=== PATIENT | female | born 1945 | race Caucasian/White ===

== ENCOUNTER → 2016-07-20 | Outpatient (CLI) | payer MEDICARE ==
[~2016-07-20] MED LIST: /ADVA50050 IN; /CELE20CA OR; /CLOT10TR PO; /MAGN64TA PO; /MOXI40TA OR; /PANT40TA OR; /PANT40TA PO; /ROPI25TA OR; ACET65TA OR; ACID1CAP PO; ADVAIR INH; ALBU17IN INH; ALBU83IN IN; ALBU83IN INH; ALBUTEROL INH; ALLE180T33 PO; ANALCRE5 TOP; ANEXSIA PO; ASPI81CH3 PO; ASPI81TA31 OR; ASPI81TA85 PO; ATRO1SOL13 NEB; ATROVENT0.02% INH; BACITAB3 PO; BENA25CA2 PO; BREO1INH IN; BREO1INH INH; BREO1INH3 INH; CALC600T7 PO; CALCCHW12 OR; CALCTAB68 PO; CALCTAB75 PO; CARA1TAB2 PO; CARV12.5 PO; CARV6.25 PO; CEFT250T8 PO; CEFT500T OR; CEPH500T PO; CETI10TA OR; CLOT1CRE71 TOP; COLA100C3 PO; CYCL10TA PO; CYMB1CAP4 PO; DIAZ2.5G PO; DIAZ5TAB PO; DICL13PA TD; DIFL200T PO; DIPH25CA PO; DOCU10CA PO; DOXY100T OR; DRIS50002 PO; DULC10SU2 PR; DUONSOL IN; DUONSOL NEB; ESTR625TA OR; FERR325T3 PO; FEXO180T58 PO; FLEEENE PR; FLEXERIL OR; FLEXERIL PO; FLUC10TA OR; FURO20TA2 PO; FURO40TA2 PO; GABA300T OR; HEPARIN SQ; HYDR-3716 PO; HYDR-3719 PO; HYDR-4266 PO; HYDR-4267 PO; IMIT50TA PO; IPRA2IN INH; IPRASOL4 INH; K-TA10TA2 PO; KEFL250C6 PO; KENALOG TOP; KLOR1TAB65 PO; KLOR1TAB69 PO; LASI20TA PO; LEVA250T PO; LIDO5DIS36 TD; LISI10TA4 OR; LOMO2.5T PO; LORT5TAB PO; LYRI75CA PO; MAGN400C PO; MAGN400T5 PO; MAGN64TASA PO; MAGNESIUM OXIDE OR; MELO15TA4 PO; MIAC1SPR; MICR10CA PO; MILKSUS PO; MIRA3350 PO; MOM30SS PO; MORP-38 PO; MORP15TA2 PO; MULTCAP PO; MULTIVIT OR; NEOSOIN TOP; NIFE30TA OR; NORC7.5T PO; NORV5TAB PO; NYST100024 TOP; NYST50SS SS; NYSTATIN ORAL SS; ORAGEL TOP; PANT40TA2 PO; POTA20TA PO; PRED10TA PO; PRED20TA PO; PREG25CA PO; PROC30TA PO; PROT1TAB2 PO; Proventil INH; ROPI4TAB PO; ROPI8TAB PO; ROXI1TAB2 PO; SLOWTAB3 PO; TESS100C PO; TESS200C OR; TUMS500C PO; TYLE325T5 PO; ULTR50TA PO; VALI2TAB PO; VALI5TAB PO; VANC1CAP7 PO; VENTAER IN; VITA100072 PO; VITA200015 PO; VITA500C24 PO; VITMTA PO; ZOFR8TAB4 PO; [UNRECOGNIZED DRUG - CODE] PO; [UNRECOGNIZED DRUG - OTHER] INH; [UNRECOGNIZED DRUG - OTHER] INH; allergy medicine OR; anexsia PO; lomotil OR; magnesium oxide OR; mycostatin PO; nefedipine OR; neosporin TOP
[2016-07-20 16:07] LABS: MEAN CORPUSCULAR HEMOGLOBIN 31.5 pg (27.0-33.0); MEAN CORPUSCULAR HGB CONC 32.6 g/dl (32.0-36.5); MEAN CORPUSCULAR VOLUME 96.7 fl (80.0-96.0); RED CELL DISTRIBUTION WIDTH 16.3 % (11.5-14.5); WHITE BLOOD COUNT 12.2 K/mm3 (4.0-10.0)
[2016-07-20 16:44] LABS: ALBUMIN 3.6 GM/DL (3.2-5.2); ALBUMIN/GLOBULIN RATIO 1.29 (1.00-1.93); BILIRUBIN,TOTAL 0.4 MG/DL (0.2-1.0); CALCIUM LEVEL 8.7 MG/DL (8.8-10.2); CREATININE FOR GFR 1.28 MG/DL (0.55-1.02); GLOMERULAR FILTRATION RATE 43.6 (>39); POTASSIUM SERUM 3.7 MEQ/L (3.5-5.1); TOTAL PROTEIN 6.4 GM/DL (6.4-8.2)
== END ==
LOC: M LAB 15:03
PROVIDERS: ATTEND Family Medicine
DX: N18.3 Chronic kidney disease, stage 3 (moderate) (principal); D63.8 Anemia in other chronic diseases classified elsewhere; M1A.9XX1 Chronic gout, unspecified, with tophus (tophi)

== ENCOUNTER → 2016-07-23 | Outpatient (REF) | payer MEDICARE | LOC: M LAB REF 18:31 | PROVIDERS: ATTEND Family Medicine | DX: R35.0 Frequency of micturition (principal) | CPT/HCPCS: 87088; 87186; G0463 ==

== ENCOUNTER 2016-08-26 10:10 | Emergency (ER) | payer MEDICARE ==
[~2016-08-26] VITALS: Ht 149.9 cm; Wt 50.3 kg
[~2016-08-26 10:10] MED LIST changes: +BACITAB PO; -BACITAB3 PO; -CARA1TAB2 PO; +CARA1TAB6 PO; -COLA100C3 PO; +COLA100C5 PO; +HYDR-3910 PO; +HYDR-3911 PO; -HYDR-4266 PO; -HYDR-4267 PO; +KEFL250C11 PO; -KEFL250C6 PO; +LEVA1TAB PO; -LEVA250T PO; -LIDO5DIS36 TD; +LIDO5DIS41 TD; -MIAC1SPR; +MIAC200S2; -NORC7.5T PO; +NORC7.5T35 PO; -NYST100024 TOP; +NYST1POW9 TOP; -ULTR50TA PO; +ULTR50TA8 PO
[2016-08-26] MEDS ORDERED: LEVO10VL IM (10:27)
[2016-08-26] MEDS ORDERED: LEVO50TA5 PO (10:27)
[2016-08-26] MEDS ORDERED: methylPREDNISolone INJ 125 MG/2 ML VIAL (J2930) IV ONE (10:30)
[2016-08-26] MEDS ORDERED: ALBUTEROL SULFATE 2.5 MG/0.5 ML INH NEB SOLN INH ONE (10:30)
[2016-08-26] MEDS ORDERED: IPRATROPIUM 0.5MG/ALBUTEROL 2.5MG INH SOL UD 3ML (DUONEB)(J7620) NEB ONE (10:30)
[2016-08-26 10:55] LABS: ABG HCO3 32.3 MEQ/L (22.0-26.0); ABG PARTIAL PRESSURE CO2 48.2 mmHg (35.0-45.0); ABG PARTIAL PRESSURE O2 79.5 mmHg (75.0-100.0); ABG STANDARD HCO3 30.8 MEQ/L (22.0-26.0); ABG TOTAL CO2 33.8 MEQ/L (23.0-31.0); ABG pH (ARTERIAL) 7.444 UNITS (7.350-7.450)
--- NOTE | 2016-08-26 12:13 | REP ---
AP PORTABLE CHEST: 08/26/2016. Clinical history: Dyspnea, cough. Findings: Lung hoffman show adequate level of inflation. There is no effusion, dense consolidation, lateral pleural thickening or parenchymal mass. Some underlying minor fibrotic changes are seen. The pulmonary arteries are mildly prominent but there is no pulmonary venous hypertension. The heart is not enlarged. The aorta is calcified at the arch without aneurysm. There is bilateral shoulder arthroplasty evident and anterior and posterior cervical fusion noted with the pedicle screws and arch bars posteriorly and a plate and screw fixation anteriorly. Impression: 1. Some underlying fibrotic changes of COPD with pulmonary hypertension. No cardiomegaly, edema, effusion or acute infiltrate. 2. Prior cervical fusion and bilateral total shoulder arthroplasty. Signed by Chilango Sánchez MD 08/26/2016 03:56 P
[2016-08-26 12:43] LABS: BASO # 0.1 K/mm3 (0.0-0.2); BASO % 0.6 % (0.0-1.0); EOS # 0.2 K/mm3 (0.0-0.50); EOS % 1.8 % (0.0-3.0); LARGE UNSTAINED CELL # 0.1 K/mm3 (0.0-0.4); LARGE UNSTAINED CELL % 0.6 % (0.0-4.0); LYMPH # 1.5 K/mm3 (1.5-4.5); LYMPH % 10.8 % (24.0-44.0); MEAN CORPUSCULAR HEMOGLOBIN 30.3 pg (27.0-33.0); MEAN CORPUSCULAR HGB CONC 32.3 g/dl (32.0-36.5); MEAN CORPUSCULAR VOLUME 93.8 fl (80.0-96.0); MONO # 0.5 K/mm3 (0.0-0.8); NEUTROPHILS # 10.6 K/mm3 (1.8-7.7); NEUTROPHILS % 82.2 % (36.0-66.0); PLATELET COUNT, AUTOMATED 293 k/mm3 (150-450); RED CELL DISTRIBUTION WIDTH 15.2 % (11.5-14.5); WHITE BLOOD COUNT 12.9 K/mm3 (4.0-10.0)
[2016-08-26 12:53] LABS: ALBUMIN 3.4 GM/DL (3.2-5.2); ALBUMIN/GLOBULIN RATIO 1.21 (1.00-1.93); ALKALINE PHOSPHATASE 110 U/L (45-117); ALT/SGPT 25 U/L (12-78); ANION GAP 8 MEQ/L (8-16); AST/SGOT 20 U/L (15-37); BILIRUBIN,DIRECT 0.2 MG/DL (0.0-0.2); BILIRUBIN,TOTAL 0.8 MG/DL (0.2-1.0); BLOOD UREA NITROGEN 27 MG/DL (7-18); CALCIUM LEVEL 9.6 MG/DL (8.8-10.2); CARBON DIOXIDE LEVEL 35 MEQ/L (21-32); CHLORIDE LEVEL 99 MEQ/L (98-107); CREATININE FOR GFR 0.92 MG/DL (0.55-1.02); GLOMERULAR FILTRATION RATE > 60.0 (>39); GLUCOSE, FASTING 89 MG/DL (83-110); POTASSIUM SERUM 3.3 MEQ/L (3.5-5.1); SODIUM LEVEL 142 MEQ/L (136-145); TOTAL PROTEIN 6.2 GM/DL (6.4-8.2)
[2016-08-26 12:58] LABS: THYROXINE (T4) 10.9 UG/DL (4.5-12.0)
[2016-08-26] MEDS ORDERED: HEPARIN DRIP 25,000 UNITS in APPROPRIATE DILUENT 1 EA IV SCH (13:23)
[2016-08-26] MEDS ORDERED: FUROSEMIDE 20 MG/2 ML VIAL (J1940) IV ONE (13:30)
[2016-08-26] MEDS ORDERED: HEPARIN SOD (PORCINE) 5000 UNITS/ML VIAL IV ONE (13:30)
[2016-08-26 13:41] LABS: INR 0.94
[2016-08-26] MEDS ORDERED: PERCOCET 5MG/325MG TAB PO ONE (16:15)
[2016-08-26 16:28] VITALS: BP 114/58
--- NOTE | 2016-08-26 17:55 | ECGEPIP ---
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
[2017-01-01] MEDS ORDERED: METH4TAB28 PO (15:46)
== END 2016-08-26 16:38 | disposition short-term general hospital (02) ==
LOC: M ED 11:22
DX: I21.4 Non-ST elevation (NSTEMI) myocardial infarction (principal); R06.00 Dyspnea, unspecified; J44.9 Chronic obstructive pulmonary disease, unspecified; I27.0 Primary pulmonary hypertension; I25.10 Atherosclerotic heart disease of native coronary artery without angina pectoris; N18.3 Chronic kidney disease, stage 3 (moderate); E78.00 Pure hypercholesterolemia, unspecified; M19.90 Unspecified osteoarthritis, unspecified site; Z87.891 Personal history of nicotine dependence; Z96.612 Presence of left artificial shoulder joint; Z98.1 Arthrodesis status; Z79.51 Long term (current) use of inhaled steroids
CPT/HCPCS: 36415; 36600; 71010; 80048; 80076; 82550; 82553; 82803; 83605; 83880; 84436; 84443; 84484; 85025; 85610; 85730; 87040; 93005; 93041; 94640; 96374; 96375; 99285; J1940; J2930

== ENCOUNTER → 2016-09-07 | Outpatient (CLI) | payer MEDICARE ==
[~2016-09-07] MED LIST changes: +AMLO10TA2 PO; +ASPI81TA21 PO; +BENA25CA4 PO; +CARV3.12 PO; +CEFD300CAP PO; +GABA-283 PO; +GABA600T PO; +HYDR200T3 PO; +IMOD2TAB16 PO; +LEVO10VL IM; +LEVO50TA5 PO; +MEDR4TAB PO; +METH4TAB28 PO; +METH8TAB4 PO; +OPTI4PAD XX; +OPTI6PAD XX; +POTA10TA16 PO; +SPIR25TA2 PO; +ZYLO300T4 PO
[2016-09-07 12:35] LABS: ALBUMIN 3.9 GM/DL (3.2-5.2); CALCIUM LEVEL 9.3 MG/DL (8.8-10.2); CREATININE FOR GFR 1.5 MG/DL (0.55-1.02); GLOMERULAR FILTRATION RATE 36.2 (>39); MAGNESIUM LEVEL 2.1 MG/DL (1.8-2.4); PHOSPHORUS LEVEL 3.3 MG/DL (2.5-4.9); URIC ACID 5.5 MG/DL (2.6-6.0)
[2016-09-07 12:43] LABS: ADD MANUAL DIFFER YES; MEAN CORPUSCULAR HEMOGLOBIN 30.1 pg (27.0-33.0); MEAN CORPUSCULAR HGB CONC 31.6 g/dl (32.0-36.5); MEAN CORPUSCULAR VOLUME 95.2 fl (80.0-96.0); RED CELL DISTRIBUTION WIDTH 15.5 % (11.5-14.5); WHITE BLOOD COUNT 26.2 K/mm3 (4.0-10.0)
[2016-09-07 13:16] LABS: BANDS 1 % (< 11)
[2016-09-07 13:17] LABS: ANISOCYTOSIS 1+
[2016-09-08 07:13] LABS: PLATELET COUNT, AUTOMATED 404 k/mm3 (150-450)
== END ==
LOC: M LAB 11:42
PROVIDERS: ATTEND Internal Medicine Nephrology
DX: N18.3 Chronic kidney disease, stage 3 (moderate) (principal); I50.22 Chronic systolic (congestive) heart failure; N25.81 Secondary hyperparathyroidism of renal origin; E55.9 Vitamin D deficiency, unspecified

== ENCOUNTER 2016-09-17 12:37 | Outpatient (RCR) | payer MEDICARE ==
[~2016-09-17 12:37] MED LIST changes: -AMLO10TA2 PO; -ASPI81TA21 PO; -BENA25CA4 PO; -CARV3.12 PO; -CEFD300CAP PO; -GABA-283 PO; -GABA600T PO; -HYDR200T3 PO; -IMOD2TAB16 PO; -MEDR4TAB PO; -METH4TAB28 PO; -METH8TAB4 PO; -OPTI4PAD XX; -OPTI6PAD XX; -POTA10TA16 PO; -SPIR25TA2 PO; -ZYLO300T4 PO
[2017-01-01] MEDS ORDERED: METH4TAB28 PO (15:46)
== END 2016-10-06 ==
LOC: M PR 12:37
PROVIDERS: ATTEND Internal Medicine Pulmonary Disease
DX: Z51.89 Encounter for other specified aftercare (principal); J44.9 Chronic obstructive pulmonary disease, unspecified

== ENCOUNTER → 2016-10-13 | Outpatient (CLI) | payer MEDICARE ==
[~2016-10-13] MED LIST changes: +AMLO10TA2 PO; +ASPI81TA21 PO; +BENA25CA4 PO; +CARV3.12 PO; +CEFD300CAP PO; +GABA-283 PO; +GABA600T PO; +HYDR200T3 PO; +IMOD2TAB16 PO; +MEDR4TAB PO; +METH4TAB28 PO; +METH8TAB4 PO; +OPTI4PAD XX; +OPTI6PAD XX; +POTA10TA16 PO; +SPIR25TA2 PO; +ZYLO300T4 PO
[2016-10-13 14:25] LABS: CALCIUM LEVEL 9.3 MG/DL (8.8-10.2); CREATININE FOR GFR 0.97 MG/DL (0.55-1.02); GLOMERULAR FILTRATION RATE 59.9 (>39); MAGNESIUM LEVEL 2.4 MG/DL (1.8-2.4); POTASSIUM SERUM 4.4 MEQ/L (3.5-5.1)
== END ==
LOC: M LAB 13:02
PROVIDERS: ATTEND Family Medicine
DX: E87.6 Hypokalemia (principal)

== ENCOUNTER → 2016-10-17 | Outpatient (CLI) | payer MEDICARE ==
[2016-10-17 20:06] LABS: ALBUMIN 3.2 GM/DL (3.2-5.2); CALCIUM LEVEL 9.4 MG/DL (8.8-10.2); CREATININE FOR GFR 1.52 MG/DL (0.55-1.02); GLOMERULAR FILTRATION RATE 35.7 (>39); MAGNESIUM LEVEL 2.1 MG/DL (1.8-2.4); POTASSIUM SERUM 4.5 MEQ/L (3.5-5.1)
== END ==
LOC: M LAB 19:19
PROVIDERS: ATTEND Family Medicine
DX: N18.3 Chronic kidney disease, stage 3 (moderate) (principal)

== ENCOUNTER 2016-10-18 15:39 | Inpatient (IN) | payer MEDICARE ==
[~2016-10-18] VITALS: Ht 149.9 cm; Wt 48.4 kg
[~2016-10-18 15:39] MED LIST changes: -AMLO10TA2 PO; -ASPI81TA21 PO; -BENA25CA4 PO; -CARV3.12 PO; -CEFD300CAP PO; -GABA-283 PO; -GABA600T PO; -HYDR200T3 PO; -IMOD2TAB16 PO; -MEDR4TAB PO; -METH4TAB28 PO; -METH8TAB4 PO; -OPTI4PAD XX; -OPTI6PAD XX; -POTA10TA16 PO; -SPIR25TA2 PO; -ZYLO300T4 PO
[2016-10-18 18:25] LABS: BASO % 0.1 % (0.0-1.0); EOS # 0.2 K/mm3 (0.0-0.50); EOS % 1.3 % (0.0-3.0); LARGE UNSTAINED CELL # 0.1 K/mm3 (0.0-0.4); LARGE UNSTAINED CELL % 0.5 % (0.0-4.0); LYMPH # 0.7 K/mm3 (1.5-4.5); LYMPH % 4.2 % (24.0-44.0); MEAN CORPUSCULAR HEMOGLOBIN 29.7 pg (27.0-33.0); MEAN CORPUSCULAR HGB CONC 31.4 g/dl (32.0-36.5); MEAN CORPUSCULAR VOLUME 94.5 fl (80.0-96.0); MONO # 0.5 K/mm3 (0.0-0.8); MONO % 3.3 % (0.0-5.0); NEUTROPHILS # 12.9 K/mm3 (1.8-7.7); NEUTROPHILS % 90.5 % (36.0-66.0); PLATELET COUNT, AUTOMATED 243 k/mm3 (150-450); RED CELL DISTRIBUTION WIDTH 16.9 % (11.5-14.5); WHITE BLOOD COUNT 14.2 K/mm3 (4.0-10.0)
--- NOTE | 2016-10-18 18:40 | REPUSA ---
CLINICAL HISTORY: R/o DVT. COMMENTS: Real time sonography with duplex doppler of the right lower extremity was performed with attention to the major deep venous structures. Evaluation reveals the right common femoral, superficial femoral and popliteal veins to be completely compressible without intraluminal thrombus. There is normal spontaneous phasic flow and augmentation . The greater saphenous/common femoral vein junction is patent. IMPRESSION: No evidence of DVT in right lower extremity. Thank you for your kind referral of this patient.
[2016-10-18 18:42] LABS: ERYTHROCYTE SEDIMENTATION RATE 53 mm/hr (0-30)
[2016-10-18 18:48] LABS: ALBUMIN 2.9 GM/DL (3.2-5.2); ALBUMIN/GLOBULIN RATIO 0.97 (1.00-1.93); BILIRUBIN,DIRECT 0.3 MG/DL (0.0-0.2); BILIRUBIN,TOTAL 0.9 MG/DL (0.2-1.0); CALCIUM LEVEL 8.4 MG/DL (8.8-10.2); CREATININE FOR GFR 1.1 MG/DL (0.55-1.02); GLOMERULAR FILTRATION RATE 51.8 (>39); MAGNESIUM LEVEL 2.1 MG/DL (1.8-2.4); POTASSIUM SERUM 3.3 MEQ/L (3.5-5.1); TOTAL PROTEIN 5.9 GM/DL (6.4-8.2)
[2016-10-18] MEDS ORDERED: ONDANSETRON 4MG/2ML VIAL (J2405) IV PRN (19:30)
[2016-10-18] MEDS ORDERED: ACETAMINOPHEN TAB 650MG DOSE (2X325MG) PO PRN (19:30)
[2016-10-18] MEDS ORDERED: POTASSIUM CHLORIDE 10 MEQ SR TABLET PO ONE (20:00)
[2016-10-18] MEDS ORDERED: CEFTAROLINE FOSAMIL 400 MG in D5W MINI-BAG PLUS 50 ML IV ONE (20:00)
[2016-10-18] MEDS ORDERED: diphenhydrAMINE INJ 50MG/ML VIAL (J1200) IV PRN (20:00)
[2016-10-18] MEDS ORDERED: CARV3.12 PO (20:09)
[2016-10-18] MEDS ORDERED: ALBU83IN INH (20:09)
[2016-10-18] MEDS ORDERED: POTA10TA16 PO (20:09)
[2016-10-18] MEDS ORDERED: GABA600T PO (20:09)
[2016-10-18] MEDS ORDERED: FURO40TA2 PO (20:09)
[2016-10-18] MEDS ORDERED: MAGN64TASA PO (20:09)
[2016-10-18] MEDS ORDERED: IPRA2IN INH (20:09)
[2016-10-18] MEDS ORDERED: BENA25CA4 PO (20:09)
[2016-10-18] MEDS ORDERED: METH8TAB4 PO (20:12)
[2016-10-18] MEDS ORDERED: ASPI81TA21 PO (20:12)
[2016-10-18] MEDS ORDERED: ZYLO300T4 PO (20:12)
[2016-10-18] MEDS ORDERED: CYCL10TA PO (20:12)
[2016-10-18] MEDS ORDERED: IMOD2TAB16 PO (20:12)
[2016-10-18] MEDS ORDERED: AMLO10TA2 PO (20:12)
[2016-10-18] MEDS ORDERED: NYST50SS SS (20:12)
[2016-10-18] MEDS ORDERED: CARVedilol 12.5 MG TAB PO SCH (21:00)
[2016-10-18] MEDS: **NOTE PATIENT COMMENT** MISC XX SCH (21:00)
[2016-10-18] MEDS ORDERED: MORPHINE 30 MG TAB **MSIR PO PRN (21:15)
[2016-10-18] MEDS ORDERED: SUMAtriptan SUCCINATE 25 MG TAB PO PRN (21:15)
[2016-10-18] MEDS ORDERED: MOM 30ML SUSPENSION UDC PO PRN (21:15)
[2016-10-18] MEDS ORDERED: NYSTATIN 100,000 UNITS/GM TOPICAL PWD 15 GM TOP PRN (21:15)
[2016-10-18] MEDS ORDERED: IPRATROPIUM 0.5MG/ALBUTEROL 2.5MG INH SOL UD 3ML (DUONEB)(J7620) NEB PRN (21:30)
[2016-10-18 22:30] VITALS: BP 136/69
[2016-10-18 22:35] LABS: INR 0.9
[2016-10-18] MEDS ORDERED: MORPHINE 15 MG SA TAB PO PRN (22:37)
--- NOTE | 2016-10-18 22:38 | HPE ---
DATE OF ADMISSION: 10/18/2016 TIME: Patient was seen at 2000 PRIMARY CARE PROVIDER: Dr. Gusman. HOSPITAL ATTENDING FOR [facility]: Dr.Damian Recinos CHIEF COMPLAINT: Fall with left lower extremity abrasion and cellulitis. HISTORY OF PRESENT ILLNESS: 71-year-old female with a past medical history of systolic and diastolic heart failure, however, last ejection fraction was 55% in August 2016, hypertension, gastroesophageal reflux disease (GERD), coronary artery disease status post cardiac catheterization, however, no stents placed, vertebral fractures, chronic kidney disease stage III with left renal artery stenosis, chronic obstructive pulmonary disease (COPD), bronchitis on oxygen 2 liters nasal cannula at home, hyperlipidemia, peripheral vascular disease of the lower extremity, urinary retention, lumbar and cervical spondylosis, osteoarthritis, irritable bowel syndrome, multiple rib fractures, necrotic granuloma of the right upper lung, history of aspiration, declines honey thickened liquid, gout, and hypothyroidism, presented with a fall 2 days ago at patient's home. She landed on the right side; however, she had abrasion of the left lower extremity and also on her hands. She stated that when she fell she did not hit her head. She did not feel dizzy when she fell. It was mechanical in nature. However, according to patient afterwards she has been walking wobbly and has severe pain in the left lower extremity. Patient also admits to some loose stool; however, she does have a history of loose stool in the past. Denies any diarrhea. Denies any nausea or any problem with urination, dysuria, burning on urination, or blood in the urine. Denies any fever or chills, any chest pain, trouble breathing. Admits to chronic leg numbness and right arm numbness. She was going to schedule for a surgery for, per patient, a pinched nerve of the right arm; however, she did not go due to her potassium was low. Otherwise, she also had some swelling in the lower extremities and before she was on Lasix 40 mg daily and she was changed to 40 mg twice a day just 2 weeks ago. ALLERGIES: She is allergic to AMITRIPTYLINE which gives her anaphylaxis and NITROFURANTOIN gives her chest pain, LASIX with unknown reaction, NITRATE makes her blood pressure drop, TIZANIDINE which also lowers her blood pressure, CELECOXIB gives her kidney problems, NAPROXEN gives her diarrhea, QUINOLONES give her diarrhea, SULFA DRUGS give her diarrhea. HOME MEDICATIONS: Including: - Tylenol/hydrocodone one tablet by mouth four times a day - Ventolin two puffs inhalation four times a day as needed - albuterol sulfate one inhalation twice a day - allopurinol 300 mg one tablet by mouth daily - amlodipine 10 mg one tablet by mouth daily - aspirin 81 mg one tablet by mouth daily - carvedilol 3.125 mg one tablet by mouth twice a day - cyclobenzaprine 10 mg one tablet by mouth three times a day - Benadryl 25 mg by mouth daily - Breo 225 mcg inhalation daily - Lasix 40 mg one tablet by mouth twice a day - gabapentin 600 mg one tablet by mouth three times a day - ipratropium one inhalation twice a day - Synthroid 50 mcg by mouth every morning - Imodium 2 mg by mouth every 4 hours as needed - magnesium 60 mg by mouth daily - methylprednisone 80 mg by mouth nightly - milk of magnesia 30 mg one tablet by mouth twice a day - morphine sulfate 15 mg by mouth every 6 hours as needed - multivitamin one tablet by mouth daily - nystatin powder as needed for rash - nystatin mouthwash - pantoprazole 40 mg one tablet by mouth nightly - potassium chloride 30 mEq by mouth twice a day - ropinirole 8 mg by mouth nightly - Imitrex 50 mg one tablet by mouth daily as needed PAST MEDICAL HISTORY: Includin. Congestive heart failure (CHF), diastolic, however, has history of systolic dysfunction, ejection fraction was 55% in August 2016. 2. Coronary artery disease, has two cardiac catheterizations, however, no stent placed. 3. Hypertension. 4. GERD. 5. Vertebral fracture. 6. Impingement of the nerves on the right arm. 7. Chronic kidney disease stage III with left renal artery stenosis. 8. Chronic respiratory failure with COPD, bronchitis and 2 liters of oxygen as needed at home. 9. Hyperlipidemia. 10. Peripheral vascular disease of lower extremity. 11. Urinary retention. 12. Lumbar and cervical spondylosis. 13. Arthritis. 14. Multiple fractures. 15. Irritable bowel syndrome. 16. Hypothyroidism. 17. Gout. 18. Necrotic granuloma of the right upper lobe. 19. History of aspiration, currently declines honey thickened liquids. PAST SURGICAL HISTORY: Includin. Total hysterectomy. 2. Left abdominal abscess drainage. 3. Bilateral foot surgery. 4. Right total knee replacement. 5. Bilateral rotator cuff injury. 6. L5-S1 laminectomy. 7. Appendectomy. 8. Tonsillectomy. 9. Cervical spine surgeries. SOCIAL HISTORY: Patient used to smoke 40 years ago. Currently, does not drink or use any recreational drugs. According to previous medical record, patient used to smoke e-cigarette. FAMILY HISTORY: Noncontributory. REVIEW OF SYSTEMS: GENERAL: Patient denies any recent traveling, sick contact. Admits to roughly 5-pound weight loss; however, was secondary to diuresis per patient. Denies any fever or chills. HEENT: Denies any changes with vision, smell, hearing or taste. CARDIOVASCULAR: Denies any chest pain, trouble breathing, any palpitations. PULMONARY: Denies any trouble breathing; however, is currently on oxygen. Per patient, has not changed from her baseline. ABDOMEN: Denies any abdominal pains, nausea, vomiting. Admits to some loose stools. Denies any constipation. Denies any blood in the stool. GENITOURINARY (): Denies any problem with urination, dysuria, urgency, blood in urine. MUSCULOSKELETAL: Admits to chronic pains due to osteoarthritis. HEMATOLOGY/ONCOLOGY: Denies any night sweats. Admits to ease of bruising, ease of skin tears. Denies any bleeding anywhere. ENDOCRINE: Admits to hypothyroidism. NEUROLOGICAL: Denies any weakness on any one side of her body. Admits to dizziness. PSYCHIATRIC: Denies any anxiety, depression. PHYSICAL EXAMINATION: VITAL SIGNS: Temperature 98.4, pulse 107, respirations 18, blood pressure 117/59. GENERAL: Patient is a pleasant, thin-looking elderly female who appears to be older than her calendar years, who was alert, awake, and oriented times three. Does not appear to be in distress, lying comfortably in bed with head elevated at 60 degrees. HEENT: Normocephalic, atraumatic. Extraocular motor intact. Mucosa moist. NECK: Supple, no neck lymphadenopathy. CARDIOVASCULAR: Difficult to auscultate due to increased AP diameter. However, appears to be tachycardic. LUNGS: Clear to auscultation bilaterally. No wheezing, rales or rhonchi. ABDOMEN: Positive bowel sounds, soft, nontender. No peritoneal signs. No ecchymosis. EXTREMITIES: Right hip was painful to palpation. Patient's bilateral hands have abrasion and also abrasion on the bilateral arms. The most significant abrasion was in the left lower extremity, which appears to be a skin tear, was eryhthematous, however, no purulent drainage. The size is roughly 15 cm longitudinally and about 2 cm wide. Patient also has petechiae on her left lower extremity, especially on the feet and also on her forehead, which patient's family stated was possibly due to steroid. SKIN: Warm and dry as stated above. NEUROLOGIC: Cranial nerves II-XII intact. LABORATORY DATA: WBC 14.2, hemoglobin 11.3, hematocrit 36.1 with platelet count of 243, MCV 94.5. ESR was 53. Sodium 139, potassium 3.3, chloride 98, bicarbonate 35, anion gap 6, BUN 29, creatinine 1.1, GFR 51.8, fasting glucose 92, calcium 8.4, magnesium 2.1, total bilirubin 0.9, direct bilirubin 0.3, AST 14, ALT 23, alkaline phosphatase 115, CRP was 13, total protein 5.9, albumin 2.9. Blood culture times two are pending. Wound culture is pending. Patient had a Doppler duplex of left lower extremity. Did not show any deep venous thrombosis (DVT). Patient's tibial fibular x-ray and knee x-ray results are pending. Also a femoral x-ray of the right hip has been ordered. Result is pending as well. EKG: Sinus tachy VR 114 ASSESSMENT AND PLAN: 71-year-old female with multiple comorbidities, most significantly systolic and diastolic heart failure and coronary artery disease with no stents in the past, peripheral arterial disease, history of aspiration, history of chronic pain and also history of chronic respiratory failure due to chronic obstructive pulmonary disease (COPD), bronchitis on 2 liters of oxygen as needed at home, presented with: 1. Fall. Possibly mechanical, however, patient did state she was dizzy. Medications such as gabapentin have been on hold. Will hold medications that will cause increased dizziness such as Benadryl and will continue to monitor patient. Followup with the x-rays. Possibly consulting orthopedics if there is a fracture, however, so far x-rays did not show any fracture. We will continue home medication for pain control. Will add on a Lidoderm patch for the left lower extremity and consult wound care for wound management. Due to patient has increased pain, possible cellulitis, patient has been started on Teflaro 400 mg intravenously (IV) every 12 hours. Will also start patient on Bacid for Clostridium (C) difficile prevention.She was also bradycardic when standing up. Laying HR was 110 standing HR was 44. 2. Coronary artery disease and HFpEF. Continue aspirin, beta jacklyn and continue to monitor patient. Lasix has been reduced to 20mg daily from 40 mg bid. 3. History of chronic respiratory failure, COPD with oxygen as needed at home. Continue Breo. 4. History of chronic kidney disease stage III with left renal artery stenosis. Stable. Continue to monitor. 5. History of chronic pains. Will hold patient's gabapentin and other medication would cause increased dizziness and continue to monitor patient. 6. Peripheral vascular disease. Continue aspirin. 7. Urinary retention. Will scan patient's bladder. If it is greater than 300, will possibly start straight catheterizing. 8. Peripheral arterial disease. Currently, patient's feet are warm to touch. Will continue to monitor. If patient's toes turn purple, will likely need an emergent consultation for vascular surgery. 9. Hypothyroidism. Continue home medication. 10. History of gout. Continue home medication. 11. Deep venous thrombosis (DVT) prophylaxis. Continue Lovenox. 12. Fluid, electrolyte and diet. Will continue to monitor patient. Patient's Lasix has been reduced from 40 mg twice a day to 20 mg daily. Continue to monitor intake and output (I and O) and replete potassium as needed. DISPOSITION: Patient has fall, possibly from dizziness versus mechanical. Patient's medication will likely need to be closely examined before discharge. Otherwise, physical therapy has been consulted. Will follow their recommendations as well. Continue IV antibiotics for now. Patient has been discussed with attending doctor, Dr. Vaz. My preceptor for this patient encounter was Dr. Jessica Vaz. The preceptor was physically present in the building during the encounter and was fully available as needed. All aspects of the patient interview, examination, medical decision making process, and medical care plan development were reviewed and approved by the preceptor. The preceptor is aware and concurs with the plan as stated in the body of this note and will attest to such by his/her co-signature. Internal Medicine Attending Addendum: I have independently interviewed and examined this patient at the bedside, discussed the management plan with my Resident Physician, Dr. Rafiq Franz, and agree with the documentation as written above. Dr. Izaiah Recinos will assume care of this patient at 0700 am 10/20/16. WAGNER
[2016-10-18 22:41] VITALS: BP_SYST 116; BP_SYST 133; BP_SYST 136; BP_DIAS 57; BP_DIAS 69; BP_DIAS 80
[2016-10-18 22:48] VITALS: BP 116/57
[2016-10-18] MEDS: IPRATROPIUM 0.5MG/ALBUTEROL 2.5MG INH SOL UD 3ML (DUONEB)(J7620) NEB SCH (23:36)
[2016-10-18] MEDS: PANTOPRAZOLE 40MG TAB (PROTONIX) PO SCH (23:45)
[2016-10-18] MEDS: ENOXAPARIN 40 MG/0.4 ML SYRINGE (J1650) SC SCH (23:45)
[2016-10-19] MEDS ORDERED: rOPINIRole 1MG TAB PO ONE (01:00)
[2016-10-19] MEDS: MORPHINE 30 MG TAB **MSIR PO PRN ×2 (01:05→18:17)
[2016-10-19] MEDS: LEVOTHYROXINE 50MCG TABLET (0.05MG) PO SCH (05:40)
[2016-10-19 05:56] LABS: BASO % 0.2 % (0.0-1.0); EOS # 0.2 K/mm3 (0.0-0.50); EOS % 1.5 % (0.0-3.0); LARGE UNSTAINED CELL # 0.1 K/mm3 (0.0-0.4); LARGE UNSTAINED CELL % 0.7 % (0.0-4.0); LYMPH # 0.7 K/mm3 (1.5-4.5); LYMPH % 4.6 % (24.0-44.0); MEAN CORPUSCULAR HEMOGLOBIN 29.4 pg (27.0-33.0); MEAN CORPUSCULAR HGB CONC 30.8 g/dl (32.0-36.5); MEAN CORPUSCULAR VOLUME 95.7 fl (80.0-96.0); MONO # 0.5 K/mm3 (0.0-0.8); MONO % 3.8 % (0.0-5.0); NEUTROPHILS # 12.1 K/mm3 (1.8-7.7); NEUTROPHILS % 89.2 % (36.0-66.0); PLATELET COUNT, AUTOMATED 260 k/mm3 (150-450); RED CELL DISTRIBUTION WIDTH 16.8 % (11.5-14.5); WHITE BLOOD COUNT 13.6 K/mm3 (4.0-10.0)
[2016-10-19 06:00] VITALS: BP 124/54
[2016-10-19 06:08] LABS: ANION GAP 7 MEQ/L (8-16); BLOOD UREA NITROGEN 26 MG/DL (7-18); CALCIUM LEVEL 8.8 MG/DL (8.8-10.2); CARBON DIOXIDE LEVEL 31 MEQ/L (21-32); CHLORIDE LEVEL 103 MEQ/L (98-107); CREATININE FOR GFR 0.86 MG/DL (0.55-1.02); GLOMERULAR FILTRATION RATE > 60.0 (>39); GLUCOSE, FASTING 109 MG/DL (83-110); POTASSIUM SERUM 3.9 MEQ/L (3.5-5.1); SODIUM LEVEL 141 MEQ/L (136-145)
--- NOTE | 2016-10-19 07:27 | REP ---
Left tibia-fibula four views: There is no fracture or dislocation. Mineralization joint spaces are normal. There are no calcifications or foreign bodies. Impression: Negative left tibia fibula. Signed by Oc Leonard MD 10/19/2016 07:18 A
--- NOTE | 2016-10-19 07:30 | ECGEPIP ---
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
--- NOTE | 2016-10-19 07:36 | REP ---
Chest, single AP view, the patient supine, 09:41 p.m.: Comparisons are the portable chest of 08/26 2016 and PA and lateral chest of 01/18/2016. There is focal interstitial coarsening in the right lower lobe as an interval change compatible with a new right lower lobe infiltrate. The remainder of the lung hoffman are clear and unchanged. Cardiac size is normal. The truman and mediastinum are unchanged. There is internal fixation of the cervical spine and there are bilateral shoulder arthroplasties. These are unchanged. There is surgical fusion of the lumbar spine. This is also unchanged. There are old right rib fractures. Impression: Right lower lobe infiltrate. Signed by Oc Leonard MD 10/19/2016 07:28 A
--- NOTE | 2016-10-19 07:38 | REP ---
Right hip two views: Comparison is 10/04/2015. There is no fracture or dislocation. Mineralization joint space are unremarkable and unchanged. There is a calcification adjacent to the greater trochanter, unchanged, degenerative versus calcific tendonitis. There is a degenerative calcification inferior to the right ischium, unchanged. Soft tissue calcifications are identified lateral to the proximal femoral shaft, unchanged, possibly from prior trauma. Impression: No fracture or dislocation. Signed by Oc Leonard MD 10/19/2016 07:30 A
[2016-10-19] MEDS: IPRATROPIUM 0.5MG/ALBUTEROL 2.5MG INH SOL UD 3ML (DUONEB)(J7620) NEB SCH ×4 (07:39→12:51)
[2016-10-19] MEDS ORDERED: CEFTAROLINE FOSAMIL 600 MG in D5W MINI-BAG PLUS 50 ML IV SCH (08:00)
[2016-10-19] MEDS ORDERED: CEFTAROLINE FOSAMIL 400 MG in D5W MINI-BAG PLUS 50 ML IV SCH (08:00)
[2016-10-19] MEDS ORDERED: MULTIVITAMINS/MINERALS THERAP 1 TAB PO SCH (09:00)
[2016-10-19] MEDS ORDERED: LEVOTHYROXINE 50MCG TABLET (0.05MG) PO SCH (09:00)
[2016-10-19] MEDS: LACTOBACILLUS ACIDOPHILUS CAP (BACID) PO SCH ×2 (09:26→17:36)
[2016-10-19] MEDS: POTASSIUM CHLORIDE 10 MEQ SR TABLET PO SCH (09:26)
[2016-10-19] MEDS: CARVedilol 3.125 MG TAB PO SCH ×2 (09:27→20:31)
[2016-10-19] MEDS: ASPIRIN 81 MG ENTERIC TAB PO SCH (09:27)
[2016-10-19] MEDS: ALLOPURINOL 300 MG TAB PO SCH (09:27)
[2016-10-19] MEDS: FUROSEMIDE 20 MG TAB PO SCH (09:27)
[2016-10-19] MEDS: MULTIVITAMINS/MINERALS THERAP 1 TAB PO SCH (09:27)
[2016-10-19] MEDS: LIDOCAINE 5% (LIDODERM) PATCH TD SCH (09:28)
--- NOTE | 2016-10-19 10:11 | REP ---
Left knee four views: There is no fracture or dislocation. There is no hemarthrosis. There is calcified atheroma in the popliteal artery. Mineralization joint spaces are normal. Impression: Essentially negative left knee. Signed by Oc Leonard MD 10/19/2016 10:02 A
[2016-10-19] MEDS: CEFTAROLINE FOSAMIL 400 MG in D5W MINI-BAG PLUS 50 ML IV SCH ×2 (12:03→23:09)
--- NOTE | 2016-10-19 12:03 | IPNPDOC ---
Subjective Date Seen The patient was seen on 10/19/16. Subjective Chief Complaint/HPI The patient is a 71-year-old female admitted with a reason for visit of Cellulitis Of Left Lower Extremity. Events since last encounter Pt cont to have LLE pain, but states this has improved somewhat. Denies fevers, chills, or sweats. Some SOB and requests albuterol and ipratroprium nebs separately because she is "allergic to the additive in duo-nebs, but they are fine separately. Denies any cough, chest pain, or orthopnea. Constitutional: Denies: Chills, Fever Skin: Reports: Other (Multiple skin tears after fall) Pulmonary: Denies: Dyspnea, Cough Musculoskeletal: Reports: Leg Pain (L posterior leg) Other systems 10-pt ROS otherwise negative Objective Physical Examination General Exam: Positive: Alert, Cooperative, No Acute Distress Eye Exam: Positive: PERRLA, Conjunctiva & lids normal, Negative: EOMI ENT Exam: Positive: Atraumatic, Mucous membr. moist/pink Neck Exam: Positive: Supple, Negative: JVD, thyromegaly Chest Exam: Positive: Clear to auscultation, Normal air movement, Diminished, Negative: Rales, Rhonchi, Wheezing Heart Exam: Positive: Rate Normal, Normal S1, Normal S2, Murmurs (2/6 SUKUMAR) Abdomen Exam: Positive: Normal bowel sounds, Soft, Negative: Tenderness Skin Exam: Positive: Nl turgor and temperature, Other skin issue (skin tears; L lower extremity with palpable pain), Negative: Rash Assessment /Plan Problems (1) Cellulitis of left lower extremity Problem Text: WBC 13.6 with elevated CRP. Normal lactate. Tachy. Meeting sepsis criteria. Currently on ceftaroline dose 2. Vital stable, and patient appears relatively well. -Continue broad-spectrum antibiotics -Narrow pending cultures (2) COPD exacerbation Status: Chronic Problem Text: PRN necessary nebs (3) CKD (chronic kidney disease) Status: Chronic (4) Chronic GERD Status: Chronic Plan/VTE VTE Prophylaxis Ordered?: Yes (lovenox) VS, I&O, 24H, Fishbone Vital Signs/I&O Vital Signs Date Time Temp Pulse Resp B/P (MAP) Pulse Ox O2 Delivery O2 Flow Rate FiO2 10/19/16 09:27 110 138/66 10/19/16 06:00 99.1 16 92 Nasal Cannula 2.0 I&O- Last 24 Hours up to 6 AM 10/19/16 06:00 Intake Total 110 ml Output Total 0 ml Balance 110 ml Laboratory Data 24H LABS Laboratory Tests 2 10/18/16 18:01: White Blood Count 14.2H, Red Blood Count 3.82L, Hemoglobin 11.3L, Hematocrit 36.1, Mean Corpuscular Volume 94.5, Mean Corpuscular Hemoglobin 29.7, Mean Corpuscular Hemoglobin Concent 31.4L, Red Cell Distribution Width 16.9H, Platelet Count 243, Neutrophils (%) (Auto) 90.5H, Lymphocytes (%) (Auto) 4.2L, Monocytes (%) (Auto) 3.3, Eosinophils (%) (Auto) 1.3, Basophils (%) (Auto) 0.1, Neutrophils # (Auto) 12.9H, Lymphocytes # (Auto) 0.7L, Monocytes # (Auto) 0.5, Eosinophils # (Auto) 0.2, Basophils # (Auto) 0.0, Large Unclassified Cells % 0.5 , Large Unclassified Cells # 0.1, Erythrocyte Sedimentation Rate 53H, Lactic Acid Level 1.5 10/18/16 18:02: Anion Gap 6L, Glomerular Filtration Rate 51.8, Calcium Level 8.4L, Magnesium Level 2.1, Aspartate Amino Transf (AST/SGOT) 14L, Alanine Aminotransferase (ALT/ SGPT) 23, Alkaline Phosphatase 115, Total Bilirubin 0.9, Direct Bilirubin 0.3H, C-Reactive Protein, Quantitative 13.30H, Total Protein 5.9L, Albumin 2.9L, Albumin/Globulin Ratio 0.97L 10/18/16 22:17: Prothrombin Time 12.2L, Prothromb Time International Ratio 0.90, Activated Partial Thromboplast Time 28.3 10/19/16 05:37: White Blood Count 13.6H, Red Blood Count 3.60L, Hemoglobin 10.6L, Hematocrit 34.4L, Mean Corpuscular Volume 95.7, Mean Corpuscular Hemoglobin 29.4, Mean Corpuscular Hemoglobin Concent 30.8L, Red Cell Distribution Width 16.8H, Platelet Count 260, Neutrophils (%) (Auto) 89.2H, Lymphocytes (%) (Auto) 4.6L, Monocytes (%) (Auto) 3.8, Eosinophils (%) (Auto) 1.5, Basophils (%) (Auto) 0.2, Neutrophils # (Auto) 12.1H, Lymphocytes # (Auto) 0.7L, Monocytes # (Auto) 0.5, Eosinophils # (Auto) 0.2, Basophils # (Auto) 0.0, Large Unclassified Cells % 0.7 , Large Unclassified Cells # 0.1, Anion Gap 7L, Glomerular Filtration Rate > 60.0, Calcium Level 8.8, Blood Urea Nitrogen 26H, Creatinine 0.86, Sodium Level 141, Potassium Level 3.9, Chloride Level 103, Carbon Dioxide Level 31 CBC/BMP Laboratory Tests 10/18/16 18:01 Red Blood Count 3.82 L, Mean Corpuscular Volume 94.5, Mean Corpuscular Hemoglobin 29.7, Mean Corpuscular Hemoglobin Concent 31.4 L, Red Cell Distribution Width 16.9 H, Neutrophils (%) (Auto) 90.5 H, Lymphocytes (%) (Auto ) 4.2 L, Monocytes (%) (Auto) 3.3, Eosinophils (%) (Auto) 1.3, Basophils (%) ( Auto) 0.1, Neutrophils # (Auto) 12.9 H, Lymphocytes # (Auto) 0.7 L, Monocytes # (Auto) 0.5, Eosinophils # (Auto) 0.2, Basophils # (Auto) 0.0 10/18/16 18:02 10/19/16 05:37 Red Blood Count 3.60 L, Mean Corpuscular Volume 95.7, Mean Corpuscular Hemoglobin 29.4, Mean Corpuscular Hemoglobin Concent 30.8 L, Red Cell Distribution Width 16.8 H, Neutrophils (%) (Auto) 89.2 H, Lymphocytes (%) (Auto ) 4.6 L, Monocytes (%) (Auto) 3.8, Eosinophils (%) (Auto) 1.5, Basophils (%) ( Auto) 0.2, Neutrophils # (Auto) 12.1 H, Lymphocytes # (Auto) 0.7 L, Monocytes # (Auto) 0.5, Eosinophils # (Auto) 0.2, Basophils # (Auto) 0.0, Calcium Level 8.8 Microbiology Microbiology 10/18/16 Blood Culture, Received Pending 10/18/16 Blood Culture, Received Pending 10/18/16 MRSA Screen, Received Pending 10/18/16 Wound Culture, Received Pending TERI UGARTE MD Oct 19, 2016 12:03
[2016-10-19] MEDS: BREO ELLIPTA INH SCH (12:48)
[2016-10-19 14:00] VITALS: BP 128/63
[2016-10-19] MEDS: IPRATROPIUM 0.02% SOLN 0.5MG/2.5 ML NEB INH SCH ×2 (15:37→19:43)
[2016-10-19] MEDS: ALBUTEROL SULFATE 2.5 MG/0.5 ML INH NEB SOLN NEB SCH ×2 (15:37→19:43)
[2016-10-19] MEDS: methylPREDNISolone 4 MG TAB PO SCH (20:30)
[2016-10-19] MEDS: PANTOPRAZOLE 40MG TAB (PROTONIX) PO SCH (20:31)
[2016-10-19] MEDS: **NOTE PATIENT COMMENT** MISC XX SCH (20:31)
[2016-10-19] MEDS: ENOXAPARIN 40 MG/0.4 ML SYRINGE (J1650) SC SCH (20:31)
[2016-10-19] MEDS ORDERED: rOPINIRole 1MG TAB PO SCH (21:00)
[2016-10-19 22:00] VITALS: BP 109/64
[2016-10-20] MEDS: IPRATROPIUM 0.02% SOLN 0.5MG/2.5 ML NEB INH SCH ×7 (00:04→23:39)
[2016-10-20] MEDS: ALBUTEROL SULFATE 2.5 MG/0.5 ML INH NEB SOLN NEB SCH ×7 (00:04→23:40)
[2016-10-20 06:00] VITALS: BP 120/67
[2016-10-20] MEDS: LEVOTHYROXINE 50MCG TABLET (0.05MG) PO SCH (06:43)
[2016-10-20 06:51] LABS: ANION GAP 8 MEQ/L (8-16); BLOOD UREA NITROGEN 24 MG/DL (7-18); CALCIUM LEVEL 9.3 MG/DL (8.8-10.2); CARBON DIOXIDE LEVEL 28 MEQ/L (21-32); CHLORIDE LEVEL 101 MEQ/L (98-107); CREATININE FOR GFR 0.93 MG/DL (0.55-1.02); GLOMERULAR FILTRATION RATE > 60.0 (>39); GLUCOSE, FASTING 163 MG/DL (83-110); POTASSIUM SERUM 4.8 MEQ/L (3.5-5.1); SODIUM LEVEL 137 MEQ/L (136-145)
[2016-10-20 06:52] LABS: BASO % 0.1 % (0.0-1.0); EOS % 0.2 % (0.0-3.0); LARGE UNSTAINED CELL % 0.3 % (0.0-4.0); LYMPH # 0.4 K/mm3 (1.5-4.5); LYMPH % 2.7 % (24.0-44.0); MEAN CORPUSCULAR HEMOGLOBIN 30.5 pg (27.0-33.0); MEAN CORPUSCULAR HGB CONC 31.8 g/dl (32.0-36.5); MEAN CORPUSCULAR VOLUME 95.6 fl (80.0-96.0); MONO # 0.4 K/mm3 (0.0-0.8); MONO % 2.9 % (0.0-5.0); NEUTROPHILS # 12.2 K/mm3 (1.8-7.7); NEUTROPHILS % 93.9 % (36.0-66.0); PLATELET COUNT, AUTOMATED 281 k/mm3 (150-450); RED CELL DISTRIBUTION WIDTH 16.7 % (11.5-14.5)
--- NOTE | 2016-10-20 08:17 | IPNPDOC ---
Subjective Date Seen The patient was seen on 10/20/16. Subjective Chief Complaint/HPI The patient is a 71-year-old female admitted with a reason for visit of Cellulitis Of Left Lower Extremity. Events since last encounter Having some confusion per son due to not taking hydrocodone. Has been taking morphine po prn. Per son, this causes increasing confusion, patient takes this at home less than once per month. Patient c/o pain to LLE at site of abrasion. Constitutional: Denies: Chills, Fever, Night Sweats Pulmonary: Denies: Dyspnea, Cough Cardiovascular: Denies: Chest Pain, Palpitations, Orthopnea, Paroxysmal Noc. Dyspnea, Lt Headedness Gastrointestinal: Denies: Nausea, Vomiting, Abdominal Pain, Diarrhea, Constipation Genitourinary: Denies: Dysuria, Frequency, Incontinence, Retention Objective Physical Examination General Exam: Positive: Alert, Cooperative, No Acute Distress Eye Exam: Positive: PERRLA, Conjunctiva & lids normal, Negative: EOMI ENT Exam: Positive: Atraumatic, Mucous membr. moist/pink Neck Exam: Positive: Supple, Negative: JVD, thyromegaly Chest Exam: Positive: Clear to auscultation, Normal air movement, Diminished, Negative: Rales, Rhonchi, Wheezing Heart Exam: Positive: Rate Normal, Normal S1, Normal S2, Murmurs (2/6 SUKUMAR) Abdomen Exam: Positive: Normal bowel sounds, Soft, Negative: Tenderness Skin Exam: Positive: Nl turgor and temperature, Other skin issue (skin tears; L lower extremity with palpable pain), Negative: Rash Assessment /Plan Problems (1) Confusion Status: Acute Problem Text: ? secondary to lack of normal opioid dosing. Will resume hydrocodone dosing. Monitor. (2) Fall Status: Acute (3) Cellulitis of left lower extremity Problem Text: 10/20/16: WBC 13,000. Wound cx no growth after [address]ings in place. WBC 13.6 with elevated CRP. Normal lactate. Tachy. Meeting sepsis criteria. Currently on ceftaroline dose 2. Vital stable, and patient appears relatively well. -Continue broad-spectrum antibiotics -Narrow pending cultures (4) COPD exacerbation Status: Chronic Problem Text: PRN necessary nebs (5) CKD (chronic kidney disease) Status: Chronic (6) Chronic GERD Status: Chronic (7) CAD (coronary artery disease) Status: Chronic Problem Text: recent admission to [facility] for elevated troponin. Noted to have CAD without need for stenting. (8) Diastolic CHF, chronic Status: Chronic Problem Text: EF 55-60% from 08/2016 at [facility]. Plan/VTE VTE Prophylaxis Ordered?: Yes (lovenox) VS, I&O, 24H, Fishbone Vital Signs/I&O Vital Signs Date Time Temp Pulse Resp B/P (MAP) Pulse Ox O2 Delivery O2 Flow Rate FiO2 10/20/16 06:00 96.9 103 19 120/67 (84) 99 Nasal Cannula 2.0 I&O- Last 24 Hours up to 6 AM 10/20/16 05:59 Intake Total 710 ml Output Total 950 ml Balance -240 ml Laboratory Data 24H LABS Laboratory Tests 2 10/20/16 06:23: White Blood Count 13.0H, Red Blood Count 3.74L, Hemoglobin 11.4L, Hematocrit 35.8L, Mean Corpuscular Volume 95.6, Mean Corpuscular Hemoglobin 30.5, Mean Corpuscular Hemoglobin Concent 31.8L, Red Cell Distribution Width 16.7H, Platelet Count 281, Neutrophils (%) (Auto) 93.9H, Lymphocytes (%) (Auto) 2.7L, Monocytes (%) (Auto) 2.9, Eosinophils (%) (Auto) 0.2, Basophils (%) (Auto) 0.1, Neutrophils # (Auto) 12.2H, Lymphocytes # (Auto) 0.4L, Monocytes # (Auto) 0.4, Eosinophils # (Auto) 0.0, Basophils # (Auto) 0.0, Large Unclassified Cells % 0.3 , Large Unclassified Cells # 0.0, Anion Gap 8, Glomerular Filtration Rate > 60.0 , Blood Urea Nitrogen 24H, Creatinine 0.93, Sodium Level 137, Potassium Level 4.8#, Chloride Level 101, Carbon Dioxide Level 28, Calcium Level 9.3 CBC/BMP Laboratory Tests 10/20/16 06:23 Red Blood Count 3.74 L, Mean Corpuscular Volume 95.6, Mean Corpuscular Hemoglobin 30.5, Mean Corpuscular Hemoglobin Concent 31.8 L, Red Cell Distribution Width 16.7 H, Neutrophils (%) (Auto) 93.9 H, Lymphocytes (%) (Auto ) 2.7 L, Monocytes (%) (Auto) 2.9, Eosinophils (%) (Auto) 0.2, Basophils (%) ( Auto) 0.1, Neutrophils # (Auto) 12.2 H, Lymphocytes # (Auto) 0.4 L, Monocytes # (Auto) 0.4, Eosinophils # (Auto) 0.0, Basophils # (Auto) 0.0, Calcium Level 9.3 Microbiology Microbiology 10/18/16 Blood Culture - Preliminary, Resulted No growth after 24 hours . All specim... 10/18/16 Blood Culture - Preliminary, Resulted No growth after 24 hours . All specim... 10/18/16 MRSA Screen - Final, Complete 10/18/16 Wound Culture - Final, Complete Serratia Marcescens Attending Note Attending Note Patient seen, note reviewed. Has discomfort at left quiroga from lesion that was growing S marcescens. Likely sensitive to current antibiotic (only resistant to 1st gen cephalosporin. Domonique Olivo Oct 20, 2016 08:17 Miguelito Morales MD Oct 20, 2016 15:35
[2016-10-20] MEDS: NORCO, ANEXSIA 5/325MG TABLET (HYDROcodone/ACETAMINOPHEN) PO PRN ×3 (08:24→21:11)
[2016-10-20 08:25] VITALS: BP 125/63
[2016-10-20] MEDS: BREO ELLIPTA INH SCH (08:44)
[2016-10-20] MEDS: LACTOBACILLUS ACIDOPHILUS CAP (BACID) PO SCH ×2 (08:53→17:58)
[2016-10-20] MEDS: ALLOPURINOL 300 MG TAB PO SCH (08:55)
[2016-10-20] MEDS: ASPIRIN 81 MG ENTERIC TAB PO SCH (08:55)
[2016-10-20] MEDS: FUROSEMIDE 20 MG TAB PO SCH (08:56)
[2016-10-20] MEDS: POTASSIUM CHLORIDE 10 MEQ SR TABLET PO SCH (08:56)
[2016-10-20] MEDS: LIDOCAINE 5% (LIDODERM) PATCH TD SCH (08:57)
[2016-10-20] MEDS: CARVedilol 3.125 MG TAB PO SCH ×2 (08:58→21:10)
[2016-10-20] MEDS: MULTIVITAMINS/MINERALS THERAP 1 TAB PO SCH (09:17)
[2016-10-20] MEDS: GABAPENTIN 300 MG CAP PO SCH ×3 (09:17→21:08)
[2016-10-20] MEDS: CEFTAROLINE FOSAMIL 400 MG in D5W MINI-BAG PLUS 50 ML IV SCH ×2 (11:00→22:50)
[2016-10-20 14:00] VITALS: BP 123/71
[2016-10-20] MEDS ORDERED: rOPINIRole 1MG TAB PO SCH (21:00)
[2016-10-20] MEDS: **NOTE PATIENT COMMENT** MISC XX SCH ×2 (21:00→21:11)
[2016-10-20] MEDS: PANTOPRAZOLE 40MG TAB (PROTONIX) PO SCH (21:08)
[2016-10-20] MEDS: ROPINIROLE PO SCH (21:08)
[2016-10-20] MEDS: methylPREDNISolone 4 MG TAB PO SCH (21:09)
[2016-10-20] MEDS: ENOXAPARIN 40 MG/0.4 ML SYRINGE (J1650) SC SCH (21:09)
[2016-10-20 22:00] VITALS: BP 139/66
[2016-10-21] MEDS: ALBUTEROL SULFATE 2.5 MG/0.5 ML INH NEB SOLN NEB SCH ×5 (03:22→19:56)
[2016-10-21] MEDS: IPRATROPIUM 0.02% SOLN 0.5MG/2.5 ML NEB INH SCH ×5 (03:22→19:55)
[2016-10-21 06:00] VITALS: BP 133/63
[2016-10-21] MEDS: LEVOTHYROXINE 50MCG TABLET (0.05MG) PO SCH (06:33)
[2016-10-21 06:59] LABS: BASO % 0.1 % (0.0-1.0); EOS % 0.1 % (0.0-3.0); LARGE UNSTAINED CELL % 0.3 % (0.0-4.0); LYMPH # 0.4 K/mm3 (1.5-4.5); LYMPH % 2.9 % (24.0-44.0); MEAN CORPUSCULAR HEMOGLOBIN 28.7 pg (27.0-33.0); MEAN CORPUSCULAR VOLUME 95.7 fl (80.0-96.0); MONO # 0.3 K/mm3 (0.0-0.8); MONO % 2.2 % (0.0-5.0); NEUTROPHILS % 94.4 % (36.0-66.0); PLATELET COUNT, AUTOMATED 313 k/mm3 (150-450); WHITE BLOOD COUNT 12.7 K/mm3 (4.0-10.0)
[2016-10-21 07:07] LABS: CALCIUM LEVEL 9.5 MG/DL (8.8-10.2); CREATININE FOR GFR 1.03 MG/DL (0.55-1.02); GLOMERULAR FILTRATION RATE 55.9 (>39); MAGNESIUM LEVEL 2.1 MG/DL (1.8-2.4); POTASSIUM SERUM 4.6 MEQ/L (3.5-5.1)
--- NOTE | 2016-10-21 07:45 | IPNPDOC ---
Subjective Date Seen The patient was seen on 10/21/16. Subjective Chief Complaint/HPI The patient is a 71-year-old female admitted with a reason for visit of Cellulitis Of Left Lower Extremity. Events since last encounter Denies c/o today. No further confusion. Has not passed PT for DC home. Constitutional: Denies: Chills, Fever, Night Sweats ENT: Denies: Head Aches, Ear Pain, Dysphagia Skin: Denies: Rash, Lesions, Breakdown Pulmonary: Denies: Dyspnea, Cough Psych: Reports: Mood Normal, Denies: Depression, Memory Issues Objective Physical Examination General Exam: Positive: Alert, Cooperative, No Acute Distress Eye Exam: Positive: PERRLA, Conjunctiva & lids normal, Negative: EOMI ENT Exam: Positive: Atraumatic, Mucous membr. moist/pink Neck Exam: Positive: Supple, Negative: JVD, thyromegaly Chest Exam: Positive: Clear to auscultation, Normal air movement, Diminished, Negative: Rales, Rhonchi, Wheezing Heart Exam: Positive: Rate Normal, Normal S1, Normal S2, Murmurs (2/6 SUKUMAR) Abdomen Exam: Positive: Normal bowel sounds, Soft, Negative: Tenderness Skin Exam: Positive: Nl turgor and temperature, Other skin issue (skin tears; L lower extremity with palpable pain. FOam dressings in place. minimal drainage. ), Negative: Rash Assessment /Plan Problems (1) Fall Status: Acute Problem Text: PT following. Will DC home when safe per PT recommendations. (2) Cellulitis of left lower extremity Problem Text: 10/21/16: WBC 12.7. On ceftaroline. Tolerating well. 10/20/16: WBC 13,000. Wound cx no growth after [address] in place. WBC 13.6 with elevated CRP. Normal lactate. Tachy. Meeting sepsis criteria. Currently on ceftaroline dose 2. Vital stable, and patient appears relatively well. -Continue broad-spectrum antibiotics -Narrow pending cultures (3) COPD exacerbation Status: Chronic Problem Text: PRN necessary nebs (4) CKD (chronic kidney disease) Status: Chronic (5) Chronic GERD Status: Chronic (6) CAD (coronary artery disease) Status: Chronic Problem Text: recent admission to [facility] for elevated troponin. Noted to have CAD without need for stenting. (7) Diastolic CHF, chronic Status: Chronic Problem Text: EF 55-60% from 08/2016 at [facility]. (8) Confusion Status: Resolved Problem Text: ? secondary to lack of normal opioid dosing. Will resume hydrocodone dosing. Monitor. Plan/VTE VTE Prophylaxis Ordered?: Yes (lovenox) VS, I&O, 24H, Fishbone Vital Signs/I&O Vital Signs Date Time Temp Pulse Resp B/P (MAP) Pulse Ox O2 Delivery O2 Flow Rate FiO2 10/21/16 06:00 96.4 107 17 133/63 (86) 92 Room Air 10/20/16 20:30 2.0 I&O- Last 24 Hours up to 6 AM 10/21/16 06:00 Intake Total 700 ml Output Total 575 ml Balance 125 ml Laboratory Data 24H LABS Laboratory Tests 2 10/21/16 06:25: White Blood Count 12.7H, Red Blood Count 3.57L, Hemoglobin 10.2L, Hematocrit 34.1L, Mean Corpuscular Volume 95.7, Mean Corpuscular Hemoglobin 28.7, Mean Corpuscular Hemoglobin Concent 30.0L, Red Cell Distribution Width 17.0H, Platelet Count 313, Neutrophils (%) (Auto) 94.4H, Lymphocytes (%) (Auto) 2.9L, Monocytes (%) (Auto) 2.2, Eosinophils (%) (Auto) 0.1, Basophils (%) (Auto) 0.1, Neutrophils # (Auto) 12.0H, Lymphocytes # (Auto) 0.4L, Monocytes # (Auto) 0.3, Eosinophils # (Auto) 0.0, Basophils # (Auto) 0.0, Large Unclassified Cells % 0.3 , Large Unclassified Cells # 0.0, Anion Gap 8, Glomerular Filtration Rate 55.9, Blood Urea Nitrogen 27H, Creatinine 1.03H, Sodium Level 140, Potassium Level 4.6 , Chloride Level 101, Carbon Dioxide Level 31, Calcium Level 9.5, Magnesium Level 2.1 CBC/BMP Laboratory Tests 10/21/16 06:25 Red Blood Count 3.57 L, Mean Corpuscular Volume 95.7, Mean Corpuscular Hemoglobin 28.7, Mean Corpuscular Hemoglobin Concent 30.0 L, Red Cell Distribution Width 17.0 H, Neutrophils (%) (Auto) 94.4 H, Lymphocytes (%) (Auto ) 2.9 L, Monocytes (%) (Auto) 2.2, Eosinophils (%) (Auto) 0.1, Basophils (%) ( Auto) 0.1, Neutrophils # (Auto) 12.0 H, Lymphocytes # (Auto) 0.4 L, Monocytes # (Auto) 0.3, Eosinophils # (Auto) 0.0, Basophils # (Auto) 0.0, Calcium Level 9.5 Microbiology Microbiology 10/18/16 Blood Culture - Preliminary, Resulted No Growth after 48 hours. All Specime... 10/18/16 Blood Culture - Preliminary, Resulted No Growth after 48 hours. All Specime... 10/18/16 MRSA Screen - Final, Complete 10/18/16 Wound Culture - Final, Complete Serratia Marcescens Domonique Olivo [facility] Oct 21, 2016 07:44
[2016-10-21] MEDS: MULTIVITAMINS/MINERALS THERAP 1 TAB PO SCH (08:22)
[2016-10-21] MEDS: POTASSIUM CHLORIDE 10 MEQ SR TABLET PO SCH (08:22)
[2016-10-21] MEDS: ALLOPURINOL 300 MG TAB PO SCH (08:22)
[2016-10-21] MEDS: LACTOBACILLUS ACIDOPHILUS CAP (BACID) PO SCH ×2 (08:22→17:59)
[2016-10-21] MEDS: ASPIRIN 81 MG ENTERIC TAB PO SCH (08:22)
[2016-10-21] MEDS: NORCO, ANEXSIA 5/325MG TABLET (HYDROcodone/ACETAMINOPHEN) PO PRN ×2 (08:22→16:19)
[2016-10-21] MEDS: CARVedilol 3.125 MG TAB PO SCH ×2 (08:23→20:54)
[2016-10-21] MEDS: GABAPENTIN 300 MG CAP PO SCH ×3 (08:23→20:53)
[2016-10-21] MEDS: FUROSEMIDE 20 MG TAB PO SCH (08:23)
[2016-10-21] MEDS: LIDOCAINE 5% (LIDODERM) PATCH TD SCH (08:24)
[2016-10-21] MEDS: BREO ELLIPTA INH SCH (08:57)
[2016-10-21] MEDS: CEFTAROLINE FOSAMIL 400 MG in D5W MINI-BAG PLUS 50 ML IV SCH (10:45)
[2016-10-21 14:00] VITALS: BP 129/68
[2016-10-21] MEDS: ENOXAPARIN 40 MG/0.4 ML SYRINGE (J1650) SC SCH (20:53)
[2016-10-21] MEDS: PANTOPRAZOLE 40MG TAB (PROTONIX) PO SCH (20:53)
[2016-10-21] MEDS: CEFDINIR 300 MG CAP (OMNICEF) PO SCH (20:53)
[2016-10-21] MEDS: methylPREDNISolone 4 MG TAB PO SCH (20:54)
[2016-10-21] MEDS: ROPINIROLE PO SCH (20:54)
[2016-10-21] MEDS: **NOTE PATIENT COMMENT** MISC XX SCH (21:00)
[2016-10-21 22:00] VITALS: BP 131/62
[2016-10-22] MEDS: IPRATROPIUM 0.02% SOLN 0.5MG/2.5 ML NEB INH SCH ×4 (04:00→11:15)
[2016-10-22] MEDS: ALBUTEROL SULFATE 2.5 MG/0.5 ML INH NEB SOLN NEB SCH ×4 (04:00→11:15)
[2016-10-22] MEDS: LEVOTHYROXINE 50MCG TABLET (0.05MG) PO SCH (05:53)
[2016-10-22 06:00] VITALS: BP 142/66
[2016-10-22 06:23] LABS: BASO % 0.1 % (0.0-1.0); EOS % 0.1 % (0.0-3.0); LARGE UNSTAINED CELL # 0.1 K/mm3 (0.0-0.4); LARGE UNSTAINED CELL % 0.6 % (0.0-4.0); LYMPH # 0.5 K/mm3 (1.5-4.5); LYMPH % 3.2 % (24.0-44.0); MEAN CORPUSCULAR HEMOGLOBIN 29.5 pg (27.0-33.0); MEAN CORPUSCULAR HGB CONC 31.2 g/dl (32.0-36.5); MEAN CORPUSCULAR VOLUME 94.4 fl (80.0-96.0); MONO # 0.4 K/mm3 (0.0-0.8); MONO % 2.9 % (0.0-5.0); NEUTROPHILS # 11.8 K/mm3 (1.8-7.7); NEUTROPHILS % 93.1 % (36.0-66.0); PLATELET COUNT, AUTOMATED 323 k/mm3 (150-450); RED CELL DISTRIBUTION WIDTH 16.8 % (11.5-14.5); WHITE BLOOD COUNT 12.6 K/mm3 (4.0-10.0)
[2016-10-22 06:38] LABS: ANION GAP 7 MEQ/L (8-16); BLOOD UREA NITROGEN 27 MG/DL (7-18); CALCIUM LEVEL 8.5 MG/DL (8.8-10.2); CARBON DIOXIDE LEVEL 34 MEQ/L (21-32); CHLORIDE LEVEL 103 MEQ/L (98-107); GLOMERULAR FILTRATION RATE > 60.0 (>39); GLUCOSE, FASTING 130 MG/DL (83-110); MAGNESIUM LEVEL 1.9 MG/DL (1.8-2.4); POTASSIUM SERUM 4.4 MEQ/L (3.5-5.1); SODIUM LEVEL 144 MEQ/L (136-145)
[2016-10-22] MEDS ORDERED: FURO20TA2 PO (07:25)
[2016-10-22] MEDS: BREO ELLIPTA INH SCH (07:49)
[2016-10-22 08:11] VITALS: BP 124/70
[2016-10-22] MEDS: FUROSEMIDE 20 MG TAB PO SCH (08:11)
[2016-10-22] MEDS: GABAPENTIN 300 MG CAP PO SCH (08:11)
[2016-10-22] MEDS: LACTOBACILLUS ACIDOPHILUS CAP (BACID) PO SCH (08:11)
[2016-10-22] MEDS: CARVedilol 3.125 MG TAB PO SCH (08:11)
[2016-10-22] MEDS: ALLOPURINOL 300 MG TAB PO SCH (08:11)
[2016-10-22] MEDS: CEFDINIR 300 MG CAP (OMNICEF) PO SCH (08:11)
[2016-10-22] MEDS: MULTIVITAMINS/MINERALS THERAP 1 TAB PO SCH (08:11)
[2016-10-22] MEDS: ASPIRIN 81 MG ENTERIC TAB PO SCH (08:11)
[2016-10-22] MEDS: POTASSIUM CHLORIDE 10 MEQ SR TABLET PO SCH (08:12)
[2016-10-22] MEDS: LIDOCAINE 5% (LIDODERM) PATCH TD SCH ×2 (08:13→08:14)
[2016-10-22] MEDS: NORCO, ANEXSIA 5/325MG TABLET (HYDROcodone/ACETAMINOPHEN) PO PRN (08:13)
[2016-10-22] MEDS ORDERED: CEFD300CAP PO (11:59)
[2016-10-22] MEDS ORDERED: OPTI6PAD XX (12:47)
[2016-10-22] MEDS ORDERED: OPTI4PAD XX (12:47)
--- NOTE | 2016-10-24 13:45 | DSES ---
DATE OF ADMISSION: 10/18/2016 DATE OF DISCHARGE: 10/22/2016 ATTENDING PHYSICIAN: Dr. Miguelito Morales. PRIMARY CARE PROVIDER: Dr. Christoph Gusman. HISTORY OF PRESENT ILLNESS: 71-year-old female with past medical history of systolic and diastolic heart failure with an ejection fraction 55%, hypertension, gastroesophageal reflux disease (GERD), coronary artery disease, vertebral fractures, chronic kidney disease with left renal artery stenosis, chronic obstructive pulmonary disease (COPD), chronic bronchitis, hyperlipidemia, peripheral vascular disease, urinary retention, lumbar and cervical spondylosis, osteoarthritis, irritable bowel syndrome, gout, hypothyroidism, presented with a fall two days prior to her presentation in her home. Patient states she landed on her right side. Per patient and son, they felt she had gotten up to go the bathroom and went too quickly. She was not dizzy. There was no loss of consciousness. It was noted that patient had significant abrasion on her left lower extremity. Workup in the ER proved cellulitis of the left lower extremity. Patient was subsequently admitted for a mechanical fall and cellulitis of the left lower extremity. HOSPITAL COURSE: Wound culture was obtained for the left lower extremity which showed Serratia marcescens with resistance to first generation cephalosporin, otherwise had good sensitivity. She was placed on ceftaroline 400 mg IV 12. Within the last 24 hours, she was switched over the cefdinir and has been tolerating that well. Patient has been participating in physical therapy and has now been deemed appropriate for discharge to home. Patient had one day of confusion, however, her routine medications were not being provided. Once medications were given on her regular scheduled dosing, patient's confusion resolved. PHYSICAL EXAMINATION: Today, vital signs are stable. She is afebrile. HEENT: Neck is supple without lymphadenopathy or jugular venous distention (JVD). Cardiovascular: Heart rate and rhythm regular. Pulmonary: Lungs are clear. Abdomen: Soft and nontender. Most recent labs show white blood cell count of 12,000, hemoglobin and hematocrit of 10 and 32. Electrolytes are stable. Imaging completed in the hospital include hip x-ray, knee x-ray, tibia fibula all negative. Chest x-ray showed a right lower lobe infiltrate which is new. Vascular ultrasound negative for deep venous thrombosis (DVT). ASSESSMENT: 1. Cellulitis left lower extremity. 2. Status post mechanical fall. 3. Right lower lobe pneumonia. SECONDARY DIAGNOSES: 1. Chronic pain secondary to cervical and lumbar spondylosis. 2. Coronary artery disease. 3. Congestive heart failure (CHF). 4. Hypertension. 5. Gastroesophageal reflux disease (GERD). 6. Impingement of the nerves of the right arm. 7. Chronic kidney disease stage III. 8. Chronic obstructive pulmonary disease (COPD) with chronic respiratory failure and chronic oxygenation. 9. Hyperlipidemia. 10. Peripheral vascular disease. 11. Osteoarthritis. 12. Irritable bowel syndrome. 13. Hypothyroidism. 14. Gout. 15. History of necrotic granuloma of the right upper lobe. Patient will be discharged home. Diet is 2 gram sodium. Activity is out of bed with walker. Patient will followup with her primary care physician within the next 5 days. PRESCRIPTIONS ARE FOLLOWS: - furosemide 20 mg one by mouth daily - hydrocodone with acetaminophen 10/325 one by mouth four times daily - Ventolin HFA two puffs four times daily as needed shortness of breath - albuterol sulfate via nebulizer twice daily - allopurinol 300 mg by mouth daily - amlodipine 10 mg by mouth daily - aspirin 81 mg by mouth daily - carvedilol 3.125 mg by mouth twice daily - cyclobenzaprine 10 mg by mouth three times daily - Benadryl 25 mg by mouth daily - Breo Ellipta one inhalation daily - gabapentin 600 mg by mouth three times daily - ipratropium bromide one inhalation twice daily - Synthroid 50 mcg one by mouth daily in the morning - loperamide 2 mg by mouth every 4 hours as needed for diarrhea - magnesium chloride 64 mg by mouth daily - methylprednisolone 8 mg by mouth daily at bedtime - milk of magnesia 30 mL by mouth twice daily as needed constipation - morphine sulfate 15 mg by mouth every 6 hours as needed for severe breakthrough pain - multivitamin one tablet by mouth daily - Nystatin powder topically to rash weekly - Nystatin oral suspension swish and swallow twice daily - pantoprazole sodium 40 mg by mouth daily at bedtime - potassium chloride ER 30 mEq by mouth twice daily - ropinirole ER 8 mg by mouth daily at bedtime - Imitrex 50 mg by mouth daily as needed migraine Patient is discharged in stable and satisfactory condition with no further questions at time of discharge.
[2017-01-01] MEDS ORDERED: METH4TAB28 PO (15:46)
== END 2016-10-22 14:21 | disposition home health service (06) | DRG 603 ==
LOC: M ED 15:39 → M ED INP 19:26 → M MSPAV 22:30
PROVIDERS: ADMIT General Practice; ATTEND Family Medicine
DX: L03.116 Cellulitis of left lower limb (principal); I50.32 Chronic diastolic (congestive) heart failure; J96.10 Chronic respiratory failure, unspecified whether with hypoxia or hypercapnia; I13.0 Hypertensive heart and chronic kidney disease with heart failure and stage 1 through stage 4 chronic kidney disease, or unspecified chronic kidney disease; J44.1 Chronic obstructive pulmonary disease with (acute) exacerbation; N18.3 Chronic kidney disease, stage 3 (moderate); K21.9 Gastro-esophageal reflux disease without esophagitis; I25.10 Atherosclerotic heart disease of native coronary artery without angina pectoris; E78.5 Hyperlipidemia, unspecified; I73.9 Peripheral vascular disease, unspecified; M10.9 Gout, unspecified; E03.9 Hypothyroidism, unspecified; I70.1 Atherosclerosis of renal artery; B96.89 Other specified bacterial agents as the cause of diseases classified elsewhere; K58.9 Irritable bowel syndrome, unspecified; Z79.82 Long term (current) use of aspirin; Z79.899 Other long term (current) drug therapy; Z99.81 Dependence on supplemental oxygen; W01.0XXA Fall on same level from slipping, tripping and stumbling without subsequent striking against object, initial encounter; Y92.019 Unspecified place in single-family (private) house as the place of occurrence of the external cause; Y93.01 Activity, walking, marching and hiking; Y99.9 Unspecified external cause status; Z88.8 Allergy status to other drugs, medicaments and biological substances; Z88.6 Allergy status to analgesic agent; Z88.1 Allergy status to other antibiotic agents; Z88.2 Allergy status to sulfonamides; Z90.710 Acquired absence of both cervix and uterus; Z96.651 Presence of right artificial knee joint; Z87.891 Personal history of nicotine dependence

== ENCOUNTER 2016-11-05 10:30 | Outpatient (RCR) | payer MEDICARE ==
[~2016-11-05 10:30] MED LIST changes: +AMLO10TA2 PO; +ASPI81TA21 PO; +BENA25CA4 PO; +CARV3.12 PO; +CEFD300CAP PO; +GABA600T PO; +IMOD2TAB16 PO; +METH8TAB4 PO; +OPTI4PAD XX; +OPTI6PAD XX; +POTA10TA16 PO; +ZYLO300T4 PO
[2017-01-01] MEDS ORDERED: METH4TAB28 PO (15:46)
== END 2016-11-06 ==
LOC: M CR 10:30
PROVIDERS: ATTEND Family Medicine
DX: Z51.89 Encounter for other specified aftercare (principal); I21.4 Non-ST elevation (NSTEMI) myocardial infarction; I25.10 Atherosclerotic heart disease of native coronary artery without angina pectoris

== ENCOUNTER → 2016-11-24 | Outpatient (REF) | payer MEDICARE ==
[~2016-11-24] MED LIST changes: +GABA-283 PO; +HYDR200T3 PO; +MEDR4TAB PO; +METH4TAB28 PO; +SPIR25TA2 PO
[2016-11-24 19:55] LABS: FERRITIN 187 NG/ML (8-252); PERCENT SATURATION 11.9 % (13.2-45.0); TOTAL IRON BINDING CAPACITY 268 UG/DL (250-450)
[2016-11-24 20:57] LABS: FOLATE > 24.0 NG/ML; VITAMIN B12 LEVEL 452 PG/ML
== END ==
LOC: M LAB REF 16:53
PROVIDERS: ATTEND Internal Medicine Nephrology
DX: D64.9 Anemia, unspecified (principal)

== ENCOUNTER 2016-11-28 14:13 | Outpatient (RCR) | payer MEDICARE ==
[~2016-11-28 14:13] MED LIST changes: -GABA-283 PO; -HYDR200T3 PO; -MEDR4TAB PO; -METH4TAB28 PO; -SPIR25TA2 PO
[2017-01-01] MEDS ORDERED: METH4TAB28 PO (15:46)
== END 2016-12-06 ==
LOC: M CR 14:13
PROVIDERS: ATTEND Family Medicine
DX: Z51.89 Encounter for other specified aftercare (principal); I21.4 Non-ST elevation (NSTEMI) myocardial infarction; I25.10 Atherosclerotic heart disease of native coronary artery without angina pectoris

== ENCOUNTER 2016-12-08 09:02 | Inpatient (IN) | payer MEDICARE ==
[~2016-12-08] VITALS: Ht 149.9 cm; Wt 46.4 kg
[2016-12-08] MEDS ORDERED: SPIR25TA2 PO (09:29)
[2016-12-08] MEDS ORDERED: FURO40TA2 PO (09:29)
[2016-12-08] MEDS ORDERED: HYDR200T3 PO (09:29)
[2016-12-08 11:50] LABS: MEAN CORPUSCULAR HEMOGLOBIN 29.4 pg (27.0-33.0); MEAN CORPUSCULAR HGB CONC 30.4 g/dl (32.0-36.5); MEAN CORPUSCULAR VOLUME 96.6 fl (80.0-96.0); PLATELET COUNT, AUTOMATED 448 10^3/uL (150-450); RED CELL DISTRIBUTION WIDTH 17.2 % (11.5-14.5)
[2016-12-08 11:59] LABS: ADD MANUAL DIFFER YES; DIFF SLIDE NUMBER 192; WHITE BLOOD COUNT 31.9 10^3/uL (4.0-10.0)
[2016-12-08 12:01] LABS: BANDS 9 % (< 11); NUCLEATED RED BLOOD CELL 1 % (0-0)
[2016-12-08 12:02] LABS: ANION GAP 5 MEQ/L (8-16); BLOOD UREA NITROGEN 34 MG/DL (7-18); CALCIUM LEVEL 9.5 MG/DL (8.8-10.2); CARBON DIOXIDE LEVEL 37 MEQ/L (21-32); CHLORIDE LEVEL 98 MEQ/L (98-107); CREATININE FOR GFR 1.31 MG/DL (0.55-1.02); GLOMERULAR FILTRATION RATE 42.4 (>39); GLUCOSE, FASTING 183 MG/DL (83-110); POTASSIUM SERUM 3.8 MEQ/L (3.5-5.1); SODIUM LEVEL 140 MEQ/L (136-145)
--- NOTE | 2016-12-08 12:08 | REP ---
CT Head without contrast HISTORY: Trauma COMPARISON: 10/04/2015 Areas of decreased attenuation are present in the periventricular white matter. This represents small-vessel ischemic disease. There is no intraparenchymal hemorrhage, acute infarct, mass or midline shift. The ventricular system and cortical sulci are dilated consistent with minimal volume loss. There is no extra cerebral collection. There is no fracture. Minimal mucosal thickening is present in the left sphenoid sinus. IMPRESSION: 1. Small vessel ischemic disease. 2. Minimal volume loss. Signed by Hieu Hemphill MD 12/08/2016 12:00 P
[2016-12-08 12:22] LABS: ABG BASE EXCESS 8.8 (-2.0-2.0); ABG HCO3 33.8 MEQ/L (22.0-26.0); ABG PARTIAL PRESSURE CO2 48.8 mmHg (35.0-45.0); ABG PARTIAL PRESSURE O2 75.1 mmHg (75.0-100.0); ABG STANDARD HCO3 32.5 MEQ/L (22.0-26.0); ABG TOTAL CO2 35.3 MEQ/L (23.0-31.0); ABG pH (ARTERIAL) 7.459 UNITS (7.350-7.450)
--- NOTE | 2016-12-08 12:23 | REP ---
Portable chest, single AP view, the patient sitting, 11:45 a.m.: Comparison is 10/18/2016. The focal increased radiodensity identified on the previous study inferiorly in the right lung has increased in density. There is mild diffuse bilateral interstitial coarsening compatible with fibrosis, unchanged. Cardiac size is normal. There are bilateral shoulder arthroplasties and stabilization plates, rods and screws in the cervical spine, unchanged. There are old right rib fractures, unchanged. Impression: The right lower lobe infiltrate has increased in density. Signed by Oc Leonard MD 12/08/2016 12:14 P
--- NOTE | 2016-12-08 13:26 | REP ---
CT of the chest without IV contrast for evaluation of increasing density inferiorly in the right lung on plain films. There are focal densities inferiorly in the right middle lobe, one measuring 2.9 cm in diameter and the other measuring 2.0 cm in diameter. These could be lung masses or infiltrates. There are a few smaller nodular densities in the right middle lobe superiorly to these two densities. These were not present on the comparison CT of 03/10/2015. There is an irregular nodular density in the superior segment of the right lower lobe on image 52 measuring 19 mm. There is a chronic stable parenchymal scar in the apex of the right lung, unchanged. There is a linear scar anteriorly in the left upper lobe, unchanged. There is bullous replacement of the lung parenchyma bilaterally, unchanged. There is an infiltrate in the deep posterior sulcus of the right lung as an interval change. There is no mediastinal adenopathy. Study is insensitive for hilar adenopathy in the absence of IV contrast. No axillary adenopathy is identified. The thoracic aorta is unremarkable except for calcified atheroma. Cardiac size is normal. There is atheromatous calcification in the coronary arteries. The visualized upper abdominal contents are unremarkable. Impression: There are nodule like densities in the right middle lobe. These could be infiltrates or a true lung nodules. There is an irregular nodular density in the superior segment right lower lobe. There is an infiltrate in the deep posterior sulcus of the right lung. There is a chronic parenchymal scar in the apex of the right lung and in the apex of the left lung. Signed by Oc Leonard MD 12/08/2016 01:18 P
[2016-12-08] MEDS ORDERED: PIPERACILLIN/TAZOBACTAM SOD 3.375 GM in D5W 50 ML IV ONE (13:45)
[2016-12-08] MEDS ORDERED: VANCOMYCIN HCL 1,000 MG, VIAL MATE ADAPTER 1 EACH in D5W 250 ML IV ONE (13:45)
--- NOTE | 2016-12-08 14:35 | REP ---
AP pelvis and right hip: AP pelvis: The right and left hip articulations are unremarkable. No pelvic fractures are identified. There is surgical fusion of the inferior lumbar spine. Right hip two views: There is no right hip fracture or dislocation. There are calcifications in the subcutaneous soft tissues compatible with injection granulomas. There is a calcification adjacent to the greater trochanter compatible with calcific bursitis. Impression: No right hip fracture or dislocation. Signed by Oc Leonard MD 12/08/2016 02:27 P
--- NOTE | 2016-12-08 15:00 | REP ---
Lumbar spine series: Five views. History: Trauma. Findings: Five views of the lumbar spine are compared with prior study from October 04, 2015. The patient is status post laminectomy, transpedicular screw fixation and interconnecting iram placement at each level from L2-S1. There is a levoconvex lumbar curvature in the lower lumbar spine and a dextroconvex curvature in the upper lumbar spine again noted. In addition, there is a ventrally placed screw in the left side of the L4 vertebral body. Advanced degenerative disc disease is seen in the lower thoracic spine. There is vascular calcification in a non-aneurysmal abdominal aorta. Alignment is unchanged. There is no evidence of acute fracture or collapse. Impression: Advanced scoliosis. Status post extensive laminectomy and posterior element fusion L2-S1 bilaterally. Findings, unchanged from October 04, 2015. Signed by Juan Carlos Ro MD 12/08/2016 03:08 P
--- NOTE | 2016-12-08 15:01 | REP ---
Right knee series: Four views. History: Trauma. Findings: Four views of the right knee are obtained. The patella has been resected. A right knee arthroplasty is seen in place. There is vascular calcification. No fracture or subluxation is seen. Impression: No fracture noted. Signed by Juan Carlos Ro MD 12/08/2016 04:57 P
[2016-12-08] MEDS ORDERED: BACITAB PO (15:14)
[2016-12-08] MEDS ORDERED: DRIS50002 PO (15:14)
[2016-12-08] MEDS ORDERED: FURO20TA2 PO (15:14)
[2016-12-08] MEDS ORDERED: MOM 30ML SUSPENSION UDC PO PRN (16:30)
[2016-12-08] MEDS ORDERED: NYSTATIN 100,000 UNITS/GM TOPICAL PWD 15 GM TOP PRN (16:30)
[2016-12-08] MEDS ORDERED: MORPHINE 15 MG SA TAB PO PRN (16:30)
[2016-12-08] MEDS ORDERED: LOPERAMIDE 2 MG CAP PO PRN (16:30)
[2016-12-08] MEDS ORDERED: SODIUM CHLORIDE 0.9% 1000 ML IV ONE (16:45)
--- NOTE | 2016-12-08 17:14 | HPEPDOC ---
General Date of Admission 12/08/16 Primary Care Physician: Christoph Gusman MD Attending Physician: AJAY ZUÑIGA Chief Complaint The patient is a 71-year-old female admitted with a reason for visit of FALL. Source: Patient Exam Limitations: No limitations Timing/Duration: Other History of Present Illness Mrs. Johnson is a 71 y/o female with medical hx significant for COPD, CHF, CAD, CKD, inflammatory arthritis on chronic Prednisone (currently on 8mg) as well as hydroxychloroquine, and hx of falls admitted for recurrent falls and PNA. Pt reports that she has had 2 falls this past week, last one occurring this AM. Pt state that on both occasions, her legs gave out and this caused her to fall. She states that she has had weakness and instability since her bilateral knee replacements. She notes that she did hit her head the first time she fell and sustained a contusion to her forehead. She denies LOC or any other major injuries from the fall. She also denies experiencing any pre syncopal sxs prior to or after the fall and denies ever feeling off balance. Of note, pt's family states that pt has O2 tubes and other risks for fall around the home and they have noted this to be an issue. Pt reports that last time she was seen here in 10/2016, she fell and sustained multiple abrasions that required abx therapy for cellulitis. She notes that the wound around her left knee has not healed fully and she has noted increased pain, warmth and redness to the area. She also notes having some other superficial abrasions that she has sustained from the falls and is concerned about possible infection. Pt was admitted 10/2016 for COPD exacerbation, LLE cellulitis treated with Cefdinir, and COPD exacerbation and she reports she completed the full course of abx's with some improvement of sxs, but not resolution. Pt reports that she has otherwise been feeling well. She states that she wears O2 at home at bedtime, 2L. She denies increased SOB from her baseline, but does note that 2-3 nights ago she increased her O2 to 2.5L because of increased SOB overnight. States that this resolved on its own and that she has not experienced a change from her baseline since then. She note that she has a pulse ox at home and her O2 sat has been 87-90% at home off oxygen. Pt also notes that she has had 2 days of dysuria, however, denies any other urinary sxs , abdominal pain, or fever. Pt also denies CP, palpitations, cough, LE swelling , nausea, vomiting or diarrhea. Home Medications Scheduled Acetaminophen/Hydrocodone (Hydrocodone/Acetaminophen 10-325 mg) 1 Tab Tab, 1 TAB PO QID, (Reported) Albuterol Sulfate (Albuterol Sulfate) 2.5 Mg/3 Ml Nebu, 1 VIAL INH BID, ( Reported) Allopurinol (Zyloprim) 300 Mg Tab, 300 MG PO DAILY, (Reported) Amlodipine Besylate (Amlodipine Besylate) 10 Mg Tab, 10 MG PO DAILY, (Reported) Aspirin (Aspir-Low) 81 Mg Tab, 81 MG PO DAILY, (Reported) Carvedilol (Carvedilol) 3.125 Mg Tab, 3.125 MG PO BID, (Reported) Cyclobenzaprine HCl (Cyclobenzaprine HCl) 10 Mg Tab, 10 MG PO TID, (Reported) Diphenhydramine HCl (Benadryl Allergy) 25 Mg Cap, 25 MG PO DAILY, (Reported) TAKES AT NOON Fluticasone/Vilanterol (Breo Ellipta 200-25 Mcg/INH) 1 Inh Inh, 1 PUFF INH DAILY , (Reported) Furosemide (Furosemide) 40 Mg Tab, 40 MG PO QPM, (Reported) Furosemide (Furosemide) 20 Mg Tab, 20 MG PO QAM, (Reported) Gabapentin (Gabapentin) 600 Mg Tab, 600 MG PO TID, (Reported) Hydroxychloroquine Sulfate (Hydroxychloroquine Sulfat) 200 Mg Tab, 200 MG PO DAILY, (Reported) Lactobacillus Acidophilus (Bacid) 1 Tab Tab, 1 TAB PO TID, (Reported) Levothyroxine Sodium (Synthroid) 50 Mcg Tab, 50 MCG PO QAM, (Reported) Magnesium Chloride (Mag64) 64 Mg Tabcr, 64 MG PO DAILY, (Reported) TAKES AT 1500 Methylprednisolone (Methylprednisolone) 8 Mg Tab, 8 MG PO DAILY, (Reported) takes at 1500 Multivitamins *[facility] STOCKED* (Thera M Plus *[facility] STOCK[facility]*) 1 Tab Tab, 1 TAB PO DAILY, (Reported) TAKES AT 1500 Pantoprazole Sodium (Pantoprazole Sodium) 40 Mg Tab, 40 MG PO QHS, (Reported) Potassium Chloride (Potassium Chloride ER) 10 Meq Tab, 20 MEQ PO BID, (Reported) Ropinirole Hydrochloride (Ropinirole ER) 8 Mg Tab, 8 MG PO QHS, (Reported) Spironolactone (Spironolactone) 25 Mg Tab, 25 MG PO QHS, (Reported) Vitamin D (Drisdol) 50,000 Unit Cap, 50,000 UNIT PO QWEEK, (Reported) Scheduled PRN Albuterol Sulfate (Ventolin Hfa) 200 Puff/8 Gm Aers, 2 PUFF INH QID PRN for SHORTNESS OF BREATH, (Reported) Loperamide Hcl (Imodium A-D) 2 Mg Tab, 2 MG PO Q4H PRN for DIARRHEA, (Reported) Milk Of Magnesia (Milk of Magnesia Concentr) 30 Ml Conc, 30 ML PO BIDP PRN for CONSTIPATION, (Reported) Morphine Sulfate (Morphine Sulfate) 15 Mg Tab, 15 MG PO Q6H PRN for PAIN, ( Reported) Nystatin (Nystatin Powder) 100,000 Unit/Gm Pow, 1 DOSE TOP QWEEK PRN for RASH, ( Reported) APPLIES UNDER BREASTS Nystatin (Nystatin Oral Susp) 5 Ml Susp, 5 ML SS BID PRN for THRUSH, (Reported) Sumatriptan Succinate (Imitrex) 50 Mg Tab, 50 MG PO DAILY PRN for MIGRAINE, ( Reported) Allergies Coded Allergies: Amitriptyline (Verified Allergy, Severe, THROAT CLOSING, 06/11/12) Latex (Verified Allergy, Unknown, 07/25/14) Nitrates, Organic (Verified Allergy, Unknown, 06/11/12) Tizanidine (Verified Allergy, Unknown, lowers blood pressure, 10/18/16) Nitrofurantoin (Verified Adverse Reaction, Severe, CHEST PAIN, 12/08/16) Replaces FURADANTIN HAWKINS Celecoxib (Verified Adverse Reaction, Intermediate, KIDNEY ISSUES, ) Naproxen (Verified Adverse Reaction, Mild, DIARRHEA, 06/11/12) DIARRHEA Quinolones (Verified Adverse Reaction, Mild, CIPRO- DIARRHEA, 06/11/12) Sulfa Drugs (Verified Adverse Reaction, Mild, DIARRHEA, 06/11/12) Sulfa Drugs Cross Reactors (Verified Adverse Reaction, Mild, DIARRHEA, 06/11) Past Medical History Medical History 1. Congestive heart failure with both systolic and diastolic dysfunction, most recent cardiac cath 08/23 at [facility] with EF of 57% 2. Coronary artery disease with 50% stenosis in LAD, 60% RCA stenosis, no PCI needed. 3. Hypertension 4. Spinal stenosis with subacute left C6-7 radiculopathy also had L5-S1 radiculopathy 5. Migraines 6. GERD 7. Irritable bowel syndrome 8. Peripheral artery disease 9. Left renal artery stenosis 10. Vitamin D deficiency 11. History of multiple UTIs 12. Skin cancer on her back and face (nonmelanoma) 13. COPD 14. Chronic kidney disease stage III with a baseline creatinine of approximately 1.1 15. Hyperlipidemia 16. Lungs necrotizing granulomatous inflammation right upper lobe per CT guided biopsy. Bronch 12/20 not definite. Bronchoalveolar lavage in 2014 negative for malignancy, fungus, AFP. 17. C. difficile colitis in 2013 18. History of urinary retention 19. L4 compression fracture with radiculopathy 2014 20. Aspiration on UGI series 2014, patient declines feeding tube or thickened consistency liquids 21. Chronic anxiety 22. Rheumatoid arthritis/inflammatory arthritis, avoid NSAIDs as these have precipitated CHF and ARF in the past 23. Hypothyroidism 24. History of bilateral thyroid nodules 25. 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 Surgical History Bilateral TKA Hysterectomy with total BSO Tonsillectomy Bunionectomy bilateral Trigger finger release right thumb Carpal tunnel release bilateral Back surgery 3, lumbar laminectomy Rotator cuff repair bilateral Cervical spine discectomy 2006 Right foot surgery 2 Colonoscopy 2008 EGD 2008 Left shoulder replacement 2012 Lung biopsy 2014 Decompressive laminectomy 2016 Shoulder/neck surgery 2015 Heart catheterization 08/26/2016 C4 spine revision 2016 Family History Significant Family History: No pertinent family hx She is unaware of any chronic conditions that run in the family Social History * Smoker: former Smoker (patient quit smoking 40 years ago.) Alcohol: Denies Drugs: denies Recent Travel/Sick Contacts: Denies: Recent travel, Recent sick contacts Lives at home with her son, she does have 8 steps inside the home as she has split level home. She does ambulate with a 3 wheeled walker at home, she does have a 4 wheeled walker as well which she uses when she goes out of the house. The son does mention that she has multiple things that would be contributory to her falls including oxygen hoses, she doesn't tie her shoes, and other obstacles around the house. Review of Symptoms Constitutional: Denies: Chills, Fever, Malaise, Night Sweats, Weakness, Fatigue , Weight Loss, Lethargy, Other Eyes: Denies: Pain, Vision change, Conjunctivae inflammation, Eyelid inflammation, Redness, Other ENT: Denies: Head Aches, Ear Pain, Dysphagia, Sinus Congestion, Post Nasal Drip , Sore Throat, Epistaxis, Other Symptoms Skin: Reports: Bruising (multiple bruises related to fall, localized to forehead, chin, bilateral upper and lower extremities) Pulmonary: Reports: Other Symptoms (SOB, acute on chronic, resolved), Denies: Dyspnea, Cough, Pleuritic Chest Pain Cardiovascular: Denies: Chest Pain, Palpitations, Orthopnea, Paroxysmal Noc. Dyspnea, Edema, Lt Headedness, Other Symptoms Gastrointestinal: Denies: Nausea, Vomiting, Abdominal Pain, Diarrhea, Constipation, Melena, Hematochezia, Other Symptoms Genitourinary: Reports: Dysuria, Denies: Frequency, Incontinence, Hematuria Hematologic: Reports: Bruising Musculoskeletal: Reports: Neck Pain, Back Pain, Hand Pain, Leg Pain Neurological: Denies: Weakness, Numbness, Incoordination, Change in speech, Confusion, Seizures, Other Symptoms Psych: Reports: Mood Normal Physical Examination General Exam: Positive: Alert, Cooperative, Mild Distress (appears short of breath when talking), Other (laying in bed, NC in place), Negative: No Acute Distress Eye Exam: Positive: PERRLA, EOMI, Negative: Ptosis ENT Exam: Positive: Atraumatic, Other ENT (white exudates noted around uvula, dry mucous membranes) Neck Exam: Positive: Supple, Negative: JVD Chest Exam: Positive: Normal air movement, Rhonchi (right lower lung field), Negative: Wheezing Heart Exam: Positive: Tachycardic, Regular Rhythm, Normal S1, Normal S2, Negative: Gallops, Murmurs, Rubs Telemetry: Positive: Sinus, Tachycardia Abdomen Exam: Positive: Normal bowel sounds, Soft, Tenderness (suprapubic), Negative: Hepatospenomegaly Extremity Exam: Positive: Normal pulses, Other (multiple bruises noted to bilateral upper and lower extremities), Negative: Swelling Skin Exam: Positive: Other skin issue (superficial wound to RUE, localized anteriorly aspect of forearm, no drainage, no erythema, non tender. Multiple superficial wounds to RLE, circular, covered with bandaids, some purulent material noted on bandage, no active bleeding or drainage, no warmth, mild erythema. left knee wound, circular, some purulence around wound surface and on bandage, no active drainage, surrounding erythema, warm to touch, mild tenderness to area. ), Negative: Rash Neuro Exam: Positive: Normal Speech, Strength at 5/5 X4 ext, Normal Tone, Cranial Nerves 3-12 NL Psych Exam: Positive: Mental status NL, Oriented x 3 Vital Signs Vital Signs Date Time Temp Pulse Resp B/P (MAP) Pulse Ox O2 Delivery O2 Flow Rate FiO2 12/08/16 14:32 122 12/08/16 14:02 131/62 (85) 76 12/08/16 10:54 Nasal Cannula 2.0 12/08/16 09:03 97.7 18 Laboratory Data Labs 24H Laboratory Tests 2 12/08/16 09:32: White Blood Count 31.9*H, Red Blood Count 3.85L, Hemoglobin 11.3L, Hematocrit 37.2, Mean Corpuscular Volume 96.6H, Mean Corpuscular Hemoglobin 29.4, Mean Corpuscular Hemoglobin Concent 30.4L, Red Cell Distribution Width 17.2H, Platelet Count 448, Neutrophils # (Auto) , Nucleated Red Blood Cells % (auto) 0.0, Neutrophils 85H, Band Neutrophils 9, Lymphocytes (Manual) 4L, Monocytes ( Manual) 2, Nucleated Red Blood Cells 1H, Platelet Estimate NORMAL, Anion Gap 5L , Glomerular Filtration Rate 42.4, Blood Urea Nitrogen 34H, Creatinine 1.31H, Sodium Level 140, Potassium Level 3.8, Chloride Level 98, Carbon Dioxide Level 37H, Calcium Level 9.5, Total Creatine Kinase 15L, Creatine Kinase MB 1.0, Creatine Kinase MB Relative Index 6.66H, Troponin I < 0.02, Thyroid Stimulating Hormone (TSH) 0.739 12/08/16 12:07: Blood Gas Bicarbonate Standard 32.5H, Arterial Blood pH 7.459H, Arterial Blood Partial Pressure CO2 48.8H, Arterial Blood Partial Pressure O2 75.1, Arterial Blood Total CO2 35.3H, Arterial Blood HCO3 33.8H, Arterial Blood Base Excess 8.8H, Arterial Blood Oxygen Saturation 94.9L CBC/BMP Laboratory Tests 12/08/16 09:32 Red Blood Count 3.85 L, Mean Corpuscular Volume 96.6 H, Mean Corpuscular Hemoglobin 29.4, Mean Corpuscular Hemoglobin Concent 30.4 L, Red Cell Distribution Width 17.2 H, Neutrophils # (Auto) , Calcium Level 9.5, Total Creatine Kinase 15 L Problems (1) RLL pneumonia Status: Acute Problem Text: Pt with previous admission 10/2016 and noted to have RLL PNA then , infiltrate appears worse, evident on both CXR and Chest CT and now with elevated WBC at 31.9. Pt currently on Zosyn and Vanc, will continue broad antibiotics given her relative immunosuppression from chronic steroids and plaquenil. Currently on 2L NC which is her baseline and will continue this as well. There are multiple nodules noted on CT chest that should be followed up as OP. Pt has been followed up as OP in the past for findings in the RUL and RLL with extensive workup including BAL and biopsies. Will recommend OP follow up for nodules. (2) Cellulitis of left lower extremity Problem Text: Pt previously admitted for cellulitis of the left knee 10/2016, treated with Ceftaroline and transitioned to Cefdinir at the time of d/c for 10 days, wound culture positive at that time for Serratia. Pt currently on broad spectrum abx's which will cover this. Plan to consult PT for wound care and dressing changes. (3) Leukocytosis Status: Acute Problem Text: Pt with elevated WBC at 31.9, baseline around 11-13. Suspect multifactorial, pt with evidence of persistent RLL infiltrate, UTI sxs, cellulitis and on chronic Prednisone. Currently on broad spectrum abx's. UA and culture, and blood cultures pending. Will deescalate abx's appropriately. We will discontinue her hydroxychloroquine at this time, but will continue with her usual home dose of steroids him. I do not see an indication for stress dose steroids at this time as the patient's BP is stable. (4) Fall Status: Acute Problem Text: Pt with 2 falls this past week. Negative XR of hip/pelvis, lumbar spine and knee. Pt also with negative CT head. Will obtain PT/OT eval. (5) Thrush, oral Status: Resolved Problem Text: Likely secondary chronic steroid therapy and nebulizers for COPD. Plan for Nystatin swish and swallow. (6) Rheumatoid arthritis Status: Chronic Problem Text: Pt currently on Prednisone 8mg daily at home as well as Plaquenil 200mg PO daily. Plan to continue Prednisone at current dose at this time, no indication for stress dose at this time, but will continue to reassess for need. Will hold Plaquenil and restart at the time of d/c. (7) CKD (chronic kidney disease) Status: Chronic Response to Treatment: Stable Problem Text: Pt with slight elevation of creatinine above baseline from 1.1 to 1.3. Plan to give bolus of 500mL. (8) CHF (congestive heart failure) Status: Chronic Problem Text: Pt on Lasix and Spironolactone as OP. Plan to hold diuretics at this time as pt pressure has been in the low 100's systolic and pt appears slightly dehydrated on exam. (9) Chronic GERD Status: Chronic Problem Text: Will continue patient's Pantoprazole 40mg daily (10) CAD (coronary artery disease) Status: Chronic Problem Text: Pt on both ASA and Carvedilol. Plan to continue both, Carvedilol will be continued with holding parameters for SBP <100 and HR <60. (11) Hypertension Status: Chronic Problem Text: Pt on Norvasc and Carvedilol, will continue Carvedilol with holding parameters for SBP <100 and HR<60 and hold Norvasc at this point as her BP has been in the low 100's systolic. (12) COPD (chronic obstructive pulmonary disease) Status: Chronic Response to Treatment: Stable Problem Text: Pt currently on 2L NC which is her baseline. Does not appear to be in acute exacerbation. Pt will have duo nebs scheduled BID and prn. Will give Advair in place of pt's Breo/Ellipta while inpatient. (13) Chronic back pain Status: Chronic Response to Treatment: Stable Problem Text: Will continue patient's Cyclobenzaprine, and patient's home regimen for pain control. (14) Hypothyroidism Status: Chronic Response to Treatment: Stable Problem Text: Will continue patient's Levothyroxine. (15) Gout Status: Chronic Response to Treatment: Stable Problem Text: Will continue patient's Allopurinol. Plan / VTE VTE Prophylaxis Ordered?: Yes Attending Note Attending Note I have seen and examined the above patient and agree with the above documentation. JESSICA REYES DO Dec 08, 2016 14:59 AJAY ZUÑIGA Dec 19, 2016 17:30
[2016-12-08 17:30] VITALS: BP 125/58
[2016-12-08] MEDS: PERCOCET 5MG/325MG TAB PO SCH ×2 (17:58→22:09)
[2016-12-08] MEDS: LACTOBACILLUS ACIDOPHILUS CAP (BACID) PO SCH ×2 (18:01→20:10)
[2016-12-08] MEDS: diphenhydrAMINE 25 MG CAP PO SCH (18:01)
[2016-12-08] MEDS: MULTIVITAMINS/MINERALS THERAP 1 TAB PO SCH (18:02)
[2016-12-08] MEDS: ASPIRIN 81 MG ENTERIC TAB PO SCH (18:02)
[2016-12-08] MEDS: GABAPENTIN 300 MG CAP PO SCH ×2 (18:02→20:10)
[2016-12-08] MEDS: CYCLOBENZAPRINE 10 MG TAB PO SCH ×2 (18:02→20:10)
--- NOTE | 2016-12-08 19:09 | PHACANCOPD ---
PHARMACY VANCOMYCIN DOSING Pt Demographics Demographics Patient Age:71 , Weight:48.200 , Gender: female Adjusted Body Weight Date: 12/08/16, Adjusted Body Weight: Kg Events Past 24 Hours Events Past 24 Hours: YES: Fever, Elevation in WBC, NO: Dialysis, Diuretic Therapy, Change in CrCl, Pending Diagnostics, Pending Procedures, Other Vancomycin Vancomycin Target Ranges: 15-20 mcg/ml Vancomycin Load Y/N: Yes Load Dose Date Time Vancomycin Load Dose: 1G Date: 12/08/16 Time: 1500 Vancomycin Dose Date: 12/08/16. Current Vancomycin Dose: [500MG IV Q24H@1500 STARTING 12/09/16] Intermittent Dosing?: No Labs Labs Vital Signs Label Value Date Time Patient Temperature 99.3 degrees F 12/08/16 1730 Temperature Source Temporal 12/08/16 1730 Item Value Date Time White Blood Count 31.9 10^3/uL *H 12/08/16 0932 Creatinine 1.31 MG/DL H 12/08/16 0932 Micro Microbiology 12/08/16 Blood Culture, Received Pending Creatinine Clearance Date:12/08/16. Creatinine Clearance: . Assessment and Plan Maintaining Current Dose?: Yes Reason for dose change: No Dose Change Pharmacist Note Pharmacist Note Date: 12/08/16. Pharmacist note: Pt. is a 71 year old female who presented to the ED after experience her second fall in the past week and experiencing generalized weakness. Family reports increased signs of confusion over the past few days. Pt.'s last admit was in 10/2016 due to a COPD exacerbation and LLE cellulitis that was treated with cefdinir. Pt's WBCs are elevated, and patient is also currently taking steroids. Last Vancomycin was back in 2014. Pt. has no history of MRSA at our facility. is treating this patient with vanco and zosyn for possible pneumonia. The patient received a 1G Vanco LD in the ED @ 1500. I will start the patient on 500mg IV q24h at 1500 on 12/09/16. We will continue to monitor and adjust dose as needed. ZELDA MCWILLIAMS PHARMACY Dec 08, 2016 19:09
[2016-12-08] MEDS: PIPERACILLIN/TAZOBACTAM SOD 3.375 GM in D5W 50 ML IV SCH (20:11)
[2016-12-08] MEDS: POTASSIUM CHLORIDE 10 MEQ SR TABLET PO SCH (20:11)
[2016-12-08] MEDS: PANTOPRAZOLE 40MG TAB (PROTONIX) PO SCH (20:11)
[2016-12-08] MEDS: NYSTATIN 500,000 U/5 ML SUSP UDC SS SCH (20:12)
[2016-12-08] MEDS: ALBUTEROL SULFATE 2.5 MG/0.5 ML INH NEB SOLN INH SCH (20:33)
[2016-12-08] MEDS: ADVAIR HFA 230/21MCG INHALER INH SCH (21:00)
[2016-12-08] MEDS: CARVedilol 3.125 MG TAB PO SCH (21:00)
[2016-12-08] MEDS ORDERED: rOPINIRole 1MG TAB PO SCH (21:00)
[2016-12-08 22:00] VITALS: BP 103/64
[2016-12-09] MEDS: PIPERACILLIN/TAZOBACTAM SOD 3.375 GM in D5W 50 ML IV SCH ×3 (01:22→14:44)
[2016-12-09] MEDS: LEVOTHYROXINE 50MCG TABLET (0.05MG) PO SCH (05:33)
[2016-12-09 06:00] VITALS: BP 105/55
[2016-12-09] MEDS: ADVAIR HFA 230/21MCG INHALER INH SCH (07:41)
[2016-12-09 07:54] LABS: MEAN CORPUSCULAR HGB CONC 30.3 g/dl (32.0-36.5); MEAN CORPUSCULAR VOLUME 95.8 fl (80.0-96.0); RED CELL DISTRIBUTION WIDTH 17.2 % (11.5-14.5)
[2016-12-09 08:02] LABS: ANION GAP 6 MEQ/L (8-16); BLOOD UREA NITROGEN 25 MG/DL (7-18); CALCIUM LEVEL 8.9 MG/DL (8.8-10.2); CARBON DIOXIDE LEVEL 33 MEQ/L (21-32); CHLORIDE LEVEL 103 MEQ/L (98-107); CREATININE FOR GFR 1.03 MG/DL (0.55-1.02); GLOMERULAR FILTRATION RATE 55.9 (>39); GLUCOSE, FASTING 98 MG/DL (83-110); MAGNESIUM LEVEL 1.9 MG/DL (1.8-2.4); POTASSIUM SERUM 3.7 MEQ/L (3.5-5.1); SODIUM LEVEL 142 MEQ/L (136-145)
[2016-12-09] MEDS: diphenhydrAMINE 25 MG CAP PO SCH (08:55)
[2016-12-09] MEDS: POTASSIUM CHLORIDE 10 MEQ SR TABLET PO SCH ×2 (08:55→21:33)
[2016-12-09] MEDS: ASPIRIN 81 MG ENTERIC TAB PO SCH (08:56)
[2016-12-09] MEDS: LACTOBACILLUS ACIDOPHILUS CAP (BACID) PO SCH ×3 (08:56→21:34)
[2016-12-09] MEDS: MULTIVITAMINS/MINERALS THERAP 1 TAB PO SCH (08:56)
[2016-12-09] MEDS: GABAPENTIN 300 MG CAP PO SCH ×3 (08:56→21:34)
[2016-12-09] MEDS: methylPREDNISolone 4 MG TAB PO SCH ×2 (09:00→14:46)
[2016-12-09] MEDS: PERCOCET 5MG/325MG TAB PO SCH ×4 (09:00→21:35)
[2016-12-09] MEDS: ALBUTEROL SULFATE 2.5 MG/0.5 ML INH NEB SOLN INH SCH ×2 (09:00→19:56)
[2016-12-09] MEDS: MAGNESIUM CHLORIDE 64 MG TABCR (SLO MAG) PO SCH ×2 (09:00→14:45)
[2016-12-09] MEDS: CARVedilol 3.125 MG TAB PO SCH ×2 (09:02→21:57)
[2016-12-09] MEDS: NYSTATIN 500,000 U/5 ML SUSP UDC SS SCH ×2 (09:03→21:34)
[2016-12-09] MEDS: ALLOPURINOL 300 MG TAB PO SCH (09:03)
[2016-12-09] MEDS: CYCLOBENZAPRINE 10 MG TAB PO SCH ×3 (09:03→21:34)
[2016-12-09] MEDS: ENOXAPARIN 30 MG/0.3 ML SYR (J1650) SC SCH (09:05)
[2016-12-09] MEDS ORDERED: VANCOMYCIN HCL 500 MG in D5W MINI-BAG PLUS 100 ML IV SCH (15:00)
--- NOTE | 2016-12-09 15:18 | IPN ---
DATE: 12/09/2016 Diana was admitted with pneumonia, multiple areas on a CT scan of the chest. She did not really feel short of breath. She has been falling. She has spinal stenosis, peripheral neuropathy. Has been having multiple falls. She has inflammatory arthritis and takes methylprednisolone (not prednisone as stated in history and physical) 8 mg daily. Dose was recently reduced by semiautomatic taper operator to 4 mg daily, but Diana thought that was too drastic a dose, and she has maintained 8 mg dose. She started Plaquenil recently at that time as well. She has had multiple falls. Her legs have gotten progressively weak. 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 Others related to spinal stenosis with leg weakness. She has chronic kidney disease, history of coronary artery disease with a recent myocardial infarction ([place]), severe chronic obstructive pulmonary disease (COPD), on supplemental oxygen, hypothyroidism, and tophaceous gout. PHYSICAL EXAMINATION: 115/60, pulse of 100-120, respirations 18, 100% oxygen saturation. GENERAL APPEARANCE: Cushingoid appearance. Covered with bruises, skin tears, bandages with severe steroid atrophy of her skin as well as postsurgical changes posteriorly. LUNGS: Decreased breath sounds. Few wheezes. HEART: Regular rate and rhythm. ABDOMEN: Soft and nontender. Trace peripheral edema. LABORATORY DATA: White count down to 28,000, hemoglobin 9.7, platelets 350. Sodium 142, potassium 3.7, BUN 25, creatinine 1.0, glucose 98. Troponins were flat. CT scan of the chest shows infiltrates, right lower lobe, versus nodular density. IMPRESSION: 1. Multifocal pneumonia in an immunosuppressed patient. She is on Zosyn and vancomycin. Supplemental oxygen. Continue her steroid therapy. Nebulized bronchodilator ordered. 2. Pulmonary nodules. This will need to be followed until clear. She has been followed by pulmonary in the past. 3. Steroid atrophy of the skin. She has recurrent cellulitis of the left lower leg from skin tears. She adamantly refuses discussion of placement. 4. Multiple falls. She is falling repeatedly. At a minimum, should consider rehabilitation, though I get the feeling she probably will not cooperate with this. 5. Chronic kidney disease. Creatinine is up to 1.3. I do not think the vancomycin is helping the situation. I am stopping her vancomycin and Zosyn and putting her of ceftaroline dose for renal function. 6. Coronary disease, stable. Flat troponins. 7. Tophaceous gout. Continue allopurinol. 8. Hypothyroidism. Continue her levothyroxine. 9. Chronic back pain with spinal stenosis. She has had multiple surgeries and is debilitating and leading to multiple falls.
[2016-12-09] MEDS ORDERED: VANCOMYCIN HCL 750 MG, VIAL MATE ADAPTER 1 EACH in D5W 250 ML IV SCH (16:45)
[2016-12-09] MEDS: CEFTAROLINE FOSAMIL 400 MG in D5W 50 ML IV SCH (17:22)
[2016-12-09] MEDS: PANTOPRAZOLE 40MG TAB (PROTONIX) PO SCH (21:33)
[2016-12-09] MEDS: ROPINIROLE 8 MG PO SCH (21:35)
[2016-12-09 22:30] VITALS: BP 142/84
[2016-12-10 06:00] VITALS: BP 118/57
[2016-12-10] MEDS: LEVOTHYROXINE 50MCG TABLET (0.05MG) PO SCH (06:05)
[2016-12-10] MEDS: CEFTAROLINE FOSAMIL 400 MG in D5W 50 ML IV SCH ×2 (06:05→18:03)
[2016-12-10] MEDS ORDERED: POTASSIUM CHLORIDE 10 MEQ SR TABLET PO ONE (06:15)
[2016-12-10 06:35] LABS: MEAN CORPUSCULAR HEMOGLOBIN 29.2 pg (27.0-33.0); MEAN CORPUSCULAR HGB CONC 30.5 g/dl (32.0-36.5); MEAN CORPUSCULAR VOLUME 95.7 fl (80.0-96.0); RED CELL DISTRIBUTION WIDTH 16.8 % (11.5-14.5); WHITE BLOOD COUNT 24.4 10^3/uL (4.0-10.0)
[2016-12-10 06:46] LABS: ANION GAP 7 MEQ/L (8-16); BLOOD UREA NITROGEN 21 MG/DL (7-18); CARBON DIOXIDE LEVEL 32 MEQ/L (21-32); CHLORIDE LEVEL 103 MEQ/L (98-107); CREATININE FOR GFR 0.86 MG/DL (0.55-1.02); GLOMERULAR FILTRATION RATE > 60.0 (>39); GLUCOSE, FASTING 139 MG/DL (83-110); POTASSIUM SERUM 3.8 MEQ/L (3.5-5.1); SODIUM LEVEL 142 MEQ/L (136-145)
[2016-12-10] MEDS: BREO ELLIPTA INH SCH (08:00)
[2016-12-10] MEDS: ALBUTEROL SULFATE 2.5 MG/0.5 ML INH NEB SOLN INH SCH ×2 (08:10→19:46)
[2016-12-10 08:20] VITALS: BP 131/62
[2016-12-10] MEDS: LACTOBACILLUS ACIDOPHILUS CAP (BACID) PO SCH ×3 (09:49→20:53)
[2016-12-10] MEDS: CYCLOBENZAPRINE 10 MG TAB PO SCH ×3 (09:50→20:52)
[2016-12-10] MEDS: ASPIRIN 81 MG ENTERIC TAB PO SCH (09:50)
[2016-12-10] MEDS: MULTIVITAMINS/MINERALS THERAP 1 TAB PO SCH (09:50)
[2016-12-10] MEDS: GABAPENTIN 300 MG CAP PO SCH ×3 (09:50→20:53)
[2016-12-10] MEDS: ALLOPURINOL 300 MG TAB PO SCH (09:50)
[2016-12-10] MEDS: CARVedilol 3.125 MG TAB PO SCH ×2 (09:50→20:52)
[2016-12-10] MEDS: MAGNESIUM CHLORIDE 64 MG TABCR (SLO MAG) PO SCH (09:50)
[2016-12-10] MEDS: diphenhydrAMINE 25 MG CAP PO SCH (09:50)
[2016-12-10] MEDS: NYSTATIN 500,000 U/5 ML SUSP UDC SS SCH ×2 (09:51→20:54)
[2016-12-10] MEDS: ENOXAPARIN 30 MG/0.3 ML SYR (J1650) SC SCH (09:51)
[2016-12-10] MEDS: methylPREDNISolone 4 MG TAB PO SCH (09:51)
[2016-12-10] MEDS: POTASSIUM CHLORIDE 10 MEQ SR TABLET PO SCH (09:54)
[2016-12-10] MEDS: PERCOCET 5MG/325MG TAB PO SCH ×4 (10:05→20:53)
--- NOTE | 2016-12-10 10:29 | IPNPDOC ---
Subjective Date Seen The patient was seen on 12/10/16. Subjective Chief Complaint/HPI The patient is a 71-year-old female admitted with a reason for visit of Rll Pneumonia. Events since last encounter Pt complains that the antibiotic is giving her diarrhea. She denies SOB, CP, Abd pain. Constitutional: Denies: Chills, Fever Pulmonary: Denies: Dyspnea Cardiovascular: Denies: Chest Pain Gastrointestinal: Reports: Diarrhea, Denies: Abdominal Pain Objective Physical Examination General Exam: Positive: Alert, No Acute Distress Eye Exam: Positive: PERRLA, EOMI Neck Exam: Positive: Supple, Negative: JVD Chest Exam: Positive: Diminished Heart Exam: Positive: Rate Normal, Regular Rhythm Abdomen Exam: Positive: Normal bowel sounds, Soft, Negative: Tenderness, Hepatospenomegaly Extremity Exam: Positive: Normal pulses, Other (multiple bruises noted to bilateral upper and lower extremities), Negative: Swelling Skin Exam: Positive: Other skin issue (superficial wound to RUE, localized anteriorly aspect of forearm, no drainage, no erythema, non tender. Multiple superficial wounds to RLE, circular, covered with bandaids, some purulent material noted on bandage, no active bleeding or drainage, no warmth, mild erythema. left knee wound, circular, some purulence around wound surface and on bandage, no active drainage, surrounding erythema, warm to touch, mild tenderness to area. ), Negative: Rash Neuro Exam: Positive: Normal Speech, Strength at 5/5 X4 ext, Normal Tone, Cranial Nerves 3-12 NL Psych Exam: Positive: Mental status NL, Oriented x 3 Assessment /Plan Problems (1) Multifocal pneumonia Status: Acute Problem Specific Plan: Monitor Clinically, Repeat Labs Problem Text: 12/10 - Pt is on IV Ceftaroline. (IV Zosyn and IV Vanco were d/c' ed.) She is immunosuppressed. Continue steroids. Continue nebs. (2) RLL pneumonia Status: Acute Problem Text: 12/10 - See above. Pt with previous admission 10/2016 and noted to have RLL PNA then, infiltrate appears worse, evident on both CXR and Chest CT and now with elevated WBC at 31.9. Pt currently on Zosyn and Vanc, will continue. Currently on 2L NC which is her baseline and will continue this as well. There are multiple nodules noted on CT chest that should be followed up as OP. Pt has been followed up as OP in the past for findings in the RUL and RLL with extensive workup including BAL and biopsies. Will recommend OP follow up for nodules. (3) Pulmonary nodules Problem Specific Plan: Monitor Clinically Problem Text: 12/10 - These will need to be followed as out pt. (4) Cellulitis of left lower extremity Problem Text: 12/10 - Pt is on IV Ceftaroline. 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 Pt previously admitted for cellulitis of the left knee 10/2016, treated with Ceftaroline and transitioned to Cefdinir at the time of d/c for 10 days, wound culture positive at that time for Serratia. Pt currently on broad spectrum abx' s which will cover this. Plan to consult PT for wound care and dressing changes. (5) Leukocytosis Status: Acute Problem Text: 12/10 - WBC trending down to 24.4. Treating pneumonia and cellulitis with IV Ceftaroline. (IV Zosyn and IV Vanco were d/c'ed.) Pt with elevated WBC at 31.9, baseline around 11-13. Suspect multifactorial, pt with evidence of persistent RLL infiltrate, UTI sxs, cellulitis and on chronic Prednisone. Currently on broad spectrum abx's. UA and culture, and blood cultures pending. Will deescalate abx's appropriately. We will discontinue her hydroxychloroquine at this time, but will continue with her usual home dose of steroids him. I do not see an indication for stress dose steroids at this time (6) Fall Status: Acute Problem Text: 12/10 - PT ordered. Pt with 2 falls this past week. Negative XR of hip/pelvis, lumbar spine and knee. Pt also with negative CT head. Will obtain PT/OT eval. (7) Thrush, oral Status: Acute Problem Text: Likely secondary chronic steroid therapy and nebulizers for COPD. Plan for Nystatin swish and swallow. (8) Rheumatoid arthritis Status: Chronic Problem Text: Pt currently on Prednisone 8mg daily at home as well as Plaquenil 200mg PO daily. Plan to continue Prednisone at current dose at this time, no indication for stress dose at this time, but will continue to reassess for need. Will hold Plaquenil and restart at the time of d/c. (9) CKD (chronic kidney disease) Status: Chronic Response to Treatment: Stable Problem Text: 12/10 - Creatinine trending down and now 0.86. Pt with slight elevation of creatinine above baseline from 1.1 to 1.3. Plan to give bolus of 500mL. (10) CHF (congestive heart failure) Status: Chronic Problem Text: Pt on Lasix and Spironolactone as OP. Plan to hold diuretics at this time as pt pressure has been in the low 100's systolic and pt appears slightly dehydrated on exam. (11) Chronic GERD Status: Chronic Problem Text: Will continue patient's Pantoprazole 40mg daily (12) CAD (coronary artery disease) Status: Chronic Problem Text: Pt on both ASA and Carvedilol. Plan to continue both, Carvedilol will be continued with holding parameters for SBP <100 and HR <60. (13) Hypertension Status: Chronic Problem Text: Pt on Norvasc and Carvedilol, will continue Carvedilol with holding parameters for SBP <100 and HR<60 and hold Norvasc at this point as her BP has been in the low 100's systolic. (14) COPD (chronic obstructive pulmonary disease) Status: Chronic Response to Treatment: Stable Problem Text: Pt currently on 2L NC which is her baseline. Does not appear to be in acute exacerbation. Pt will have duo nebs scheduled BID and prn. Will give Advair in place of pt's Breo/Ellipta while inpatient. (15) Chronic back pain Status: Chronic Response to Treatment: Stable Problem Text: Will continue patient's Cyclobenzaprine, and patient's home regimen for pain control. (16) Spinal stenosis Status: Chronic (17) Hypothyroidism Status: Chronic Response to Treatment: Stable Problem Text: Will continue patient's Levothyroxine. (18) Gout Status: Chronic Response to Treatment: Stable Problem Text: Will continue patient's Allopurinol. Plan/VTE VTE Prophylaxis Ordered?: Yes VS, I&O, 24H, Fishbone Vital Signs/I&O Vital Signs Date Time Temp Pulse Resp B/P (MAP) Pulse Ox O2 Delivery O2 Flow Rate FiO2 12/10/16 08:22 104 20 97 Nasal Cannula 3.0 12/10/16 08:20 96.2 131/62 (85) I&O- Last 24 Hours up to 6 AM 12/11/16 06:00 Intake Total 50 ml Output Total 50 ml Balance 0 ml Laboratory Data 24H LABS Laboratory Tests 2 12/09/16 11:11: Total Creatine Kinase 16L, Creatine Kinase MB 1.0, Creatine Kinase MB Relative Index 6.25H, Troponin I < 0.02 12/10/16 06:15: Anion Gap 7L, Glomerular Filtration Rate > 60.0, Blood Urea Nitrogen 21H, Creatinine 0.86, Sodium Level 142, Potassium Level 3.8, Chloride Level 103, Carbon Dioxide Level 32, Calcium Level 9.0 CBC/BMP Laboratory Tests 12/10/16 06:15 Red Blood Count 3.22 L, Mean Corpuscular Volume 95.7, Mean Corpuscular Hemoglobin 29.2, Mean Corpuscular Hemoglobin Concent 30.5 L, Red Cell Distribution Width 16.8 H, Calcium Level 9.0 Microbiology Microbiology 12/08/16 Blood Culture - Preliminary, Resulted No growth after 24 hours . All specim... 12/08/16 Blood Culture - Preliminary, Resulted No growth after 24 hours . All specim... 12/09/16 Gram Stain - Final, Resulted 12/09/16 Sputum Culture, Resulted Pending Karan Devlin Dec 10, 2016 10:29
[2016-12-10 14:09] VITALS: BP 138/70
[2016-12-10] MEDS: PANTOPRAZOLE 40MG TAB (PROTONIX) PO SCH (20:53)
[2016-12-10] MEDS: ROPINIROLE 8 MG PO SCH (20:54)
[2016-12-10] MEDS: POTASSIUM CHLORIDE 10% LIQ 20 MEQ/15 ML UDC PO SCH (20:54)
[2016-12-10 22:00] VITALS: BP 136/62
[2016-12-11] MEDS: VANCOMYCIN ORAL SOL 250MG/5ML ORAL SYRINGE PO SCH ×5 (00:17→23:30)
[2016-12-11] MEDS: CEFTAROLINE FOSAMIL 400 MG in D5W 50 ML IV SCH ×2 (05:44→17:03)
[2016-12-11] MEDS: LEVOTHYROXINE 50MCG TABLET (0.05MG) PO SCH (05:45)
[2016-12-11 06:00] VITALS: BP 130/80
[2016-12-11] MEDS: ALBUTEROL SULFATE 2.5 MG/0.5 ML INH NEB SOLN INH SCH ×2 (06:31→20:53)
[2016-12-11 06:55] LABS: MEAN CORPUSCULAR HGB CONC 29.9 g/dl (32.0-36.5); MEAN CORPUSCULAR VOLUME 97.2 fl (80.0-96.0); WHITE BLOOD COUNT 22.2 10^3/uL (4.0-10.0)
[2016-12-11 07:17] LABS: ANION GAP 6 MEQ/L (8-16); BLOOD UREA NITROGEN 20 MG/DL (7-18); CALCIUM LEVEL 8.8 MG/DL (8.8-10.2); CARBON DIOXIDE LEVEL 33 MEQ/L (21-32); CHLORIDE LEVEL 105 MEQ/L (98-107); CREATININE FOR GFR 0.93 MG/DL (0.55-1.02); GLOMERULAR FILTRATION RATE > 60.0 (>39); GLUCOSE, FASTING 122 MG/DL (83-110); SODIUM LEVEL 144 MEQ/L (136-145)
[2016-12-11] MEDS: methylPREDNISolone 4 MG TAB PO SCH (08:34)
[2016-12-11] MEDS: MULTIVITAMINS/MINERALS THERAP 1 TAB PO SCH (08:34)
[2016-12-11] MEDS: NYSTATIN 500,000 U/5 ML SUSP UDC SS SCH ×2 (08:34→21:42)
[2016-12-11] MEDS: diphenhydrAMINE 25 MG CAP PO SCH (08:34)
[2016-12-11] MEDS: GABAPENTIN 300 MG CAP PO SCH ×3 (08:36→21:42)
[2016-12-11] MEDS: ALLOPURINOL 300 MG TAB PO SCH (08:37)
[2016-12-11] MEDS: ASPIRIN 81 MG ENTERIC TAB PO SCH (08:37)
[2016-12-11] MEDS: CYCLOBENZAPRINE 10 MG TAB PO SCH ×3 (08:37→21:43)
[2016-12-11] MEDS: PERCOCET 5MG/325MG TAB PO SCH ×4 (08:37→21:43)
[2016-12-11] MEDS: ENOXAPARIN 30 MG/0.3 ML SYR (J1650) SC SCH (08:37)
[2016-12-11] MEDS: LACTOBACILLUS ACIDOPHILUS CAP (BACID) PO SCH ×3 (08:37→21:00)
[2016-12-11] MEDS: MAGNESIUM CHLORIDE 64 MG TABCR (SLO MAG) PO SCH (08:39)
[2016-12-11] MEDS: CARVedilol 3.125 MG TAB PO SCH ×2 (08:43→21:43)
[2016-12-11] MEDS: POTASSIUM CHLORIDE 10% LIQ 20 MEQ/15 ML UDC PO SCH ×2 (09:18→21:42)
[2016-12-11] MEDS: BREO ELLIPTA INH SCH (11:37)
[2016-12-11 14:00] VITALS: BP 145/67
--- NOTE | 2016-12-11 16:04 | IPN ---
DATE: 12/11/2016 Svitlana did prove to have Clostridium (C) difficile colitis. I started vancomycin last night. She is feeling better today. She has an antibiotic for her pneumonia. Overall, she feels a little stronger than yesterday. PHYSICAL EXAMINATION: Vital signs: Stable, afebrile. Cushingoid appearance. Resting in bed. Kyphosis present. Lungs: Scattered rhonchi, improved air movement from a few days ago. Heart: Regular rhythm. Abdomen: Soft, nontender. Lower extremities have dressing on them. 1. Multifocal pneumonia. She is on ceftaroline due to medications for rheumatoid arthritis. 2. Clostridium (C) difficile colitis. She is on by mouth vancomycin for this. She has had C. difficile previously. We recommend a long tapering dose of vancomycin due to previous C. difficile and immunosuppressed state. 3. Cellulitis left lower leg. She is on ceftaroline, which should help this. 4. Leukocytosis. White count is elevated. She is on steroids. 5. Oral thrush. She is on nystatin. She is still having a lot of oral ulcerations. I will order some Anbesol. 6. Chronic kidney disease, stable. 7. Congestive heart failure with preserved ejection fraction. Diuretics are still on hold, these will eventually need to be restarted. 8. Polyarticular gout, on allopurinol. Optimistically, we are looking at Thursday for a discharge date.
[2016-12-11] MEDS: BENZOCAINE 10% 9GM TUBE (ANBESOL) MT SCH ×2 (17:02→21:00)
[2016-12-11] MEDS: ROPINIROLE 8 MG PO SCH (21:00)
[2016-12-11] MEDS: PANTOPRAZOLE 40MG TAB (PROTONIX) PO SCH (21:42)
[2016-12-11 22:00] VITALS: BP 151/83
[2016-12-12] MEDS: LEVOTHYROXINE 50MCG TABLET (0.05MG) PO SCH (05:33)
[2016-12-12] MEDS: CEFTAROLINE FOSAMIL 400 MG in D5W 50 ML IV SCH ×2 (05:33→17:34)
[2016-12-12] MEDS: VANCOMYCIN ORAL SOL 250MG/5ML ORAL SYRINGE PO SCH ×3 (05:34→17:33)
[2016-12-12 06:00] VITALS: BP 150/84
[2016-12-12] MEDS ORDERED: ACETAMINOPHEN TAB 650MG DOSE (2X325MG) PO PRN (06:15)
[2016-12-12] MEDS: BREO ELLIPTA INH SCH (07:23)
[2016-12-12] MEDS: ALBUTEROL SULFATE 2.5 MG/0.5 ML INH NEB SOLN INH SCH ×2 (07:27→20:00)
[2016-12-12 07:48] LABS: MEAN CORPUSCULAR HEMOGLOBIN 28.8 pg (27.0-33.0); MEAN CORPUSCULAR HGB CONC 30.2 g/dl (32.0-36.5); MEAN CORPUSCULAR VOLUME 95.3 fl (80.0-96.0); RED CELL DISTRIBUTION WIDTH 17.1 % (11.5-14.5)
[2016-12-12 07:52] LABS: WHITE BLOOD COUNT 30.1 10^3/uL (4.0-10.0)
[2016-12-12 07:57] LABS: ANION GAP 8 MEQ/L (8-16); BLOOD UREA NITROGEN 19 MG/DL (7-18); CALCIUM LEVEL 9.2 MG/DL (8.8-10.2); CARBON DIOXIDE LEVEL 30 MEQ/L (21-32); CHLORIDE LEVEL 103 MEQ/L (98-107); CREATININE FOR GFR 0.94 MG/DL (0.55-1.02); GLOMERULAR FILTRATION RATE > 60.0 (>39); GLUCOSE, FASTING 79 MG/DL (83-110); SODIUM LEVEL 141 MEQ/L (136-145)
[2016-12-12] MEDS: BENZOCAINE 10% 9GM TUBE (ANBESOL) MT SCH ×4 (09:00→20:27)
[2016-12-12] MEDS: MAGNESIUM CHLORIDE 64 MG TABCR (SLO MAG) PO SCH (09:32)
[2016-12-12] MEDS: methylPREDNISolone 4 MG TAB PO SCH (09:33)
[2016-12-12] MEDS: GABAPENTIN 300 MG CAP PO SCH ×3 (09:34→20:25)
[2016-12-12] MEDS: LACTOBACILLUS ACIDOPHILUS CAP (BACID) PO SCH ×3 (09:34→20:25)
[2016-12-12] MEDS: MULTIVITAMINS/MINERALS THERAP 1 TAB PO SCH (09:34)
[2016-12-12] MEDS: CYCLOBENZAPRINE 10 MG TAB PO SCH ×3 (09:35→20:25)
[2016-12-12] MEDS: CARVedilol 3.125 MG TAB PO SCH ×2 (09:35→20:26)
[2016-12-12] MEDS: ASPIRIN 81 MG ENTERIC TAB PO SCH (09:35)
[2016-12-12] MEDS: diphenhydrAMINE 25 MG CAP PO SCH (09:35)
[2016-12-12] MEDS: ALLOPURINOL 300 MG TAB PO SCH (09:37)
[2016-12-12] MEDS: PERCOCET 5MG/325MG TAB PO SCH ×4 (09:37→20:26)
[2016-12-12] MEDS: POTASSIUM CHLORIDE 10% LIQ 20 MEQ/15 ML UDC PO SCH ×2 (09:38→20:24)
[2016-12-12] MEDS: NYSTATIN 500,000 U/5 ML SUSP UDC SS SCH ×2 (09:38→20:24)
[2016-12-12] MEDS: ENOXAPARIN 30 MG/0.3 ML SYR (J1650) SC SCH (09:38)
[2016-12-12 14:00] VITALS: BP 137/61
[2016-12-12] MEDS: ROPINIROLE 8 MG PO SCH (20:24)
[2016-12-12] MEDS: PANTOPRAZOLE 40MG TAB (PROTONIX) PO SCH (20:25)
[2016-12-12 22:00] VITALS: BP 130/74
[2016-12-13] MEDS: VANCOMYCIN ORAL SOL 250MG/5ML ORAL SYRINGE PO SCH ×4 (00:20→17:31)
[2016-12-13 05:37] LABS: MEAN CORPUSCULAR HEMOGLOBIN 29.2 pg (27.0-33.0); MEAN CORPUSCULAR HGB CONC 30.1 g/dl (32.0-36.5); MEAN CORPUSCULAR VOLUME 96.9 fl (80.0-96.0); WHITE BLOOD COUNT 26.8 10^3/uL (4.0-10.0)
[2016-12-13] MEDS: LEVOTHYROXINE 50MCG TABLET (0.05MG) PO SCH (05:37)
[2016-12-13] MEDS: CEFTAROLINE FOSAMIL 400 MG in D5W 50 ML IV SCH ×2 (05:37→17:31)
[2016-12-13 06:00] VITALS: BP 135/66
[2016-12-13 06:16] LABS: ANION GAP 8 MEQ/L (8-16); BLOOD UREA NITROGEN 25 MG/DL (7-18); CARBON DIOXIDE LEVEL 29 MEQ/L (21-32); CHLORIDE LEVEL 105 MEQ/L (98-107); GLOMERULAR FILTRATION RATE > 60.0 (>39); GLUCOSE, FASTING 155 MG/DL (83-110); POTASSIUM SERUM 4.3 MEQ/L (3.5-5.1); SODIUM LEVEL 142 MEQ/L (136-145)
[2016-12-13] MEDS: BREO ELLIPTA INH SCH (07:44)
[2016-12-13 07:46] VITALS: O2SAT 98
[2016-12-13] MEDS: POTASSIUM CHLORIDE 10% LIQ 20 MEQ/15 ML UDC PO SCH ×2 (08:36→20:16)
[2016-12-13] MEDS: NYSTATIN 500,000 U/5 ML SUSP UDC SS SCH ×2 (08:36→20:16)
[2016-12-13] MEDS: ALLOPURINOL 300 MG TAB PO SCH (08:37)
[2016-12-13] MEDS: BENZOCAINE 10% 9GM TUBE (ANBESOL) MT SCH ×4 (08:37→20:18)
[2016-12-13] MEDS: GABAPENTIN 300 MG CAP PO SCH ×3 (08:37→20:17)
[2016-12-13] MEDS: ENOXAPARIN 30 MG/0.3 ML SYR (J1650) SC SCH (08:37)
[2016-12-13] MEDS: CYCLOBENZAPRINE 10 MG TAB PO SCH ×3 (08:37→20:17)
[2016-12-13] MEDS: LACTOBACILLUS ACIDOPHILUS CAP (BACID) PO SCH ×3 (08:38→20:17)
[2016-12-13] MEDS: PERCOCET 5MG/325MG TAB PO SCH ×4 (08:38→20:18)
[2016-12-13] MEDS: diphenhydrAMINE 25 MG CAP PO SCH (08:38)
[2016-12-13] MEDS: ASPIRIN 81 MG ENTERIC TAB PO SCH (08:38)
[2016-12-13] MEDS: methylPREDNISolone 4 MG TAB PO SCH (08:39)
[2016-12-13] MEDS: MULTIVITAMINS/MINERALS THERAP 1 TAB PO SCH (08:39)
[2016-12-13] MEDS: CARVedilol 3.125 MG TAB PO SCH ×2 (08:39→20:17)
[2016-12-13] MEDS: MAGNESIUM CHLORIDE 64 MG TABCR (SLO MAG) PO SCH (08:41)
[2016-12-13] MEDS: ALBUTEROL SULFATE 2.5 MG/0.5 ML INH NEB SOLN INH SCH ×2 (09:00→20:02)
[2016-12-13 14:00] VITALS: BP 118/62
--- NOTE | 2016-12-13 15:37 | IPNPDOC ---
Subjective Date Seen The patient was seen on 12/13/16. Subjective Chief Complaint/HPI The patient is a 71-year-old female admitted with a reason for visit of Rll Pneumonia. Events since last encounter Patient states that she is breathing just fine this morning, but that she is still having diarrhea. She states that she had 8-9 bowel movements yesterday and that today she has had 4-5. She was told that if she kept having diarrhea, we would adjust her antibiotics. Seh also says that her thrush has resolved with the Nystatin. General: Reports: Normal Appetite Constitutional: Denies: Chills, Fever, Weakness Pulmonary: Denies: Cough (non-productive, sometimes she "just coughs up air") Cardiovascular: Denies: Chest Pain Gastrointestinal: Reports: Diarrhea, Denies: Nausea, Vomiting, Abdominal Pain Psych: Reports: Mood Normal Objective Physical Examination General Exam: Positive: Alert, Cooperative, No Acute Distress ENT Exam: Positive: Atraumatic (No oral thrush is appreciated), Mucous membr. moist/pink, Tongue Midline Neck Exam: Positive: Supple Chest Exam: Positive: Diminished (Breath sounds are heard diffusely, with mild diminished breath sounds in the right lower thorax on the lateral aspect. There is some dullness to percussion appreciated in this area as well.) Heart Exam: Positive: Rate Normal, Regular Rhythm Abdomen Exam: Positive: Normal bowel sounds, Soft, Negative: Tenderness Extremity Exam: Positive: Other (multiple bruises noted to bilateral upper and lower extremities), Negative: Swelling Skin Exam: Positive: Other skin issue (superficial wound to RUE, localized anteriorly aspect of forearm, no drainage, no erythema, non tender. Multiple superficial wounds to RLE, circular, covered with bandaids, some purulent material noted on bandage, no active bleeding or drainage, no warmth, mild erythema. left knee wound, circular, some purulence around wound surface and on bandage, no active drainage, surrounding erythema, warm to touch, mild tenderness to area. ) Neuro Exam: Positive: Normal Speech Psych Exam: Positive: Mental status NL, Oriented x 3 Assessment /Plan Problems (1) C. difficile colitis Status: Acute Discussed With: Patient Problem Text: Patient complains of having multiple episodes of diarrhea, testing positive for C. Diff in her stool on 12/10. She was placed on Vancomycin PO 250 Q6H. She is still having diarrhea. Per pharmacy's recommendation I am starting IV Flagyl 500 mg Q8H. (2) Multifocal pneumonia Status: Acute Problem Specific Plan: Monitor Clinically, Repeat Labs Problem Text: 12/13: WBC decreased from 30.1 to 26.8. Afebrile at 96.6 F. Patient states she is breathing just fine. Continue IV Ceftaroline. (3) Leukocytosis Status: Acute Problem Text: Patient's WBC down from 30.1 to 26.8 today. She is on Ceftaroline as well as Vancomycin, and will be starting Flagyl as well. Will continue to monitor. (4) Thrush, oral Status: Resolved Problem Text: Patient reports that she no longer have problems with her mouth. Physical exam shows no oral thrush. Will continue Nystatin swish and swallow PRN as patient is on steroids. (5) Rheumatoid arthritis Status: Chronic Problem Text: Pt currently on Prednisone 8mg daily at home as well as Plaquenil 200mg PO daily. Plan to continue Prednisone at current dose at this time, no indication for stress dose at this time, but will continue to reassess for need. Will hold Plaquenil and restart at the time of d/c. (6) CKD (chronic kidney disease) Status: Chronic Response to Treatment: Stable Problem Text: Patient's Cr is 0.80 today. (7) CHF (congestive heart failure) Status: Chronic Problem Text: Blood pressure today is 135/66, she does not complain of swelling or palpitations. Continue to monitor. (8) Chronic GERD Status: Chronic Problem Text: Will continue patient's Pantoprazole 40mg daily (9) CAD (coronary artery disease) Status: Chronic Problem Text: Pt on both ASA and Carvedilol. Plan to continue both, Carvedilol will be continued with holding parameters for SBP <100 and HR <60. (10) Hypertension Status: Chronic Problem Text: Pt on Norvasc and Carvedilol, will continue Carvedilol with holding parameters for SBP <100 and HR<60 and hold Norvasc at this point as her BP has been in the low 100's systolic. (11) COPD (chronic obstructive pulmonary disease) Status: Chronic Response to Treatment: Stable Problem Text: Pt currently on 2L NC which is her baseline. Does not appear to be in acute exacerbation. Pt will have duo nebs scheduled BID and prn. Will give Advair in place of pt's Breo/Ellipta while inpatient. (12) Chronic back pain Status: Chronic Response to Treatment: Stable Problem Text: Will continue patient's Cyclobenzaprine, and patient's home regimen for pain control. (13) Spinal stenosis Status: Chronic (14) Hypothyroidism Status: Chronic Response to Treatment: Stable Problem Text: Will continue patient's Levothyroxine. (15) Gout Status: Chronic Response to Treatment: Stable Problem Text: Will continue patient's Allopurinol. (16) Pulmonary nodules Problem Specific Plan: Monitor Clinically Problem Text: 12/10 - These will need to be followed as out pt. (17) Cellulitis of left lower extremity Problem Text: 12/13: Patient is on IV Ceftaroline. 12/10 - Pt is on IV Ceftaroline. 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 Pt previously admitted for cellulitis of the left knee 10/2016, treated with Ceftaroline and transitioned to Cefdinir at the time of d/c for 10 days, wound culture positive at that time for Serratia. Pt currently on broad spectrum abx' s which will cover this. Plan to consult PT for wound care and dressing changes. (18) Fall Status: Acute Problem Text: 12/10 - PT ordered. Pt with 2 falls this past week. Negative XR of hip/pelvis, lumbar spine and knee. Pt also with negative CT head. Will obtain PT/OT eval. Plan/VTE VTE Prophylaxis Ordered?: Yes Plan Family Medicine Attending Note: I was present on site to supervise Eliana Tafoya DO (PGY-1). We discussed the history and exam. I confirmed the wong elements during my [id number] encounter with the patient. We conferred on the assessment and plan; I agree with the note as documented. We added Flagyl to Ms. Johnson's regimen today. I anticipate this will help with her C. difficile colitis/diarrhea which is made more difficult to treat because she needs to be on ceftaroline for treatment of a different infection. 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) VS, I&O, 24H, Fishbone Vital Signs/I&O Vital Signs Date Time Temp Pulse Resp B/P (MAP) Pulse Ox O2 Delivery O2 Flow Rate FiO2 12/13/16 14:04 18 12/13/16 14:00 97.4 117 118/62 (80) 97 Nasal Cannula 2.0 I&O- Last 24 Hours up to 6 AM 12/14/16 06:00 Intake Total 240 ml Output Total 0 ml Balance 240 ml Laboratory Data 24H LABS Laboratory Tests 2 12/13/16 05:07: Anion Gap 8, Glomerular Filtration Rate > 60.0, Blood Urea Nitrogen 25H, Creatinine 0.80, Sodium Level 142, Potassium Level 4.3, Chloride Level 105, Carbon Dioxide Level 29, Calcium Level 9.0 CBC/BMP Laboratory Tests 12/13/16 05:07 Red Blood Count 3.22 L, Mean Corpuscular Volume 96.9 H, Mean Corpuscular Hemoglobin 29.2, Mean Corpuscular Hemoglobin Concent 30.1 L, Red Cell Distribution Width 17.0 H, Calcium Level 9.0 Microbiology Microbiology 12/08/16 Blood Culture - Preliminary, Resulted No Growth after 72 hours. All specime... 12/08/16 Blood Culture - Preliminary, Resulted No Growth after 72 hours. All specime... 12/10/16 Gastrointestinal Tract Panel (PCR) - Final, Complete Clostridium Difficile A/B 12/09/16 Gram Stain - Final, Complete 12/09/16 Sputum Culture - Final, Complete Staphylococcus Aureus Klebsiella Pneumoniae Yeast Like Organism ELIANA TAFOYA DO Dec 13, 2016 15:37 Isra Langford MD Dec 13, 2016 23:08
[2016-12-13] MEDS: metroNIDAZOLE 500 MG in APPROPRIATE DILUENT 1 EA IV SCH (16:17)
[2016-12-13] MEDS: PANTOPRAZOLE 40MG TAB (PROTONIX) PO SCH (20:17)
[2016-12-13] MEDS: ROPINIROLE 8 MG PO SCH (20:20)
[2016-12-13 22:00] VITALS: BP 157/75
[2016-12-14] MEDS: VANCOMYCIN ORAL SOL 250MG/5ML ORAL SYRINGE PO SCH ×4 (00:52→17:41)
[2016-12-14] MEDS: metroNIDAZOLE 500 MG in APPROPRIATE DILUENT 1 EA IV SCH ×3 (00:53→16:19)
[2016-12-14] MEDS: LEVOTHYROXINE 50MCG TABLET (0.05MG) PO SCH (05:23)
[2016-12-14] MEDS: CEFTAROLINE FOSAMIL 400 MG in D5W 50 ML IV SCH ×2 (05:23→17:41)
[2016-12-14 06:00] VITALS: BP 125/62
[2016-12-14 06:19] LABS: MEAN CORPUSCULAR HEMOGLOBIN 28.5 pg (27.0-33.0); MEAN CORPUSCULAR VOLUME 95.1 fl (80.0-96.0); RED CELL DISTRIBUTION WIDTH 17.1 % (11.5-14.5); WHITE BLOOD COUNT 21.4 10^3/uL (4.0-10.0)
[2016-12-14 06:48] LABS: ANION GAP 4 MEQ/L (8-16); BLOOD UREA NITROGEN 25 MG/DL (7-18); CALCIUM LEVEL 9.2 MG/DL (8.8-10.2); CARBON DIOXIDE LEVEL 31 MEQ/L (21-32); CHLORIDE LEVEL 108 MEQ/L (98-107); CREATININE FOR GFR 0.88 MG/DL (0.55-1.02); GLOMERULAR FILTRATION RATE > 60.0 (>39); GLUCOSE, FASTING 95 MG/DL (83-110); POTASSIUM SERUM 4.1 MEQ/L (3.5-5.1); SODIUM LEVEL 143 MEQ/L (136-145)
[2016-12-14] MEDS: BREO ELLIPTA INH SCH (07:39)
[2016-12-14] MEDS: ALBUTEROL SULFATE 2.5 MG/0.5 ML INH NEB SOLN INH SCH ×2 (07:39→20:15)
[2016-12-14] MEDS: POTASSIUM CHLORIDE 10% LIQ 20 MEQ/15 ML UDC PO SCH ×2 (09:00→21:03)
[2016-12-14] MEDS: NYSTATIN 500,000 U/5 ML SUSP UDC SS SCH ×2 (09:01→20:57)
[2016-12-14] MEDS: methylPREDNISolone 4 MG TAB PO SCH (09:01)
[2016-12-14] MEDS: PERCOCET 5MG/325MG TAB PO SCH ×4 (09:01→20:58)
[2016-12-14] MEDS: ASPIRIN 81 MG ENTERIC TAB PO SCH (09:01)
[2016-12-14] MEDS: CYCLOBENZAPRINE 10 MG TAB PO SCH ×3 (09:02→20:57)
[2016-12-14] MEDS: diphenhydrAMINE 25 MG CAP PO SCH (09:02)
[2016-12-14] MEDS: ALLOPURINOL 300 MG TAB PO SCH (09:02)
[2016-12-14] MEDS: CARVedilol 3.125 MG TAB PO SCH ×2 (09:02→20:58)
[2016-12-14] MEDS: GABAPENTIN 300 MG CAP PO SCH ×3 (09:02→20:57)
[2016-12-14] MEDS: LACTOBACILLUS ACIDOPHILUS CAP (BACID) PO SCH ×3 (09:02→20:57)
[2016-12-14] MEDS: MULTIVITAMINS/MINERALS THERAP 1 TAB PO SCH (09:02)
[2016-12-14] MEDS: BENZOCAINE 10% 9GM TUBE (ANBESOL) MT SCH ×4 (09:03→20:59)
[2016-12-14] MEDS: MAGNESIUM CHLORIDE 64 MG TABCR (SLO MAG) PO SCH (09:03)
[2016-12-14] MEDS: ENOXAPARIN 30 MG/0.3 ML SYR (J1650) SC SCH (10:14)
--- NOTE | 2016-12-14 13:05 | IPNPDOC ---
Subjective Date Seen The patient was seen on 12/14/16. Subjective Chief Complaint/HPI The patient is a 71-year-old female admitted with a reason for visit of Rll Pneumonia. General: Denies: Night Sweats Constitutional: Reports: Weakness, Denies: Chills, Fever Pulmonary: Reports: Dyspnea Cardiovascular: Denies: Chest Pain Gastrointestinal: Reports: Diarrhea (last episode was last night), Denies: Abdominal Pain Objective Physical Examination General Exam: Positive: Alert, Cooperative, No Acute Distress Chest Exam: Positive: Diminished (bilaterally decreased breath sounds), Negative: Rales, Rhonchi, Wheezing Heart Exam: Positive: Rate Normal, Regular Rhythm, Normal S1, Normal S2, Negative: Gallops, Murmurs, Rubs Abdomen Exam: Positive: Normal bowel sounds, Soft, Negative: Tenderness Extremity Exam: Positive: Swelling (bilateral pitting to mid quiroga), Other Neuro Exam: Positive: Normal Speech Assessment /Plan Assessment 71-year-old female admitted with C. difficile (last episode of diarrhea yesterday), multifocal pneumonia which is stable. Problems (1) C. difficile colitis Status: Resolved Discussed With: Patient Problem Text: 12/14: Patient reports last episode of diarrhea was last night. She will continue on vancomycin 250 mg by mouth every 6 hours, metronidazole 500 mg IV every 8 hours 12/13: Patient complains of having multiple episodes of diarrhea, testing positive for C. Diff in her stool on 12/10. She was placed on Vancomycin PO 250 Q6H. She is still having diarrhea. Per pharmacy's recommendation I am starting IV Flagyl 500 mg Q8H. (2) Multifocal pneumonia Status: Acute Problem Specific Plan: Monitor Clinically, Repeat Labs Problem Text: 12/14: White blood cell count decreased to 21.4, continue IV Ceftaroline. Patient with poor airflow bilaterally, order placed for incentive spirometry 12/13: WBC decreased from 30.1 to 26.8. Afebrile at 96.6 F. Patient states she is breathing just fine. Continue IV Ceftaroline. (3) Leukocytosis Status: Acute Problem Text: 12/14: White blood cell count decreased to 21.4, continue Ceftaroline, vancomycin, metronidazole. Continue to monitor 12/13: Patient's WBC down from 30.1 to 26.8 today. She is on Ceftaroline as well as Vancomycin, and will be starting Flagyl as well. Will continue to monitor. (4) Thrush, oral Status: Resolved Problem Text: 12/13: Patient reports that she no longer have problems with her mouth. Physical exam shows no oral thrush. Will continue Nystatin swish and swallow PRN as patient is on steroids. (5) Rheumatoid arthritis Status: Chronic Problem Text: 12/13: Pt currently on Prednisone 8mg daily at home as well as Plaquenil 200mg PO daily. Plan to continue Prednisone at current dose at this time, no indication for stress dose at this time, but will continue to reassess for need. Will hold Plaquenil and restart at the time of d/c. (6) CKD (chronic kidney disease) Status: Chronic Response to Treatment: Stable Problem Text: Patient's Cr is 0.88 today. (7) CHF (congestive heart failure) Status: Chronic Problem Text: Blood pressure today of 125/62, not complaining of any chest pain. Very mild lower extremity pitting, patient not complaining of any shortness of breath. Continue to monitor (8) Chronic GERD Status: Chronic Problem Text: Will continue patient's Pantoprazole 40mg daily (9) CAD (coronary artery disease) Status: Chronic Problem Text: Pt on both ASA and Carvedilol. Plan to continue both, Carvedilol will be continued with holding parameters for SBP <100 and HR <60. (10) Hypertension Status: Chronic Problem Text: Pt on Norvasc and Carvedilol, will continue Carvedilol 3.125 mg twice daily with holding parameters for SBP <100 and HR<60 and hold Norvasc at this point as her BP has been controlled with carvedilol alone. (11) COPD (chronic obstructive pulmonary disease) Status: Chronic Response to Treatment: Stable Problem Text: 12/13: Pt currently on 2L NC which is her baseline. Does not appear to be in acute exacerbation. Pt will have duo nebs scheduled BID and prn. Will give Advair in place of pt's Breo/Ellipta while inpatient. (12) Chronic back pain Status: Chronic Response to Treatment: Stable Problem Text: Will continue patient's Cyclobenzaprine, and patient's home regimen for pain control. (13) Spinal stenosis Status: Chronic (14) Hypothyroidism Status: Chronic Response to Treatment: Stable Problem Text: Will continue patient's Levothyroxine 50 mcg daily. (15) Gout Status: Chronic Response to Treatment: Stable Problem Text: Will continue patient's Allopurinol 300 mg daily. (16) Pulmonary nodules Problem Specific Plan: Monitor Clinically Problem Text: 12/10 - These will need to be followed as out pt. (17) Cellulitis of left lower extremity Problem Text: 12/13: Patient is on IV Ceftaroline. 12/10 - Pt is on IV Ceftaroline. 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 Pt previously admitted for cellulitis of the left knee 10/2016, treated with Ceftaroline and transitioned to Cefdinir at the time of d/c for 10 days, wound culture positive at that time for Serratia. Pt currently on broad spectrum abx' s which will cover this. Plan to consult PT for wound care and dressing changes. (18) Fall Status: Acute Problem Text: 12/10 - PT ordered. Pt with 2 falls this past week. Negative XR of hip/pelvis, lumbar spine and knee. Pt also with negative CT head. Will obtain PT/OT eval. Plan/VTE VTE Prophylaxis Ordered?: Yes (Lovenox 30 mg subcutaneously daily) Plan Respiratory: Other Respiratory (incentive spirometry) Family Medicine Attending Note: I was present on site to supervise Christian Potts D.O. (PGY-3). We discussed the wong elements of the history and examination. I independently evaluated the patient. I agree with his note as documented above. 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) VS, I&O, 24H, Fishbone Vital Signs/I&O Vital Signs Date Time Temp Pulse Resp B/P (MAP) Pulse Ox O2 Delivery O2 Flow Rate FiO2 12/14/16 12:43 16 12/14/16 09:02 100 125/62 12/14/16 07:40 Nasal Cannula 2.0 12/14/16 06:00 97.9 98 I&O- Last 24 Hours up to 6 AM 12/15/16 06:00 Intake Total 120 ml Balance 120 ml Laboratory Data 24H LABS Laboratory Tests 2 12/14/16 05:49: Anion Gap 4L, Glomerular Filtration Rate > 60.0, Blood Urea Nitrogen 25H, Creatinine 0.88, Sodium Level 143, Potassium Level 4.1, Chloride Level 108H, Carbon Dioxide Level 31, Calcium Level 9.2 CBC/BMP Laboratory Tests 12/14/16 05:49 Red Blood Count 3.26 L, Mean Corpuscular Volume 95.1, Mean Corpuscular Hemoglobin 28.5, Mean Corpuscular Hemoglobin Concent 30.0 L, Red Cell Distribution Width 17.1 H, Calcium Level 9.2 Microbiology Microbiology 12/08/16 Blood Culture - Final, Complete NO GROWTH AFTER 5 DAYS 12/08/16 Blood Culture - Final, Complete NO GROWTH AFTER 5 DAYS 12/10/16 Gastrointestinal Tract Panel (PCR) - Final, Complete Clostridium Difficile A/B 12/09/16 Gram Stain - Final, Complete 12/09/16 Sputum Culture - Final, Complete Staphylococcus Aureus Klebsiella Pneumoniae Yeast Like Organism CHRISTIAN POTTS DO Dec 14, 2016 13:05 Isra Langford MD Dec 30, 2016 21:16
[2016-12-14] MEDS: PANTOPRAZOLE 40MG TAB (PROTONIX) PO SCH (20:57)
[2016-12-14] MEDS: ROPINIROLE 8 MG PO SCH (20:58)
[2016-12-14 22:00] VITALS: BP 168/72
[2016-12-15] MEDS: VANCOMYCIN ORAL SOL 250MG/5ML ORAL SYRINGE PO SCH ×4 (00:48→18:36)
[2016-12-15] MEDS: metroNIDAZOLE 500 MG in APPROPRIATE DILUENT 1 EA IV SCH ×2 (00:48→09:04)
[2016-12-15 06:00] VITALS: BP 135/76
[2016-12-15] MEDS: LEVOTHYROXINE 50MCG TABLET (0.05MG) PO SCH (06:17)
[2016-12-15] MEDS: CEFTAROLINE FOSAMIL 400 MG in D5W 50 ML IV SCH (06:17)
[2016-12-15 06:32] LABS: MEAN CORPUSCULAR HEMOGLOBIN 28.8 pg (27.0-33.0); MEAN CORPUSCULAR HGB CONC 30.1 g/dl (32.0-36.5); MEAN CORPUSCULAR VOLUME 95.9 fl (80.0-96.0); RED CELL DISTRIBUTION WIDTH 17.2 % (11.5-14.5); WHITE BLOOD COUNT 14.1 10^3/uL (4.0-10.0)
[2016-12-15 07:07] LABS: ANION GAP 6 MEQ/L (8-16); BLOOD UREA NITROGEN 22 MG/DL (7-18); CALCIUM LEVEL 9.1 MG/DL (8.8-10.2); CARBON DIOXIDE LEVEL 28 MEQ/L (21-32); CHLORIDE LEVEL 109 MEQ/L (98-107); CREATININE FOR GFR 0.68 MG/DL (0.55-1.02); GLOMERULAR FILTRATION RATE > 60.0 (>39); GLUCOSE, FASTING 90 MG/DL (83-110); POTASSIUM SERUM 4.1 MEQ/L (3.5-5.1); SODIUM LEVEL 143 MEQ/L (136-145)
[2016-12-15] MEDS: BREO ELLIPTA INH SCH (07:54)
[2016-12-15] MEDS: ALBUTEROL SULFATE 2.5 MG/0.5 ML INH NEB SOLN INH SCH ×2 (07:55→19:04)
[2016-12-15] MEDS: NYSTATIN 500,000 U/5 ML SUSP UDC SS SCH ×2 (09:01→21:00)
[2016-12-15] MEDS: POTASSIUM CHLORIDE 10% LIQ 20 MEQ/15 ML UDC PO SCH ×2 (09:01→21:24)
[2016-12-15] MEDS: ENOXAPARIN 30 MG/0.3 ML SYR (J1650) SC SCH (09:01)
[2016-12-15] MEDS: LACTOBACILLUS ACIDOPHILUS CAP (BACID) PO SCH ×3 (09:02→21:24)
[2016-12-15] MEDS: BENZOCAINE 10% 9GM TUBE (ANBESOL) MT SCH ×4 (09:02→21:26)
[2016-12-15] MEDS: GABAPENTIN 300 MG CAP PO SCH ×3 (09:02→21:25)
[2016-12-15] MEDS: ASPIRIN 81 MG ENTERIC TAB PO SCH (09:03)
[2016-12-15] MEDS: PERCOCET 5MG/325MG TAB PO SCH ×3 (09:03→16:19)
[2016-12-15] MEDS: methylPREDNISolone 4 MG TAB PO SCH (09:03)
[2016-12-15] MEDS: MULTIVITAMINS/MINERALS THERAP 1 TAB PO SCH (09:03)
[2016-12-15] MEDS: diphenhydrAMINE 25 MG CAP PO SCH (09:03)
[2016-12-15] MEDS: ALLOPURINOL 300 MG TAB PO SCH (09:04)
[2016-12-15] MEDS: CYCLOBENZAPRINE 10 MG TAB PO SCH ×3 (09:04→21:25)
[2016-12-15] MEDS: CARVedilol 3.125 MG TAB PO SCH ×2 (09:04→21:25)
[2016-12-15] MEDS: MAGNESIUM CHLORIDE 64 MG TABCR (SLO MAG) PO SCH (09:07)
--- NOTE | 2016-12-15 10:29 | IPNPDOC ---
Subjective Date Seen The patient was seen on 12/15/16. Subjective Chief Complaint/HPI The patient is a 71-year-old female admitted with a reason for visit of Rll Pneumonia. Events since last encounter States diarrheas has slowed. denies other c/o. Constitutional: Denies: Chills, Fever, Night Sweats Pulmonary: Denies: Dyspnea, Cough Genitourinary: Denies: Dysuria, Frequency, Incontinence, Retention Neurological: Denies: Weakness, Numbness, Change in speech, Confusion Psych: Reports: Mood Normal, Denies: Depression, Memory Issues Objective Physical Examination General Exam: Positive: Alert, Cooperative, No Acute Distress Chest Exam: Positive: Diminished (bilaterally decreased breath sounds), Negative: Rales, Rhonchi, Wheezing Heart Exam: Positive: Rate Normal, Regular Rhythm, Normal S1, Normal S2, Negative: Gallops, Murmurs, Rubs Abdomen Exam: Positive: Normal bowel sounds, Soft, Negative: Tenderness Extremity Exam: Positive: Swelling (bilateral pitting to mid quiroga), Other Neuro Exam: Positive: Normal Speech Assessment /Plan Problems (1) C. difficile colitis Status: Acute Discussed With: Patient Problem Text: 12/15/16: STOP FLagyl. Ceftaroline stopped today and changed to doxycycline and Levaquin based on sputum culture sensitivities and allergies. 12/14: Patient reports last episode of diarrhea was last night. She will continue on vancomycin 250 mg by mouth every 6 hours, metronidazole 500 mg IV every 8 hours 12/13: Patient complains of having multiple episodes of diarrhea, testing positive for C. Diff in her stool on 12/10. She was placed on Vancomycin PO 250 Q6H. She is still having diarrhea. Per pharmacy's recommendation I am starting IV Flagyl 500 mg Q8H. (2) Multifocal pneumonia Status: Acute Problem Specific Plan: Monitor Clinically, Repeat Labs Problem Text: 12/15/16: WBC 14,000. Ceftaroline stopped today and changed to doxycycline and Levaquin based on sputum culture sensitivities and allergies. 12/14: White blood cell count decreased to 21.4, continue IV Ceftaroline. Patient with poor airflow bilaterally, order placed for incentive spirometry 12/13: WBC decreased from 30.1 to 26.8. Afebrile at 96.6 F. Patient states she is breathing just fine. Continue IV Ceftaroline. (3) Leukocytosis Status: Acute Problem Text: 12/14: White blood cell count decreased to 21.4, continue Ceftaroline, vancomycin, metronidazole. Continue to monitor 12/13: Patient's WBC down from 30.1 to 26.8 today. She is on Ceftaroline as well as Vancomycin, and will be starting Flagyl as well. Will continue to monitor. (4) Thrush, oral Status: Resolved Problem Text: 12/13: Patient reports that she no longer have problems with her mouth. Physical exam shows no oral thrush. Will continue Nystatin swish and swallow PRN as patient is on steroids. (5) Rheumatoid arthritis Status: Chronic Problem Text: 12/13: Pt currently on Prednisone 8mg daily at home as well as Plaquenil 200mg PO daily. Plan to continue Prednisone at current dose at this time, no indication for stress dose at this time, but will continue to reassess for need. Will hold Plaquenil and restart at the time of d/c. (6) CKD (chronic kidney disease) Status: Chronic Response to Treatment: Stable Problem Text: Patient's Cr is 0.88 today. (7) CHF (congestive heart failure) Status: Chronic Problem Text: Blood pressure today of 125/62, not complaining of any chest pain. Very mild lower extremity pitting, patient not complaining of any shortness of breath. Continue to monitor (8) Chronic GERD Status: Chronic Problem Text: Will continue patient's Pantoprazole 40mg daily (9) CAD (coronary artery disease) Status: Chronic Problem Text: Pt on both ASA and Carvedilol. Plan to continue both, Carvedilol will be continued with holding parameters for SBP <100 and HR <60. (10) Hypertension Status: Chronic Problem Text: Pt on Norvasc and Carvedilol, will continue Carvedilol 3.125 mg twice daily with holding parameters for SBP <100 and HR<60 and hold Norvasc at this point as her BP has been controlled with carvedilol alone. (11) COPD (chronic obstructive pulmonary disease) Status: Chronic Response to Treatment: Stable Problem Text: 12/13: Pt currently on 2L NC which is her baseline. Does not appear to be in acute exacerbation. Pt will have duo nebs scheduled BID and prn. Will give Advair in place of pt's Breo/Ellipta while inpatient. (12) Chronic back pain Status: Chronic Response to Treatment: Stable Problem Text: Will continue patient's Cyclobenzaprine, and patient's home regimen for pain control. (13) Spinal stenosis Status: Chronic (14) Hypothyroidism Status: Chronic Response to Treatment: Stable Problem Text: Will continue patient's Levothyroxine 50 mcg daily. (15) Gout Status: Chronic Response to Treatment: Stable Problem Text: Will continue patient's Allopurinol 300 mg daily. (16) Pulmonary nodules Problem Specific Plan: Monitor Clinically Problem Text: 12/10 - These will need to be followed as out pt. (17) Cellulitis of left lower extremity Problem Text: 12/13: Patient is on IV Ceftaroline. 12/10 - Pt is on IV Ceftaroline. 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 Pt previously admitted for cellulitis of the left knee 10/2016, treated with Ceftaroline and transitioned to Cefdinir at the time of d/c for 10 days, wound culture positive at that time for Serratia. Pt currently on broad spectrum abx' s which will cover this. Plan to consult PT for wound care and dressing changes. (18) Fall Status: Acute Problem Text: 12/10 - PT ordered. Pt with 2 falls this past week. Negative XR of hip/pelvis, lumbar spine and knee. Pt also with negative CT head. Will obtain PT/OT eval. (19) Pneumonia due to methicillin sensitive Staphylococcus aureus (20) Pneumonia due to Klebsiella pneumoniae Plan/VTE VTE Prophylaxis Ordered?: Yes (Lovenox 30 mg subcutaneously daily) Plan Respiratory: Other Respiratory (incentive spirometry) VS, I&O, 24H, Fishbone Vital Signs/I&O Vital Signs Date Time Temp Pulse Resp B/P (MAP) Pulse Ox O2 Delivery O2 Flow Rate FiO2 12/15/16 09:04 111 135/76 12/15/16 09:03 18 12/15/16 06:00 97.0 94 12/14/16 21:00 Nasal Cannula 2.0 I&O- Last 24 Hours up to 6 AM 12/16/16 06:00 Intake Total 120 ml Balance 120 ml Laboratory Data 24H LABS Laboratory Tests 2 12/15/16 06:21: Anion Gap 6L, Glomerular Filtration Rate > 60.0, Blood Urea Nitrogen 22H, Creatinine 0.68, Sodium Level 143, Potassium Level 4.1, Chloride Level 109H, Carbon Dioxide Level 28, Calcium Level 9.1 CBC/BMP Laboratory Tests 12/15/16 06:21 Red Blood Count 3.19 L, Mean Corpuscular Volume 95.9, Mean Corpuscular Hemoglobin 28.8, Mean Corpuscular Hemoglobin Concent 30.1 L, Red Cell Distribution Width 17.2 H, Calcium Level 9.1 Microbiology Microbiology 12/08/16 Blood Culture - Final, Complete NO GROWTH AFTER 5 DAYS 12/08/16 Blood Culture - Final, Complete NO GROWTH AFTER 5 DAYS 12/10/16 Gastrointestinal Tract Panel (PCR) - Final, Complete Clostridium Difficile A/B 12/09/16 Gram Stain - Final, Complete 12/09/16 Sputum Culture - Final, Complete Staphylococcus Aureus Klebsiella Pneumoniae Yeast Like Organism Domonique OlivoP Dec 15, 2016 10:28
[2016-12-15] MEDS: LevoFLOXacin 500 MG TABLET PO SCH (11:15)
[2016-12-15] MEDS: DOXYCYCLINE HYCLATE 100 MG TAB PO SCH (11:15)
[2016-12-15 14:00] VITALS: BP 133/77
[2016-12-15] MEDS: ALBUTEROL 90 MCG/ACT 8GM HFA INHALER INH PRN (16:26)
[2016-12-15] MEDS: ROPINIROLE 8 MG PO SCH (21:00)
[2016-12-15] MEDS: PANTOPRAZOLE 40MG TAB (PROTONIX) PO SCH (21:25)
[2016-12-15] MEDS: NORCO, ANEXSIA 5/325MG TABLET (HYDROcodone/ACETAMINOPHEN) PO PRN (21:28)
[2016-12-15 22:00] VITALS: BP 118/61
[2016-12-16 06:00] VITALS: BP 145/68
[2016-12-16] MEDS: LevoFLOXacin 500 MG TABLET PO SCH (06:09)
[2016-12-16] MEDS: LEVOTHYROXINE 50MCG TABLET (0.05MG) PO SCH (06:09)
[2016-12-16] MEDS: VANCOMYCIN ORAL SOL 250MG/5ML ORAL SYRINGE PO SCH ×4 (06:09→18:33)
[2016-12-16] MEDS: NORCO, ANEXSIA 5/325MG TABLET (HYDROcodone/ACETAMINOPHEN) PO PRN ×3 (06:12→18:33)
--- NOTE | 2016-12-16 07:35 | REP ---
Left lower extremity deep vein duplex ultrasound: The deep veins demonstrate normal compression, normal Doppler color flow and normal Doppler waveforms with respiration and augmentation from the popliteal vein to the common femoral vein. Impression: There is no left lower extremity deep vein thrombus. Signed by Oc Leonard MD 12/16/2016 07:27 A
--- NOTE | 2016-12-16 08:24 | IPNPDOC ---
Subjective Date Seen The patient was seen on 12/16/16. Subjective Chief Complaint/HPI The patient is a 71-year-old female admitted with a reason for visit of Rll Pneumonia. Events since last encounter c/o LLE swelling and fluid retention. US negative for DVT. Patient was not on home lasix dosing. Afebrile. Denies c/o. Constitutional: Denies: Chills, Fever, Night Sweats Cardiovascular: Reports: Edema (LLE), Denies: Chest Pain, Palpitations, Orthopnea, Paroxysmal Noc. Dyspnea, Lt Headedness Gastrointestinal: Denies: Nausea, Vomiting, Abdominal Pain, Diarrhea, Constipation Genitourinary: Denies: Dysuria, Frequency, Incontinence, Retention Objective Physical Examination General Exam: Positive: Alert, Cooperative, No Acute Distress Chest Exam: Positive: Diminished (bilaterally decreased breath sounds), Negative: Rales, Rhonchi, Wheezing Heart Exam: Positive: Rate Normal, Regular Rhythm, Normal S1, Normal S2, Negative: Gallops, Murmurs, Rubs Abdomen Exam: Positive: Normal bowel sounds, Soft, Negative: Tenderness Extremity Exam: Positive: Swelling (bilateral pitting to mid quiroga L>R ), Other Skin Exam: Positive: Other skin issue (LLE quiroga with macerated moist abrasion. ) Neuro Exam: Positive: Normal Speech Assessment /Plan Problems (1) C. difficile colitis Status: Acute Discussed With: Patient Problem Text: 12/16/16: normal BMs, improving 12/15/16: STOP FLagyl. Ceftaroline stopped today and changed to doxycycline and Levaquin based on sputum culture sensitivities and allergies. 12/14: Patient reports last episode of diarrhea was last night. She will continue on vancomycin 250 mg by mouth every 6 hours, metronidazole 500 mg IV every 8 hours 12/13: Patient complains of having multiple episodes of diarrhea, testing positive for C. Diff in her stool on 12/10. She was placed on Vancomycin PO 250 Q6H. She is still having diarrhea. Per pharmacy's recommendation I am starting IV Flagyl 500 mg Q8H. (2) Multifocal pneumonia Status: Acute Problem Specific Plan: Monitor Clinically, Repeat Labs Problem Text: 12/15/16: WBC 14,000. Ceftaroline stopped today and changed to doxycycline and Levaquin based on sputum culture sensitivities and allergies. 12/14: White blood cell count decreased to 21.4, continue IV Ceftaroline. Patient with poor airflow bilaterally, order placed for incentive spirometry 12/13: WBC decreased from 30.1 to 26.8. Afebrile at 96.6 F. Patient states she is breathing just fine. Continue IV Ceftaroline. (3) Leukocytosis Status: Acute Problem Text: 12/14: White blood cell count decreased to 21.4, continue Ceftaroline, vancomycin, metronidazole. Continue to monitor 12/13: Patient's WBC down from 30.1 to 26.8 today. She is on Ceftaroline as well as Vancomycin, and will be starting Flagyl as well. Will continue to monitor. (4) Thrush, oral Status: Resolved Problem Text: 12/13: Patient reports that she no longer have problems with her mouth. Physical exam shows no oral thrush. Will continue Nystatin swish and swallow PRN as patient is on steroids. (5) Rheumatoid arthritis Status: Chronic Problem Text: 12/13: Pt currently on Prednisone 8mg daily at home as well as Plaquenil 200mg PO daily. Plan to continue Prednisone at current dose at this time, no indication for stress dose at this time, but will continue to reassess for need. Will hold Plaquenil and restart at the time of d/c. (6) CKD (chronic kidney disease) Status: Chronic Response to Treatment: Stable Problem Text: Patient's Cr is 0.88 today. (7) CHF (congestive heart failure) Status: Chronic Problem Text: Blood pressure today of 125/62, not complaining of any chest pain. Very mild lower extremity pitting, patient not complaining of any shortness of breath. Continue to monitor (8) Chronic GERD Status: Chronic Problem Text: Will continue patient's Pantoprazole 40mg daily (9) CAD (coronary artery disease) Status: Chronic Problem Text: Pt on both ASA and Carvedilol. Plan to continue both, Carvedilol will be continued with holding parameters for SBP <100 and HR <60. (10) Hypertension Status: Chronic Problem Text: Pt on Norvasc and Carvedilol, will continue Carvedilol 3.125 mg twice daily with holding parameters for SBP <100 and HR<60 and hold Norvasc at this point as her BP has been controlled with carvedilol alone. (11) COPD (chronic obstructive pulmonary disease) Status: Chronic Response to Treatment: Stable Problem Text: 12/13: Pt currently on 2L NC which is her baseline. Does not appear to be in acute exacerbation. Pt will have duo nebs scheduled BID and prn. Will give Advair in place of pt's Breo/Ellipta while inpatient. (12) Chronic back pain Status: Chronic Response to Treatment: Stable Problem Text: Will continue patient's Cyclobenzaprine, and patient's home regimen for pain control. (13) Spinal stenosis Status: Chronic (14) Hypothyroidism Status: Chronic Response to Treatment: Stable Problem Text: Will continue patient's Levothyroxine 50 mcg daily. (15) Gout Status: Chronic Response to Treatment: Stable Problem Text: Will continue patient's Allopurinol 300 mg daily. (16) Pulmonary nodules Problem Specific Plan: Monitor Clinically Problem Text: 12/10 - These will need to be followed as out pt. (17) Cellulitis of left lower extremity Problem Text: 12/13: Patient is on IV Ceftaroline. 12/10 - Pt is on IV Ceftaroline. 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 Pt previously admitted for cellulitis of the left knee 10/2016, treated with Ceftaroline and transitioned to Cefdinir at the time of d/c for 10 days, wound culture positive at that time for Serratia. Pt currently on broad spectrum abx' s which will cover this. Plan to consult PT for wound care and dressing changes. (18) Fall Status: Acute Problem Text: 12/10 - PT ordered. Pt with 2 falls this past week. Negative XR of hip/pelvis, lumbar spine and knee. Pt also with negative CT head. Will obtain PT/OT eval. (19) Pneumonia due to methicillin sensitive Staphylococcus aureus (20) Pneumonia due to Klebsiella pneumoniae Plan/VTE VTE Prophylaxis Ordered?: Yes (Lovenox 30 mg subcutaneously daily) Plan Respiratory: Other Respiratory (incentive spirometry) VS, I&O, 24H, Fishbone Vital Signs/I&O Vital Signs Date Time Temp Pulse Resp B/P (MAP) Pulse Ox O2 Delivery O2 Flow Rate FiO2 12/16/16 06:42 19 12/16/16 06:00 98.0 100 145/68 (93) 98 Nasal Cannula 2.0 Laboratory Data Microbiology Microbiology 12/08/16 Blood Culture - Final, Complete NO GROWTH AFTER 5 DAYS 12/08/16 Blood Culture - Final, Complete NO GROWTH AFTER 5 DAYS 12/10/16 Gastrointestinal Tract Panel (PCR) - Final, Complete Clostridium Difficile A/B 12/09/16 Gram Stain - Final, Complete 12/09/16 Sputum Culture - Final, Complete Staphylococcus Aureus Klebsiella Pneumoniae Yeast Like Organism Domonique Olivo [employer] Dec 16, 2016 08:24
[2016-12-16 08:56] LABS: MEAN CORPUSCULAR HEMOGLOBIN 28.6 pg (27.0-33.0); MEAN CORPUSCULAR HGB CONC 29.9 g/dl (32.0-36.5); MEAN CORPUSCULAR VOLUME 95.7 fl (80.0-96.0); PLATELET COUNT, AUTOMATED 424 10^3/uL (150-450); RED CELL DISTRIBUTION WIDTH 17.2 % (11.5-14.5); WHITE BLOOD COUNT 14.8 10^3/uL (4.0-10.0)
[2016-12-16] MEDS: BENZOCAINE 10% 9GM TUBE (ANBESOL) MT SCH ×2 (09:00→12:27)
[2016-12-16] MEDS: ALBUTEROL SULFATE 2.5 MG/0.5 ML INH NEB SOLN INH SCH ×2 (09:00→20:02)
[2016-12-16 09:03] LABS: ADD MANUAL DIFFER YES; ALBUMIN 2.3 GM/DL (3.2-5.2); ALBUMIN/GLOBULIN RATIO 0.68 (1.00-1.93); BILIRUBIN,TOTAL 0.3 MG/DL (0.2-1.0); CALCIUM LEVEL 9.1 MG/DL (8.8-10.2); DIFF SLIDE NUMBER 126; GLOMERULAR FILTRATION RATE 57.9 (>39); TOTAL PROTEIN 5.7 GM/DL (6.4-8.2)
[2016-12-16 09:38] LABS: BANDS 4 % (< 11)
[2016-12-16 09:39] LABS: ANISOCYTOSIS 2+; HYPOCHROMASIA 2+; POIKILOCYTOSIS 1+
[2016-12-16] MEDS: NYSTATIN 500,000 U/5 ML SUSP UDC SS SCH ×2 (09:55→21:48)
[2016-12-16] MEDS: LACTOBACILLUS ACIDOPHILUS CAP (BACID) PO SCH ×3 (09:55→21:48)
[2016-12-16] MEDS: POTASSIUM CHLORIDE 10% LIQ 20 MEQ/15 ML UDC PO SCH ×2 (09:55→21:48)
[2016-12-16] MEDS: MAGNESIUM CHLORIDE 64 MG TABCR (SLO MAG) PO SCH (09:55)
[2016-12-16] MEDS: ENOXAPARIN 30 MG/0.3 ML SYR (J1650) SC SCH (09:55)
[2016-12-16] MEDS: diphenhydrAMINE 25 MG CAP PO SCH (09:56)
[2016-12-16] MEDS: GABAPENTIN 300 MG CAP PO SCH ×3 (09:56→21:48)
[2016-12-16] MEDS: ASPIRIN 81 MG ENTERIC TAB PO SCH (09:56)
[2016-12-16] MEDS: MULTIVITAMINS/MINERALS THERAP 1 TAB PO SCH (09:56)
[2016-12-16] MEDS: CARVedilol 3.125 MG TAB PO SCH ×2 (09:56→21:48)
[2016-12-16] MEDS: DOXYCYCLINE HYCLATE 100 MG TAB PO SCH (09:57)
[2016-12-16] MEDS: ALLOPURINOL 300 MG TAB PO SCH (09:57)
[2016-12-16] MEDS: CYCLOBENZAPRINE 10 MG TAB PO SCH ×3 (09:57→21:48)
[2016-12-16] MEDS: methylPREDNISolone 4 MG TAB PO SCH (09:57)
[2016-12-16] MEDS: FUROSEMIDE 20 MG TAB PO SCH ×2 (10:02→17:06)
[2016-12-16] MEDS: BREO ELLIPTA INH SCH (10:59)
[2016-12-16] MEDS: ALBUTEROL 90 MCG/ACT 8GM HFA INHALER INH PRN (11:01)
[2016-12-16 14:00] VITALS: BP 127/66
[2016-12-16] MEDS: BENZOCAINE 20% GEL 9GM TUBE (ANBESOL MAX STRENGTH) MT SCH ×2 (17:06→21:49)
--- NOTE | 2016-12-16 19:33 | IPN ---
DATE: 12/12/2016 Svitlana had a fever overnight. They called in a fever of 101.4. This morning, she is feeling better. Her white counts took a bit of a bump, but clinically she is improved. She is being treated for recurrent pneumonia (hospital/healthcare-associated acquired) as well as Clostridium (C) difficile colitis. PHYSICAL EXAM: Maximum temperature (Tmax) 101, current temperature (Tcurrent) 98.2. Vital signs stable. Lungs: Are essentially clear. Heart: Regular rhythm. Abdomen: Soft, nondistended. No masses. No peripheral edema. LABS: Electrolytes are unremarkable. White count is up to 30,000, hemoglobin 10.9, platelets 400. IMPRESSION: 1. Healthcare-associated pneumonia, multifocal. She is on ceftaroline. White count continues to climb. I recommend changing this probably to Zosyn and vancomycin. 2. 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 She is immunosuppressed. Will need a long tapering course. 3. Cellulitis left lower leg, improved. Continue ceftaroline. 4. Chronic kidney disease, stable. 5. Congestive heart failure with a preserved ejection fraction. Diuretics are on hold. These will eventually need to be restarted. 6. Polyarticular gout. Continue her allopurinol.
[2016-12-16] MEDS: PANTOPRAZOLE 40MG TAB (PROTONIX) PO SCH (21:48)
[2016-12-16] MEDS: ROPINIROLE 8 MG PO SCH (21:49)
[2016-12-16 22:00] VITALS: BP 138/73
[2016-12-17] MEDS: VANCOMYCIN ORAL SOL 250MG/5ML ORAL SYRINGE PO SCH ×5 (00:26→23:49)
[2016-12-17] MEDS: NORCO, ANEXSIA 5/325MG TABLET (HYDROcodone/ACETAMINOPHEN) PO PRN ×4 (00:27→22:56)
[2016-12-17] MEDS: LEVOTHYROXINE 50MCG TABLET (0.05MG) PO SCH (05:58)
[2016-12-17] MEDS: LevoFLOXacin 500 MG TABLET PO SCH (05:58)
[2016-12-17 06:00] VITALS: BP 128/60
[2016-12-17 07:15] LABS: MEAN CORPUSCULAR HEMOGLOBIN 28.7 pg (27.0-33.0); MEAN CORPUSCULAR HGB CONC 29.8 g/dl (32.0-36.5); MEAN CORPUSCULAR VOLUME 96.4 fl (80.0-96.0); PLATELET COUNT, AUTOMATED 431 10^3/uL (150-450); RED CELL DISTRIBUTION WIDTH 17.4 % (11.5-14.5); WHITE BLOOD COUNT 16.4 10^3/uL (4.0-10.0)
[2016-12-17 07:19] LABS: ADD MANUAL DIFFER YES; DIFF SLIDE NUMBER 62
[2016-12-17 07:28] LABS: ALBUMIN 2.7 GM/DL (3.2-5.2); ALBUMIN/GLOBULIN RATIO 0.77 (1.00-1.93); BILIRUBIN,TOTAL 0.3 MG/DL (0.2-1.0); CALCIUM LEVEL 9.1 MG/DL (8.8-10.2); CREATININE FOR GFR 1.03 MG/DL (0.55-1.02); GLOMERULAR FILTRATION RATE 55.9 (>39); POTASSIUM SERUM 3.8 MEQ/L (3.5-5.1); TOTAL PROTEIN 6.2 GM/DL (6.4-8.2)
[2016-12-17] MEDS: ALBUTEROL SULFATE 2.5 MG/0.5 ML INH NEB SOLN INH SCH ×2 (08:03→20:42)
[2016-12-17] MEDS: BREO ELLIPTA INH SCH (08:04)
--- NOTE | 2016-12-17 08:55 | IPNPDOC ---
Subjective Date Seen The patient was seen on 12/17/16. Subjective Chief Complaint/HPI The patient is a 71-year-old female admitted with a reason for visit of Rll Pneumonia. Events since last encounter Resumed diarrhea today. Afebrile. WBC elevated. Constitutional: Denies: Chills, Fever, Night Sweats Pulmonary: Denies: Dyspnea, Cough Cardiovascular: Denies: Chest Pain, Palpitations, Orthopnea, Paroxysmal Noc. Dyspnea, Lt Headedness Gastrointestinal: Reports: Diarrhea, Denies: Nausea, Vomiting, Abdominal Pain Objective Physical Examination General Exam: Positive: Alert, Cooperative, No Acute Distress Chest Exam: Positive: Diminished (bilaterally decreased breath sounds), Negative: Rales, Rhonchi, Wheezing Heart Exam: Positive: Rate Normal, Regular Rhythm, Normal S1, Normal S2, Negative: Gallops, Murmurs, Rubs Abdomen Exam: Positive: Normal bowel sounds, Soft, Negative: Tenderness Extremity Exam: Positive: Swelling (bilateral pitting to mid quiroga L>R ), Other Skin Exam: Positive: Other skin issue (LLE quiroga with macerated moist abrasion. ) Neuro Exam: Positive: Normal Speech Assessment /Plan Problems (1) C. difficile colitis Status: Acute Discussed With: Patient Problem Text: 12/17/16: will resume Flagyl IV due to resumption of diarrhea. ID consult. 12/16/16: normal BMs, improving 12/15/16: STOP FLagyl. Ceftaroline stopped today and changed to doxycycline and Levaquin based on sputum culture sensitivities and allergies. 12/14: Patient reports last episode of diarrhea was last night. She will continue on vancomycin 250 mg by mouth every 6 hours, metronidazole 500 mg IV every 8 hours 12/13: Patient complains of having multiple episodes of diarrhea, testing positive for C. Diff in her stool on 12/10. She was placed on Vancomycin PO 250 Q6H. She is still having diarrhea. Per pharmacy's recommendation I am starting IV Flagyl 500 mg Q8H. (2) Multifocal pneumonia Status: Acute Problem Specific Plan: Monitor Clinically, Repeat Labs Problem Text: 12/17/16: WBC 16,000 today. 12/15/16: WBC 14,000. Ceftaroline stopped today and changed to doxycycline and Levaquin based on sputum culture sensitivities and allergies. 12/14: White blood cell count decreased to 21.4, continue IV Ceftaroline. Patient with poor airflow bilaterally, order placed for incentive spirometry 12/13: WBC decreased from 30.1 to 26.8. Afebrile at 96.6 F. Patient states she is breathing just fine. Continue IV Ceftaroline. (3) Leukocytosis Status: Acute Problem Text: 12/14: White blood cell count decreased to 21.4, continue Ceftaroline, vancomycin, metronidazole. Continue to monitor 12/13: Patient's WBC down from 30.1 to 26.8 today. She is on Ceftaroline as well as Vancomycin, and will be starting Flagyl as well. Will continue to monitor. (4) Thrush, oral Status: Resolved Problem Text: 12/13: Patient reports that she no longer have problems with her mouth. Physical exam shows no oral thrush. Will continue Nystatin swish and swallow PRN as patient is on steroids. (5) Rheumatoid arthritis Status: Chronic Problem Text: 12/13: Pt currently on Prednisone 8mg daily at home as well as Plaquenil 200mg PO daily. Plan to continue Prednisone at current dose at this time, no indication for stress dose at this time, but will continue to reassess for need. Will hold Plaquenil and restart at the time of d/c. (6) CKD (chronic kidney disease) Status: Chronic Response to Treatment: Stable Problem Text: Patient's Cr is 0.88 today. (7) CHF (congestive heart failure) Status: Chronic Problem Text: Blood pressure today of 125/62, not complaining of any chest pain. Very mild lower extremity pitting, patient not complaining of any shortness of breath. Continue to monitor (8) Chronic GERD Status: Chronic Problem Text: Will continue patient's Pantoprazole 40mg daily (9) CAD (coronary artery disease) Status: Chronic Problem Text: Pt on both ASA and Carvedilol. Plan to continue both, Carvedilol will be continued with holding parameters for SBP <100 and HR <60. (10) Hypertension Status: Chronic Problem Text: Pt on Norvasc and Carvedilol, will continue Carvedilol 3.125 mg twice daily with holding parameters for SBP <100 and HR<60 and hold Norvasc at this point as her BP has been controlled with carvedilol alone. (11) COPD (chronic obstructive pulmonary disease) Status: Chronic Response to Treatment: Stable Problem Text: 12/13: Pt currently on 2L NC which is her baseline. Does not appear to be in acute exacerbation. Pt will have duo nebs scheduled BID and prn. Will give Advair in place of pt's Breo/Ellipta while inpatient. (12) Chronic back pain Status: Chronic Response to Treatment: Stable Problem Text: Will continue patient's Cyclobenzaprine, and patient's home regimen for pain control. (13) Spinal stenosis Status: Chronic (14) Hypothyroidism Status: Chronic Response to Treatment: Stable Problem Text: Will continue patient's Levothyroxine 50 mcg daily. (15) Gout Status: Chronic Response to Treatment: Stable Problem Text: Will continue patient's Allopurinol 300 mg daily. (16) Pulmonary nodules Problem Specific Plan: Monitor Clinically Problem Text: 12/10 - These will need to be followed as out pt. (17) Cellulitis of left lower extremity Problem Text: 12/13: Patient is on IV Ceftaroline. 12/10 - Pt is on IV Ceftaroline. 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 Pt previously admitted for cellulitis of the left knee 10/2016, treated with Ceftaroline and transitioned to Cefdinir at the time of d/c for 10 days, wound culture positive at that time for Serratia. Pt currently on broad spectrum abx' s which will cover this. Plan to consult PT for wound care and dressing changes. (18) Fall Status: Acute Problem Text: 12/10 - PT ordered. Pt with 2 falls this past week. Negative XR of hip/pelvis, lumbar spine and knee. Pt also with negative CT head. Will obtain PT/OT eval. (19) Pneumonia due to methicillin sensitive Staphylococcus aureus (20) Pneumonia due to Klebsiella pneumoniae Plan/VTE VTE Prophylaxis Ordered?: Yes (Lovenox 30 mg subcutaneously daily) Plan Respiratory: Other Respiratory (incentive spirometry) VS, I&O, 24H, Fishbone Vital Signs/I&O Vital Signs Date Time Temp Pulse Resp B/P (MAP) Pulse Ox O2 Delivery O2 Flow Rate FiO2 12/17/16 06:00 96.4 100 19 128/60 (82) 95 Nasal Cannula 2.0 Laboratory Data 24H LABS Laboratory Tests 2 12/17/16 06:47: Immature Granulocyte % (Auto) , Nucleated Red Blood Cells % (auto) 0.0 12/17/16 06:48: Anion Gap 5L, Glomerular Filtration Rate 55.9, Blood Urea Nitrogen 27H, Creatinine 1.03H, Sodium Level 142, Potassium Level 3.8, Chloride Level 106, Carbon Dioxide Level 31, Calcium Level 9.1, Aspartate Amino Transf (AST/SGOT) 14L, Alanine Aminotransferase (ALT/SGPT) 21, Alkaline Phosphatase 104, Total Bilirubin 0.3, Total Protein 6.2L, Albumin 2.7L, Albumin/Globulin Ratio 0.77L CBC/BMP Laboratory Tests 12/17/16 06:47 Red Blood Count 3.59 L, Mean Corpuscular Volume 96.4 H, Mean Corpuscular Hemoglobin 28.7, Mean Corpuscular Hemoglobin Concent 29.8 L, Red Cell Distribution Width 17.4 H 12/17/16 06:48 Calcium Level 9.1, Aspartate Amino Transf (AST/SGOT) 14 L, Alanine Aminotransferase (ALT/SGPT) 21, Alkaline Phosphatase 104, Total Bilirubin 0.3, Total Protein 6.2 L, Albumin 2.7 L Microbiology Microbiology 12/08/16 Blood Culture - Final, Complete NO GROWTH AFTER 5 DAYS 12/08/16 Blood Culture - Final, Complete NO GROWTH AFTER 5 DAYS 12/10/16 Gastrointestinal Tract Panel (PCR) - Final, Complete Clostridium Difficile A/B 12/09/16 Gram Stain - Final, Complete 12/09/16 Sputum Culture - Final, Complete Staphylococcus Aureus Klebsiella Pneumoniae Yeast Like Organism Domonique Olivo [facility] Dec 17, 2016 08:55
[2016-12-17 09:04] LABS: ANISOCYTOSIS 1+
[2016-12-17] MEDS: POTASSIUM CHLORIDE 10% LIQ 20 MEQ/15 ML UDC PO SCH ×2 (10:07→21:43)
[2016-12-17] MEDS: NYSTATIN 500,000 U/5 ML SUSP UDC SS SCH ×2 (10:08→21:43)
[2016-12-17] MEDS: BENZOCAINE 20% GEL 9GM TUBE (ANBESOL MAX STRENGTH) MT SCH ×4 (10:08→21:45)
[2016-12-17] MEDS: MULTIVITAMINS/MINERALS THERAP 1 TAB PO SCH (10:10)
[2016-12-17] MEDS: CYCLOBENZAPRINE 10 MG TAB PO SCH ×3 (10:10→21:44)
[2016-12-17] MEDS: LACTOBACILLUS ACIDOPHILUS CAP (BACID) PO SCH ×3 (10:10→21:44)
[2016-12-17] MEDS: diphenhydrAMINE 25 MG CAP PO SCH (10:10)
[2016-12-17] MEDS: DOXYCYCLINE HYCLATE 100 MG TAB PO SCH (10:10)
[2016-12-17] MEDS: FUROSEMIDE 20 MG TAB PO SCH ×2 (10:11→16:28)
[2016-12-17] MEDS: ASPIRIN 81 MG ENTERIC TAB PO SCH (10:11)
[2016-12-17] MEDS: methylPREDNISolone 4 MG TAB PO SCH (10:11)
[2016-12-17] MEDS: ENOXAPARIN 30 MG/0.3 ML SYR (J1650) SC SCH (10:12)
[2016-12-17] MEDS: GABAPENTIN 300 MG CAP PO SCH ×3 (10:12→21:44)
[2016-12-17] MEDS: MAGNESIUM CHLORIDE 64 MG TABCR (SLO MAG) PO SCH (10:12)
[2016-12-17] MEDS: ALLOPURINOL 300 MG TAB PO SCH (10:12)
[2016-12-17] MEDS: CARVedilol 3.125 MG TAB PO SCH ×2 (10:13→21:44)
[2016-12-17 14:00] VITALS: BP 125/65
--- NOTE | 2016-12-17 14:14 | REP ---
Right upper extremity duplex venous ultrasound: History: Redness and venous cord question venous thrombosis. Findings: The right internal jugular, axillary, brachial, basilic veins are anechoic and compressible in the left upper extremity. Color flow imaging is homogeneous. Spectral Doppler interrogation is unremarkable. There is no evidence of right upper extremity venous thrombosis. The cephalic vein could not be seen. Impression: Negative right upper extremity duplex venous ultrasound. No evidence of venous thrombosis. The cephalic vein could not be visualized however. Signed by Juan Carlos Ro MD 12/17/2016 02:05 P
[2016-12-17] MEDS: PANTOPRAZOLE 40MG TAB (PROTONIX) PO SCH (21:44)
[2016-12-17] MEDS: ROPINIROLE 8 MG PO SCH (21:45)
[2016-12-17 22:00] VITALS: BP 145/65
[2016-12-18] MEDS: LevoFLOXacin 500 MG TABLET PO SCH (05:42)
[2016-12-18] MEDS: VANCOMYCIN ORAL SOL 250MG/5ML ORAL SYRINGE PO SCH ×3 (05:42→18:37)
[2016-12-18] MEDS: LEVOTHYROXINE 50MCG TABLET (0.05MG) PO SCH (05:42)
[2016-12-18] MEDS: NORCO, ANEXSIA 5/325MG TABLET (HYDROcodone/ACETAMINOPHEN) PO PRN ×3 (05:56→18:37)
[2016-12-18 06:00] VITALS: BP 130/63
[2016-12-18 06:55] LABS: MEAN CORPUSCULAR HEMOGLOBIN 28.7 pg (27.0-33.0); MEAN CORPUSCULAR HGB CONC 29.7 g/dl (32.0-36.5); MEAN CORPUSCULAR VOLUME 96.6 fl (80.0-96.0); PLATELET COUNT, AUTOMATED 445 10^3/uL (150-450); RED CELL DISTRIBUTION WIDTH 17.6 % (11.5-14.5); WHITE BLOOD COUNT 17.9 10^3/uL (4.0-10.0)
[2016-12-18 06:57] LABS: ADD MANUAL DIFFER YES; DIFF SLIDE NUMBER 48
[2016-12-18 07:16] LABS: ALBUMIN 2.7 GM/DL (3.2-5.2); ALBUMIN/GLOBULIN RATIO 0.73 (1.00-1.93); BILIRUBIN,TOTAL 0.2 MG/DL (0.2-1.0); CALCIUM LEVEL 9.6 MG/DL (8.8-10.2); CREATININE FOR GFR 1.26 MG/DL (0.55-1.02); GLOMERULAR FILTRATION RATE 44.3 (>39); TOTAL PROTEIN 6.4 GM/DL (6.4-8.2)
[2016-12-18] MEDS: ALBUTEROL SULFATE 2.5 MG/0.5 ML INH NEB SOLN INH SCH ×2 (07:36→20:04)
[2016-12-18] MEDS: BREO ELLIPTA INH SCH (07:37)
[2016-12-18 07:57] LABS: ANISOCYTOSIS 1+
[2016-12-18] MEDS: BENZOCAINE 20% GEL 9GM TUBE (ANBESOL MAX STRENGTH) MT SCH ×4 (09:00→20:37)
--- NOTE | 2016-12-18 09:42 | IPNPDOC ---
Subjective Date Seen The patient was seen on 12/18/16. Subjective Chief Complaint/HPI The patient is a 71-year-old female admitted with a reason for visit of Rll Pneumonia. Events since last encounter Diarrhea frequency has slowed, yet continues with loose stools. Patient wishes to have PICC line prior to IV insertion to resume Flagyl IV for C. Diff. PT has concerns about internal derangement of right knee due to buckling and pain along MCL with altered gait. Recommending MRI Constitutional: Denies: Chills, Fever, Night Sweats Skin: Denies: Rash, Lesions, Breakdown Pulmonary: Reports: Dyspnea (chronic), Denies: Cough Cardiovascular: Denies: Chest Pain, Palpitations, Orthopnea, Paroxysmal Noc. Dyspnea, Lt Headedness Gastrointestinal: Reports: Diarrhea, Denies: Nausea, Vomiting, Abdominal Pain Objective Physical Examination General Exam: Positive: Alert, Cooperative, No Acute Distress Chest Exam: Positive: Diminished (bilaterally decreased breath sounds), Negative: Rales, Rhonchi, Wheezing Heart Exam: Positive: Rate Normal, Regular Rhythm, Normal S1, Normal S2, Negative: Gallops, Murmurs, Rubs Abdomen Exam: Positive: Normal bowel sounds, Soft, Negative: Tenderness Extremity Exam: Positive: Swelling (bilateral pitting to mid quiroga L>R ), Other Skin Exam: Positive: Other skin issue (LLE quiroga with macerated moist abrasion. ) Neuro Exam: Positive: Normal Speech Assessment /Plan Problems (1) C. difficile colitis Status: Acute Discussed With: Patient Problem Text: 12/18/16: patient declining IV insertion due to poor venous access. requesting PICC line. Wait for ID consult to determine length of antibiotic tx and necessity for PICC line. 12/17/16: will resume Flagyl IV due to resumption of diarrhea. ID consult. 12/16/16: normal BMs, improving 12/15/16: STOP FLagyl. Ceftaroline stopped today and changed to doxycycline and Levaquin based on sputum culture sensitivities and allergies. 12/14: Patient reports last episode of diarrhea was last night. She will continue on vancomycin 250 mg by mouth every 6 hours, metronidazole 500 mg IV every 8 hours 12/13: Patient complains of having multiple episodes of diarrhea, testing positive for C. Diff in her stool on 12/10. She was placed on Vancomycin PO 250 Q6H. She is still having diarrhea. Per pharmacy's recommendation I am starting IV Flagyl 500 mg Q8H. (2) Multifocal pneumonia Status: Acute Problem Specific Plan: Monitor Clinically, Repeat Labs Problem Text: 12/18/16: worsening WBC. breathing is near baseline. repeat CXR today. 12/17/16: WBC 16,000 today. 12/15/16: WBC 14,000. Ceftaroline stopped today and changed to doxycycline and Levaquin based on sputum culture sensitivities and allergies. 12/14: White blood cell count decreased to 21.4, continue IV Ceftaroline. Patient with poor airflow bilaterally, order placed for incentive spirometry 12/13: WBC decreased from 30.1 to 26.8. Afebrile at 96.6 F. Patient states she is breathing just fine. Continue IV Ceftaroline. (3) Leukocytosis Status: Acute Problem Text: 12/14: White blood cell count decreased to 21.4, continue Ceftaroline, vancomycin, metronidazole. Continue to monitor 12/13: Patient's WBC down from 30.1 to 26.8 today. She is on Ceftaroline as well as Vancomycin, and will be starting Flagyl as well. Will continue to monitor. (4) Right knee buckling Status: Acute Problem Text: ordered. (5) Thrush, oral Status: Resolved Problem Text: 12/13: Patient reports that she no longer have problems with her mouth. Physical exam shows no oral thrush. Will continue Nystatin swish and swallow PRN as patient is on steroids. (6) Rheumatoid arthritis Status: Chronic Problem Text: 12/13: Pt currently on Prednisone 8mg daily at home as well as Plaquenil 200mg PO daily. Plan to continue Prednisone at current dose at this time, no indication for stress dose at this time, but will continue to reassess for need. Will hold Plaquenil and restart at the time of d/c. (7) CKD (chronic kidney disease) Status: Chronic Response to Treatment: Stable Problem Text: Patient's Cr is 0.88 today. (8) CHF (congestive heart failure) Status: Chronic Problem Text: Blood pressure today of 125/62, not complaining of any chest pain. Very mild lower extremity pitting, patient not complaining of any shortness of breath. Continue to monitor (9) Chronic GERD Status: Chronic Problem Text: Will continue patient's Pantoprazole 40mg daily (10) CAD (coronary artery disease) Status: Chronic Problem Text: Pt on both ASA and Carvedilol. Plan to continue both, Carvedilol will be continued with holding parameters for SBP <100 and HR <60. (11) Hypertension Status: Chronic Problem Text: Pt on Norvasc and Carvedilol, will continue Carvedilol 3.125 mg twice daily with holding parameters for SBP <100 and HR<60 and hold Norvasc at this point as her BP has been controlled with carvedilol alone. (12) COPD (chronic obstructive pulmonary disease) Status: Chronic Response to Treatment: Stable Problem Text: 12/13: Pt currently on 2L NC which is her baseline. Does not appear to be in acute exacerbation. Pt will have duo nebs scheduled BID and prn. Will give Advair in place of pt's Breo/Ellipta while inpatient. (13) Chronic back pain Status: Chronic Response to Treatment: Stable Problem Text: Will continue patient's Cyclobenzaprine, and patient's home regimen for pain control. (14) Spinal stenosis Status: Chronic (15) Hypothyroidism Status: Chronic Response to Treatment: Stable Problem Text: Will continue patient's Levothyroxine 50 mcg daily. (16) Gout Status: Chronic Response to Treatment: Stable Problem Text: Will continue patient's Allopurinol 300 mg daily. (17) Pulmonary nodules Problem Specific Plan: Monitor Clinically Problem Text: 12/10 - These will need to be followed as out pt. (18) Cellulitis of left lower extremity Problem Text: 12/13: Patient is on IV Ceftaroline. 12/10 - Pt is on IV Ceftaroline. 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 Pt previously admitted for cellulitis of the left knee 10/2016, treated with Ceftaroline and transitioned to Cefdinir at the time of d/c for 10 days, wound culture positive at that time for Serratia. Pt currently on broad spectrum abx' s which will cover this. Plan to consult PT for wound care and dressing changes. (19) Fall Status: Acute Problem Text: 12/10 - PT ordered. Pt with 2 falls this past week. Negative XR of hip/pelvis, lumbar spine and knee. Pt also with negative CT head. Will obtain PT/OT eval. (20) Pneumonia due to methicillin sensitive Staphylococcus aureus (21) Pneumonia due to Klebsiella pneumoniae Plan/VTE VTE Prophylaxis Ordered?: Yes (Lovenox 30 mg subcutaneously daily) Plan Respiratory: Other Respiratory (incentive spirometry) VS, I&O, 24H, Fishbone Vital Signs/I&O Vital Signs Date Time Temp Pulse Resp B/P (MAP) Pulse Ox O2 Delivery O2 Flow Rate FiO2 12/18/16 06:26 22 Nasal Cannula 2.0 12/18/16 06:00 96.5 100 130/63 (85) 100 Laboratory Data 24H LABS Laboratory Tests 2 12/18/16 06:23: Immature Granulocyte % (Auto) , Nucleated Red Blood Cells % (auto) 0.0, Neutrophils 84H, Lymphocytes (Manual) 11L, Monocytes (Manual) 2, Metamyelocytes 1H, Myelocytes 2H, Platelet Estimate NORMAL, Anisocytosis 1+, Macrocytosis 1+, Anion Gap 7L, Glomerular Filtration Rate 44.3, Blood Urea Nitrogen 31H, Creatinine 1.26H, Sodium Level 140, Potassium Level 4.0, Chloride Level 105, Carbon Dioxide Level 28, Calcium Level 9.6, Aspartate Amino Transf (AST/SGOT) 12L, Alanine Aminotransferase (ALT/SGPT) 20, Alkaline Phosphatase 107, Total Bilirubin 0.2, Total Protein 6.4, Albumin 2.7L, Albumin/Globulin Ratio 0.73L CBC/BMP Laboratory Tests 12/18/16 06:23 Red Blood Count 3.83 L, Mean Corpuscular Volume 96.6 H, Mean Corpuscular Hemoglobin 28.7, Mean Corpuscular Hemoglobin Concent 29.7 L, Red Cell Distribution Width 17.6 H, Calcium Level 9.6, Aspartate Amino Transf (AST/SGOT) 12 L, Alanine Aminotransferase (ALT/SGPT) 20, Alkaline Phosphatase 107, Total Bilirubin 0.2, Total Protein 6.4, Albumin 2.7 L Microbiology Microbiology 12/08/16 Blood Culture - Final, Complete NO GROWTH AFTER 5 DAYS 12/08/16 Blood Culture - Final, Complete NO GROWTH AFTER 5 DAYS 12/10/16 Gastrointestinal Tract Panel (PCR) - Final, Complete Clostridium Difficile A/B 12/09/16 Gram Stain - Final, Complete 12/09/16 Sputum Culture - Final, Complete Staphylococcus Aureus Klebsiella Pneumoniae Yeast Like Organism Domonique Olivo [facility] Dec 18, 2016 09:42
[2016-12-18] MEDS: GABAPENTIN 300 MG CAP PO SCH ×3 (10:01→20:30)
[2016-12-18] MEDS: ENOXAPARIN 30 MG/0.3 ML SYR (J1650) SC SCH (10:01)
[2016-12-18] MEDS: NYSTATIN 500,000 U/5 ML SUSP UDC SS SCH ×2 (10:01→20:30)
[2016-12-18] MEDS: POTASSIUM CHLORIDE 10% LIQ 20 MEQ/15 ML UDC PO SCH ×2 (10:01→20:29)
[2016-12-18] MEDS: CARVedilol 3.125 MG TAB PO SCH ×2 (10:02→20:31)
[2016-12-18] MEDS: CYCLOBENZAPRINE 10 MG TAB PO SCH ×3 (10:02→20:31)
[2016-12-18] MEDS: SPIRONOLACTONE 25 MG TAB PO SCH (10:02)
[2016-12-18] MEDS: ASPIRIN 81 MG ENTERIC TAB PO SCH (10:03)
[2016-12-18] MEDS: FUROSEMIDE 20 MG TAB PO SCH ×2 (10:03→16:49)
[2016-12-18] MEDS: LACTOBACILLUS ACIDOPHILUS CAP (BACID) PO SCH ×3 (10:03→20:30)
[2016-12-18] MEDS: ALLOPURINOL 300 MG TAB PO SCH (10:03)
[2016-12-18] MEDS: MULTIVITAMINS/MINERALS THERAP 1 TAB PO SCH (10:03)
[2016-12-18] MEDS: methylPREDNISolone 4 MG TAB PO SCH (10:03)
[2016-12-18] MEDS: DOXYCYCLINE HYCLATE 100 MG TAB PO SCH (10:03)
[2016-12-18] MEDS: diphenhydrAMINE 25 MG CAP PO SCH (10:04)
[2016-12-18] MEDS: MAGNESIUM CHLORIDE 64 MG TABCR (SLO MAG) PO SCH (10:04)
[2016-12-18 14:00] VITALS: BP 132/77
[2016-12-18] MEDS ORDERED: CEPHALEXIN 500 MG CAP PO SCH (14:00)
[2016-12-18] MEDS: SUMAtriptan SUCCINATE 25 MG TAB PO PRN (14:10)
--- NOTE | 2016-12-18 14:15 | REP ---
Chest two views HISTORY: Pneumonia Comparison: 12/08/2016 A right lower lobe infiltrate is present that is decreased compared to the previous study. The left lung is clear. The heart is normal in size. The pulmonary vasculature is normal in appearance. Degenerative changes present in the thoracic spine. The patient is status post bilateral shoulder arthroplasty. IMPRESSION: Right lower lobe infiltrate decreased compared to the previous study. Signed by Hieu Hemphill MD 12/18/2016 02:06 P
[2016-12-18] MEDS: FIDAXOMICIN 200 MG TAB (DIFICID) PO SCH (20:29)
[2016-12-18] MEDS: PANTOPRAZOLE 40MG TAB (PROTONIX) PO SCH (20:31)
[2016-12-18] MEDS: ROPINIROLE 8 MG PO SCH (20:32)
[2016-12-18 22:00] VITALS: BP 127/80
[2016-12-19] MEDS: NORCO, ANEXSIA 5/325MG TABLET (HYDROcodone/ACETAMINOPHEN) PO PRN ×4 (00:47→22:11)
[2016-12-19] MEDS: LEVOTHYROXINE 50MCG TABLET (0.05MG) PO SCH (05:46)
[2016-12-19 06:00] VITALS: BP 120/72
--- NOTE | 2016-12-19 06:48 | CR ---
DATE OF CONSULTATION: 12/18/2016 Asked to consult by Domonique Olivo for worsening diarrhea from Clostridium (C) difficile colitis. HISTORY OF PRESENT ILLNESS: Mr. Johnson is a 71-year-old female with a history of chronic obstructive pulmonary disease (COPD) oxygen dependent and steroid dependent at night congestive heart failure and chronic kidney disease. The patient was admitted on 12/08/2016 with recurrent falls. The patient stated that she lost her balance and landed on her side. The patient could not get up. She had a contusion of her forehead. She denied loss of consciousness or any major injuries. She denied having any presyncope, chest pain or worsening shortness of breath. The patient had a previous fall also two weeks prior. She has multiple abrasions on the lower extremities. She was admitted to the hospital with a diagnosis of pneumonia and frequent falls. The patient received IV vancomycin and Zosyn from 12/08/2016 until 12/09/2016, 24 hours, and then she was switched to ceftaroline on 12/09/2016. She received that for seven whole days total until 12/15/2016. On 12/25/2016, she received Levaquin and she has received that for 4 days. The patient has received a total of 11 days of IV/oral antibiotics for a diagnosis of pneumonia. The patient states that her shortness of breath is about back to baseline, still with dyspnea on exertion but not at rest. She has a usual cough and nothing out of the ordinary. She is mostly bothered by her diarrhea which has worsened over this admission. She denies any nausea or vomiting. She has no appetite. She uses pulse oximetry at home and states her oxygen saturation usually runs between 87% and 90% off oxygen. She also has some dysuria, but no flank pains. No abdominal pain. PAST MEDICAL HISTORY: Significant for congestive heart failure, systolic and diastolic dysfunction, with ejection fraction of 57%, coronary artery disease, hypertension, spinal stenosis with lumbar radiculopathy, gastroesophageal reflux disease, irritable bowel syndrome, peripheral artery disease, left renal artery stenosis, vitamin D deficiency, recurrent urinary tract infections (UTIs), skin cancer of back and face, chronic obstructive pulmonary disease (COPD), chronic kidney disease, hyperlipidemia, necrotizing granulomatous infections of the lung and CT-guided biopsy was negative for malignancy, C difficile colitis in 2013, history of urinary retention, L4 compression fracture, aspiration in 2014 and patient refused to have feeding tube or thickened liquid, anxiety disorder, inflammatory arthritis on prednisone 8 mg daily, thyroid nodules, right shoulder fracture, and cough. PAST SURGICAL HISTORY: Bilateral total knee arthroplasty, hysterectomy with bilateral salpingo-oophorectomy, tonsillectomy, bunionectomy, trigger finger release right thumb, carpal tunnel release, back surgery, lumbar laminectomy, rotator cuff repair, cervical spine discectomy in 2006, colonoscopy in 2008 and endoscopy, left shoulder replacement 2011, biopsy of lung in 2013, decompressive laminectomy in 2015, cardiac catheterization 2016. FAMILY HISTORY: Non revealing. SOCIAL HISTORY: Quit smoking 40 years ago. Denies alcohol. Denies drugs. She lives at home with her son. She uses a three wheeled walker. REVIEW OF SYSTEMS: No fevers or chills. She does complain of lower extremity edema with some shortness of breath. She has a chronic cough which is about baseline. She complains of bruising and abrasions on her knees, very painful. She complains of easy bruising. She has chronic neck pain, back pain and knee pains. PHYSICAL EXAMINATION: She is a frail elderly female in no acute distress. She is feisty, independent. She is able to ambulate from the bathroom to the chair with her walker without any help. Vital Signs: On 12/12/2016, she had a T-max of 101.4, but since then has been afebrile in the past 5 days. Temperature is 97.9. Pulse 118. Respirations 18. Blood pressure 132/77. Oxygen saturation 95% on room air. Heart: Normal S1, S2. Distant. No murmurs appreciated. Lungs: Diminished breath sounds. Severe kyphoscoliosis. Few rhonchi. Abdomen is soft, nontender. No visceromegaly. Extremities: +1 pitting edema bilaterally, left more than right, with multiple ecchymosis. Bilateral knee replacement arthroplasties with abrasions on both knees covered by Optifoam. She has yellowish drainage from both abrasions. Extremities: Multiple bruises. Neurologic Exam: Upper and lower extremity strength are normal. Oropharynx is clear with no thrush. No lesions. LABORATORY DATA: White count was 31.9 on admission, on 12/16/2016 was 14.8 and today was 17.9, hemoglobin 11, hematocrit 37, platelets 445, 84% neutrophils, 11 % lymphocytes, 2% monocytes, metamyelocytes 3. Sodium 148, potassium 4, chloride 105, bicarb 28, BUN 31, creatinine 1.26, glucose 97, calcium 9.6, AST 12, ALT 20 , alkaline phosphatase 107, total protein 6.4. ABG on 12/08/2016 with pH 7.46, pCO2 48, pO2 75, oxygen sat 95% on room air. MEDICATIONS" - Advair 2 puffs inhaled twice a day - aldactone 25 mg daily - benzocaine to mouth sores - Probiotics 1 tablet by mouth three times a day - Benadryl 25 mg daily - Coreg 3.125 mg daily - aspirin 81 mg daily - vancomycin 250 mg by mouth every 6 hours since 12/11/2016 - metronidazole 500 mg IV every 8 hours was discontinued on 12/15/2016, the patient thinks that this is why her diarrhea got worse - cyclobenzaprine 10 mg by mouth three times a day - Imitrex 50 mg every 2 as needed - furosemide 20 mg by mouth twice a day - levofloxacin 500 mg daily, day four - enoxaparin 30 mg subcutaneous daily - methylprednisolone 8 mg by mouth daily - potassium 20 mEq by mouth twice a day - milk of magnesia as needed - morphine as needed - Nystatin swish and swallow - Vicodin 2 tablets by mouth every 6 as needed - levothyroxine 50 mcg by mouth daily - ceftaroline 400 mg IV every 12 hours, discontinued on 12/15/2016 IMPRESSION: This is 71-year-old female who was admitted with pneumonia. Chest x-ray done on 12/18/2016 shows improving right lower lobe infiltrates, decreased compared to previous study. The patient clinically feels better. She is back to her baseline oxygenation off oxygen and oxygen saturation is 95%. Her shortness of breath is at baseline. She has received 11 days of broad-spectrum antibiotics. Treatment of pneumonia is only indicated at this point for 7 days. The patient has worsening C difficile due to broad-spectrum antibiotics in spite of being on vancomycin 250 mg every 6 hours. PLAN: Discontinue vancomycin. Start fidaxomicin 200 mg by mouth twice a day. Continue Probiotics 1 tablet by mouth three times a day. Encourage intake of yogurt. Discontinue all antibiotics, including Levaquin, doxycycline, ceftaroline. The patient does not need any more treatment for pneumonia. Her x-ray has improved clinically, she is back to baseline, and treatment of community-acquired pneumonia is only indicated for 7 days. Thank you for the consultation. WAGNER
[2016-12-19 06:49] LABS: MEAN CORPUSCULAR HEMOGLOBIN 29.1 pg (27.0-33.0); MEAN CORPUSCULAR HGB CONC 30.8 g/dl (32.0-36.5); MEAN CORPUSCULAR VOLUME 94.4 fl (80.0-96.0); PLATELET COUNT, AUTOMATED 428 10^3/uL (150-450); RED CELL DISTRIBUTION WIDTH 17.8 % (11.5-14.5); WHITE BLOOD COUNT 18.5 10^3/uL (4.0-10.0)
[2016-12-19 06:54] LABS: ADD MANUAL DIFFER YES; DIFF SLIDE NUMBER 28
[2016-12-19 07:06] LABS: ALBUMIN 2.9 GM/DL (3.2-5.2); ALBUMIN/GLOBULIN RATIO 0.81 (1.00-1.93); BILIRUBIN,TOTAL 0.3 MG/DL (0.2-1.0); CREATININE FOR GFR 1.2 MG/DL (0.55-1.02); GLOMERULAR FILTRATION RATE 46.9 (>39); POTASSIUM SERUM 3.8 MEQ/L (3.5-5.1); TOTAL PROTEIN 6.5 GM/DL (6.4-8.2)
[2016-12-19 07:20] LABS: ANISOCYTOSIS 1+; EOSINOPHILS 1 % (0-5); HYPOCHROMASIA 1+
--- NOTE | 2016-12-19 08:39 | IPNPDOC ---
Subjective Date Seen The patient was seen on 12/19/16. Subjective Chief Complaint/HPI The patient is a 71-year-old female admitted with a reason for visit of Rll Pneumonia. Events since last encounter s/p ID consult. Pneumonia tx stopped by ID. Placed on Dificid for C. diff. Constitutional: Denies: Chills, Fever, Night Sweats Pulmonary: Denies: Dyspnea, Cough Cardiovascular: Denies: Chest Pain, Palpitations, Orthopnea, Paroxysmal Noc. Dyspnea, Lt Headedness Gastrointestinal: Reports: Diarrhea, Denies: Nausea, Vomiting, Abdominal Pain, Constipation Objective Physical Examination General Exam: Positive: Alert, Cooperative, No Acute Distress Chest Exam: Positive: Diminished (bilaterally decreased breath sounds), Negative: Rales, Rhonchi, Wheezing Heart Exam: Positive: Rate Normal, Regular Rhythm, Normal S1, Normal S2, Negative: Gallops, Murmurs, Rubs Abdomen Exam: Positive: Normal bowel sounds, Soft, Negative: Tenderness Extremity Exam: Positive: Swelling (bilateral pitting to mid quiroga L>R ), Other Skin Exam: Positive: Other skin issue (LLE quiroga with macerated moist abrasion. ) Neuro Exam: Positive: Normal Speech Assessment /Plan Problems (1) C. difficile colitis Status: Acute Discussed With: Patient Problem Text: 12/19/16: Placed on Dificid. monitor. 12/18/16: patient declining IV insertion due to poor venous access. requesting PICC line. Wait for ID consult to determine length of antibiotic tx and necessity for PICC line. 12/17/16: will resume Flagyl IV due to resumption of diarrhea. ID consult. 12/16/16: normal BMs, improving 12/15/16: STOP FLagyl. Ceftaroline stopped today and changed to doxycycline and Levaquin based on sputum culture sensitivities and allergies. 12/14: Patient reports last episode of diarrhea was last night. She will continue on vancomycin 250 mg by mouth every 6 hours, metronidazole 500 mg IV every 8 hours 12/13: Patient complains of having multiple episodes of diarrhea, testing positive for C. Diff in her stool on 12/10. She was placed on Vancomycin PO 250 Q6H. She is still having diarrhea. Per pharmacy's recommendation I am starting IV Flagyl 500 mg Q8H. (2) Multifocal pneumonia Status: Acute Problem Specific Plan: Monitor Clinically, Repeat Labs Problem Text: 12/18/16: worsening WBC. breathing is near baseline. repeat CXR today. 12/17/16: WBC 16,000 today. 12/15/16: WBC 14,000. Ceftaroline stopped today and changed to doxycycline and Levaquin based on sputum culture sensitivities and allergies. 12/14: White blood cell count decreased to 21.4, continue IV Ceftaroline. Patient with poor airflow bilaterally, order placed for incentive spirometry 12/13: WBC decreased from 30.1 to 26.8. Afebrile at 96.6 F. Patient states she is breathing just fine. Continue IV Ceftaroline. (3) Leukocytosis Status: Acute Problem Text: 12/19/16: continues with elevated WBC: 18,000. Will monitor. 12/14: White blood cell count decreased to 21.4, continue Ceftaroline, vancomycin , metronidazole. Continue to monitor 12/13: Patient's WBC down from 30.1 to 26.8 today. She is on Ceftaroline as well as Vancomycin, and will be starting Flagyl as well. Will continue to monitor. (4) Right knee buckling Status: Acute Problem Text: arthroplasty noted on xray. MRI not indicated. Will discuss potential for bracing with PT. (5) Rheumatoid arthritis Status: Chronic Problem Text: 12/13: Pt currently on Prednisone 8mg daily at home as well as Plaquenil 200mg PO daily. Plan to continue Prednisone at current dose at this time, no indication for stress dose at this time, but will continue to reassess for need. Will hold Plaquenil and restart at the time of d/c. (6) CKD (chronic kidney disease) Status: Chronic Response to Treatment: Stable Problem Text: Patient's Cr is 0.88 today. (7) CHF (congestive heart failure) Status: Chronic Problem Text: Blood pressure today of 125/62, not complaining of any chest pain. Very mild lower extremity pitting, patient not complaining of any shortness of breath. Continue to monitor (8) Chronic GERD Status: Chronic Problem Text: Will continue patient's Pantoprazole 40mg daily (9) CAD (coronary artery disease) Status: Chronic Problem Text: Pt on both ASA and Carvedilol. Plan to continue both, Carvedilol will be continued with holding parameters for SBP <100 and HR <60. (10) Hypertension Status: Chronic Problem Text: Pt on Norvasc and Carvedilol, will continue Carvedilol 3.125 mg twice daily with holding parameters for SBP <100 and HR<60 and hold Norvasc at this point as her BP has been controlled with carvedilol alone. (11) COPD (chronic obstructive pulmonary disease) Status: Chronic Response to Treatment: Stable Problem Text: 12/13: Pt currently on 2L NC which is her baseline. Does not appear to be in acute exacerbation. Pt will have duo nebs scheduled BID and prn. Will give Advair in place of pt's Breo/Ellipta while inpatient. (12) Chronic back pain Status: Chronic Response to Treatment: Stable Problem Text: Will continue patient's Cyclobenzaprine, and patient's home regimen for pain control. (13) Spinal stenosis Status: Chronic (14) Hypothyroidism Status: Chronic Response to Treatment: Stable Problem Text: Will continue patient's Levothyroxine 50 mcg daily. (15) Gout Status: Chronic Response to Treatment: Stable Problem Text: Will continue patient's Allopurinol 300 mg daily. (16) Pulmonary nodules Problem Specific Plan: Monitor Clinically Problem Text: 12/10 - These will need to be followed as out pt. (17) Cellulitis of left lower extremity Problem Text: 12/13: Patient is on IV Ceftaroline. 12/10 - Pt is on IV Ceftaroline. 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 Pt previously admitted for cellulitis of the left knee 10/2016, treated with Ceftaroline and transitioned to Cefdinir at the time of d/c for 10 days, wound culture positive at that time for Serratia. Pt currently on broad spectrum abx' s which will cover this. Plan to consult PT for wound care and dressing changes. (18) Fall Status: Acute Problem Text: 12/10 - PT ordered. Pt with 2 falls this past week. Negative XR of hip/pelvis, lumbar spine and knee. Pt also with negative CT head. Will obtain PT/OT eval. (19) Pneumonia due to methicillin sensitive Staphylococcus aureus (20) Pneumonia due to Klebsiella pneumoniae (21) Thrush, oral Status: Resolved Problem Text: 10/7: Patient reports that she no longer have problems with her mouth. Physical exam shows no oral thrush. Will continue Nystatin swish and swallow PRN as patient is on steroids. Plan/VTE VTE Prophylaxis Ordered?: Yes (Lovenox 30 mg subcutaneously daily) Plan Respiratory: Other Respiratory (incentive spirometry) VS, I&O, 24H, Fishbone Vital Signs/I&O Vital Signs Date Time Temp Pulse Resp B/P (MAP) Pulse Ox O2 Delivery O2 Flow Rate FiO2 12/19/16 07:45 20 Room Air 12/19/16 06:00 96.6 118 120/72 (88) 98 12/19/16 01:17 2.0 Laboratory Data 24H LABS Laboratory Tests 2 12/19/16 06:33: Immature Granulocyte % (Auto) , Nucleated Red Blood Cells % (auto) 0.0, Neutrophils 82H, Lymphocytes (Manual) 12L, Monocytes (Manual) 3, Eosinophils ( Manual) 1, Metamyelocytes 2H, Platelet Estimate INCREASED, Hypochromasia 1+, Anisocytosis 1+, Anion Gap 4L, Glomerular Filtration Rate 46.9, Blood Urea Nitrogen 37H, Creatinine 1.20H, Sodium Level 142, Potassium Level 3.8, Chloride Level 105, Carbon Dioxide Level 33H, Calcium Level 9.0, Aspartate Amino Transf ( AST/SGOT) 13L, Alanine Aminotransferase (ALT/SGPT) 20, Alkaline Phosphatase 98, Total Bilirubin 0.3, Total Protein 6.5, Albumin 2.9L, Albumin/Globulin Ratio 0.81L CBC/BMP Laboratory Tests 12/19/16 06:33 Red Blood Count 3.58 L, Mean Corpuscular Volume 94.4, Mean Corpuscular Hemoglobin 29.1, Mean Corpuscular Hemoglobin Concent 30.8 L, Red Cell Distribution Width 17.8 H, Calcium Level 9.0, Aspartate Amino Transf (AST/SGOT) 13 L, Alanine Aminotransferase (ALT/SGPT) 20, Alkaline Phosphatase 98, Total Bilirubin 0.3, Total Protein 6.5, Albumin 2.9 L Microbiology Microbiology 12/10/16 Gastrointestinal Tract Panel (PCR) - Final, Complete Clostridium Difficile A/B 12/09/16 Gram Stain - Final, Complete 12/09/16 Sputum Culture - Final, Complete Staphylococcus Aureus Klebsiella Pneumoniae Yeast Like Organism Domonique Olivo [employer] UP O[employer] Dec 19, 2016 08:38
[2016-12-19] MEDS: methylPREDNISolone 4 MG TAB PO SCH (09:00)
[2016-12-19] MEDS: FIDAXOMICIN 200 MG TAB (DIFICID) PO SCH ×2 (09:00→22:11)
[2016-12-19] MEDS: ALBUTEROL SULFATE 2.5 MG/0.5 ML INH NEB SOLN INH SCH ×2 (09:00→20:54)
[2016-12-19] MEDS: POTASSIUM CHLORIDE 10% LIQ 20 MEQ/15 ML UDC PO SCH ×2 (09:00→22:10)
[2016-12-19] MEDS: NYSTATIN 500,000 U/5 ML SUSP UDC SS SCH ×2 (09:01→22:09)
[2016-12-19] MEDS: ENOXAPARIN 30 MG/0.3 ML SYR (J1650) SC SCH (09:01)
[2016-12-19] MEDS: MAGNESIUM CHLORIDE 64 MG TABCR (SLO MAG) PO SCH (09:02)
[2016-12-19] MEDS: LACTOBACILLUS ACIDOPHILUS CAP (BACID) PO SCH ×3 (09:02→22:11)
[2016-12-19] MEDS: GABAPENTIN 300 MG CAP PO SCH ×3 (09:02→22:11)
[2016-12-19] MEDS: BREO ELLIPTA INH SCH (09:03)
[2016-12-19] MEDS: SPIRONOLACTONE 25 MG TAB PO SCH (09:03)
[2016-12-19] MEDS: CARVedilol 3.125 MG TAB PO SCH ×2 (09:04→22:13)
[2016-12-19] MEDS: ALLOPURINOL 300 MG TAB PO SCH (09:05)
[2016-12-19] MEDS: ASPIRIN 81 MG ENTERIC TAB PO SCH (09:05)
[2016-12-19] MEDS: MULTIVITAMINS/MINERALS THERAP 1 TAB PO SCH (09:05)
[2016-12-19] MEDS: FUROSEMIDE 20 MG TAB PO SCH ×2 (09:05→16:16)
[2016-12-19] MEDS: diphenhydrAMINE 25 MG CAP PO SCH (09:05)
[2016-12-19] MEDS: CYCLOBENZAPRINE 10 MG TAB PO SCH ×3 (09:06→22:10)
[2016-12-19] MEDS: BENZOCAINE 20% GEL 9GM TUBE (ANBESOL MAX STRENGTH) MT SCH ×4 (09:06→22:09)
[2016-12-19 14:00] VITALS: BP 110/56
--- NOTE | 2016-12-19 15:25 | IPN ---
DATE: 12/19/2016 SUBJECTIVE: Diana seems better. She is in a better mood today. She states she only had one bowel movement since breakfast. She is anxious to go home. OBJECTIVE: VITAL SIGNS: Temperature is 96.6, pulse 118, respirations 20, blood pressure 120/72, O2 saturation 98% on room air. HEART: Normal S1, S2. No murmurs. LUNGS: Decreased breath sounds bilaterally with few expiratory wheezes. ABDOMEN: Soft, nontender. EXTREMITIES: +1 edema with multiple abrasions and ecchymosis, but edema has decreased since she has compression stockings. Both knees have abrasions with mild purulent discharge. LABORATORY DATA White count is 18.5, hemoglobin 10.4, hematocrit 33.8, platelets 428, 82% neutrophils, 12% lymphocytes. Sodium 142, potassium 3.8, chloride 105, bicarb 33, BUN 37, creatinine 1.2, glucose 91, calcium nine, AST 13, ALT 20, alk phos 98, total protein 6.5. IMPRESSION: 1. Pneumonia polymicrobial with methicillin-sensitive Staphylococcus aureus (MSSA) and Klebsiella. The patient had finished 10 days of treatment and back to baseline. O2 saturation 98% on room air and shortness of breath at baseline. 2. Clostridium (C.) difficile colitis with slow response to oral vancomycin as the patient was on broad spectrum antibiotics. The patient was started on fidaxomicin yesterday and doing much better off antibiotic. PLAN: Continue fidaxomicin total of 10 days. Try to obtain prior authorization before her discharge. Continue probiotics. Avoid antibiotics for the next 1-2 months if at all possible. [facility] HOSPITALMarquez
[2016-12-19 22:00] VITALS: BP 150/90
[2016-12-19] MEDS: PANTOPRAZOLE 40MG TAB (PROTONIX) PO SCH (22:11)
[2016-12-19] MEDS: ROPINIROLE 8 MG PO SCH (22:12)
[2016-12-19] MEDS: SUMAtriptan SUCCINATE 25 MG TAB PO PRN (23:05)
[2016-12-20] MEDS: NORCO, ANEXSIA 5/325MG TABLET (HYDROcodone/ACETAMINOPHEN) PO PRN ×3 (04:36→21:54)
[2016-12-20] MEDS: LEVOTHYROXINE 50MCG TABLET (0.05MG) PO SCH (05:40)
[2016-12-20 06:00] VITALS: BP 149/89
[2016-12-20 06:10] LABS: BASO # 0.1 10^3/uL (0.0-0.2); BASO % 0.5 % (0.0-1.0); EOS # 0.1 10^3/uL (0.0-0.50); EOS % 0.6 % (0.0-3.0); IMMATURE GRANULOCYTE % 4.5 % (0-0); LYMPH # 1.7 10^3/uL (1.5-4.5); LYMPH % 10.5 % (24.0-44.0); MEAN CORPUSCULAR HEMOGLOBIN 28.9 pg (27.0-33.0); MEAN CORPUSCULAR HGB CONC 30.1 g/dl (32.0-36.5); MEAN CORPUSCULAR VOLUME 96.1 fl (80.0-96.0); MONO % 6.2 % (0.0-5.0); NEUTROPHILS # 12.9 10^3/uL (1.8-7.7); NEUTROPHILS % 77.7 % (36.0-66.0); PLATELET COUNT, AUTOMATED 387 10^3/uL (150-450); RED CELL DISTRIBUTION WIDTH 17.7 % (11.5-14.5); WHITE BLOOD COUNT 16.6 10^3/uL (4.0-10.0)
[2016-12-20 06:33] LABS: ALBUMIN 2.9 GM/DL (3.2-5.2); ALBUMIN/GLOBULIN RATIO 0.85 (1.00-1.93); BILIRUBIN,TOTAL 0.2 MG/DL (0.2-1.0); CALCIUM LEVEL 9.7 MG/DL (8.8-10.2); CREATININE FOR GFR 1.04 MG/DL (0.55-1.02); GLOMERULAR FILTRATION RATE 55.3 (>39); TOTAL PROTEIN 6.3 GM/DL (6.4-8.2)
[2016-12-20] MEDS: BREO ELLIPTA INH SCH (07:29)
[2016-12-20] MEDS: ALBUTEROL SULFATE 2.5 MG/0.5 ML INH NEB SOLN INH SCH ×2 (07:30→20:19)
[2016-12-20] MEDS: BENZOCAINE 20% GEL 9GM TUBE (ANBESOL MAX STRENGTH) MT SCH ×4 (08:25→21:52)
[2016-12-20] MEDS: FIDAXOMICIN 200 MG TAB (DIFICID) PO SCH ×2 (08:25→21:51)
[2016-12-20] MEDS: CARVedilol 3.125 MG TAB PO SCH ×2 (08:27→21:52)
[2016-12-20] MEDS: MULTIVITAMINS/MINERALS THERAP 1 TAB PO SCH (08:27)
[2016-12-20] MEDS: CYCLOBENZAPRINE 10 MG TAB PO SCH ×3 (08:27→21:51)
[2016-12-20] MEDS: GABAPENTIN 300 MG CAP PO SCH ×3 (08:27→21:51)
[2016-12-20] MEDS: LACTOBACILLUS ACIDOPHILUS CAP (BACID) PO SCH ×3 (08:28→21:51)
[2016-12-20] MEDS: NYSTATIN 500,000 U/5 ML SUSP UDC SS SCH ×2 (08:28→21:51)
[2016-12-20] MEDS: ALLOPURINOL 300 MG TAB PO SCH (08:28)
[2016-12-20] MEDS: diphenhydrAMINE 25 MG CAP PO SCH (08:28)
[2016-12-20] MEDS: FUROSEMIDE 20 MG TAB PO SCH (08:28)
[2016-12-20] MEDS: SPIRONOLACTONE 25 MG TAB PO SCH (08:28)
[2016-12-20] MEDS: methylPREDNISolone 4 MG TAB PO SCH (08:28)
[2016-12-20] MEDS: ASPIRIN 81 MG ENTERIC TAB PO SCH (08:28)
[2016-12-20] MEDS: MAGNESIUM CHLORIDE 64 MG TABCR (SLO MAG) PO SCH (08:29)
[2016-12-20] MEDS: ENOXAPARIN 30 MG/0.3 ML SYR (J1650) SC SCH (08:29)
[2016-12-20] MEDS: POTASSIUM CHLORIDE 10% LIQ 20 MEQ/15 ML UDC PO SCH (08:29)
--- NOTE | 2016-12-20 13:35 | IPN ---
DATE OF VISIT: 12/20/2016 The patient is seen today [facility]. She is 71-year-old woman who is admitted with pneumonia and now being treated for C. diff. It was reported that she had a formed stool this morning, but she has had several unformed stools since then. She is not having any fevers. Her breathing is good at this time. Not having any sort of chest pains or abdominal pains. Not having any edema. Her medication regimen is reviewed. She is now on Dificid with recommendation from Dr. Farnsworth to avoid other antibiotics as much as possible due to the C. Diff. Current medications call for her to receive Aldactone which was started 2 days ago, furosemide twice a day, Dimmitt as needed, Tylenol as needed, potassium twice a day, BREO ELLIPTA, ropinirole, allopurinol, getting Lovenox, Synthroid, Albuterol, Coreg, pantoprazole, nystatin powder, as needed Albuterols, Mild of Magnesia. She has morphine available for pain. She is getting scheduled cyclobenzaprine and Neurontin as well as Bacid and aspirin. She gets scheduled Benadryl in the morning, magnesium, Medrol currently is 8 mg daily. She is also on a multivitamin. On examination, her temperature is 97.2, blood pressure 149/89, pulse is 116 and regular, O2 saturations 92% on 2 liters per minute. She is alert, pleasant and cooperative, not at all in any distress. Her eyes are clear. Speech is clear. There is no neck masses, tenderness or adenopathy. There is no carotid bruits. Her lungs show diminished breath sounds but are clear. Heart: Has regular rhythm. There is no murmur or gallop. Abdomen soft, slightly protuberant and nontender without any masses or organomegaly. Bowel sounds are active. There is no edema. Labs today showed a BUN of 40, creatinine 1.04, sodium 144, potassium 4.0. Liver functions normal. Hemoglobin 10.3, WBCs 16,600. ASSESSMENT: C. difficile colitis seems to be improving on Dificid. Pneumonia. No longer on antibiotics for this. Leukocytosis. Probably related to C. difficile, this is improving. Knee pains. Status post arthroplasty maybe related to injury due to weakness, seems to be okay at this point. Rheumatoid arthritis. Was on prednisone and Plaquenil at home, currently just prednisone. Chronic kidney disease. Doing quite well although her current BUN is 40 and which I think is due to the amount of diuretics that she is getting, we will back off on these. Congestive heart failure, stable. Gastroesophageal reflux, controlled. Coronary artery disease, not symptomatic. Hypertension, controlled. Chronic obstructive pulmonary artery disease (COPD), stable. Chronic back pains, stable. Gout, stable. History of pulmonary nodules. Plan to followup with outpatient. History of history of cellulitis. No longer on antibiotics. I should note that the major obstacle for her being discharged at this time is insurance coverage for the Difficid medication. If her insurer will not cover it she will need to remain in the hospital to complete her course. WAGNER
[2016-12-20 14:00] VITALS: BP 144/90
[2016-12-20] MEDS: ROPINIROLE 8 MG PO SCH (21:51)
[2016-12-20] MEDS: PANTOPRAZOLE 40MG TAB (PROTONIX) PO SCH (21:51)
[2016-12-20 22:00] VITALS: BP 128/66
[2016-12-21] MEDS: NORCO, ANEXSIA 5/325MG TABLET (HYDROcodone/ACETAMINOPHEN) PO PRN ×3 (04:22→21:02)
[2016-12-21] MEDS: LEVOTHYROXINE 50MCG TABLET (0.05MG) PO SCH (05:37)
[2016-12-21 06:00] VITALS: BP 118/59
[2016-12-21 06:24] LABS: MEAN CORPUSCULAR HEMOGLOBIN 29.2 pg (27.0-33.0); MEAN CORPUSCULAR HGB CONC 30.4 g/dl (32.0-36.5); PLATELET COUNT, AUTOMATED 381 10^3/uL (150-450); WHITE BLOOD COUNT 16.3 10^3/uL (4.0-10.0)
[2016-12-21 06:40] LABS: ADD MANUAL DIFFER YES; DIFF SLIDE NUMBER 14
[2016-12-21 06:48] LABS: ALBUMIN 2.8 GM/DL (3.2-5.2); ALBUMIN/GLOBULIN RATIO 0.93 (1.00-1.93); ALKALINE PHOSPHATASE 92 U/L (45-117); ALT/SGPT 18 U/L (12-78); ANION GAP 7 MEQ/L (8-16); AST/SGOT 13 U/L (15-37); BILIRUBIN,TOTAL 0.2 MG/DL (0.2-1.0); BLOOD UREA NITROGEN 37 MG/DL (7-18); CALCIUM LEVEL 8.9 MG/DL (8.8-10.2); CARBON DIOXIDE LEVEL 31 MEQ/L (21-32); CHLORIDE LEVEL 105 MEQ/L (98-107); CREATININE FOR GFR 0.96 MG/DL (0.55-1.02); GLOMERULAR FILTRATION RATE > 60.0 (>39); GLUCOSE, FASTING 97 MG/DL (83-110); POTASSIUM SERUM 3.5 MEQ/L (3.5-5.1); SODIUM LEVEL 143 MEQ/L (136-145); TOTAL PROTEIN 5.8 GM/DL (6.4-8.2)
[2016-12-21 07:59] LABS: BANDS 1 % (< 11); EOSINOPHILS 1 % (0-5)
[2016-12-21 08:00] LABS: ANISOCYTOSIS 1+; HYPOCHROMASIA 1+
[2016-12-21] MEDS: MAGNESIUM CHLORIDE 64 MG TABCR (SLO MAG) PO SCH (08:17)
[2016-12-21] MEDS: POTASSIUM CHLORIDE 10% LIQ 20 MEQ/15 ML UDC PO SCH (08:17)
[2016-12-21] MEDS: NYSTATIN 500,000 U/5 ML SUSP UDC SS SCH ×2 (08:17→21:04)
[2016-12-21] MEDS: LACTOBACILLUS ACIDOPHILUS CAP (BACID) PO SCH ×3 (08:18→21:01)
[2016-12-21] MEDS: diphenhydrAMINE 25 MG CAP PO SCH (08:18)
[2016-12-21] MEDS: CARVedilol 3.125 MG TAB PO SCH ×2 (08:19→21:04)
[2016-12-21] MEDS: FUROSEMIDE 20 MG TAB PO SCH (08:20)
[2016-12-21] MEDS: ASPIRIN 81 MG ENTERIC TAB PO SCH (08:20)
[2016-12-21] MEDS: ALLOPURINOL 300 MG TAB PO SCH (08:20)
[2016-12-21] MEDS: SPIRONOLACTONE 25 MG TAB PO SCH (08:20)
[2016-12-21] MEDS: methylPREDNISolone 4 MG TAB PO SCH (08:20)
[2016-12-21] MEDS: MULTIVITAMINS/MINERALS THERAP 1 TAB PO SCH (08:20)
[2016-12-21] MEDS: ENOXAPARIN 30 MG/0.3 ML SYR (J1650) SC SCH (08:20)
[2016-12-21] MEDS: GABAPENTIN 300 MG CAP PO SCH ×3 (08:21→21:01)
[2016-12-21] MEDS: CYCLOBENZAPRINE 10 MG TAB PO SCH ×3 (08:21→21:01)
[2016-12-21] MEDS: FIDAXOMICIN 200 MG TAB (DIFICID) PO SCH ×2 (08:22→21:01)
[2016-12-21] MEDS: BENZOCAINE 20% GEL 9GM TUBE (ANBESOL MAX STRENGTH) MT SCH ×4 (08:23→21:00)
[2016-12-21] MEDS: ALBUTEROL SULFATE 2.5 MG/0.5 ML INH NEB SOLN INH SCH ×2 (09:00→19:11)
[2016-12-21] MEDS: BREO ELLIPTA INH SCH (09:00)
[2016-12-21 14:00] VITALS: BP 122/61
--- NOTE | 2016-12-21 19:36 | IPN ---
DATE: 12/21/2016 The patient is seen today [facility]. Again today she had semiformed stool in the morning and then has had some loose stools since. She is not having any abdominal pain nor fevers. Her breathing is good. Not having any coughing or raising any phlegm. Not having any edema. She has a number of open areas on her legs that are being treated with Optifoam dressings. Her current medication regimen includes potassium, furosemide, Dificid, as needed Imitrex, Aldactone, as needed Zachary, allopurinol, Lovenox, thyroxine, scheduled albuterol nebulizers, carvedilol, Protonix. She has as needed medications for pain. She is getting scheduled cyclobenzaprine, gabapentin, lactobacillus, aspirin, diphenhydramine, she is on 8 mg of methylprednisolone a day, magnesium and multivitamin. On examination her temperature is 98.4, pulse was recorded as 120 earlier although I got 104, blood pressure 122/61, respirations 18, oxygen saturation on room air is 93%. She is alert, pleasant, cooperative, not in any distress. Her eyes are clear. Speech is clear. There is no neck masses, tenderness or adenopathy. No carotid bruits. Lungs are clear. Heart has a regular rhythm, I am not hearing any murmur, click or gallop. Abdomen is soft and nontender without any masses or organomegaly. Bowel sounds are active. There is no edema. Again she has five areas on her knees and shins and calves that are being treated with Optifoam dressings. ASSESSMENT: 1. Clostridium (C) difficile, currently on Dificid. 2. Pneumonia. No longer on antibiotics, doing well. 3. Leukocytosis. Probably related to Clostridium (C) difficile. 4. Knee pains. She is status post arthroplasty. I suspect current knee pain related to injury. 5. Rheumatoid arthritis. Currently just on prednisone. 6. Chronic kidney disease. 7. Congestive heart failure, controlled. 8. Gastroesophageal reflux, stable. 9. Coronary artery disease, asymptomatic. 10. Hypertension, controlled. 11. Chronic obstructive pulmonary disease (COPD), stable. 12. Chronic back pain, stable. 13. Gout, stable. 14. History of pulmonary nodules. Plan to followup as an outpatient. 15. History of cellulitis. Not on antibiotics at this time. PLAN: Theoretically, the patient could be discharged at this time as long as her insurance will pay for continued Dificid medication. If not, she will just have to remain in the hospital to complete her course. Her white count today is 16,300 which is not much different from yesterday. Hemoglobin is a little lower at 9.3. Her BUN is down a little at 37, creatinine 0.97, potassium 3.5. Liver functions are normal. MTDD
[2016-12-21] MEDS: ROPINIROLE 8 MG PO SCH (21:00)
[2016-12-21] MEDS: PANTOPRAZOLE 40MG TAB (PROTONIX) PO SCH (21:01)
[2016-12-21 22:00] VITALS: BP 143/83
[2016-12-22] MEDS: NORCO, ANEXSIA 5/325MG TABLET (HYDROcodone/ACETAMINOPHEN) PO PRN ×3 (03:24→16:04)
[2016-12-22] MEDS: LEVOTHYROXINE 50MCG TABLET (0.05MG) PO SCH (05:35)
[2016-12-22 06:05] LABS: BASO % 0.2 % (0.0-1.0); EOS # 0.2 10^3/uL (0.0-0.50); EOS % 0.8 % (0.0-3.0); IMMATURE GRANULOCYTE % 2.6 % (0-0); LYMPH # 1.3 10^3/uL (1.5-4.5); LYMPH % 6.5 % (24.0-44.0); MEAN CORPUSCULAR HEMOGLOBIN 29.2 pg (27.0-33.0); MEAN CORPUSCULAR HGB CONC 30.3 g/dl (32.0-36.5); MEAN CORPUSCULAR VOLUME 96.4 fl (80.0-96.0); MONO # 0.8 10^3/uL (0.0-0.8); MONO % 4.2 % (0.0-5.0); NEUTROPHILS # 16.7 10^3/uL (1.8-7.7); NEUTROPHILS % 85.7 % (36.0-66.0); PLATELET COUNT, AUTOMATED 385 10^3/uL (150-450); RED CELL DISTRIBUTION WIDTH 18.1 % (11.5-14.5); WHITE BLOOD COUNT 19.5 10^3/uL (4.0-10.0)
[2016-12-22 06:23] LABS: ALBUMIN 2.8 GM/DL (3.2-5.2); ALBUMIN/GLOBULIN RATIO 0.93 (1.00-1.93); BILIRUBIN,TOTAL 0.3 MG/DL (0.2-1.0); CALCIUM LEVEL 8.6 MG/DL (8.8-10.2); CREATININE FOR GFR 0.97 MG/DL (0.55-1.02); GLOMERULAR FILTRATION RATE 59.9 (>39); POTASSIUM SERUM 3.6 MEQ/L (3.5-5.1); TOTAL PROTEIN 5.8 GM/DL (6.4-8.2)
[2016-12-22 06:50] VITALS: BP 144/81
[2016-12-22] MEDS: BREO ELLIPTA INH SCH (08:06)
[2016-12-22] MEDS: ALBUTEROL SULFATE 2.5 MG/0.5 ML INH NEB SOLN INH SCH ×2 (08:07→19:58)
[2016-12-22] MEDS: ENOXAPARIN 30 MG/0.3 ML SYR (J1650) SC SCH (10:11)
[2016-12-22] MEDS: MAGNESIUM CHLORIDE 64 MG TABCR (SLO MAG) PO SCH (10:11)
[2016-12-22] MEDS: NYSTATIN 500,000 U/5 ML SUSP UDC SS SCH (10:11)
[2016-12-22] MEDS: POTASSIUM CHLORIDE 10% LIQ 20 MEQ/15 ML UDC PO SCH (10:11)
[2016-12-22] MEDS: FUROSEMIDE 20 MG TAB PO SCH (10:12)
[2016-12-22] MEDS: MULTIVITAMINS/MINERALS THERAP 1 TAB PO SCH (10:12)
[2016-12-22] MEDS: CYCLOBENZAPRINE 10 MG TAB PO SCH ×3 (10:12→21:00)
[2016-12-22] MEDS: ASPIRIN 81 MG ENTERIC TAB PO SCH (10:12)
[2016-12-22] MEDS: diphenhydrAMINE 25 MG CAP PO SCH (10:12)
[2016-12-22] MEDS: SPIRONOLACTONE 25 MG TAB PO SCH (10:12)
[2016-12-22] MEDS: GABAPENTIN 300 MG CAP PO SCH ×3 (10:13→21:41)
[2016-12-22] MEDS: CARVedilol 3.125 MG TAB PO SCH ×2 (10:13→21:42)
[2016-12-22] MEDS: FIDAXOMICIN 200 MG TAB (DIFICID) PO SCH ×2 (10:13→21:41)
[2016-12-22] MEDS: ALLOPURINOL 300 MG TAB PO SCH (10:13)
[2016-12-22] MEDS: LACTOBACILLUS ACIDOPHILUS CAP (BACID) PO SCH ×3 (10:14→21:41)
[2016-12-22] MEDS: methylPREDNISolone 4 MG TAB PO SCH (10:14)
[2016-12-22] MEDS: BENZOCAINE 20% GEL 9GM TUBE (ANBESOL MAX STRENGTH) MT SCH ×4 (10:36→21:00)
--- NOTE | 2016-12-22 11:22 | IPNPDOC ---
Subjective Date Seen The patient was seen on 12/22/16. Subjective Chief Complaint/HPI The patient is a 71-year-old female admitted with a reason for visit of Rll Pneumonia, however her most relevant treatment issue is currently Clostridium difficile colitis. Events since last encounter Pt is doing pretty well. She states that she had a formed stool this morning, but has not had one since. She is feeling better. General: Reports: Fatigue Constitutional: Denies: Chills, Fever ENT: Denies: Head Aches Skin: Denies: Rash Pulmonary: Denies: Dyspnea, Cough Cardiovascular: Denies: Chest Pain, Palpitations Gastrointestinal: Denies: Nausea, Vomiting, Diarrhea Neurological: Denies: Weakness Psych: Reports: Mood Normal Objective Physical Examination General Exam: Positive: Alert, Cooperative, Mild Distress (appears short of breath when talking), Other (laying in bed, NC in place), Negative: No Acute Distress Eye Exam: Positive: PERRLA, EOMI, Negative: Ptosis ENT Exam: Positive: Atraumatic, Other ENT (white exudates noted around uvula, dry mucous membranes) Neck Exam: Positive: Supple, Negative: JVD Chest Exam: Positive: Normal air movement, Rhonchi (right lower lung field), Negative: Wheezing Heart Exam: Positive: Tachycardic, Regular Rhythm, Normal S1, Normal S2, Negative: Gallops, Murmurs, Rubs Telemetry: Positive: Sinus, Tachycardia Abdomen Exam: Positive: Normal bowel sounds, Soft, Tenderness (suprapubic), Negative: Hepatospenomegaly Extremity Exam: Positive: Normal pulses, Other (multiple bruises noted to bilateral upper and lower extremities), Negative: Swelling Skin Exam: Positive: Other skin issue (superficial wound to RUE, localized anteriorly aspect of forearm, no drainage, no erythema, non tender. Multiple superficial wounds to RLE, circular, covered with bandaids, some purulent material noted on bandage, no active bleeding or drainage, no warmth, mild erythema. left knee wound, circular, some purulence around wound surface and on bandage, no active drainage, surrounding erythema, warm to touch, mild tenderness to area. ), Negative: Rash Neuro Exam: Positive: Normal Speech, Strength at 5/5 X4 ext, Normal Tone, Cranial Nerves 3-12 NL Psych Exam: Positive: Mental status NL, Oriented x 3 Assessment /Plan Problems (1) C. difficile colitis Status: Acute Discussed With: Patient Problem Text: 12/22 - D 06/16 dificid, at this point it doesn't look like her ins will cover this, she has responded to this treatment however. ID recommends she stay in the hospital through Thursday night which will be her 20th dose of the Dificid. We anticipate discharge on the morning of ThursdayDecember 28. 12/19/16: Placed on Dificid. monitor. 12/18/16: patient declining IV insertion due to poor venous access. requesting PICC line. Wait for ID consult to determine length of antibiotic tx and necessity for PICC line. 12/17/16: will resume Flagyl IV due to resumption of diarrhea. ID consult. 12/16/16: normal BMs, improving 12/15/16: STOP FLagyl. Ceftaroline stopped today and changed to doxycycline and Levaquin based on sputum culture sensitivities and allergies. 12/14: Patient reports last episode of diarrhea was last night. She will continue on vancomycin 250 mg by mouth every 6 hours, metronidazole 500 mg IV every 8 hours 12/13: Patient complains of having multiple episodes of diarrhea, testing positive for C. Diff in her stool on 12/10. She was placed on Vancomycin PO 250 Q6H. She is still having diarrhea. Per pharmacy's recommendation I am starting IV Flagyl 500 mg Q8H. (2) RLL pneumonia Status: Acute Problem Text: Pt with previous admission 10/2016 and noted to have RLL PNA then , infiltrate appears worse, evident on both CXR and Chest CT and now with elevated WBC at 31.9. Pt currently on Zosyn and Vanc, will continue broad antibiotics given her relative immunosuppression from chronic steroids and plaquenil. Currently on 2L NC which is her baseline and will continue this as well. There are multiple nodules noted on CT chest that should be followed up as OP. Pt has been followed up as OP in the past for findings in the RUL and RLL with extensive workup including BAL and biopsies. Will recommend OP follow up for nodules. (3) Leukocytosis Status: Acute Problem Text: Her leukocytes had improved to 19.5, however, she still is far from her baseline around 11-13. Suspect multifactorial, pt with evidence of persistent it if colitis, RLL infiltrate, UTI sxs, cellulitis and on chronic Prednisone. We will discontinue her hydroxychloroquine at this time, but will continue with her usual home dose of steroids. (4) Fall Status: Acute Problem Text: Pt with 2 falls just prior to admission. Negative XR of hip/ pelvis, lumbar spine and knee. Pt also with negative CT head. Will obtain PT/OT eval. (5) Thrush, oral Status: Resolved Problem Text: Likely secondary chronic steroid therapy and nebulizers for COPD. Plan for Nystatin swish and swallow. (6) Rheumatoid arthritis Status: Chronic Problem Text: Pt currently on Prednisone 8mg daily at home as well as Plaquenil 200mg PO daily. Plan to continue Prednisone at current dose at this time, no indication for stress dose at this time, but will continue to reassess for need. Will hold Plaquenil and restart at the time of d/c. (7) CKD (chronic kidney disease) Status: Chronic Response to Treatment: Stable Problem Text: Stable SCr. (8) CHF (congestive heart failure) Status: Chronic Problem Text: Pt on Lasix and Spironolactone as OP. Plan to hold diuretics at this time as pt pressure has been in the low 100's systolic and pt appears slightly dehydrated on exam. (9) CAD (coronary artery disease) Status: Chronic Problem Text: Pt on both ASA and Carvedilol. Plan to continue both, Carvedilol will be continued with holding parameters for SBP <100 and HR <60. (10) Hypertension Status: Chronic Problem Text: Pt on Norvasc and Carvedilol, will continue Carvedilol with holding parameters for SBP <100 and HR<60 and hold Norvasc at this point as her BP has been in the low 100's systolic. (11) COPD (chronic obstructive pulmonary disease) Status: Chronic Response to Treatment: Stable Problem Text: Pt currently on 2L NC which is her baseline. (12) Chronic back pain Status: Chronic Response to Treatment: Stable Problem Text: Will continue patient's Cyclobenzaprine, and patient's home regimen for pain control. Plan/VTE VTE Prophylaxis Ordered?: Yes (Lovenox 30 mg subcutaneously daily) Plan Respiratory: Other Respiratory (incentive spirometry) Anticipated Discharge: Home (on 12/28 once her course of Dificid is complete) Family Medicine Attending Note: I saw and examined Mr. Johnson, discussed with Sybil Giang RPA-C. Agree with their note as documented. Diana is making slow but steady improvement. It sounds as if her bowel movements are finally starting to firm up. I anticipate she will be able to be discharged on 12/28. 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, I&O, 24H, Fishbone Vital Signs/I&O Vital Signs Date Time Temp Pulse Resp B/P (MAP) Pulse Ox O2 Delivery O2 Flow Rate FiO2 12/22/16 10:20 18 Nasal Cannula 2.0 12/22/16 10:13 110 144/81 12/22/16 06:50 97.7 99 Laboratory Data 24H LABS Laboratory Tests 2 12/22/16 05:31: Immature Granulocyte % (Auto) 2.6H, White Blood Count 19.5H, Red Blood Count 3.29L, Hemoglobin 9.6L, Hematocrit 31.7L, Mean Corpuscular Volume 96.4H, Mean Corpuscular Hemoglobin 29.2, Mean Corpuscular Hemoglobin Concent 30.3L, Red Cell Distribution Width 18.1H, Platelet Count 385, Neutrophils (%) (Auto) 85.7H , Lymphocytes (%) (Auto) 6.5L, Monocytes (%) (Auto) 4.2, Eosinophils (%) (Auto) 0.8, Basophils (%) (Auto) 0.2, Neutrophils # (Auto) 16.7H, Lymphocytes # (Auto) 1.3L, Monocytes # (Auto) 0.8, Eosinophils # (Auto) 0.2, Basophils # (Auto) 0.0, Immature Granulocyte # (Auto) 0.5H, Nucleated Red Blood Cells % (auto) 0.0, Anion Gap 7L, Glomerular Filtration Rate 59.9, Blood Urea Nitrogen 33H, Creatinine 0.97, Sodium Level 142, Potassium Level 3.6, Chloride Level 105, Carbon Dioxide Level 30, Calcium Level 8.6L, Aspartate Amino Transf (AST/SGOT) 12L, Alanine Aminotransferase (ALT/SGPT) 19, Alkaline Phosphatase 85, Total Bilirubin 0.3, Total Protein 5.8L, Albumin 2.8L, Albumin/Globulin Ratio 0.93L CBC/BMP Laboratory Tests 12/22/16 05:31 Red Blood Count 3.29 L, Mean Corpuscular Volume 96.4 H, Mean Corpuscular Hemoglobin 29.2, Mean Corpuscular Hemoglobin Concent 30.3 L, Red Cell Distribution Width 18.1 H, Neutrophils (%) (Auto) 85.7 H, Lymphocytes (%) (Auto ) 6.5 L, Monocytes (%) (Auto) 4.2, Eosinophils (%) (Auto) 0.8, Basophils (%) ( Auto) 0.2, Neutrophils # (Auto) 16.7 H, Lymphocytes # (Auto) 1.3 L, Monocytes # (Auto) 0.8, Eosinophils # (Auto) 0.2, Basophils # (Auto) 0.0, Calcium Level 8.6 L, Aspartate Amino Transf (AST/SGOT) 12 L, Alanine Aminotransferase (ALT/SGPT) 19, Alkaline Phosphatase 85, Total Bilirubin 0.3, Total Protein 5.8 L, Albumin 2.8 L SYBIL GIANG PA-C Dec 22, 2016 11:22 am Isra Langford MD Dec 22, 2016 10:11 pm
[2016-12-22] MEDS: ALBUTEROL 90 MCG/ACT 8GM HFA INHALER INH PRN (13:32)
[2016-12-22 14:00] VITALS: BP 118/59
--- NOTE | 2016-12-22 17:38 | IPN ---
DATE: 12/22/2016 Diana is excited this afternoon. She states she has had one semi-formed bowel movement this afternoon. This is her fifth bowel movement today. No nausea, vomiting or abdominal pain. Cough is productive of yellow phlegm, which is about baseline. She is currently day #5 of oral Dificid. Her insurance did not authorize antibiotic for home discharge. LABORATORY DATA: White count is 19.5, hemoglobin 9.6, hematocrit 31.7, platelets 385. Sodium 142, potassium 3.6, chloride 105, bicarbonate 30, BUN 33, creatinine 0.97, AST 12, ALT 19, alkaline phosphatase 85. On physical exam, temperature is 97.7, pulse 110, respirations 18, blood pressure 144/81, oxygen saturation 99% on 2 liters nasal cannula. Abdomen: Soft, nontender. Extremities: Trace edema with knee abrasions improving. IMPRESSION: 1. Clostridium difficile colitis. Failed oral vancomycin. Currently on day #5 of Dificid with improvement in symptoms. She is day #5 out of 10. Continue probiotics. 2. Right lower lobe pneumonia. Status post 10 days of broad-spectrum antibiotic, which have been discontinued. 3. Leukocytosis, improving, down from 31,000 but remains somewhat elevated. Clinically, the patient is doing well and therefore, I would not worry about her white count. She is back to her baseline methylprednisolone 8 mg daily. PLAN: Continues fidaxomicin for a total of 10 days. I have discussed with her stool transplantation and risk of recurrence of Clostridium difficile in up to 25% of patients in spite of treatment. The patient was not interested in stool transplantation at this time. Her last colonoscopy was years ago. At this point, will continue with fidaxomicin and probiotics. If need be, will rediscuss stool transplant at a later time. After reviewing of her record, her last colonoscopy was done by Dr. Owen in 2008, which is 8 years ago. [facility]
[2016-12-22] MEDS: ROPINIROLE 8 MG PO SCH (21:00)
[2016-12-22] MEDS: PANTOPRAZOLE 40MG TAB (PROTONIX) PO SCH (21:41)
[2016-12-22 22:00] VITALS: BP 125/62
[2016-12-23] MEDS: LEVOTHYROXINE 50MCG TABLET (0.05MG) PO SCH (05:25)
[2016-12-23 06:00] VITALS: BP 121/63
[2016-12-23] MEDS: NORCO, ANEXSIA 5/325MG TABLET (HYDROcodone/ACETAMINOPHEN) PO PRN ×3 (06:01→20:32)
[2016-12-23 06:44] LABS: BASO # 0.1 10^3/uL (0.0-0.2); BASO % 0.2 % (0.0-1.0); EOS # 0.1 10^3/uL (0.0-0.50); EOS % 0.5 % (0.0-3.0); IMMATURE GRANULOCYTE % 1.5 % (0-0); LYMPH # 1.3 10^3/uL (1.5-4.5); LYMPH % 4.9 % (24.0-44.0); MEAN CORPUSCULAR HEMOGLOBIN 28.8 pg (27.0-33.0); MEAN CORPUSCULAR HGB CONC 29.8 g/dl (32.0-36.5); MEAN CORPUSCULAR VOLUME 96.7 fl (80.0-96.0); MONO # 0.9 10^3/uL (0.0-0.8); MONO % 3.3 % (0.0-5.0); NEUTROPHILS # 23.8 10^3/uL (1.8-7.7); NEUTROPHILS % 89.6 % (36.0-66.0); PLATELET COUNT, AUTOMATED 365 10^3/uL (150-450); RED CELL DISTRIBUTION WIDTH 18.1 % (11.5-14.5); WHITE BLOOD COUNT 26.6 10^3/uL (4.0-10.0)
[2016-12-23 07:08] LABS: ALBUMIN 2.9 GM/DL (3.2-5.2); ALBUMIN/GLOBULIN RATIO 0.81 (1.00-1.93); ALKALINE PHOSPHATASE 91 U/L (45-117); ALT/SGPT 18 U/L (12-78); ANION GAP 3 MEQ/L (8-16); AST/SGOT 14 U/L (15-37); BILIRUBIN,TOTAL 0.5 MG/DL (0.2-1.0); BLOOD UREA NITROGEN 28 MG/DL (7-18); CALCIUM LEVEL 9.3 MG/DL (8.8-10.2); CARBON DIOXIDE LEVEL 33 MEQ/L (21-32); CHLORIDE LEVEL 105 MEQ/L (98-107); CREATININE FOR GFR 0.86 MG/DL (0.55-1.02); GLOMERULAR FILTRATION RATE > 60.0 (>39); GLUCOSE, FASTING 92 MG/DL (83-110); POTASSIUM SERUM 4.4 MEQ/L (3.5-5.1); SODIUM LEVEL 141 MEQ/L (136-145); TOTAL PROTEIN 6.5 GM/DL (6.4-8.2)
[2016-12-23 08:00] VITALS: BP 111/60
[2016-12-23] MEDS: ALBUTEROL SULFATE 2.5 MG/0.5 ML INH NEB SOLN INH SCH ×2 (08:37→20:34)
[2016-12-23] MEDS: BREO ELLIPTA INH SCH (08:38)
[2016-12-23] MEDS: MAGNESIUM CHLORIDE 64 MG TABCR (SLO MAG) PO SCH (09:37)
[2016-12-23] MEDS: FIDAXOMICIN 200 MG TAB (DIFICID) PO SCH ×2 (09:38→20:31)
[2016-12-23] MEDS: LACTOBACILLUS ACIDOPHILUS CAP (BACID) PO SCH ×3 (09:38→20:31)
[2016-12-23] MEDS: GABAPENTIN 300 MG CAP PO SCH ×3 (09:38→20:31)
[2016-12-23] MEDS: methylPREDNISolone 4 MG TAB PO SCH (09:38)
[2016-12-23] MEDS: FUROSEMIDE 20 MG TAB PO SCH (09:38)
[2016-12-23] MEDS: SPIRONOLACTONE 25 MG TAB PO SCH (09:39)
[2016-12-23] MEDS: CARVedilol 3.125 MG TAB PO SCH ×2 (09:39→20:30)
[2016-12-23] MEDS: CYCLOBENZAPRINE 10 MG TAB PO SCH ×3 (09:39→20:31)
[2016-12-23] MEDS: diphenhydrAMINE 25 MG CAP PO SCH (09:39)
[2016-12-23] MEDS: ALLOPURINOL 300 MG TAB PO SCH (09:40)
[2016-12-23] MEDS: MULTIVITAMINS/MINERALS THERAP 1 TAB PO SCH (09:40)
[2016-12-23] MEDS: ASPIRIN 81 MG ENTERIC TAB PO SCH (09:40)
[2016-12-23] MEDS: ENOXAPARIN 30 MG/0.3 ML SYR (J1650) SC SCH (09:40)
[2016-12-23] MEDS: BENZOCAINE 20% GEL 9GM TUBE (ANBESOL MAX STRENGTH) MT SCH ×4 (09:41→20:33)
[2016-12-23] MEDS: POTASSIUM CHLORIDE 10% LIQ 20 MEQ/15 ML UDC PO SCH (09:41)
--- NOTE | 2016-12-23 11:11 | IPNPDOC ---
Subjective Date Seen The patient was seen on 12/23/16. Subjective Chief Complaint/HPI The patient is a 71-year-old female admitted with a reason for visit of Rll Pneumonia. Events since last encounter Pt feeling well this morning, she has not had any further loose stools, having had formed stools both today and yesterday. General: Reports: Fatigue Constitutional: Denies: Chills, Fever Pulmonary: Reports: Dyspnea (chronic stable), Cough (chronic stable) Gastrointestinal: Reports: Nausea, Vomiting, Diarrhea Neurological: Denies: Weakness Psych: Reports: Mood Normal Objective Physical Examination General Exam: Positive: Alert, Cooperative, No Acute Distress, Other (laying in bed, NC in place) Neck Exam: Positive: Supple, Negative: JVD Chest Exam: Negative: Wheezing, Diminished (throughout, otherwise clear) Heart Exam: Positive: Tachycardic, Regular Rhythm, Normal S1, Normal S2, Negative: Gallops, Murmurs, Rubs Abdomen Exam: Positive: Normal bowel sounds, Soft, Negative: Tenderness Extremity Exam: Positive: Normal pulses, Other (multiple bruises noted to bilateral upper and lower extremities), Negative: Swelling Skin Exam: Positive: Other skin issue (superficial wound to RUE, localized anteriorly aspect of forearm, no drainage, no erythema, non tender. Multiple superficial wounds to RLE, circular, covered with bandaids, some purulent material noted on bandage, no active bleeding or drainage, no warmth, mild erythema. left knee wound, circular, some purulence around wound surface and on bandage, no active drainage, surrounding erythema, warm to touch, mild tenderness to area. ), Negative: Rash Neuro Exam: Positive: Normal Speech Psych Exam: Positive: Mental status NL, Oriented x 3 Assessment /Plan Problems (1) C. difficile colitis Status: Acute Discussed With: Patient Problem Text: 12/23 - D5/10 Dificid, ins won't cover, WBC increased from 19.5 to 26.6 but now with formed stools. 12/22 - D 4/10 dificid, at this point it doesn't look like her ins will cover this, she has responded to this treatment however. ID recommends she stay in the hospital through Thursday night which will be her 20th dose of the Dificid. We anticipate discharge on the morning of ThursdayDecember 28. 12/19/16: Placed on Dificid. monitor. 12/18/16: patient declining IV insertion due to poor venous access. requesting PICC line. Wait for ID consult to determine length of antibiotic tx and necessity for PICC line. 12/17/16: will resume Flagyl IV due to resumption of diarrhea. ID consult. 12/16/16: normal BMs, improving 12/15/16: STOP FLagyl. Ceftaroline stopped today and changed to doxycycline and Levaquin based on sputum culture sensitivities and allergies. 12/14: Patient reports last episode of diarrhea was last night. She will continue on vancomycin 250 mg by mouth every 6 hours, metronidazole 500 mg IV every 8 hours 12/13: Patient complains of having multiple episodes of diarrhea, testing positive for C. Diff in her stool on 12/10. She was placed on Vancomycin PO 250 Q6H. She is still having diarrhea. Per pharmacy's recommendation I am starting IV Flagyl 500 mg Q8H. (2) RLL pneumonia Status: Acute Problem Text: Pt with previous admission 10/2016 and noted to have RLL PNA then , infiltrate appears worse, evident on both CXR and Chest CT and now with elevated WBC at 31.9. Pt currently on Zosyn and Vanc, will continue broad antibiotics given her relative immunosuppression from chronic steroids and plaquenil. Currently on 2L NC which is her baseline and will continue this as well. There are multiple nodules noted on CT chest that should be followed up as OP. Pt has been followed up as OP in the past for findings in the RUL and RLL with extensive workup including BAL and biopsies. Will recommend OP follow up for nodules. (3) Leukocytosis Status: Acute Problem Text: 12/23/16 WBC increased from 19.5 to 26.6, this is concerning for her. Her stooling has improved with 2 days now of formed stools she also reports stability in her resp status. She is on chr steroid. Address with attending. 12/22/16 Her leukocytes had improved to 19.5, however, she still is far from her baseline around 11-13. Suspect multifactorial, pt with evidence of persistent it if colitis, RLL infiltrate, UTI sxs, cellulitis and on chronic Prednisone. We will discontinue her hydroxychloroquine at this time, but will continue with her usual home dose of steroids. (4) Fall Status: Acute Problem Text: Pt with 2 falls just prior to admission. Negative XR of hip/ pelvis, lumbar spine and knee. Pt also with negative CT head. Will obtain PT/OT eval. (5) Thrush, oral Status: Resolved Problem Text: Likely secondary chronic steroid therapy and nebulizers for COPD. Plan for Nystatin swish and swallow. (6) Rheumatoid arthritis Status: Chronic Problem Text: Pt currently on Prednisone 8mg daily at home as well as Plaquenil 200mg PO daily. Plan to continue Prednisone at current dose at this time, no indication for stress dose at this time, but will continue to reassess for need. Will hold Plaquenil and restart at the time of d/c. (7) CKD (chronic kidney disease) Status: Chronic Response to Treatment: Stable Problem Text: Stable SCr. (8) CHF (congestive heart failure) Status: Chronic Problem Text: Pt on Lasix and Spironolactone as OP. Plan to hold diuretics at this time as pt pressure has been in the low 100's systolic and pt appears slightly dehydrated on exam. (9) CAD (coronary artery disease) Status: Chronic Problem Text: Pt on both ASA and Carvedilol. Plan to continue both, Carvedilol will be continued with holding parameters for SBP <100 and HR <60. (10) Hypertension Status: Chronic Problem Text: Pt on Norvasc and Carvedilol, will continue Carvedilol with holding parameters for SBP <100 and HR<60 and hold Norvasc at this point as her BP has been in the low 100's systolic. (11) COPD (chronic obstructive pulmonary disease) Status: Chronic Response to Treatment: Stable Problem Text: Pt currently on 2L NC which is her baseline. (12) Chronic back pain Status: Chronic Response to Treatment: Stable Problem Text: Will continue patient's Cyclobenzaprine, and patient's home regimen for pain control. Plan/VTE VTE Prophylaxis Ordered?: Yes (Lovenox 30 mg subcutaneously daily) Plan Respiratory: Other Respiratory (incentive spirometry) Anticipated Discharge: Home (on 12/28 once her course of Dificid is complete) Family Medicine Attending Note: I saw and examined Mr. Johnson, discussed with Sybil Giang, TEJAL. Agree with their note as documented. I spoke to Dr. Farnsworth about this patient. She thinks that the likely source of the increased leukocytosis is the bowel. She suspects that the Dificid is not working as well as we may hope. She is made a recommendation to the patient for stool transplant. Svitlana is thinking about this and wanted to discuss it with me and her children. I'm in favor of the idea. If for some reason her white cell count dropped back to where was yesterday on tomorrow's laboratory work, then I may consider recommending staying the current course. Other than that, I do believe we need to intensify her regimen and this is about the only way we can do so. 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) VS, I&O, 24H, Fishbone Vital Signs/I&O Vital Signs Date Time Temp Pulse Resp B/P (MAP) Pulse Ox O2 Delivery O2 Flow Rate FiO2 12/23/16 09:39 120 121/63 12/23/16 09:00 Nasal Cannula 2.0 12/23/16 08:00 97.2 18 93 I&O- Last 24 Hours up to 6 AM 12/24/16 06:00 Intake Total 480 ml Output Total 150 ml Balance 330 ml Laboratory Data 24H LABS Laboratory Tests 2 12/23/16 06:09: Immature Granulocyte % (Auto) 1.5H, White Blood Count 26.6H, Red Blood Count 3.37L, Hemoglobin 9.7L, Hematocrit 32.6L, Mean Corpuscular Volume 96.7H, Mean Corpuscular Hemoglobin 28.8, Mean Corpuscular Hemoglobin Concent 29.8L, Red Cell Distribution Width 18.1H, Platelet Count 365, Neutrophils (%) (Auto) 89.6H , Lymphocytes (%) (Auto) 4.9L, Monocytes (%) (Auto) 3.3, Eosinophils (%) (Auto) 0.5, Basophils (%) (Auto) 0.2, Neutrophils # (Auto) 23.8H, Lymphocytes # (Auto) 1.3L, Monocytes # (Auto) 0.9H, Eosinophils # (Auto) 0.1, Basophils # (Auto) 0.1 , Immature Granulocyte # (Auto) 0.4H, Nucleated Red Blood Cells % (auto) 0.0, Anion Gap 3L, Glomerular Filtration Rate > 60.0, Blood Urea Nitrogen 28H, Creatinine 0.86, Sodium Level 141, Potassium Level 4.4#, Chloride Level 105, Carbon Dioxide Level 33H, Calcium Level 9.3, Aspartate Amino Transf (AST/SGOT) 14L, Alanine Aminotransferase (ALT/SGPT) 18, Alkaline Phosphatase 91, Total Bilirubin 0.5#, Total Protein 6.5, Albumin 2.9L, Albumin/Globulin Ratio 0.81L CBC/BMP Laboratory Tests 12/23/16 06:09 Red Blood Count 3.37 L, Mean Corpuscular Volume 96.7 H, Mean Corpuscular Hemoglobin 28.8, Mean Corpuscular Hemoglobin Concent 29.8 L, Red Cell Distribution Width 18.1 H, Neutrophils (%) (Auto) 89.6 H, Lymphocytes (%) (Auto ) 4.9 L, Monocytes (%) (Auto) 3.3, Eosinophils (%) (Auto) 0.5, Basophils (%) ( Auto) 0.2, Neutrophils # (Auto) 23.8 H, Lymphocytes # (Auto) 1.3 L, Monocytes # (Auto) 0.9 H, Eosinophils # (Auto) 0.1, Basophils # (Auto) 0.1, Calcium Level 9.3, Aspartate Amino Transf (AST/SGOT) 14 L, Alanine Aminotransferase (ALT/SGPT ) 18, Alkaline Phosphatase 91, Total Bilirubin 0.5 #, Total Protein 6.5, Albumin 2.9 L SYBIL GIANG PA-C Dec 23, 2016 11:11 Isra Langford MD Dec 23, 2016 21:12
[2016-12-23 14:00] VITALS: BP 126/77
--- NOTE | 2016-12-23 16:31 | REP ---
TWO VIEW CHEST: Two views of the chest are performed. Comparison 12/18/2016. Right basilar infiltrate has increased since the prior exam. There are underlying bibasilar fibrotic changes. The heart is not enlarged. There is calcification of the thoracic aorta. The mediastinal silhouette is unchanged. Bilateral metallic prostheses are seen in the proximal humeri. There are mild degenerative changes of the spine. IMPRESSION: Worsening of right basilar infiltrate. Signed by Oc Suazo MD 12/23/2016 08:02 P
[2016-12-23] MEDS: PANTOPRAZOLE 40MG TAB (PROTONIX) PO SCH (20:31)
[2016-12-23] MEDS: ROPINIROLE 8 MG PO SCH (20:33)
[2016-12-23 22:00] VITALS: BP 154/74
[2016-12-24] MEDS: LEVOTHYROXINE 50MCG TABLET (0.05MG) PO SCH (05:37)
[2016-12-24 06:00] VITALS: BP 152/79
[2016-12-24] MEDS: BREO ELLIPTA INH SCH (08:19)
[2016-12-24] MEDS: ENOXAPARIN 30 MG/0.3 ML SYR (J1650) SC SCH (08:26)
[2016-12-24] MEDS: POTASSIUM CHLORIDE 10% LIQ 20 MEQ/15 ML UDC PO SCH (08:26)
[2016-12-24] MEDS: CYCLOBENZAPRINE 10 MG TAB PO SCH ×3 (08:27→20:52)
[2016-12-24] MEDS: MAGNESIUM CHLORIDE 64 MG TABCR (SLO MAG) PO SCH (08:27)
[2016-12-24] MEDS: LACTOBACILLUS ACIDOPHILUS CAP (BACID) PO SCH ×2 (08:27→20:52)
[2016-12-24] MEDS: SPIRONOLACTONE 25 MG TAB PO SCH (08:28)
[2016-12-24] MEDS: ASPIRIN 81 MG ENTERIC TAB PO SCH (08:28)
[2016-12-24] MEDS: GABAPENTIN 300 MG CAP PO SCH ×3 (08:28→20:52)
[2016-12-24] MEDS: methylPREDNISolone 4 MG TAB PO SCH (08:28)
[2016-12-24] MEDS: FUROSEMIDE 20 MG TAB PO SCH ×2 (08:28→08:41)
[2016-12-24] MEDS: ALLOPURINOL 300 MG TAB PO SCH (08:28)
[2016-12-24] MEDS: diphenhydrAMINE 25 MG CAP PO SCH (08:28)
[2016-12-24] MEDS: FIDAXOMICIN 200 MG TAB (DIFICID) PO SCH ×2 (08:29→20:52)
[2016-12-24] MEDS: MULTIVITAMINS/MINERALS THERAP 1 TAB PO SCH (08:29)
[2016-12-24] MEDS: CARVedilol 3.125 MG TAB PO SCH ×2 (08:30→20:53)
[2016-12-24] MEDS: NORCO, ANEXSIA 5/325MG TABLET (HYDROcodone/ACETAMINOPHEN) PO PRN ×3 (08:42→22:46)
[2016-12-24] MEDS: BENZOCAINE 20% GEL 9GM TUBE (ANBESOL MAX STRENGTH) MT SCH ×4 (08:42→20:53)
[2016-12-24] MEDS: ALBUTEROL SULFATE 2.5 MG/0.5 ML INH NEB SOLN INH SCH ×2 (09:00→20:48)
--- NOTE | 2016-12-24 11:11 | IPNPDOC ---
Subjective Date Seen The patient was seen on 12/24/16. Subjective Chief Complaint/HPI The patient is a 71-year-old female admitted with a reason for visit of Rll Pneumonia. Events since last encounter Pt states she is feeling better. Notes loose stool today. Denies abd pain. Denies CP, SOB. Constitutional: Denies: Chills, Fever Pulmonary: Denies: Dyspnea Cardiovascular: Denies: Chest Pain Gastrointestinal: Denies: Abdominal Pain Objective Physical Examination General Exam: Positive: Alert, Cooperative, No Acute Distress, Other (laying in bed, NC in place) Neck Exam: Positive: Supple, Negative: JVD Chest Exam: Negative: Wheezing, Diminished (throughout, otherwise clear) Heart Exam: Positive: Tachycardic, Regular Rhythm, Normal S1, Normal S2, Negative: Gallops, Murmurs, Rubs Abdomen Exam: Positive: Normal bowel sounds, Soft, Negative: Tenderness Extremity Exam: Positive: Normal pulses, Other (multiple bruises noted to bilateral upper and lower extremities), Negative: Swelling Skin Exam: Positive: Other skin issue (superficial wound to RUE, localized anteriorly aspect of forearm, no drainage, no erythema, non tender. Multiple superficial wounds to RLE, circular, covered with bandaids, some purulent material noted on bandage, no active bleeding or drainage, no warmth, mild erythema. left knee wound, circular, some purulence around wound surface and on bandage, no active drainage, surrounding erythema, warm to touch, mild tenderness to area. ), Negative: Rash Neuro Exam: Positive: Normal Speech Psych Exam: Positive: Mental status NL, Oriented x 3 Assessment /Plan Problems (1) C. difficile colitis Status: Acute Discussed With: Patient Problem Text: 12/24 - Dificid D6/10. Pt has been considering stool transplant option. Pt reports that stools today were loose. AM labs/WBC pending. 12/23 - D5/10 Dificid, ins won't cover, WBC increased from 19.5 to 26.6 but now with formed stools. 12/22 - D 4/10 dificid, at this point it doesn't look like her ins will cover this, she has responded to this treatment however. ID recommends she stay in the hospital through Thursday night which will be her 20th dose of the Dificid. We anticipate discharge on the morning of ThursdayDecember 28. 12/19/16: Placed on Dificid. monitor. 12/18/16: patient declining IV insertion due to poor venous access. requesting PICC line. Wait for ID consult to determine length of antibiotic tx and necessity for PICC line. 12/17/16: will resume Flagyl IV due to resumption of diarrhea. ID consult. 12/16/16: normal BMs, improving 12/15/16: STOP FLagyl. Ceftaroline stopped today and changed to doxycycline and Levaquin based on sputum culture sensitivities and allergies. 12/14: Patient reports last episode of diarrhea was last night. She will continue on vancomycin 250 mg by mouth every 6 hours, metronidazole 500 mg IV every 8 hours 12/13: Patient complains of having multiple episodes of diarrhea, testing positive for C. Diff in her stool on 12/10. She was placed on Vancomycin PO 250 Q6H. She is still having diarrhea. Per pharmacy's recommendation I am starting IV Flagyl 500 mg Q8H. (2) RLL pneumonia Status: Acute Problem Text: Pt with previous admission 10/2016 and noted to have RLL PNA then , infiltrate appears worse, evident on both CXR and Chest CT and now with elevated WBC at 31.9. Pt currently on Zosyn and Vanc, will continue broad antibiotics given her relative immunosuppression from chronic steroids and plaquenil. Currently on 2L NC which is her baseline and will continue this as well. There are multiple nodules noted on CT chest that should be followed up as OP. Pt has been followed up as OP in the past for findings in the RUL and RLL with extensive workup including BAL and biopsies. Will recommend OP follow up for nodules. (3) Leukocytosis Status: Acute Problem Text: 12/24 - WBC still rising slightly. 12/23/16 WBC increased from 19.5 to 26.6, this is concerning for her. Her stooling has improved with 2 days now of formed stools she also reports stability in her resp status. She is on chr steroid. Address with attending. 12/22/16 Her leukocytes had improved to 19.5, however, she still is far from her baseline around 11-13. Suspect multifactorial, pt with evidence of persistent it if colitis, RLL infiltrate, UTI sxs, cellulitis and on chronic Prednisone. We will discontinue her hydroxychloroquine at this time, but will continue with her usual home dose of steroids. (4) Fall Status: Acute Problem Text: Pt with 2 falls just prior to admission. Negative XR of hip/ pelvis, lumbar spine and knee. Pt also with negative CT head. Will obtain PT/OT eval. (5) Thrush, oral Status: Resolved Problem Text: Likely secondary chronic steroid therapy and nebulizers for COPD. Plan for Nystatin swish and swallow. (6) Rheumatoid arthritis Status: Chronic Problem Text: Pt currently on Prednisone 8mg daily at home as well as Plaquenil 200mg PO daily. Plan to continue Prednisone at current dose at this time, no indication for stress dose at this time, but will continue to reassess for need. Will hold Plaquenil and restart at the time of d/c. (7) CKD (chronic kidney disease) Status: Chronic Response to Treatment: Stable Problem Text: Stable SCr. (8) CHF (congestive heart failure) Status: Chronic Problem Text: Pt on Lasix and Spironolactone as OP. Plan to hold diuretics at this time as pt pressure has been in the low 100's systolic and pt appears slightly dehydrated on exam. (9) CAD (coronary artery disease) Status: Chronic Problem Text: Pt on both ASA and Carvedilol. Plan to continue both, Carvedilol will be continued with holding parameters for SBP <100 and HR <60. (10) Hypertension Status: Chronic Problem Text: Pt on Norvasc and Carvedilol, will continue Carvedilol with holding parameters for SBP <100 and HR<60 and hold Norvasc at this point as her BP has been in the low 100's systolic. (11) COPD (chronic obstructive pulmonary disease) Status: Chronic Response to Treatment: Stable Problem Text: Pt currently on 2L NC which is her baseline. (12) Chronic back pain Status: Chronic Response to Treatment: Stable Problem Text: Will continue patient's Cyclobenzaprine, and patient's home regimen for pain control. Plan/VTE VTE Prophylaxis Ordered?: Yes (Lovenox 30 mg subcutaneously daily) Plan Respiratory: Other Respiratory (incentive spirometry) Anticipated Discharge: Home (on 12/28 once her course of Dificid is complete) Family Medicine Attending Note: I saw and examined Ms. Johnson, discussed with Dimas Devlin, DANIELLEC. Agree with their note as documented. She had more questions for me about stool transplantation, but after we discussed this more she decided she was willing to undergo the procedure. We will need to coordinate with Case Management, ID and GI to see if we can make this happen. 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
[2016-12-24 11:18] LABS: BASO # 0.1 10^3/uL (0.0-0.2); BASO % 0.3 % (0.0-1.0); EOS # 0.2 10^3/uL (0.0-0.50); EOS % 0.8 % (0.0-3.0); IMMATURE GRANULOCYTE % 1.5 % (0-0); LYMPH % 3.4 % (24.0-44.0); MEAN CORPUSCULAR HEMOGLOBIN 29.5 pg (27.0-33.0); MEAN CORPUSCULAR HGB CONC 30.5 g/dl (32.0-36.5); MEAN CORPUSCULAR VOLUME 96.8 fl (80.0-96.0); MONO # 1.1 10^3/uL (0.0-0.8); MONO % 3.9 % (0.0-5.0); NEUTROPHILS % 90.1 % (36.0-66.0); PLATELET COUNT, AUTOMATED 389 10^3/uL (150-450); RED CELL DISTRIBUTION WIDTH 18.3 % (11.5-14.5); WHITE BLOOD COUNT 27.8 10^3/uL (4.0-10.0)
[2016-12-24 12:25] LABS: ALBUMIN 3.1 GM/DL (3.2-5.2); ALBUMIN/GLOBULIN RATIO 0.91 (1.00-1.93); ALKALINE PHOSPHATASE 110 U/L (45-117); ALT/SGPT 22 U/L (12-78); ANION GAP 5 MEQ/L (8-16); AST/SGOT 17 U/L (15-37); BILIRUBIN,TOTAL 0.3 MG/DL (0.2-1.0); BLOOD UREA NITROGEN 25 MG/DL (7-18); CALCIUM LEVEL 9.5 MG/DL (8.8-10.2); CARBON DIOXIDE LEVEL 33 MEQ/L (21-32); CHLORIDE LEVEL 104 MEQ/L (98-107); CREATININE FOR GFR 0.77 MG/DL (0.55-1.02); GLOMERULAR FILTRATION RATE > 60.0 (>39); GLUCOSE, FASTING 98 MG/DL (83-110); POTASSIUM SERUM 4.4 MEQ/L (3.5-5.1); SODIUM LEVEL 142 MEQ/L (136-145); TOTAL PROTEIN 6.5 GM/DL (6.4-8.2)
[2016-12-24 12:34] LABS: NEUTROPHILS # 25.1 10^3/uL (1.8-7.7); POSITIVE DIFF POS FLAG
[2016-12-24 12:35] LABS: ADD MANUAL DIFFER NO; DIFF SLIDE NUMBER 208
[2016-12-24 14:00] VITALS: BP 149/73
[2016-12-24] MEDS: PANTOPRAZOLE 40MG TAB (PROTONIX) PO SCH (20:52)
[2016-12-24] MEDS: ROPINIROLE 8 MG PO SCH (20:53)
[2016-12-24 22:00] VITALS: BP 147/78
[2016-12-25] MEDS: LEVOTHYROXINE 50MCG TABLET (0.05MG) PO SCH (05:24)
[2016-12-25] MEDS: NORCO, ANEXSIA 5/325MG TABLET (HYDROcodone/ACETAMINOPHEN) PO PRN ×3 (05:25→20:53)
[2016-12-25 06:00] VITALS: BP 116/53
[2016-12-25 06:18] LABS: BASO # 0.1 10^3/uL (0.0-0.2); BASO % 0.3 % (0.0-1.0); EOS # 0.2 10^3/uL (0.0-0.50); EOS % 1.1 % (0.0-3.0); IMMATURE GRANULOCYTE % 1.3 % (0-0); LYMPH # 1.3 10^3/uL (1.5-4.5); LYMPH % 6.8 % (24.0-44.0); MEAN CORPUSCULAR HEMOGLOBIN 29.6 pg (27.0-33.0); MEAN CORPUSCULAR HGB CONC 30.6 g/dl (32.0-36.5); MEAN CORPUSCULAR VOLUME 96.7 fl (80.0-96.0); MONO # 0.9 10^3/uL (0.0-0.8); MONO % 4.9 % (0.0-5.0); NEUTROPHILS # 16.2 10^3/uL (1.8-7.7); NEUTROPHILS % 85.6 % (36.0-66.0); PLATELET COUNT, AUTOMATED 368 10^3/uL (150-450); WHITE BLOOD COUNT 18.9 10^3/uL (4.0-10.0)
[2016-12-25 06:34] LABS: ALBUMIN 2.9 GM/DL (3.2-5.2); ALBUMIN/GLOBULIN RATIO 0.78 (1.00-1.93); BILIRUBIN,TOTAL 0.4 MG/DL (0.2-1.0); CALCIUM LEVEL 9.7 MG/DL (8.8-10.2); CREATININE FOR GFR 1.1 MG/DL (0.55-1.02); GLOMERULAR FILTRATION RATE 51.8 (>39); POTASSIUM SERUM 4.2 MEQ/L (3.5-5.1); TOTAL PROTEIN 6.6 GM/DL (6.4-8.2)
[2016-12-25] MEDS: BREO ELLIPTA INH SCH (08:01)
[2016-12-25] MEDS: ALBUTEROL SULFATE 2.5 MG/0.5 ML INH NEB SOLN INH SCH ×2 (09:00→21:00)
--- NOTE | 2016-12-25 10:09 | IPNPDOC ---
Subjective Date Seen The patient was seen on 12/25/16. Subjective Chief Complaint/HPI The patient is a 71-year-old female admitted with a reason for visit of Rll Pneumonia. Events since last encounter Pt this morning reports that other than upset stomach and her stooling she is feeling alright. States that despite having a couple of normal stools on Mon/ Tue, she has had mushy to watery stools since then and her stomach feels a bit off. She cont to eat well she states. Her breathing is quite close to her baseline. General: Denies: Fatigue Constitutional: Denies: Chills, Fever Pulmonary: Reports: Dyspnea (chr), Cough (chr) Gastrointestinal: Reports: Abdominal Pain, Diarrhea, Denies: Nausea, Vomiting Neurological: Reports: Weakness Psych: Reports: Mood Normal Objective Physical Examination General Exam: Positive: Alert, Cooperative, No Acute Distress, Other (laying in bed, NC in place) Neck Exam: Positive: Supple, Negative: JVD Chest Exam: Negative: Wheezing, Diminished (throughout, otherwise clear) Heart Exam: Positive: Tachycardic, Regular Rhythm, Normal S1, Normal S2, Negative: Gallops, Murmurs, Rubs Abdomen Exam: Positive: Normal bowel sounds, Soft, Negative: Tenderness Extremity Exam: Positive: Normal pulses, Other (multiple bruises noted to bilateral upper and lower extremities), Negative: Swelling Skin Exam: Positive: Other skin issue (superficial wound to RUE, localized anteriorly aspect of forearm, no drainage, no erythema, non tender. Multiple superficial wounds to RLE, circular, covered with bandaids, some purulent material noted on bandage, no active bleeding or drainage, no warmth, mild erythema. left knee wound, circular, some purulence around wound surface and on bandage, no active drainage, surrounding erythema, warm to touch, mild tenderness to area. ), Negative: Rash Neuro Exam: Positive: Normal Speech Psych Exam: Positive: Mental status NL, Oriented x 3 Assessment /Plan Problems (1) C. difficile colitis Status: Acute Discussed With: Patient Problem Text: 12/25 Dificid D7/10, Pt willing to proceed with stool transplant and given that her stools have transitioned back to loose this is likely appropriate. Dr Langford has reached out to Dr Farnsworth regarding this. Will await her input. WBC cont to trend down. Remains afebrile. 12/24 - Dificid D6/10. Pt has been considering stool transplant option. Pt reports that stools today were loose. AM labs/WBC pending. 12/23 - D5/10 Dificid, ins won't cover, WBC increased from 19.5 to 26.6 but now with formed stools. 12/22 - D 4/10 dificid, at this point it doesn't look like her ins will cover this, she has responded to this treatment however. ID recommends she stay in the hospital through Thursday night which will be her 20th dose of the Dificid. We anticipate discharge on the morning of ThursdayDecember 28. 12/19/16: Placed on Dificid. monitor. 12/18/16: patient declining IV insertion due to poor venous access. requesting PICC line. Wait for ID consult to determine length of antibiotic tx and necessity for PICC line. 12/17/16: will resume Flagyl IV due to resumption of diarrhea. ID consult. 12/16/16: normal BMs, improving 12/15/16: STOP FLagyl. Ceftaroline stopped today and changed to doxycycline and Levaquin based on sputum culture sensitivities and allergies. 12/14: Patient reports last episode of diarrhea was last night. She will continue on vancomycin 250 mg by mouth every 6 hours, metronidazole 500 mg IV every 8 hours 12/13: Patient complains of having multiple episodes of diarrhea, testing positive for C. Diff in her stool on 12/10. She was placed on Vancomycin PO 250 Q6H. She is still having diarrhea. Per pharmacy's recommendation I am starting IV Flagyl 500 mg Q8H. (2) RLL pneumonia Status: Acute Problem Text: Pt with previous admission 10/2016 and noted to have RLL PNA then , infiltrate appears worse, evident on both CXR and Chest CT and now with elevated WBC at 31.9. Pt currently on Zosyn and Vanc, will continue broad antibiotics given her relative immunosuppression from chronic steroids and plaquenil. Currently on 2L NC which is her baseline and will continue this as well. There are multiple nodules noted on CT chest that should be followed up as OP. Pt has been followed up as OP in the past for findings in the RUL and RLL with extensive workup including BAL and biopsies. Will recommend OP follow up for nodules. (3) Leukocytosis Status: Acute Problem Text: 12/25 [place] [address] [place] [address] 12/24 - WBC still rising slightly. 12/23/16 WBC increased from 19.5 to 26.6, this is concerning for her. Her stooling has improved with 2 days now of formed stools she also reports stability in her resp status. She is on chr steroid. Address with attending. 12/22/16 Her leukocytes had improved to 19.5, however, she still is far from her baseline around 11-13. Suspect multifactorial, pt with evidence of persistent it if colitis, RLL infiltrate, UTI sxs, cellulitis and on chronic Prednisone. We will discontinue her hydroxychloroquine at this time, but will continue with her usual home dose of steroids. (4) Fall Status: Acute Problem Text: Pt with 2 falls just prior to admission. Negative XR of hip/ pelvis, lumbar spine and knee. Pt also with negative CT head. Will obtain PT/OT eval. (5) Thrush, oral Status: Resolved Problem Text: Likely secondary chronic steroid therapy and nebulizers for COPD. Plan for Nystatin swish and swallow. (6) Rheumatoid arthritis Status: Chronic Problem Text: Pt currently on Prednisone 8mg daily at home as well as Plaquenil 200mg PO daily. Plan to continue Prednisone at current dose at this time, no indication for stress dose at this time, but will continue to reassess for need. Will hold Plaquenil and restart at the time of d/c. (7) CKD (chronic kidney disease) Status: Chronic Response to Treatment: Stable Problem Text: Stable SCr. (8) CHF (congestive heart failure) Status: Chronic Problem Text: Pt on Lasix and Spironolactone as OP. Plan to hold diuretics at this time as pt pressure has been in the low 100's systolic and pt appears slightly dehydrated on exam. (9) CAD (coronary artery disease) Status: Chronic Problem Text: Pt on both ASA and Carvedilol. Plan to continue both, Carvedilol will be continued with holding parameters for SBP <100 and HR <60. (10) Hypertension Status: Chronic Problem Text: Pt on Norvasc and Carvedilol, will continue Carvedilol with holding parameters for SBP <100 and HR<60 and hold Norvasc at this point as her BP has been in the low 100's systolic. (11) COPD (chronic obstructive pulmonary disease) Status: Chronic Response to Treatment: Stable Problem Text: Pt currently on 2L NC which is her baseline. (12) Chronic back pain Status: Chronic Response to Treatment: Stable Problem Text: Will continue patient's Cyclobenzaprine, and patient's home regimen for pain control. Plan/VTE VTE Prophylaxis Ordered?: Yes (Lovenox 30 mg subcutaneously daily) Plan Respiratory: Other Respiratory (incentive spirometry) Anticipated Discharge: Home (on 12/28 once her course of Dificid is complete) Family Medicine Attending Note: I saw and examined Ms. Johnson, discussed with TEJAL Cifuentes. Agree with their note as documented. We're going ahead with her stool transplant. I coordinated with infectious disease and with Dr. Muhammad of gastroenterology. The deficit was stopped today. We anticipate colonoscopy with stool transplant possibly tomorrow. 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) VS, I&O, 24H, Fishbone Vital Signs/I&O Vital Signs Date Time Temp Pulse Resp B/P (MAP) Pulse Ox O2 Delivery O2 Flow Rate FiO2 12/25/16 06:00 98.5 112 19 116/53 (74) 96 Nasal Cannula 2.0 I&O- Last 24 Hours up to 6 AM 12/26/16 06:00 Intake Total 360 ml Output Total 300 ml Balance 60 ml Laboratory Data 24H LABS Laboratory Tests 2 12/24/16 11:05: Immature Granulocyte % (Auto) 1.5H, White Blood Count 27.8H, Red Blood Count 3.42L, Hemoglobin 10.1L, Hematocrit 33.1L, Mean Corpuscular Volume 96.8H, Mean Corpuscular Hemoglobin 29.5, Mean Corpuscular Hemoglobin Concent 30.5L, Red Cell Distribution Width 18.3H, Platelet Count 389, Neutrophils (%) (Auto) 90.1H , Lymphocytes (%) (Auto) 3.4L, Monocytes (%) (Auto) 3.9, Eosinophils (%) (Auto) 0.8, Basophils (%) (Auto) 0.3, Neutrophils # (Auto) 25.1H, Lymphocytes # (Auto) 1.0L, Monocytes # (Auto) 1.1H, Eosinophils # (Auto) 0.2, Basophils # (Auto) 0.1 , Immature Granulocyte # (Auto) 0.4H, Nucleated Red Blood Cells % (auto) 0.0, Anion Gap 5L, Glomerular Filtration Rate > 60.0, Blood Urea Nitrogen 25H, Creatinine 0.77, Sodium Level 142, Potassium Level 4.4, Chloride Level 104, Carbon Dioxide Level 33H, Calcium Level 9.5, Aspartate Amino Transf (AST/SGOT) 17, Alanine Aminotransferase (ALT/SGPT) 22, Alkaline Phosphatase 110, Total Bilirubin 0.3, Total Protein 6.5, Albumin 3.1L, Albumin/Globulin Ratio 0.91L 12/25/16 05:50: Immature Granulocyte % (Auto) 1.3H, White Blood Count 18.9H, Red Blood Count 3.31L, Hemoglobin 9.8L, Hematocrit 32.0L, Mean Corpuscular Volume 96.7H, Mean Corpuscular Hemoglobin 29.6, Mean Corpuscular Hemoglobin Concent 30.6L, Red Cell Distribution Width 18.0H, Platelet Count 368, Neutrophils (%) (Auto) 85.6H , Lymphocytes (%) (Auto) 6.8L, Monocytes (%) (Auto) 4.9, Eosinophils (%) (Auto) 1.1, Basophils (%) (Auto) 0.3, Neutrophils # (Auto) 16.2H, Lymphocytes # (Auto) 1.3L, Monocytes # (Auto) 0.9H, Eosinophils # (Auto) 0.2, Basophils # (Auto) 0.1 , Immature Granulocyte # (Auto) 0.3H, Nucleated Red Blood Cells % (auto) 0.0, Anion Gap 3L, Glomerular Filtration Rate 51.8, Blood Urea Nitrogen 32H, Creatinine 1.10H, Sodium Level 140, Potassium Level 4.2, Chloride Level 100, Carbon Dioxide Level 37H, Calcium Level 9.7, Aspartate Amino Transf (AST/SGOT) 13L, Alanine Aminotransferase (ALT/SGPT) 19, Alkaline Phosphatase 102, Total Bilirubin 0.4, Total Protein 6.6, Albumin 2.9L, Albumin/Globulin Ratio 0.78L CBC/BMP Laboratory Tests 12/24/16 11:05 Red Blood Count 3.42 L, Mean Corpuscular Volume 96.8 H, Mean Corpuscular Hemoglobin 29.5, Mean Corpuscular Hemoglobin Concent 30.5 L, Red Cell Distribution Width 18.3 H, Neutrophils (%) (Auto) 90.1 H, Lymphocytes (%) (Auto ) 3.4 L, Monocytes (%) (Auto) 3.9, Eosinophils (%) (Auto) 0.8, Basophils (%) ( Auto) 0.3, Neutrophils # (Auto) 25.1 H, Lymphocytes # (Auto) 1.0 L, Monocytes # (Auto) 1.1 H, Eosinophils # (Auto) 0.2, Basophils # (Auto) 0.1, Calcium Level 9.5, Aspartate Amino Transf (AST/SGOT) 17, Alanine Aminotransferase (ALT/SGPT) 22, Alkaline Phosphatase 110, Total Bilirubin 0.3, Total Protein 6.5, Albumin 3.1 L 12/25/16 05:50 Red Blood Count 3.31 L, Mean Corpuscular Volume 96.7 H, Mean Corpuscular Hemoglobin 29.6, Mean Corpuscular Hemoglobin Concent 30.6 L, Red Cell Distribution Width 18.0 H, Neutrophils (%) (Auto) 85.6 H, Lymphocytes (%) (Auto ) 6.8 L, Monocytes (%) (Auto) 4.9, Eosinophils (%) (Auto) 1.1, Basophils (%) ( Auto) 0.3, Neutrophils # (Auto) 16.2 H, Lymphocytes # (Auto) 1.3 L, Monocytes # (Auto) 0.9 H, Eosinophils # (Auto) 0.2, Basophils # (Auto) 0.1, Calcium Level 9.7, Aspartate Amino Transf (AST/SGOT) 13 L, Alanine Aminotransferase (ALT/SGPT ) 19, Alkaline Phosphatase 102, Total Bilirubin 0.4, Total Protein 6.6, Albumin 2.9 L Microbiology Microbiology 12/24/16 Blood Culture - Preliminary, Resulted No growth after 24 hours . All specim... SYBIL GIANG PA-C Dec 25, 2016 10:09 Isra Langford MD Dec 26, 2016 18:29
[2016-12-25] MEDS: POTASSIUM CHLORIDE 10% LIQ 20 MEQ/15 ML UDC PO SCH (10:19)
[2016-12-25] MEDS: FIDAXOMICIN 200 MG TAB (DIFICID) PO SCH (10:20)
[2016-12-25] MEDS: MAGNESIUM CHLORIDE 64 MG TABCR (SLO MAG) PO SCH (10:20)
[2016-12-25] MEDS: diphenhydrAMINE 25 MG CAP PO SCH (10:20)
[2016-12-25] MEDS: methylPREDNISolone 4 MG TAB PO SCH (10:20)
[2016-12-25] MEDS: LACTOBACILLUS ACIDOPHILUS CAP (BACID) PO SCH ×2 (10:20→20:52)
[2016-12-25] MEDS: MULTIVITAMINS/MINERALS THERAP 1 TAB PO SCH (10:21)
[2016-12-25] MEDS: ALLOPURINOL 300 MG TAB PO SCH (10:21)
[2016-12-25] MEDS: GABAPENTIN 300 MG CAP PO SCH ×3 (10:21→20:52)
[2016-12-25] MEDS: SPIRONOLACTONE 25 MG TAB PO SCH (10:21)
[2016-12-25] MEDS: ASPIRIN 81 MG ENTERIC TAB PO SCH (10:21)
[2016-12-25] MEDS: CYCLOBENZAPRINE 10 MG TAB PO SCH ×3 (10:21→20:52)
[2016-12-25] MEDS: FUROSEMIDE 20 MG TAB PO SCH (10:21)
[2016-12-25] MEDS: CARVedilol 3.125 MG TAB PO SCH ×2 (10:27→20:54)
[2016-12-25] MEDS: BENZOCAINE 20% GEL 9GM TUBE (ANBESOL MAX STRENGTH) MT SCH ×4 (10:27→20:55)
[2016-12-25] MEDS: ENOXAPARIN 30 MG/0.3 ML SYR (J1650) SC SCH (10:30)
[2016-12-25] MEDS: NYSTATIN 500,000 U/5 ML SUSP UDC SS SCH ×2 (12:40→20:52)
[2016-12-25 14:00] VITALS: BP_SYST 112; BP_SYST 113; BP_DIAS 57; BP_DIAS 66
--- NOTE | 2016-12-25 19:06 | CR ---
DATE OF CONSULTATION: 12/25/2016 I was asked to consult her from Dr. Isra Langford for consideration of brace for right knee. She is a 71-year-old female who has been admitted for Clostridium difficile colitis and also had a fall, and she bruised her right knee when she fell. She has had a right total knee arthroplasty initially done with Dr. Wallis many years ago that was revised by Dr. Cleary back about 17 years ago. Then, ultimately had a patellectomy on that right knee. She has been doing fine until she fell. She has some soreness around the medial and posterior aspect of the right knee, but she is still getting around with a rolling three-wheeled walker here in the hospital but during the therapy session on rounds this morning, they suggested possibly having her try a brace to help her with mobilization. She also has some complicated right upper and lower extremity numbness and tingling as a result of some spinal surgery or neck surgery done down at [facility] it sounds like for some type of a rheumatoid instability. She has also undergone a right shoulder repair for some type of a fracture with shortening of her right arm, but fairly good motor strength. She has undergone a left shoulder replacement down in [place] by an orthopedic surgeon as well. She has had multiple orthopedic surgeries of her feet and also has had a lumbar spine fusion by Dr. Phong Grijalva here at [facility] many years ago. She has NOT undergone a left knee replacement or hip replacements to correct the records. She only complains of isolated soreness in the right knee, but she is still weightbearing and getting around. She is actually due to be discharged to home in the next couple of days. Dr. Farnsworth has been consulted for her Clostridium difficile colitis and that is improving significantly. She has sustained multiple abrasions about her lower extremities, but they are healing nicely, she is not really having an ongoing infection but there is some underlying pneumonia as well now. PAST MEDICAL HISTORY: Significant for: Rheumatoid arthritis. Congestive heart failure. Coronary artery disease. Hypertension. Spinal stenosis. Gastric reflux. Irritable bowel syndrome. Peripheral artery disease. Left renal artery stenosis. Chronic obstructive pulmonary disease (COPD). Renal failure. Rheumatoid arthritis. Hypothyroidism. Gout. HOME MEDICATIONS: Many. Please see the record rather than repeat them all, but she is on chronic methylprednisolone, also amlodipine, allopurinol and albuterol. ALLERGIES TO MEDICATIONS: Many. Please see the record. PAST SURGICAL HISTORY: Pretty much as in the history of the present illness, but she has had a right total knee arthroplasty, has not had a left knee arthroplasty. She has had bunionectomy, trigger finger release, carpal tunnel releases bilaterally, back surgery three times, both shoulders have had rotator cuff repairs and her left shoulder has under an arthroplasty procedure of some sort, right she has had some type of chronic fracture requiring some surgical repair, which was done elsewhere - we do not have records presently. She has had cervical spine fusion, heart catheterization. PHYSICAL EXAMINATION: A very pleasant, frail appearing female, sitting in her bed upright. Her right lower extremity shows that she has multiple small abrasions that are in various stages of healing but no active erythema is seen. There is no swelling of that right knee replacement. No fluid within the joint. She can do a straight leg raise. She can bend back easily to 115 degrees. There is no instability when a do varus-valgus stress test or an AP stress test. I can actually palpate pulses in her foot distally. There is no obvious motor deficit. There is no obvious injury to her quad or patellar tendons on that right knee. No irritability with rotation of her hips at all. The left knee is benign and is doing fine. She has no pain or tenderness noted there. Radiographs of the right knee demonstrate a revision total knee arthroplasty with stem femoral tibial components in good position. No sign of any loosening, complication or fracture. There is a patellectomy noted. IMPRESSION: My impression overall is she probably has a bruise to this knee. It does not appear to be loose. There are no complications. She can continue to be weightbearing as tolerated. A proprioceptive knee sleeve brace may give her some proprioceptive stability and help with ambulation. I think that is fine; we can order that for her. I do not think there is any other acute orthopedic issue that we need to address otherwise, and we can continue to follow her as an outpatient. Copy To: [facility]
[2016-12-25] MEDS: PANTOPRAZOLE 40MG TAB (PROTONIX) PO SCH (20:52)
[2016-12-25] MEDS: ROPINIROLE 8 MG PO SCH (20:54)
[2016-12-25 22:00] VITALS: BP 124/77
[2016-12-26] VITALS (8 sets, daily range): BP systolic 112–168; BP diastolic 63–89
[2016-12-26] MEDS: NORCO, ANEXSIA 5/325MG TABLET (HYDROcodone/ACETAMINOPHEN) PO PRN ×2 (03:59→22:08)
[2016-12-26] MEDS: LEVOTHYROXINE 50MCG TABLET (0.05MG) PO SCH (05:54)
[2016-12-26] MEDS ORDERED: GOLYTELY SOLN 4000 ML BTL PO ONE (06:00)
[2016-12-26] MEDS: BREO ELLIPTA INH SCH (07:47)
[2016-12-26] MEDS: ALBUTEROL SULFATE 2.5 MG/0.5 ML INH NEB SOLN INH SCH ×2 (07:48→18:27)
[2016-12-26] MEDS: ENOXAPARIN 30 MG/0.3 ML SYR (J1650) SC SCH (09:00)
[2016-12-26] MEDS: GABAPENTIN 300 MG CAP PO SCH ×4 (09:00→20:30)
[2016-12-26] MEDS: MULTIVITAMINS/MINERALS THERAP 1 TAB PO SCH ×2 (09:00→11:00)
[2016-12-26] MEDS: BENZOCAINE 20% GEL 9GM TUBE (ANBESOL MAX STRENGTH) MT SCH ×4 (09:00→20:50)
[2016-12-26] MEDS: ALLOPURINOL 300 MG TAB PO SCH (10:59)
[2016-12-26] MEDS: CARVedilol 3.125 MG TAB PO SCH ×2 (10:59→20:31)
[2016-12-26] MEDS: SPIRONOLACTONE 25 MG TAB PO SCH (10:59)
[2016-12-26] MEDS: methylPREDNISolone 4 MG TAB PO SCH (11:00)
[2016-12-26] MEDS: LACTOBACILLUS ACIDOPHILUS CAP (BACID) PO SCH ×2 (11:00→20:30)
[2016-12-26] MEDS: NYSTATIN 500,000 U/5 ML SUSP UDC SS SCH ×2 (11:00→20:33)
[2016-12-26] MEDS: POTASSIUM CHLORIDE 10% LIQ 20 MEQ/15 ML UDC PO SCH (11:00)
[2016-12-26] MEDS: ASPIRIN 81 MG ENTERIC TAB PO SCH (11:00)
[2016-12-26] MEDS: FUROSEMIDE 20 MG TAB PO SCH (11:00)
[2016-12-26] MEDS: diphenhydrAMINE 25 MG CAP PO SCH (11:01)
[2016-12-26] MEDS: CYCLOBENZAPRINE 10 MG TAB PO SCH ×3 (11:01→20:30)
[2016-12-26] MEDS: MAGNESIUM CHLORIDE 64 MG TABCR (SLO MAG) PO SCH (11:02)
--- NOTE | 2016-12-26 11:14 | IPNPDOC ---
Subjective Date Seen The patient was seen on 12/26/16. Subjective Chief Complaint/HPI The patient is a 71-year-old female admitted with a reason for visit of Rll Pneumonia. Events since last encounter Pt is having loose stools this morning after having had some Go Lytely. She denies abd pain, her breathing is stable. She is feeling quite well. General: Denies: Fatigue Constitutional: Denies: Chills, Fever Pulmonary: Denies: Dyspnea, Cough Cardiovascular: Denies: Chest Pain, Palpitations Gastrointestinal: Reports: Diarrhea, Denies: Nausea, Vomiting Neurological: Reports: Weakness Psych: Reports: Mood Normal Objective Physical Examination General Exam: Positive: Alert, Cooperative, No Acute Distress, Other (laying in bed, NC in place) Neck Exam: Positive: Supple, Negative: JVD Chest Exam: Negative: Wheezing, Diminished (throughout, otherwise clear) Heart Exam: Positive: Tachycardic, Regular Rhythm, Normal S1, Normal S2, Negative: Gallops, Murmurs, Rubs Abdomen Exam: Positive: Normal bowel sounds, Soft, Negative: Tenderness Extremity Exam: Positive: Normal pulses, Other (multiple bruises noted to bilateral upper and lower extremities), Negative: Swelling Skin Exam: Positive: Other skin issue (superficial wound to RUE, localized anteriorly aspect of forearm, no drainage, no erythema, non tender. Multiple superficial wounds to RLE, circular, covered with bandaids, some purulent material noted on bandage, no active bleeding or drainage, no warmth, mild erythema. left knee wound, circular, some purulence around wound surface and on bandage, no active drainage, surrounding erythema, warm to touch, mild tenderness to area. ), Negative: Rash Neuro Exam: Positive: Normal Speech Psych Exam: Positive: Mental status NL, Oriented x 3 Assessment /Plan Problems (1) C. difficile colitis Status: Acute Discussed With: Patient Problem Text: 12/26 - Dificid stopped yesterday in anticipation of stool transplant today, Dr Muhammad has been consulted, GoLytely prep has been initiated. WBC is down some today. 12/25 Dificid D7/10, Pt willing to proceed with stool transplant and given that her stools have transitioned back to loose this is likely appropriate. Dr Langford has reached out to Dr Farnsworth regarding this. Will await her input. WBC cont to trend down. Remains afebrile. 12/24 - Dificid D6/10. Pt has been considering stool transplant option. Pt reports that stools today were loose. AM labs/WBC pending. 12/23 - D5/10 Dificid, ins won't cover, WBC increased from 19.5 to 26.6 but now with formed stools. 12/22 - D 4/10 dificid, at this point it doesn't look like her ins will cover this, she has responded to this treatment however. ID recommends she stay in the hospital through Thursday night which will be her 20th dose of the Dificid. We anticipate discharge on the morning of ThursdayDecember 28. 12/19/16: Placed on Dificid. monitor. 12/18/16: patient declining IV insertion due to poor venous access. requesting PICC line. Wait for ID consult to determine length of antibiotic tx and necessity for PICC line. 12/17/16: will resume Flagyl IV due to resumption of diarrhea. ID consult. 12/16/16: normal BMs, improving 12/15/16: STOP FLagyl. Ceftaroline stopped today and changed to doxycycline and Levaquin based on sputum culture sensitivities and allergies. 12/14: Patient reports last episode of diarrhea was last night. She will continue on vancomycin 250 mg by mouth every 6 hours, metronidazole 500 mg IV every 8 hours 12/13: Patient complains of having multiple episodes of diarrhea, testing positive for C. Diff in her stool on 12/10. She was placed on Vancomycin PO 250 Q6H. She is still having diarrhea. Per pharmacy's recommendation I am starting IV Flagyl 500 mg Q8H. (2) RLL pneumonia Status: Acute Problem Text: Pt with previous admission 10/2016 and noted to have RLL PNA then , infiltrate appears worse, evident on both CXR and Chest CT and now with elevated WBC at 31.9. Pt currently on Zosyn and Vanc, will continue broad antibiotics given her relative immunosuppression from chronic steroids and plaquenil. Currently on 2L NC which is her baseline and will continue this as well. There are multiple nodules noted on CT chest that should be followed up as OP. Pt has been followed up as OP in the past for findings in the RUL and RLL with extensive workup including BAL and biopsies. Will recommend OP follow up for nodules. (3) Leukocytosis Status: Acute Problem Text: 12/25 - [place] [address] [place] [id number] 12/24 - WBC still rising slightly. 12/23/16 WBC increased from 19.5 to 26.6, this is concerning for her. Her stooling has improved with 2 days now of formed stools she also reports stability in her resp status. She is on chr steroid. Address with attending. 12/22/16 Her leukocytes had improved to 19.5, however, she still is far from her baseline around 11-13. Suspect multifactorial, pt with evidence of persistent it if colitis, RLL infiltrate, UTI sxs, cellulitis and on chronic Prednisone. We will discontinue her hydroxychloroquine at this time, but will continue with her usual home dose of steroids. (4) Fall Status: Acute Problem Text: Pt with 2 falls just prior to admission. Negative XR of hip/ pelvis, lumbar spine and knee. Pt also with negative CT head. Will obtain PT/OT eval. (5) Thrush, oral Status: Resolved Problem Text: Likely secondary chronic steroid therapy and nebulizers for COPD. Plan for Nystatin swish and swallow. (6) Rheumatoid arthritis Status: Chronic Problem Text: Pt currently on Prednisone 8mg daily at home as well as Plaquenil 200mg PO daily. Plan to continue Prednisone at current dose at this time, no indication for stress dose at this time, but will continue to reassess for need. Will hold Plaquenil and restart at the time of d/c. (7) CKD (chronic kidney disease) Status: Chronic Response to Treatment: Stable Problem Text: Stable SCr. (8) CHF (congestive heart failure) Status: Chronic Problem Text: Pt on Lasix and Spironolactone as OP. Plan to hold diuretics at this time as pt pressure has been in the low 100's systolic and pt appears slightly dehydrated on exam. (9) CAD (coronary artery disease) Status: Chronic Problem Text: Pt on both ASA and Carvedilol. Plan to continue both, Carvedilol will be continued with holding parameters for SBP <100 and HR <60. (10) Hypertension Status: Chronic Problem Text: Pt on Norvasc and Carvedilol, will continue Carvedilol with holding parameters for SBP <100 and HR<60 and hold Norvasc at this point as her BP has been in the low 100's systolic. (11) COPD (chronic obstructive pulmonary disease) Status: Chronic Response to Treatment: Stable Problem Text: Pt currently on 2L NC which is her baseline. (12) Chronic back pain Status: Chronic Response to Treatment: Stable Problem Text: Will continue patient's Cyclobenzaprine, and patient's home regimen for pain control. Plan/VTE VTE Prophylaxis Ordered?: Yes (Lovenox 30 mg subcutaneously daily) Plan Respiratory: Other Respiratory (incentive spirometry) Anticipated Discharge: Home (on 12/28 once her course of Dificid is complete) Family Medicine Attending Note: I saw and examined Ms. Johnson, discussed with TEJAL Cifuentes. Agree with their note as documented. She had her stool transplant today. Unfortunately when I saw her after that she was discouraged. She had another loose bowel movement and felt that it didn't work. I reminded her it may take up to 48 hours before we will see whether there is a significant difference after the stool transplant. Additionally she had a migraine headache today. She gets them occasionally but has not had one for 2 months. I made sure she'll get her migraine medication and I think things will go well. We'll monitor tomorrow. 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 All Specime... SYBIL GIANG PA-C Dec 26, 2016 11:14 Isra Langford MD Dec 26, 2016 18:33
[2016-12-26] MEDS ORDERED: PROPOFOL 200 MG/20 ML VIAL As Ordered ONE (14:52)
[2016-12-26] MEDS ORDERED: ESMOLOL INJ 100MG/10ML VIAL As Ordered ONE (14:58)
[2016-12-26] MEDS ORDERED: FECAL MICROBIOTA PREPARATION 250 ML BTL (J3590) XX ONE (15:00)
--- NOTE | 2016-12-26 15:17 | ROOR ---
Patient Name: Diana Johnson Procedure Date: 12/26/2016 2:50 PM Date of : 1945 Age: 71 Room: [facility] Gender: Female Note Status: Finalized Procedure: Total Colonoscopy to Cecum + Fecal Microbiota Transplant Indications: Fecal transplant for treatment of Clostridium difficile diarrhea Providers: Dilip Muhammad MD Referring MD: Christoph Gusman MD Requesting Provider: Medicines: Monitored Anesthesia Care Complications: No immediate complications. Procedure: Pre-Anesthesia Assessment: - The heart rate, respiratory rate, oxygen saturations, blood pressure, adequacy of pulmonary ventilation, and response to care were monitored throughout the procedure. The Colonoscope was introduced through the anus and advanced to the cecum, identified by appendiceal orifice and ileocecal valve. The colonoscopy was performed without difficulty. The patient tolerated the procedure well. The quality of the bowel preparation was fair. Findings: The perianal and digital rectal examinations were normal. Non-bleeding internal hemorrhoids were found during retroflexion. The hemorrhoids were small and Grade I (internal hemorrhoids that do not prolapse). Multiple small and large-mouthed diverticula were found in the recto-sigmoid colon, sigmoid colon and descending colon. The exam was otherwise without abnormality on direct and retroflexion views. Fecal Microbiota Transplant (Bacteriotherapy): Donor stool was prepared using saline as per protocol. Approximately 250 mL of the emulsified donor stool was instilled in the cecum. A detailed colonoscopic exam could not be performed upon scope withdrawal secondary to limited visibility from the instilled stool. The exam was otherwise without abnormality on direct and retroflexion views. Impression: - Preparation of the colon was fair. - Non-bleeding internal hemorrhoids. - Diverticulosis in the recto-sigmoid colon, in the sigmoid colon and in the descending colon. - The examination was otherwise normal on direct and retroflexion views. - The examination was otherwise normal on direct and retroflexion views. - Fecal Microbiota Transplant (Bacteriotherapy) performed in the cecum. - No specimens collected. - The exam was otherwise normal to the cecum. Recommendation: - Patient has a contact number available for emergencies. The signs and symptoms of potential delayed complications were discussed with the patient. Return to normal activities tomorrow. Written discharge instructions were provided to the patient. - High fiber diet. - Return patient to [facility] for [facility] care. - The findings and recommendations were discussed with the referring physician. Dilip Muhammad MD Dilip Muhammad MD 12/26/2016 3:17:28 PM This report has been signed electronically. Number of Addenda: 0 Note Initiated On: 12/26/2016 2:50 PM Estimated Blood Loss: Estimated blood loss: none.
[2016-12-26] MEDS: SUMAtriptan SUCCINATE 25 MG TAB PO PRN (17:44)
[2016-12-26] MEDS: NS 1,000 ML IV SCH (18:45)
[2016-12-26] MEDS ORDERED: NITROGLYCERIN 0.3 MG SUBL TAB SL STA (20:09)
[2016-12-26] MEDS ORDERED: ASPIRIN 81 MG CHEW TABLET PO ONE (20:15)
--- NOTE | 2016-12-26 20:17 | ECGEPIP ---
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
[2016-12-26] MEDS: PANTOPRAZOLE 40MG TAB (PROTONIX) PO SCH (20:30)
[2016-12-26] MEDS: ROPINIROLE 8 MG PO SCH (20:31)
--- NOTE | 2016-12-26 20:54 | IPNPDOC ---
Text Note Date of Service The patient was seen on 12/26/16. NOTE Subjective: Patient seen and evaluated. She states that she started having left-sided chest pain shortly after her stool transplant. Denies any dyspnea, diaphoresis, fevers. Objective: Vital signs: Temperature 98.5, blood pressure 103/57. O2 saturation 96% on room air. Respiration 24. Heart rate 129 BPM. Gen.: Patient is lying on bed, in no acute distress. Respiratory: Shallow breaths, clear to auscultation bilaterally. Cardiac: Tachycardic, regular rhythm. Chest wall: Symmetrical, no signs of trauma. Small area immediately lateral to the left sternal border that is tender to touch. Skin: Warm, dry. Assessment and plan: 1. EKG unchanged from prior. Patient was tachycardic at 129 BPM. No acute changes. 2. Portable chest x-ray ordered, will review. 3. Patient given one dose of nitroglycerin, also 324 mg of aspirin. 4. Patient's discomfort in her chest wall appears to be musculoskeletal in nature as it is reproducible to a small area. 5. plan was discussed with attending, Sanjuanita Sargent, I+O VSSanjuanita, I+O Vital Signs Date Time Temp Pulse Resp B/P (MAP) Pulse Ox O2 Delivery O2 Flow Rate FiO2 12/26/16 18:30 97.6 125 18 142/72 (95) 91 Room Air 12/26/16 15:39 2 I&O- Last 24 Hours up to 6 AM 12/27/16 06:00 Intake Total 900 ml Balance 900 ml GME ATTESTATION GME ATTESTATION My preceptor for this patient encounter was physically present in the building during the encounter and was fully available. As needed, all aspects of the patient interview, examination, medical decision making process, and medical care plan development were reviewed and approved by the preceptor. Preceptor is aware and concurs with the plan as stated in the body of this note and will attest to such by his/her cosignature. ATTENDING NOTE Family Medicine Attending Note: I was present on site to supervise Ole Yarbrough DO (PGY-2). We discussed the history and exam. I confirmed the wong elements during my [id number] encounter with the patient. We conferred on the assessment and plan; I agree with the note as documented. (digital traffic coordinator) OLE YARBROUGH DO Dec 26, 2016 20:32 Isra Langford MD Jan 06, 2017 21:22
[2016-12-27 02:00] VITALS: BP 127/69
[2016-12-27] MEDS: NORCO, ANEXSIA 5/325MG TABLET (HYDROcodone/ACETAMINOPHEN) PO PRN ×2 (05:39→16:21)
[2016-12-27] MEDS: LEVOTHYROXINE 50MCG TABLET (0.05MG) PO SCH (05:39)
[2016-12-27 06:00] VITALS: BP 132/62
[2016-12-27 06:45] LABS: MEAN CORPUSCULAR HEMOGLOBIN 29.1 pg (27.0-33.0); MEAN CORPUSCULAR VOLUME 97.2 fl (80.0-96.0); PLATELET COUNT, AUTOMATED 342 10^3/uL (150-450); RED CELL DISTRIBUTION WIDTH 17.7 % (11.5-14.5)
[2016-12-27 07:22] LABS: ALBUMIN 2.5 GM/DL (3.2-5.2); ALBUMIN/GLOBULIN RATIO 0.86 (1.00-1.93); ALKALINE PHOSPHATASE 79 U/L (45-117); ALT/SGPT 19 U/L (12-78); ANION GAP 5 MEQ/L (8-16); AST/SGOT 13 U/L (15-37); BILIRUBIN,TOTAL 0.2 MG/DL (0.2-1.0); BLOOD UREA NITROGEN 29 MG/DL (7-18); CALCIUM LEVEL 8.5 MG/DL (8.8-10.2); CARBON DIOXIDE LEVEL 32 MEQ/L (21-32); CHLORIDE LEVEL 107 MEQ/L (98-107); GLOMERULAR FILTRATION RATE > 60.0 (>39); GLUCOSE, FASTING 93 MG/DL (83-110); POTASSIUM SERUM 4.2 MEQ/L (3.5-5.1); SODIUM LEVEL 144 MEQ/L (136-145); TOTAL PROTEIN 5.4 GM/DL (6.4-8.2)
[2016-12-27] MEDS: ALBUTEROL SULFATE 2.5 MG/0.5 ML INH NEB SOLN INH SCH ×2 (08:02→20:09)
[2016-12-27] MEDS: BREO ELLIPTA INH SCH (08:02)
--- NOTE | 2016-12-27 08:02 | REP ---
Portable chest, 08:24 p.m., single AP view the patient semi upright: Comparison is 12/23/2016. The previous right basilar infiltrate has resolved. The lung hoffman otherwise clear. There are no pleural effusions. Cardiac size normal. Adelia and mediastinum unremarkable. There are bilateral shoulder arthroplasties. There are old right rib fractures. Impression: The previous infiltrate inferiorly in the right lung has resolved. Signed by Oc Leonard MD 12/27/2016 07:54 A
[2016-12-27] MEDS: BENZOCAINE 20% GEL 9GM TUBE (ANBESOL MAX STRENGTH) MT SCH ×4 (09:00→20:49)
[2016-12-27] MEDS: GABAPENTIN 300 MG CAP PO SCH ×3 (09:29→20:48)
[2016-12-27] MEDS: CYCLOBENZAPRINE 10 MG TAB PO SCH ×3 (09:29→22:38)
[2016-12-27] MEDS: LACTOBACILLUS ACIDOPHILUS CAP (BACID) PO SCH ×2 (09:29→20:47)
[2016-12-27] MEDS: methylPREDNISolone 4 MG TAB PO SCH (09:30)
[2016-12-27] MEDS: ALLOPURINOL 300 MG TAB PO SCH (09:30)
[2016-12-27] MEDS: diphenhydrAMINE 25 MG CAP PO SCH (09:30)
[2016-12-27] MEDS: MULTIVITAMINS/MINERALS THERAP 1 TAB PO SCH (09:30)
[2016-12-27] MEDS: NYSTATIN 500,000 U/5 ML SUSP UDC SS SCH ×2 (09:30→20:47)
[2016-12-27] MEDS: FUROSEMIDE 20 MG TAB PO SCH (09:30)
[2016-12-27] MEDS: POTASSIUM CHLORIDE 10% LIQ 20 MEQ/15 ML UDC PO SCH (09:31)
[2016-12-27] MEDS: ASPIRIN 81 MG ENTERIC TAB PO SCH (09:31)
[2016-12-27] MEDS: SPIRONOLACTONE 25 MG TAB PO SCH (09:31)
[2016-12-27] MEDS: CARVedilol 3.125 MG TAB PO SCH ×2 (09:31→20:48)
[2016-12-27] MEDS: MAGNESIUM CHLORIDE 64 MG TABCR (SLO MAG) PO SCH (09:31)
[2016-12-27] MEDS: ENOXAPARIN 30 MG/0.3 ML SYR (J1650) SC SCH (09:32)
[2016-12-27 10:00] VITALS: BP 123/65
[2016-12-27] MEDS: NS 1,000 ML IV SCH (11:25)
[2016-12-27 14:00] VITALS: BP 122/67
--- NOTE | 2016-12-27 17:38 | IPNPDOC ---
Subjective Date Seen The patient was seen on 12/27/16. Subjective Chief Complaint/HPI The patient is a 71-year-old female admitted with a reason for visit of Rll Pneumonia. Events since last encounter Patient reports no chest pain since last night. She does have some left-sided rib pain with movement, not present when still. Her tachycardia has resolved. She does have some cough that is productive of a thick sputum. She has been using cough drops. She denies any diarrhea or bowel movements overnight. Constitutional: Denies: Chills, Fever, Night Sweats Pulmonary: Denies: Dyspnea, Cough Cardiovascular: Denies: Chest Pain, Palpitations, Orthopnea, Paroxysmal Noc. Dyspnea, Lt Headedness Gastrointestinal: Denies: Nausea, Vomiting, Abdominal Pain, Diarrhea, Constipation Genitourinary: Denies: Dysuria, Frequency, Incontinence, Retention Musculoskeletal: Reports: Other Symptoms (left lateral rib pain with movement) Objective Physical Examination General Exam: Positive: Alert, Cooperative, No Acute Distress, Other (laying in bed, NC in place) Neck Exam: Positive: Supple, Negative: JVD Chest Exam: Positive: Other (some reproducible pain to deep palpation on the left chest wall lateral to the sternum and also in the left lateral ribs in the midaxillary line.), Negative: Wheezing, Diminished (throughout, otherwise clear) Heart Exam: Positive: Tachycardic, Regular Rhythm, Normal S1, Normal S2, Negative: Gallops, Murmurs, Rubs Abdomen Exam: Positive: Normal bowel sounds, Soft, Negative: Tenderness Extremity Exam: Positive: Normal pulses, Tenderness (some tenderness with movement and palpation to the right hip), Other (multiple bruises noted to bilateral upper and lower extremities), Negative: Swelling Skin Exam: Positive: Other skin issue (superficial wound to RUE, localized anteriorly aspect of forearm, no drainage, no erythema, non tender. Multiple superficial wounds to RLE, circular, covered with bandaids, some purulent material noted on bandage, no active bleeding or drainage, no warmth, mild erythema. left knee wound, circular, some purulence around wound surface and on bandage, no active drainage, surrounding erythema, warm to touch, mild tenderness to area. ), Negative: Rash Neuro Exam: Positive: Normal Speech Psych Exam: Positive: Mental status NL, Oriented x 3 Assessment /Plan Problems (1) C. difficile colitis Status: Resolved Response to Treatment: Improving Discussed With: Patient Problem Text: 12/27 Patient had stool transplant yesterday afternoon. Patient has been without diarrhea since. WBC continues to trend down today 12/26 - Dificid stopped yesterday in anticipation of stool transplant today, Dr Muhammad has been consulted, GoLytely prep has been initiated. WBC is down some today. 12/25 Dificid D7/10, Pt willing to proceed with stool transplant and given that her stools have transitioned back to loose this is likely appropriate. Dr Langford has reached out to Dr Farnsworth regarding this. Will await her input. WBC cont to trend down. Remains afebrile. 12/24 - Dificid D6/10. Pt has been considering stool transplant option. Pt reports that stools today were loose. AM labs/WBC pending. 12/23 - D5/10 Dificid, ins won't cover, WBC increased from 19.5 to 26.6 but now with formed stools. 12/22 - D 4/10 dificid, at this point it doesn't look like her ins will cover this, she has responded to this treatment however. ID recommends she stay in the hospital through Thursday night which will be her 20th dose of the Dificid. We anticipate discharge on the morning of ThursdayDecember 28. 12/19/16: Placed on Dificid. monitor. 12/18/16: patient declining IV insertion due to poor venous access. requesting PICC line. Wait for ID consult to determine length of antibiotic tx and necessity for PICC line. 12/17/16: will resume Flagyl IV due to resumption of diarrhea. ID consult. 12/16/16: normal BMs, improving 12/15/16: STOP FLagyl. Ceftaroline stopped today and changed to doxycycline and Levaquin based on sputum culture sensitivities and allergies. 12/14: Patient reports last episode of diarrhea was last night. She will continue on vancomycin 250 mg by mouth every 6 hours, metronidazole 500 mg IV every 8 hours 12/13: Patient complains of having multiple episodes of diarrhea, testing positive for C. Diff in her stool on 12/10. She was placed on Vancomycin PO 250 Q6H. She is still having diarrhea. Per pharmacy's recommendation I am starting IV Flagyl 500 mg Q8H. (2) RLL pneumonia Status: Resolved Problem Text: Pt with previous admission 10/2016 and noted to have RLL PNA then , infiltrate appears worse, evident on both CXR and Chest CT and now with elevated WBC at 31.9. Pt currently on Zosyn and Vanc, will continue broad antibiotics given her relative immunosuppression from chronic steroids and plaquenil. Currently on 2L NC which is her baseline and will continue this as well. There are multiple nodules noted on CT chest that should be followed up as OP. Pt has been followed up as OP in the past for findings in the RUL and RLL with extensive workup including BAL and biopsies. Will recommend OP follow up for nodules. (3) Leukocytosis Status: Acute Problem Text: 12/27 - WBC continues to trend down Item Value Date Time White Blood Count 27.8 10^3/uL H 12/24/16 1105 White Blood Count 18.9 10^3/uL H 12/25/16 0550 White Blood Count 14.0 10^3/uL H 12/27/16 0629 12/25 - [place] [address] [place] [address] 12/24 - WBC still rising slightly. 12/23/16 WBC increased from 19.5 to 26.6, this is concerning for her. Her stooling has improved with 2 days now of formed stools she also reports stability in her resp status. She is on chr steroid. Address with attending. 12/22/16 Her leukocytes had improved to 19.5, however, she still is far from her baseline around 11-13. Suspect multifactorial, pt with evidence of persistent it if colitis, RLL infiltrate, UTI sxs, cellulitis and on chronic Prednisone. We will discontinue her hydroxychloroquine at this time, but will continue with her usual home dose of steroids. (4) Fall Status: Acute Problem Text: Pt with 2 falls just prior to admission. Negative XR of hip/ pelvis, lumbar spine and knee. Pt also with negative CT head. Will obtain PT/OT eval. (5) Thrush, oral Status: Resolved Problem Text: Likely secondary chronic steroid therapy and nebulizers for COPD. Plan for Nystatin swish and swallow. (6) Rheumatoid arthritis Status: Chronic Problem Text: Pt currently on Prednisone 8mg daily at home as well as Plaquenil 200mg PO daily. Plan to continue Prednisone at current dose at this time, no indication for stress dose at this time, but will continue to reassess for need. Will hold Plaquenil and restart at the time of d/c. (7) CKD (chronic kidney disease) Status: Chronic Response to Treatment: Stable Problem Text: Stable SCr. (8) CHF (congestive heart failure) Status: Chronic Problem Text: Pt on Lasix and Spironolactone as OP. Plan to hold diuretics at this time as pt pressure has been in the low 100's systolic and pt appears slightly dehydrated on exam. (9) CAD (coronary artery disease) Status: Chronic Problem Text: Pt on both ASA and Carvedilol. Plan to continue both, Carvedilol will be continued with holding parameters for SBP <100 and HR <60. (10) Hypertension Status: Chronic Problem Text: Pt on Norvasc and Carvedilol, will continue Carvedilol with holding parameters for SBP <100 and HR<60 and hold Norvasc at this point as her BP has been in the low 100's systolic. (11) COPD (chronic obstructive pulmonary disease) Status: Chronic Response to Treatment: Stable Problem Text: Pt currently on 2L NC which is her baseline. (12) Chronic back pain Status: Chronic Response to Treatment: Stable Problem Text: Will continue patient's Cyclobenzaprine, and patient's home regimen for pain control. (13) Chest wall pain Status: Acute Problem Text: 12/27 L sided rib pain, also reproducible. Most likely from positioning from c-scope procedure on 12/26 12/26 L sided chest wall pain, reproducible. Neg CXR, EKG. Plan/VTE VTE Prophylaxis Ordered?: Yes (Lovenox 30 mg subcutaneously daily) Plan Respiratory: Other Respiratory (incentive spirometry) Anticipated Discharge: Home (on 12/28 once her course of Dificid is complete) VS, I&O, 24H, Fishbone Vital Signs/I&O Vital Signs Date Time Temp Pulse Resp B/P (MAP) Pulse Ox O2 Delivery O2 Flow Rate FiO2 12/27/16 06:09 18 Nasal Cannula 2.0 12/27/16 06:00 96.6 108 132/62 (85) 100 I&O- Last 24 Hours up to 6 AM 12/28/16 06:00 Intake Total 0 ml Output Total 0 ml Balance 0 ml Laboratory Data 24H LABS Laboratory Tests 2 12/27/16 06:29: Nucleated Red Blood Cells % (auto) 0.0, Anion Gap 5L, Glomerular Filtration Rate > 60.0, Blood Urea Nitrogen 29H, Creatinine 0.90, Sodium Level 144, Potassium Level 4.2, Chloride Level 107, Carbon Dioxide Level 32, Calcium Level 8.5L, Aspartate Amino Transf (AST/SGOT) 13L, Alanine Aminotransferase (ALT/SGPT ) 19, Alkaline Phosphatase 79, Total Bilirubin 0.2, Total Protein 5.4L, Albumin 2.5L, Albumin/Globulin Ratio 0.86L CBC/BMP Laboratory Tests 12/27/16 06:29 Red Blood Count 2.85 L, Mean Corpuscular Volume 97.2 H, Mean Corpuscular Hemoglobin 29.1, Mean Corpuscular Hemoglobin Concent 30.0 L, Red Cell Distribution Width 17.7 H, Calcium Level 8.5 L, Aspartate Amino Transf (AST/SGOT ) 13 L, Alanine Aminotransferase (ALT/SGPT) 19, Alkaline Phosphatase 79, Total Bilirubin 0.2, Total Protein 5.4 L, Albumin 2.5 L Microbiology Microbiology 12/24/16 Blood Culture - Preliminary, Resulted No Growth after 72 hours. All specime... GME ATTESTATION GME ATTESTATION My preceptor for this patient encounter was physically present in the building during the encounter and was fully available. As needed, all aspects of the patient interview, examination, medical decision making process, and medical care plan development were reviewed and approved by the preceptor. Preceptor is aware and concurs with the plan as stated in the body of this note and will attest to such by his/her cosignature. ATTENDING NOTE Family Medicine Attending Note: I was present on site to supervise Ole Yarbrough DO (PGY-2). We discussed the history and exam. I confirmed the wong elements during my [id number] encounter with the patient. We conferred on the assessment and plan; I agree with the note as documented. (medical office assistant instructor) OLE YARBROUGH DO Dec 27, 2016 09:34 Isra Langford MD Jan 06, 2017 21:44
[2016-12-27 18:00] VITALS: BP 144/68
[2016-12-27] MEDS: PANTOPRAZOLE 40MG TAB (PROTONIX) PO SCH (20:48)
[2016-12-27] MEDS: ROPINIROLE 8 MG PO SCH (21:00)
[2016-12-27 22:00] VITALS: BP 139/83
[2016-12-28] MEDS: NORCO, ANEXSIA 5/325MG TABLET (HYDROcodone/ACETAMINOPHEN) PO PRN ×4 (00:44→21:53)
[2016-12-28] MEDS: NS 1,000 ML IV SCH (04:05)
[2016-12-28] MEDS: LEVOTHYROXINE 50MCG TABLET (0.05MG) PO SCH (05:35)
[2016-12-28 06:00] VITALS: BP 159/81
[2016-12-28] MEDS: BREO ELLIPTA INH SCH (07:46)
[2016-12-28] MEDS: ALBUTEROL SULFATE 2.5 MG/0.5 ML INH NEB SOLN INH SCH ×2 (07:46→20:28)
[2016-12-28] MEDS: ASPIRIN 81 MG ENTERIC TAB PO SCH (09:00)
[2016-12-28] MEDS: MULTIVITAMINS/MINERALS THERAP 1 TAB PO SCH (09:00)
[2016-12-28] MEDS: ENOXAPARIN 30 MG/0.3 ML SYR (J1650) SC SCH (09:00)
[2016-12-28] MEDS: CYCLOBENZAPRINE 10 MG TAB PO SCH ×3 (09:00→21:51)
[2016-12-28] MEDS: BENZOCAINE 20% GEL 9GM TUBE (ANBESOL MAX STRENGTH) MT SCH ×4 (09:00→21:52)
[2016-12-28] MEDS: diphenhydrAMINE 25 MG CAP PO SCH (09:00)
[2016-12-28] MEDS: MAGNESIUM CHLORIDE 64 MG TABCR (SLO MAG) PO SCH (09:42)
[2016-12-28] MEDS: FUROSEMIDE 20 MG TAB PO SCH (09:43)
[2016-12-28] MEDS: POTASSIUM CHLORIDE 10% LIQ 20 MEQ/15 ML UDC PO SCH (09:43)
[2016-12-28] MEDS: GABAPENTIN 300 MG CAP PO SCH ×3 (09:43→21:51)
[2016-12-28] MEDS: methylPREDNISolone 4 MG TAB PO SCH (09:44)
[2016-12-28] MEDS: SPIRONOLACTONE 25 MG TAB PO SCH (09:44)
[2016-12-28] MEDS: LACTOBACILLUS ACIDOPHILUS CAP (BACID) PO SCH ×2 (09:44→21:50)
[2016-12-28] MEDS: CARVedilol 3.125 MG TAB PO SCH ×2 (09:45→21:51)
[2016-12-28] MEDS: NYSTATIN 500,000 U/5 ML SUSP UDC SS SCH ×2 (09:50→21:50)
[2016-12-28] MEDS: ALLOPURINOL 300 MG TAB PO SCH (09:50)
[2016-12-28 14:00] VITALS: BP 162/77
--- NOTE | 2016-12-28 16:29 | IPNPDOC ---
Subjective Date Seen The patient was seen on 12/28/16. Subjective Chief Complaint/HPI The patient is a 71-year-old female admitted with a reason for visit of Rll Pneumonia, who was most recently been treated for C. difficile diarrhea. Events since last encounter Svitlana is flustered today. She did not get a.m. labs and she is concerned that she may need a transfusion; she doesn't want a transfusion. She requests her IV fluids be stopped, as they're making her urinate more than she wants to. She does report no more diarrhea for almost 2 days now. Her respiratory status remained stable. She has a new brace for her right knee, though she's not been able to walk much today. Constitutional: Denies: Fever, Malaise, Night Sweats Pulmonary: Denies: Cough Cardiovascular: Reports: Chest Pain (improving reproducible) Gastrointestinal: Denies: Abdominal Pain, Diarrhea Psych: Reports: Anxiety, Denies: Memory Issues Objective Physical Examination General Exam: Positive: Alert (sitting in her bedside chair), No Acute Distress (but "flustered") Eye Exam: Positive: Conjunctiva & lids normal, Negative: Sclera icteric Neck Exam: Negative: JVD, Lymphadenopathy Chest Exam: Positive: Other (some reproducible pain to deep palpation on the left chest wall lateral to the sternum and also in the left lateral ribs in the midaxillary line. This is decreased from yesterday), Negative: Wheezing, Diminished (throughout, otherwise clear) Heart Exam: Positive: Tachycardic, Regular Rhythm, Normal S1, Normal S2 Abdomen Exam: Positive: Normal bowel sounds, Soft, Negative: Tenderness Extremity Exam: Positive: Normal pulses, Tenderness (in her right hip, improved ), Other (multiple bruises noted to bilateral upper and lower extremities), Negative: Swelling Skin Exam: Positive: Other skin issue (superficial wound to RUE, localized anteriorly aspect of forearm, no drainage, no erythema, non tender. Multiple superficial wounds to RLE, circular, covered with bandaids, some purulent material noted on bandage, no active bleeding or drainage, no warmth, mild erythema. left knee wound, circular, some purulence around wound surface and on bandage, no active drainage, surrounding erythema, warm to touch, mild tenderness to area. ), Negative: Rash Neuro Exam: Positive: Normal Speech Psych Exam: Positive: Anxiety, Oriented x 3 Assessment /Plan Problems (1) C. difficile colitis Status: Acute Response to Treatment: Improving Discussed With: Patient Problem Text: 12/28 - she's had no recurrent diarrhea for almost 2 days now. She is pleased with how this is going for her. 12/27 Patient had stool transplant yesterday afternoon. Patient has been without diarrhea since. WBC continues to trend down today 12/26 - Dificid stopped yesterday in anticipation of stool transplant today, Dr Muhammad has been consulted, GoLytely prep has been initiated. WBC is down some today. 12/25 Dificid D7/10, Pt willing to proceed with stool transplant and given that her stools have transitioned back to loose this is likely appropriate. Dr Langford has reached out to Dr Farnsworth regarding this. Will await her input. WBC cont to trend down. Remains afebrile. 12/24 - Dificid D6/10. Pt has been considering stool transplant option. Pt reports that stools today were loose. AM labs/WBC pending. 12/23 - D5/10 Dificid, ins won't cover, WBC increased from 19.5 to 26.6 but now with formed stools. 12/22 - D 4/10 dificid, at this point it doesn't look like her ins will cover this, she has responded to this treatment however. ID recommends she stay in the hospital through Thursday night which will be her 20th dose of the Dificid. We anticipate discharge on the morning of ThursdayDecember 28. 12/19/16: Placed on Dificid. monitor. 12/18/16: patient declining IV insertion due to poor venous access. requesting PICC line. Wait for ID consult to determine length of antibiotic tx and necessity for PICC line. 12/17/16: will resume Flagyl IV due to resumption of diarrhea. ID consult. 12/16/16: normal BMs, improving 12/15/16: STOP FLagyl. Ceftaroline stopped today and changed to doxycycline and Levaquin based on sputum culture sensitivities and allergies. 12/14: Patient reports last episode of diarrhea was last night. She will continue on vancomycin 250 mg by mouth every 6 hours, metronidazole 500 mg IV every 8 hours 12/13: Patient complains of having multiple episodes of diarrhea, testing positive for C. Diff in her stool on 12/10. She was placed on Vancomycin PO 250 Q6H. She is still having diarrhea. Per pharmacy's recommendation I am starting IV Flagyl 500 mg Q8H. (2) Rheumatoid arthritis Status: Chronic Problem Text: Pt currently on methylprednisolone 8mg daily at home as well as Plaquenil 200mg PO daily. Plan to decrease the methylprednisolone to 6 mg daily at this time, this was after extensive discussion with the patient and her son confirmed that her primary care provider wished to make this change and her engineering officer is trying to taper down to at least 4 mg or less. Will hold Plaquenil and restart at the time of d/c. She did receive a brace on her right knee. There is one area that may need sliding adjustment. The family will contact [facility] tomorrow or after discharge for adjustments. (3) Leukocytosis Status: Acute Problem Text: 12/28 - no a.m. labs were ordered. Clinically and symptomatically she is doing well. Will recheck tomorrow. 12/27 - WBC continues to trend down Item Value Date Time White Blood Count 27.8 10^3/uL H 12/24/16 1105 White Blood Count 18.9 10^3/uL H 12/25/16 0550 White Blood Count 14.0 10^3/uL H 12/27/16 0629 12/25 - [place] [address]78 to [address] 12/24 - WBC still rising slightly. 12/23/16 WBC increased from 19.5 to 26.6, this is concerning for her. Her stooling has improved with 2 days now of formed stools she also reports stability in her resp status. She is on chr steroid. Address with attending. 12/22/16 Her leukocytes had improved to 19.5, however, she still is far from her baseline around 11-13. Suspect multifactorial, pt with evidence of persistent it if colitis, RLL infiltrate, UTI sxs, cellulitis and on chronic Prednisone. We will discontinue her hydroxychloroquine at this time, but will continue with her usual home dose of steroids. (4) Thrush, oral Status: Resolved Problem Text: Likely secondary chronic steroid therapy and nebulizers for COPD. Doing well with Nystatin swish and swallow. (5) CKD (chronic kidney disease) Status: Chronic Response to Treatment: Stable Problem Text: Stable SCr. (6) CHF (congestive heart failure) Status: Chronic Problem Text: Pt on Lasix and Spironolactone as OP. Plan to hold diuretics at this time as pt pressure has been in the low 100's systolic and pt appears slightly dehydrated on exam. (7) CAD (coronary artery disease) Status: Chronic Problem Text: Pt on both ASA and Carvedilol. Plan to continue both, Carvedilol will be continued with holding parameters for SBP <100 and HR <60. (8) Hypertension Status: Chronic Problem Text: Pt on Norvasc and Carvedilol, will continue Carvedilol with holding parameters for SBP <100 and HR<60 and hold Norvasc at this point as her BP has been in the low 100's systolic. (9) COPD (chronic obstructive pulmonary disease) Status: Chronic Response to Treatment: Stable Problem Text: Pt currently on 2L NC which is her baseline. (10) Chronic back pain Status: Chronic Response to Treatment: Stable Problem Text: Will continue patient's Cyclobenzaprine, and patient's home regimen for pain control. (11) Chest wall pain Status: Acute Response to Treatment: Improving Problem Text: Her chest wall pain is improving. Her right hip pain is almost resolved. These are believed to be related to positioning during her colonoscopy for the stool transplant. No further treatment appears to be needed as they will resolve spontaneously. (12) RLL pneumonia Status: Resolved Problem Text: Pt with previous admission 10/2016 and noted to have RLL PNA then , infiltrate appears worse, evident on both CXR and Chest CT and now with elevated WBC at 31.9. Pt currently on Zosyn and Vanc, will continue broad antibiotics given her relative immunosuppression from chronic steroids and plaquenil. Currently on 2L NC which is her baseline and will continue this as well. There are multiple nodules noted on CT chest that should be followed up as OP. Pt has been followed up as OP in the past for findings in the RUL and RLL with extensive workup including BAL and biopsies. Will recommend OP follow up for nodules. Plan/VTE VTE Prophylaxis Ordered?: Yes (Lovenox 30 mg subcutaneously daily) Plan Respiratory: Other Respiratory (incentive spirometry) Anticipated Discharge: Home VS, I&O, 24H, Fishbone Vital Signs/I&O Vital Signs Date Time Temp Pulse Resp B/P (MAP) Pulse Ox O2 Delivery O2 Flow Rate FiO2 12/28/16 16:07 18 Nasal Cannula 2.0 12/28/16 09:45 121 159/81 12/28/16 06:00 97.7 99 I&O- Last 24 Hours up to 6 AM 12/29/16 06:00 Intake Total 240 ml Output Total 500 ml Balance -260 ml Laboratory Data Microbiology Microbiology 12/24/16 Blood Culture - Preliminary, Resulted No Growth after 72 hours. All specime... Isra Langford MD Dec 28, 2016 4:29 pm
--- NOTE | 2016-12-28 18:00 | CR ---
DATE OF CONSULTATION: 12/26/2016 This is a 71-year-old white female who was admitted to [facility] ([facility]) on 12/08/2016, with a significant past medical history for chronic obstructive pulmonary disease (COPD), congestive heart failure (CHF), coronary artery disease, chronic kidney disease, inflammatory arthritis on chronic prednisone as well as hydroxychloroquine. The patient was admitted to [facility] for issues of chronic falling and had a previous admission in October for COPD exacerbation and also lower extremity cellulitis and was on antibiotics for this. The patient is being seen now for refractory Clostridium (C) difficile diarrhea and due to intermittent uses of antibiotic for several problems. The patient's past medications are significant including allopurinol, aspirin, cyclobenzaprine, diphenhydramine, Lasix, gabapentin, hydroxychloroquine, levothyroxine, pantoprazole, vitamin D. ALLERGIES: Includes AMITRIPTYLINE, LASIX, NITRATES, NITROFURANTOIN, CELEBREX, NAPROXEN and SULFA DRUGS. PAST MEDICAL HISTORY: Is positive for: 1. Chronic CHF. 2. Coronary artery disease. 3. Hypertension. 4. Spinal stenosis. 5. Migraines. 6. Gastroesophageal reflux disease (GERD). 7. Irritable bowel syndrome (IBS). 8. Peripheral artery disease. 9. Left renal artery disease. 10. Vitamin D deficiency. 11. Chronic kidney disease stage III. 12. Hyperlipidemia. 13. 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 14. Intermittent bouts of C. difficile since 2013. 15. Chronic anxiety. 16. Hypothyroidism. PAST SURGICAL HISTORY: Positive for: 1. Bilateral total knee arthroplasty (TKA). 2. Hysterectomy with total bilateral salpingo-oophorectomy (BSO). 3. Tonsils. 4. Cervical spine discectomy 2008. 5. EGD and colonoscopy. 6. Left shoulder replacement 2011. 7. Lung biopsy 2013. 8. Cardiac catheterization 2016. FAMILY HISTORY: Not pertinent to the above problem. SOCIAL HISTORY: Cigarettes: The patient is a former smoker, smoked 40 years ago. Alcohol and drugs negative. REVIEW OF SYSTEMS: 11 point review of systems not contributory to the above gastrointestinal (GI) issue. Generally, is a well-developed thin white female in no obvious acute distress. Chest is clear to auscultation and percussion. Cardiovascular exam showed regular rhythm. No physiological split S1-S2. Abdomen was soft, nontender. No masses, guarding, rebound, hepatosplenomegaly. Bowel sounds positive. Extremities were no cyanosis, clubbing, edema. Laboratory studies on admission showed a significant white count of almost 30,000. The patient had been treated for the C. difficile with Dificid without much response. The patient is being seen now for evaluation and being set up for a stool transplant to reverse the C. difficile induced diarrhea. PLAN: 1. Set up colonoscopy for stool transplant.
[2016-12-28] MEDS: ROPINIROLE 8 MG PO SCH (21:00)
[2016-12-28] MEDS: PANTOPRAZOLE 40MG TAB (PROTONIX) PO SCH (21:51)
[2016-12-28 22:00] VITALS: BP 160/73
[2016-12-29 06:00] VITALS: BP 142/76
[2016-12-29] MEDS: LEVOTHYROXINE 50MCG TABLET (0.05MG) PO SCH (06:05)
[2016-12-29] MEDS: NORCO, ANEXSIA 5/325MG TABLET (HYDROcodone/ACETAMINOPHEN) PO PRN ×2 (06:05→20:45)
[2016-12-29 06:50] LABS: BASO % 0.2 % (0.0-1.0); EOS # 0.2 10^3/uL (0.0-0.50); EOS % 1.8 % (0.0-3.0); IMMATURE GRANULOCYTE % 3.6 % (0-0); LYMPH # 1.3 10^3/uL (1.5-4.5); LYMPH % 9.3 % (24.0-44.0); MEAN CORPUSCULAR HGB CONC 29.5 g/dl (32.0-36.5); MEAN CORPUSCULAR VOLUME 98.2 fl (80.0-96.0); MONO # 0.8 10^3/uL (0.0-0.8); MONO % 6.1 % (0.0-5.0); NEUTROPHILS # 10.8 10^3/uL (1.8-7.7); PLATELET COUNT, AUTOMATED 342 10^3/uL (150-450); RED CELL DISTRIBUTION WIDTH 17.7 % (11.5-14.5); WHITE BLOOD COUNT 13.7 10^3/uL (4.0-10.0)
[2016-12-29 07:12] LABS: ALBUMIN 2.8 GM/DL (3.2-5.2); ALBUMIN/GLOBULIN RATIO 0.82 (1.00-1.93); ALKALINE PHOSPHATASE 84 U/L (45-117); ALT/SGPT 19 U/L (12-78); ANION GAP 8 MEQ/L (8-16); AST/SGOT 15 U/L (15-37); BILIRUBIN,TOTAL 0.3 MG/DL (0.2-1.0); BLOOD UREA NITROGEN 24 MG/DL (7-18); CALCIUM LEVEL 8.9 MG/DL (8.8-10.2); CARBON DIOXIDE LEVEL 30 MEQ/L (21-32); CHLORIDE LEVEL 105 MEQ/L (98-107); CREATININE FOR GFR 0.79 MG/DL (0.55-1.02); GLOMERULAR FILTRATION RATE > 60.0 (>39); GLUCOSE, FASTING 79 MG/DL (83-110); POTASSIUM SERUM 4.1 MEQ/L (3.5-5.1); SODIUM LEVEL 143 MEQ/L (136-145); TOTAL PROTEIN 6.2 GM/DL (6.4-8.2)
--- NOTE | 2016-12-29 07:29 | IPNPDOC ---
Subjective Date Seen The patient was seen on 12/29/16. Subjective Chief Complaint/HPI The patient is a 71-year-old female admitted with a reason for visit of Rll Pneumonia. Events since last encounter Had planned on DC home today, however Hgb is low at 8. + tachycardia and tachypnea. + Fatigue which is chronic. Constitutional: Reports: Fatigue, Denies: Chills, Fever, Night Sweats Skin: Denies: Rash, Lesions, Breakdown Pulmonary: Reports: Dyspnea, Cough Cardiovascular: Denies: Chest Pain, Palpitations, Orthopnea, Paroxysmal Noc. Dyspnea, Lt Headedness Objective Physical Examination General Exam: Positive: Alert (sitting in her bedside chair), No Acute Distress Eye Exam: Positive: Conjunctiva & lids normal, Negative: Sclera icteric Neck Exam: Negative: JVD, Lymphadenopathy Chest Exam: Positive: Other (some reproducible pain to deep palpation on the left chest wall lateral to the sternum and also in the left lateral ribs in the midaxillary line. This is decreased from yesterday), Negative: Wheezing, Diminished (throughout, otherwise clear) Heart Exam: Positive: Tachycardic, Regular Rhythm, Normal S1, Normal S2 Abdomen Exam: Positive: Normal bowel sounds, Soft, Negative: Tenderness Extremity Exam: Positive: Normal pulses, Tenderness (in her right hip, improved ), Other (multiple bruises noted to bilateral upper and lower extremities), Negative: Swelling Skin Exam: Positive: Other skin issue (superficial wound to RUE, localized anteriorly aspect of forearm, no drainage, no erythema, non tender. Multiple superficial wounds to RLE, circular, covered with bandaids, some purulent material noted on bandage, no active bleeding or drainage, no warmth, mild erythema. left knee wound, circular, some purulence around wound surface and on bandage, no active drainage, surrounding erythema, warm to touch, mild tenderness to area. ), Negative: Rash Neuro Exam: Positive: Normal Speech Psych Exam: Positive: Anxiety, Oriented x 3 Assessment /Plan Problems (1) Anemia Problem Text: agreeable to transfusion. Will repeat CBC later today. Anticipate DC home in am. (2) C. difficile colitis Status: Resolved Response to Treatment: Improving Discussed With: Patient Problem Text: 12/28 - she's had no recurrent diarrhea for almost 2 days now. She is pleased with how this is going for her. 12/27 Patient had stool transplant yesterday afternoon. Patient has been without diarrhea since. WBC continues to trend down today 12/26 - Dificid stopped yesterday in anticipation of stool transplant today, Dr Muhammad has been consulted, GoLytely prep has been initiated. WBC is down some today. 12/25 Dificid D7/10, Pt willing to proceed with stool transplant and given that her stools have transitioned back to loose this is likely appropriate. Dr Langford has reached out to Dr Farnsworth regarding this. Will await her input. WBC cont to trend down. Remains afebrile. 12/24 - Dificid D6/10. Pt has been considering stool transplant option. Pt reports that stools today were loose. AM labs/WBC pending. 12/23 - D5/10 Dificid, ins won't cover, WBC increased from 19.5 to 26.6 but now with formed stools. 12/22 - D 4/10 dificid, at this point it doesn't look like her ins will cover this, she has responded to this treatment however. ID recommends she stay in the hospital through Thursday night which will be her 20th dose of the Dificid. We anticipate discharge on the morning of ThursdayDecember 28. 12/19/16: Placed on Dificid. monitor. 12/18/16: patient declining IV insertion due to poor venous access. requesting PICC line. Wait for ID consult to determine length of antibiotic tx and necessity for PICC line. 12/17/16: will resume Flagyl IV due to resumption of diarrhea. ID consult. 12/16/16: normal BMs, improving 12/15/16: STOP FLagyl. Ceftaroline stopped today and changed to doxycycline and Levaquin based on sputum culture sensitivities and allergies. 12/14: Patient reports last episode of diarrhea was last night. She will continue on vancomycin 250 mg by mouth every 6 hours, metronidazole 500 mg IV every 8 hours 12/13: Patient complains of having multiple episodes of diarrhea, testing positive for C. Diff in her stool on 12/10. She was placed on Vancomycin PO 250 Q6H. She is still having diarrhea. Per pharmacy's recommendation I am starting IV Flagyl 500 mg Q8H. (3) RLL pneumonia Status: Resolved Problem Text: She was treated with Vancomycin and Zosyn earlier in this admission. There are multiple nodules noted on CT chest that should be followed up as OP. Pt has been followed up as OP in the past for findings in the RUL and RLL with extensive workup including BAL and biopsies. (4) Rheumatoid arthritis Status: Chronic Problem Text: Pt currently on methylprednisolone 8mg daily at home as well as Plaquenil 200mg PO daily. Plan to decrease the methylprednisolone to 6 mg daily at this time, this was after extensive discussion with the patient and her son confirmed that her primary care provider wished to make this change and her trademark affixer is trying to taper down to at least 4 mg or less. Will hold Plaquenil and restart at the time of d/c. She did receive a brace on her right knee. There is one area that may need sliding adjustment. The family will contact [facility] tomorrow or after discharge for adjustments. (5) Leukocytosis Status: Acute Problem Text: 12/29 - WBCs continue to trend down. 12/27 - WBC continues to trend down Item Value Date Time White Blood Count 27.8 10^3/uL H 12/24/16 1105 White Blood Count 18.9 10^3/uL H 12/25/16 0550 White Blood Count 14.0 10^3/uL H 12/27/16 0629 12/25 - [place] [address] [place] [address] 12/24 - WBC still rising slightly. 12/23/16 WBC increased from 19.5 to 26.6, this is concerning for her. Her stooling has improved with 2 days now of formed stools she also reports stability in her resp status. She is on chr steroid. Address with attending. 12/22/16 Her leukocytes had improved to 19.5, however, she still is far from her baseline around 11-13. Suspect multifactorial, pt with evidence of persistent it if colitis, RLL infiltrate, UTI sxs, cellulitis and on chronic Prednisone. We will discontinue her hydroxychloroquine at this time, but will continue with her usual home dose of steroids. (6) Thrush, oral Status: Resolved Problem Text: Likely secondary to chronic steroid therapy and nebulizers for COPD. Doing well with Nystatin swish and swallow. (7) CKD (chronic kidney disease) Status: Chronic Response to Treatment: Stable Problem Text: Stable SCr. (8) CHF (congestive heart failure) Status: Chronic Problem Text: Pt on Lasix and Spironolactone as OP. (9) CAD (coronary artery disease) Status: Chronic Problem Text: Pt on both ASA and Carvedilol. Plan to continue both, Carvedilol will be continued with holding parameters for SBP <100 and HR <60. (10) Hypertension Status: Chronic Problem Text: Pt on Norvasc and Carvedilol, will continue Carvedilol with holding parameters for SBP <100 and HR<60 and hold Norvasc at this point as her BP has been in the low 100's systolic. (11) COPD (chronic obstructive pulmonary disease) Status: Chronic Response to Treatment: Stable Problem Text: Pt currently on 2L NC which is her baseline. (12) Chronic back pain Status: Chronic Response to Treatment: Stable Problem Text: Will continue patient's Cyclobenzaprine, and patient's home regimen for pain control. (13) Chest wall pain Status: Acute Response to Treatment: Improving Problem Text: Her chest wall pain is improving. Her right hip pain is almost resolved. These are believed to be related to positioning during her colonoscopy for the stool transplant. No further treatment appears to be needed as they will resolve spontaneously. Plan/VTE VTE Prophylaxis Ordered?: Yes (Lovenox 30 mg subcutaneously daily) Plan Respiratory: Other Respiratory (incentive spirometry) Anticipated Discharge: Home Family Medicine Attending Note: Patient was seen and examined this morning; I discussed her care with MARIO Valdez and I agree with her note as documented. I agree with blood transfusion as she had a history of CAD and has been intermittently tachycardic yesterday and today. Anemia appears to have developed over several days and may be due to C. diff, which is improved s/pt stool transplant. If H/H stabilizes, consider d/c in the morning. (KES) VS, I&O, 24H, Fishbone Vital Signs/I&O Vital Signs Date Time Temp Pulse Resp B/P (MAP) Pulse Ox O2 Delivery O2 Flow Rate FiO2 12/29/16 06:35 18 12/29/16 06:05 96.6 110 160/73 90 Nasal Cannula 2.0 Laboratory Data 24H LABS Laboratory Tests 2 12/29/16 05:52: Immature Granulocyte % (Auto) 3.6H, White Blood Count 13.7H, Red Blood Count 2.76L, Hemoglobin 8.0L, Hematocrit 27.1L, Mean Corpuscular Volume 98.2H, Mean Corpuscular Hemoglobin 29.0, Mean Corpuscular Hemoglobin Concent 29.5L, Red Cell Distribution Width 17.7H, Platelet Count 342, Neutrophils (%) (Auto) 79.0H , Lymphocytes (%) (Auto) 9.3L, Monocytes (%) (Auto) 6.1H, Eosinophils (%) (Auto ) 1.8, Basophils (%) (Auto) 0.2, Neutrophils # (Auto) 10.8H, Lymphocytes # (Auto ) 1.3L, Monocytes # (Auto) 0.8, Eosinophils # (Auto) 0.2, Basophils # (Auto) 0.0 , Immature Granulocyte # (Auto) 0.5H, Nucleated Red Blood Cells % (auto) 0.1H, Anion Gap 8, Glomerular Filtration Rate > 60.0, Blood Urea Nitrogen 24H, Creatinine 0.79, Sodium Level 143, Potassium Level 4.1, Chloride Level 105, Carbon Dioxide Level 30, Calcium Level 8.9, Aspartate Amino Transf (AST/SGOT) 15 , Alanine Aminotransferase (ALT/SGPT) 19, Alkaline Phosphatase 84, Total Bilirubin 0.3, Total Protein 6.2L, Albumin 2.8L, Albumin/Globulin Ratio 0.82L CBC/BMP Laboratory Tests 12/28/16 19:10 12/29/16 05:52 Red Blood Count 2.76 L, Mean Corpuscular Volume 98.2 H, Mean Corpuscular Hemoglobin 29.0, Mean Corpuscular Hemoglobin Concent 29.5 L, Red Cell Distribution Width 17.7 H, Neutrophils (%) (Auto) 79.0 H, Lymphocytes (%) (Auto ) 9.3 L, Monocytes (%) (Auto) 6.1 H, Eosinophils (%) (Auto) 1.8, Basophils (%) ( Auto) 0.2, Neutrophils # (Auto) 10.8 H, Lymphocytes # (Auto) 1.3 L, Monocytes # (Auto) 0.8, Eosinophils # (Auto) 0.2, Basophils # (Auto) 0.0, Calcium Level 8.9 , Aspartate Amino Transf (AST/SGOT) 15, Alanine Aminotransferase (ALT/SGPT) 19, Alkaline Phosphatase 84, Total Bilirubin 0.3, Total Protein 6.2 L, Albumin 2.8 L Microbiology Microbiology 12/24/16 Blood Culture - Final, Complete NO GROWTH AFTER 5 DAYS Domonique Olivo Dec 29, 2016 07:29 YAZMIN IRELAND MD Dec 29, 2016 15:10
[2016-12-29] MEDS ORDERED: FUROSEMIDE 20 MG/2 ML VIAL (J1940) IV SCH (07:30)
[2016-12-29] MEDS: ALBUTEROL SULFATE 2.5 MG/0.5 ML INH NEB SOLN INH SCH ×2 (07:55→20:17)
[2016-12-29] MEDS: BREO ELLIPTA INH SCH (08:11)
[2016-12-29] MEDS: NYSTATIN 500,000 U/5 ML SUSP UDC SS SCH ×2 (09:48→20:41)
[2016-12-29] MEDS: ENOXAPARIN 30 MG/0.3 ML SYR (J1650) SC SCH (09:48)
[2016-12-29] MEDS: CYCLOBENZAPRINE 10 MG TAB PO SCH ×3 (09:49→20:43)
[2016-12-29] MEDS: BENZOCAINE 20% GEL 9GM TUBE (ANBESOL MAX STRENGTH) MT SCH ×4 (09:49→20:44)
[2016-12-29] MEDS: POTASSIUM CHLORIDE 10% LIQ 20 MEQ/15 ML UDC PO SCH (09:49)
[2016-12-29] MEDS: ASPIRIN 81 MG ENTERIC TAB PO SCH (09:49)
[2016-12-29] MEDS: MAGNESIUM CHLORIDE 64 MG TABCR (SLO MAG) PO SCH (09:49)
[2016-12-29] MEDS: LACTOBACILLUS ACIDOPHILUS CAP (BACID) PO SCH ×2 (09:50→20:41)
[2016-12-29] MEDS: SPIRONOLACTONE 25 MG TAB PO SCH (09:50)
[2016-12-29] MEDS: methylPREDNISolone 4 MG TAB PO SCH (09:50)
[2016-12-29] MEDS: GABAPENTIN 300 MG CAP PO SCH ×3 (09:50→20:41)
[2016-12-29] MEDS: diphenhydrAMINE 25 MG CAP PO SCH (09:53)
[2016-12-29] MEDS: MULTIVITAMINS/MINERALS THERAP 1 TAB PO SCH (09:53)
[2016-12-29] MEDS: ALLOPURINOL 300 MG TAB PO SCH (09:53)
[2016-12-29] MEDS: FUROSEMIDE 20 MG TAB PO SCH (09:53)
[2016-12-29] MEDS: CARVedilol 3.125 MG TAB PO SCH ×2 (09:55→20:43)
--- NOTE | 2016-12-29 17:18 | IPN ---
DATE: 12/29/2016 Diana seems to be doing well. She is frustrated because she needed two units of packed red blood cells today, wondering why she was bleeding and where she was losing her blood. She also was upset because she needed Lasix in between blood transfusions, having to get up to the commode. She has not had a bowel movement since 12/27/2016 after stool transplantation. LABORATORY DATA: White count is 13.7, hemoglobin 8, hematocrit 27.1, platelets 342. Sodium 143, potassium 4.1, chloride 105, bicarbonate 30, BUN 24, creatinine 0.8, glucose 79, calcium 8.9, AST 15, ALT 19, alkaline phosphatase 84, albumin 2.8. VITAL SIGNS: Temperature is 96.6, pulse 110, respirations 16, oxygen saturation 90% on two liters nasal cannula. HEART: Tachycardiac, regular. LUNGS: Diminished breath sounds bilaterally with few expiratory wheezes. ABDOMEN: Soft, nontender. EXTREMITIES: Trace edema with multiple abrasions, healing. No purulent discharge. IMPRESSION: 1. Clostridium (C) difficile colitis, resolved after stool transplantation with no recurrence in three days of diarrhea. Actually, she has had no bowel movement. The patient continues on probiotics. 2. Anemia. The patient requiring two units of packed red blood cells with Lasix in between. 3. Right lower lobe pneumonia, resolved. The patient has still a persistent cough with some hemoptysis, dark, old blood noted, probably residual from infection. PLAN: Infectious disease signing off. Continue probiotics for at least one month. Judicious use of any antibiotic in this patient is necessary as she is at very high risk of recurrence with being elderly with severe leukocytosis. From an infectious disease standpoint, the patient could be discharged and infectious disease (ID) signing off.
[2016-12-29] MEDS: PANTOPRAZOLE 40MG TAB (PROTONIX) PO SCH (20:41)
[2016-12-29] MEDS: ROPINIROLE 8 MG PO SCH (20:44)
[2016-12-29 20:50] LABS: BASO # 0.1 10^3/uL (0.0-0.2); BASO % 0.4 % (0.0-1.0); EOS # 0.1 10^3/uL (0.0-0.50); EOS % 0.5 % (0.0-3.0); IMMATURE GRANULOCYTE % 4.8 % (0-0); LYMPH % 6.1 % (24.0-44.0); MEAN CORPUSCULAR HEMOGLOBIN 29.2 pg (27.0-33.0); MEAN CORPUSCULAR HGB CONC 32.2 g/dl (32.0-36.5); MEAN CORPUSCULAR VOLUME 90.8 fl (80.0-96.0); MONO # 0.6 10^3/uL (0.0-0.8); MONO % 4.1 % (0.0-5.0); NEUTROPHILS # 13.1 10^3/uL (1.8-7.7); NEUTROPHILS % 84.1 % (36.0-66.0); PLATELET COUNT, AUTOMATED 324 10^3/uL (150-450); WHITE BLOOD COUNT 15.6 10^3/uL (4.0-10.0)
[2016-12-29 22:00] VITALS: BP 141/65
[2016-12-30] MEDS: NORCO, ANEXSIA 5/325MG TABLET (HYDROcodone/ACETAMINOPHEN) PO PRN (05:43)
[2016-12-30] MEDS: LEVOTHYROXINE 50MCG TABLET (0.05MG) PO SCH (05:43)
[2016-12-30 06:00] VITALS: BP 152/68
[2016-12-30 06:07] LABS: MEAN CORPUSCULAR HEMOGLOBIN 28.8 pg (27.0-33.0); MEAN CORPUSCULAR HGB CONC 31.4 g/dl (32.0-36.5); MEAN CORPUSCULAR VOLUME 91.8 fl (80.0-96.0); PLATELET COUNT, AUTOMATED 328 10^3/uL (150-450); RED CELL DISTRIBUTION WIDTH 19.2 % (11.5-14.5); WHITE BLOOD COUNT 13.6 10^3/uL (4.0-10.0)
[2016-12-30 06:37] LABS: ANION GAP 3 MEQ/L (8-16); BLOOD UREA NITROGEN 31 MG/DL (7-18); CALCIUM LEVEL 9.9 MG/DL (8.8-10.2); CARBON DIOXIDE LEVEL 41 MEQ/L (21-32); CHLORIDE LEVEL 99 MEQ/L (98-107); CREATININE FOR GFR 0.91 MG/DL (0.55-1.02); GLOMERULAR FILTRATION RATE > 60.0 (>39); GLUCOSE, FASTING 98 MG/DL (83-110); POTASSIUM SERUM 3.8 MEQ/L (3.5-5.1); SODIUM LEVEL 143 MEQ/L (136-145)
--- NOTE | 2016-12-30 06:40 | IPN ---
DATE: 12/23/2016 INFECTIOUS DISEASE PROGRESS NOTE: Diana was seen today. She was laying in bed, very comfortable, not wearing oxygen. She stated that she had a coughing spell last night, which was mostly nonproductive, but patient feels back to baseline. She had no nausea or vomiting. She till has diarrhea, although she had some formed stools. She had an episode of incontinence. . PHYSICAL EXAM: Temperature is 98.2, pulse 114, respirations 19, blood pressure 126/77, oxygen saturation _94% on room air. HEART: Normal S1 and S2. LUNGS: Diminished breath sounds bilaterally. Fair air entry. No significant crackles. ABDOMEN: Is soft, nontender. EXTREMITIES: Trace edema. LABS: White count was 26.6, down to19.5. Hemoglobin 9.7, hematocrit 32.6, platelets 365. Sodium was 141, potassium 4.4, chloride 105, bicarbonate 33, BUN 28, creatinine 0.86, glucose 92, calcium 9.3, AST 14, ALT 18, alkaline phosphatase 91, CRP 6.75 , total protein 6.5, albumin 2.9. Chest x-ray showed worsening of the right basilar atelectasis IMPRESSION: 1. Right lower lobe pneumonia, status post 11 days of IV antibiotics, which were appropriate. Patient's chest x-ray states that she has a worsening right lower lobe infiltrate but, clinically, the patient does not have worsening pneumonia symptoms. She is not wearing her oxygen, and her cough is at baseline. I would be very reluctant to give her more broad-spectrum antibiotic as she has significant Clostridium (C) difficile. 2. Severe Clostridium difficile. Has failed vancomycin therapy. Currently on daptomycin with worsening leukocytosis. My concern is this leukocytosis is related to her C. difficile and not the pneumonia. I have discussed this the case with Dr. Langford primary care, attending, as well as patient. I have discussed with her stool transplantation. The patient is reluctant to about having a stool transplant done. She would like to discuss that with her three sons zeyad and then will decide accordingly. 3. Nausea. Patient complains of too many pills that she is taking. Will decrease some of her medication to help her with decrease in nausea. Consult gastroenterology (Dr. Owen has seen her in the past) for stool transplantation if the patient agrees. WAGNER
[2016-12-30] MEDS ORDERED: MEDR4TAB PO (07:46)
[2016-12-30] MEDS: ALBUTEROL SULFATE 2.5 MG/0.5 ML INH NEB SOLN INH SCH (08:01)
[2016-12-30] MEDS: ENOXAPARIN 30 MG/0.3 ML SYR (J1650) SC SCH (09:00)
[2016-12-30] MEDS: NYSTATIN 500,000 U/5 ML SUSP UDC SS SCH (09:45)
[2016-12-30] MEDS: GABAPENTIN 300 MG CAP PO SCH (09:46)
[2016-12-30] MEDS: methylPREDNISolone 4 MG TAB PO SCH (09:46)
[2016-12-30] MEDS: ASPIRIN 81 MG ENTERIC TAB PO SCH (09:46)
[2016-12-30] MEDS: LACTOBACILLUS ACIDOPHILUS CAP (BACID) PO SCH (09:46)
[2016-12-30] MEDS: CYCLOBENZAPRINE 10 MG TAB PO SCH (09:46)
[2016-12-30] MEDS: ALLOPURINOL 300 MG TAB PO SCH (09:47)
[2016-12-30] MEDS: FUROSEMIDE 20 MG TAB PO SCH (09:47)
[2016-12-30] MEDS: SPIRONOLACTONE 25 MG TAB PO SCH (09:47)
[2016-12-30 09:49] VITALS: BP 135/87
[2016-12-30] MEDS: BENZOCAINE 20% GEL 9GM TUBE (ANBESOL MAX STRENGTH) MT SCH (09:49)
[2016-12-30] MEDS: diphenhydrAMINE 25 MG CAP PO SCH (09:49)
[2016-12-30] MEDS: CARVedilol 3.125 MG TAB PO SCH (09:49)
[2016-12-30] MEDS: MULTIVITAMINS/MINERALS THERAP 1 TAB PO SCH (09:50)
[2016-12-30] MEDS: MAGNESIUM CHLORIDE 64 MG TABCR (SLO MAG) PO SCH (09:50)
[2016-12-30] MEDS: POTASSIUM CHLORIDE 10% LIQ 20 MEQ/15 ML UDC PO SCH (09:50)
--- NOTE | 2016-12-30 09:56 | DSES ---
DATE OF ADMISSION: 12/08/2016 DATE OF DISCHARGE: 12/30/2016 ATTENDING PHYSICIAN: Dr. Brice Jauregui PRIMARY CARE PHYSICIAN: Dr. Christoph Gusman SLEEVE WHEEL MAKER: Dr. Patrick ORTHOPEDIC PROVIDER: Dr. Brian De La Fuente INFECTIOUS DISEASE SPECIALIST: Dr. Sasha Farnsworth PATHOLOGICAL TECHNICIAN: Dr. Dilip Muhammad EXECUTIVE COMPENSATION ANALYST: Dr. John Lopez HISTORY OF PRESENT ILLNESS: 71-year-old female with significant past medical history of chronic obstructive pulmonary disease (COPD), congestive heart failure (CHF), coronary artery disease (CAD), chronic kidney disease (CKD), inflammatory arthritis for which she is on chronic prednisone, who reported to the emergency room for complaint of two falls the week prior to her presentation. The patient had noted that her legs had been giving out. She was having some weakness and instability. She has her bilateral knee replacements. She did sustain a contusion on her forehead without any loss of consciousness (LOC) or major injuries from her fall. The patient was found to have some hypoxia on presentation to the emergency department. She is on chronic oxygen at home. She was found to have a right lower lobe pneumonia on presentation to the emergency room along with cellulitis of the left lower extremity and leukocytosis and was subsequently admitted to the family medicine service. HOSPITAL COURSE: The patient was placed on broad spectrum antibiotics of Zosyn and vancomycin. Blood cultures proved negative. Sputum culture did show a positivity for Staphylococcus aureus and Klebsiella pneumoniae. Antibiotics were adjusted accordingly. The patient subsequently developed some significant diarrhea and still returned positive for Clostridium difficile. The patient was placed on by mouth vancomycin as well as IV Flagyl with some mild improvement. However, the patient continued to have some difficulty with significant diarrhea. Infectious disease was consulted. All of her antibiotics were stopped as she had received a significant course for her right lower lobe pneumonia and her breathing returned to baseline. Dr. Farnsworth had recommended starting Fidaxomicin 200 mg by mouth twice a day along with Probiotics one by mouth three times daily. The patient had started that medication; however, continued to have significant amounts of diarrhea and infectious stools. It was then recommended that patient have a consultation for stool transplant. On 12/26/2016, Dr. Dilip Muhammad consulted and advised to continue with a stool transplant to reverse her Clostridium difficile induced diarrhea. The patient underwent the stool transplant on 12/26/2016 and tolerated that well. The patient has had some complaints of swelling to the lower extremities. Her Lasix was resumed; however, it is at a decreased dose secondary to some increased creatinine values while she has been here in the facility. She was noted to have significant anemia on 12/29/2016 and in need of a transfusion of 2 units of packed red cells. Hemoglobin improved from 8 to 11.8 after two units. She did tolerate that well. She did receive some diuresis in between with Lasix 20 mg IV. The patient does admit that she uses Procrit on an outpatient basis with her lcsw in [place]; however, the patient is unable to verbalize why that was stopped. The patient has had some significant tachycardia intermittently in the facility. This is usually associated with some form of shortness of breath. She has normalized back out within the last 72 hours and heart rate has not gone above 120. The patient's oxygen saturation has remained stable in the 90% to 93% range on 2 to 3 liters nasal cannula, which is what patient uses baseline at home. IMAGING: The patient has had multiple images throughout her hospitalization including multiple chest x-rays. She had a head CT on day of presentation which proved small vessel ischemic disease and minimal volume loss. The patient had CT of the chest on presentation as well which proved her right lower lobe pneumonia. The patient did have a knee x-ray after complaints of knee pain with no fracture noted. Hip and pelvis x-ray was completed which was also negative. The patient had a vascular ultrasound on 12/15/2016 to rule out deep vein thrombosis (DVT) due to some left lower extremity swelling and pain. The patient was negative for DVT. The patient also had a Duplex of the right upper extremity secondary to redness in venous cord questioning venous thrombosis. This was also proved negative. CONSULTATIONS: 1. Dr. Sasha Farnsworth. 2. Dr. Dilip Muhammad. 3. Dr. Brian De La Fuente for knee pain. PHYSICAL EXAMINATION: Today, vital signs are stable. She is afebrile. HEENT: Neck is supple, without lymphadenopathy or jugular venous distention (JVD). CARDIOVASCULAR: Heart rate and rhythm are regular. PULMONARY: Lungs are clear to auscultation bilaterally with diminished breath sounds bibasilar. ABDOMEN: Soft and nontender. BILATERAL LOWER EXTREMITIES: Show trace dependent edema to the left lower extremity, otherwise legs are without edema. She has positive pedal pulses palpable bilaterally. NEUROLOGIC: She is alert and oriented times three. No resting tremors appreciated. PSYCHIATRIC: Affect is flat. The patient is mildly restricted; however, this is her baseline personality. ASSESSMENT/DISCHARGE DIAGNOSES: 1. Right lower lobe pneumonia secondary to Staphylococcus aureus and Klebsiella pneumoniae. 2. Clostridium difficile diarrhea. 3. Status post multiple falls. 4. Knee pain. 5. Anemia. 6. Chronic obstructive pulmonary disease. 7. Mixed systolic and diastolic congestive heart failure. SECONDARY DIAGNOSES: 1. Coronary artery disease. 2. Hypertension. 3. Spinal stenosis. 4. Migraines. 5. Gastroesophageal reflux disease. 6. Irritable bowel syndrome. 7. Peripheral artery disease. 8. Left renal artery stenosis. 9. Vitamin D deficiency. 10. Chronic kidney disease Stage III. 11. Hyperlipidemia. 12. 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 13. Chronic anxiety. 14. Rheumatoid arthritis with inflammatory arthritis. 15. Hypothyroidism. 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 PLAN: The patient will be discharged with home health, including nursing and physical therapy (PT). The patient is agreeable to accepting that help in her home. Diet is 2 gram sodium. Activity is out of bed with her three wheeled walker. The patient will follow up with her primary care provider (PCP) within the next 5-7 days. The patient was encouraged to follow up with her lcsw to review whether resuming her Procrit is appropriate given her recent anemia. The patient will followup with [facility] as needed for her knee pain. MEDICATIONS: - methylprednisolone 4 mg tablets, 1-1/2 tablets by mouth daily, taper is to be provided by patient's electrical service technician - hydrocodone with acetaminophen 10/325 one tablet by mouth four times a day - albuterol sulfate HFA 2 puffs four times a day as needed shortness of breath - albuterol sulfate 2.5 mg/3 mL via nebulizer twice a day - allopurinol 300 mg by mouth daily - amlodipine 10 mg by mouth daily - aspirin 81 mg one by mouth daily - carvedilol 3.125 mg by mouth twice a day - cyclobenzaprine 10 mg by mouth three times a day - Benadryl 25 mg by mouth daily - Breo Ellipta 1 puff daily - furosemide 20 mg by mouth every morning - gabapentin 600 mg by mouth three times a day - hydroxychloroquine sulfate 200 mg by mouth daily - lactobacillus 1 tablet by mouth twice a day - levothyroxine sodium 50 mcg by mouth every morning - loperamide 2 mg by mouth every 4 hours as needed for diarrhea - magnesium chloride 64 mg by mouth daily - milk of magnesia 30 mL by mouth twice a day as needed constipation - morphine sulfate 15 mg by mouth every 6 hours as needed for pain - multivitamin 1 daily - Nystatin powder topically weekly as needed for rash - Nystatin swish and swallow 5 mL twice a day as needed thrush - pantoprazole sodium 40 mg by mouth at bedtime - potassium chloride 10 mEq tablets two by mouth twice a day - ropinirole ER 8 mg by mouth at bedtime - Spironolactone 25 mg by mouth at bedtime - sumatriptan succinate 50 mg by mouth daily as needed migraine - vitamin D 50,000 international units by mouth weekly The patient is discharged in stable and satisfactory condition with no further questions at time of discharge. [facility]
[2016-12-30] MEDS: BREO ELLIPTA INH SCH (09:57)
[2017-01-01] MEDS ORDERED: METH4TAB28 PO (15:46)
== END 2016-12-30 11:25 | disposition home health service (06) | DRG 178 ==
LOC: M ED 09:02 → M ED INP 16:06 → M MSPAV 17:43
PROVIDERS: ADMIT Hospitalist; ATTEND Family Medicine
PROC: 0DJD8ZZ Inspection of Lower Intestinal Tract, Via Natural or Artificial Opening Endoscopic (ICD-10-PCS; principal; 2016-12-26 15:00)
PROC: 30233N1 Transfusion of Nonautologous Red Blood Cells into Peripheral Vein, Percutaneous Approach (ICD-10-PCS; 2016-12-29)
DX: J15.0 Pneumonia due to Klebsiella pneumoniae (principal); J44.0 Chronic obstructive pulmonary disease with (acute) lower respiratory infection; B37.0 Candidal stomatitis; I50.42 Chronic combined systolic (congestive) and diastolic (congestive) heart failure; L03.115 Cellulitis of right lower limb; A04.71 Enterocolitis due to Clostridium difficile, recurrent; I13.0 Hypertensive heart and chronic kidney disease with heart failure and stage 1 through stage 4 chronic kidney disease, or unspecified chronic kidney disease; J44.1 Chronic obstructive pulmonary disease with (acute) exacerbation; J84.10 Pulmonary fibrosis, unspecified; J15.211 Pneumonia due to Methicillin susceptible Staphylococcus aureus; K21.9 Gastro-esophageal reflux disease without esophagitis; M10.9 Gout, unspecified; I73.9 Peripheral vascular disease, unspecified; I25.10 Atherosclerotic heart disease of native coronary artery without angina pectoris; N18.3 Chronic kidney disease, stage 3 (moderate); F41.9 Anxiety disorder, unspecified; E55.9 Vitamin D deficiency, unspecified; E78.5 Hyperlipidemia, unspecified; D64.9 Anemia, unspecified; G43.909 Migraine, unspecified, not intractable, without status migrainosus; I70.1 Atherosclerosis of renal artery; Z79.899 Other long term (current) drug therapy; Z79.52 Long term (current) use of systemic steroids; Z88.8 Allergy status to other drugs, medicaments and biological substances; Z88.2 Allergy status to sulfonamides; Z91.040 Latex allergy status; M06.9 Rheumatoid arthritis, unspecified; E03.9 Hypothyroidism, unspecified; Z96.651 Presence of right artificial knee joint; K57.30 Diverticulosis of large intestine without perforation or abscess without bleeding

== ENCOUNTER 2017-01-07 09:03 | Outpatient (RCR) | payer MEDICARE ==
[~2017-01-07 09:03] MED LIST changes: +HYDR200T3 PO; +MEDR4TAB PO; +METH4TAB28 PO; +SPIR25TA2 PO
[2017-01-13] MEDS ORDERED: GABA-283 PO (12:34)
[2017-01-13] MEDS ORDERED: FURO20TA2 PO (12:34)
== END 2017-02-05 ==
LOC: M CR 09:03
PROVIDERS: ATTEND Family Medicine
DX: Z51.89 Encounter for other specified aftercare (principal); I21.4 Non-ST elevation (NSTEMI) myocardial infarction; I25.10 Atherosclerotic heart disease of native coronary artery without angina pectoris
CPT/HCPCS: 92610; G8988; G8996; G8997

== ENCOUNTER → 2017-02-04 | Outpatient (REF) | payer MEDICARE ==
[~2017-02-04] MED LIST changes: +GABA-283 PO
== END ==
LOC: M SFHCADAM 14:13
PROVIDERS: ATTEND Family Medicine
DX: N18.9 Chronic kidney disease, unspecified (principal); D63.8 Anemia in other chronic diseases classified elsewhere

== ENCOUNTER → 2017-02-05 | Outpatient (CLI) | payer MEDICARE ==
[2017-02-05 09:33] LABS: BASO # 0.1 10^3/uL (0.0-0.2); BASO % 0.3 % (0.0-1.0); EOS # 0.2 10^3/uL (0.0-0.50); EOS % 1.2 % (0.0-3.0); IMMATURE GRANULOCYTE % 2.7 % (0-0); LYMPH # 1.2 10^3/uL (1.5-4.5); LYMPH % 6.8 % (24.0-44.0); MEAN CORPUSCULAR HEMOGLOBIN 28.9 pg (27.0-33.0); MEAN CORPUSCULAR VOLUME 93.2 fl (80.0-96.0); MONO # 0.9 10^3/uL (0.0-0.8); NEUTROPHILS # 15.2 10^3/uL (1.8-7.7); PLATELET COUNT, AUTOMATED 370 10^3/uL (150-450); RED CELL DISTRIBUTION WIDTH 17.3 % (11.5-14.5); WHITE BLOOD COUNT 18.1 10^3/uL (4.0-10.0)
[2017-02-05 09:53] LABS: CALCIUM LEVEL 9.5 MG/DL (8.8-10.2); CREATININE FOR GFR 1.13 MG/DL (0.55-1.02); GLOMERULAR FILTRATION RATE 50.2 (>39); POTASSIUM SERUM 4.8 MEQ/L (3.5-5.1)
== END ==
LOC: M LAB 08:25
PROVIDERS: ATTEND Family Medicine
DX: N18.3 Chronic kidney disease, stage 3 (moderate) (principal); D63.1 Anemia in chronic kidney disease

== ENCOUNTER → 2017-02-05 | Outpatient (CLI) | payer MEDICARE ==
[2017-02-05 09:54] LABS: ALBUMIN 3.1 GM/DL (3.2-5.2); CALCIUM LEVEL 9.4 MG/DL (8.8-10.2); CREATININE FOR GFR 1.21 MG/DL (0.55-1.02); GLOMERULAR FILTRATION RATE 46.4 (>39); MAGNESIUM LEVEL 1.9 MG/DL (1.8-2.4); PHOSPHORUS LEVEL 4.2 MG/DL (2.5-4.9); POTASSIUM SERUM 4.9 MEQ/L (3.5-5.1); URIC ACID 4.6 MG/DL (2.6-6.0)
== END ==
LOC: M LAB 09:20
PROVIDERS: ATTEND Internal Medicine Nephrology
DX: N18.3 Chronic kidney disease, stage 3 (moderate) (principal); M10.9 Gout, unspecified; D63.1 Anemia in chronic kidney disease

== ENCOUNTER → 2017-02-15 | Outpatient (CLI) | payer MEDICARE ==
[~2017-02-15] MED LIST changes: +DIAZ1CON PO; +MORP20SO PO
--- NOTE | 2017-02-16 07:20 | REP ---
REASON: Pain after trauma. AP and lateral views of the right forearm were obtained. FINDINGS: No acute fracture or destructive osseous lesion. A forearm series does not rule out a wrist or elbow fracture. Signed by David Mott DO 02/16/2017 02:06 P
--- NOTE | 2017-02-16 07:21 | REP ---
REASON: Pain after trauma. There are no prior elbow series for comparison. The exam is limited by three views. A trauma series consists of four views. Although no fracture is seen on this limited exam, a fracture cannot be completely ruled out nor can a slight joint effusion. The bones are demineralized and there are chronic changes. Signed by David Mott DO 02/16/2017 02:06 P
== END ==
LOC: M LRY 15:13
PROVIDERS: ATTEND Nurse Practitioner Family
DX: M79.631 Pain in right forearm (principal); S59.901A Unspecified injury of right elbow, initial encounter; M85.821 Other specified disorders of bone density and structure, right upper arm; W19.XXXA Unspecified fall, initial encounter; X58.XXXA Exposure to other specified factors, initial encounter; Y92.9 Unspecified place or not applicable; Y93.9 Activity, unspecified

== ENCOUNTER 2017-02-16 05:53 | Inpatient (IN) | payer MEDICARE ==
[~2017-02-16] VITALS: Ht 149.9 cm; Wt 43.5 kg
[~2017-02-16 05:53] MED LIST changes: -DIAZ1CON PO; -MORP20SO PO
[2017-02-16] MEDS ORDERED: DIAZ1CON PO (06:06)
[2017-02-16] MEDS ORDERED: MORP20SO PO (06:06)
[2017-02-16] MEDS ORDERED: NS 1,000 ML IV SCH (06:43)
[2017-02-16] MEDS ORDERED: NS 500 ML IV SCH (06:50)
[2017-02-16 07:42] LABS: BASO # 0.1 10^3/uL (0.0-0.2); BASO % 0.2 % (0.0-1.0); LYMPH # 0.4 10^3/uL (1.5-4.5); LYMPH % 1.2 % (24.0-44.0); MEAN CORPUSCULAR HEMOGLOBIN 29.5 pg (27.0-33.0); MEAN CORPUSCULAR HGB CONC 31.4 g/dl (32.0-36.5); MONO # 0.4 10^3/uL (0.0-0.8); MONO % 1.3 % (0.0-5.0); NEUTROPHILS % 96.3 % (36.0-66.0); PLATELET COUNT, AUTOMATED 396 10^3/uL (150-450); RED CELL DISTRIBUTION WIDTH 17.1 % (11.5-14.5); WHITE BLOOD COUNT 29.6 10^3/uL (4.0-10.0)
--- NOTE | 2017-02-16 07:50 | REPUSA ---
CLINICAL HISTORY: Trauma. TECHNIQUE: Multiple axial CT images were obtained through the brain without IV contrast material. COMMENTS: There is normal configuration of sella turcica. There are no intra or extra-axial collections. There is no mass effect or midline shift. There is no evidence of hematoma formation. No hydrocephalus is p resent. The ventricles are symmetrical. No abnormal calcifications are present. There is diffuse age-appropriate cerebellar and cerebral atrophy with proportionally dilated ventricl es and cortical sulci. There are bilateral periventricular and subcortical white matter hypolucencies compatible with mild c hronic microvascular disease. Otherwise, no significant focal abnormalities are seen either in the posterior fossa or supratentoria l compartment. IMPRESSION: 1. Age-appropriate cerebellar and cerebral atrophy. 2. Mild chronic microvascular disease. 3. No evidence of acute intracranial pathology. Thank you for your kind referral of this patient.
[2017-02-16 08:05] LABS: ALBUMIN 2.7 GM/DL (3.2-5.2); ALBUMIN/GLOBULIN RATIO 0.61 (1.00-1.93); ALKALINE PHOSPHATASE 137 U/L (45-117); ALT/SGPT 21 U/L (12-78); ANION GAP 8 MEQ/L (8-16); AST/SGOT 18 U/L (7-37); BILIRUBIN,DIRECT 0.2 MG/DL (0.0-0.2); BILIRUBIN,TOTAL 0.6 MG/DL (0.2-1.0); BLOOD UREA NITROGEN 43 MG/DL (7-18); CALCIUM LEVEL 9.6 MG/DL (8.8-10.2); CARBON DIOXIDE LEVEL 30 MEQ/L (21-32); CHLORIDE LEVEL 99 MEQ/L (98-107); CREATININE FOR GFR 1.48 MG/DL (0.55-1.02); GLOMERULAR FILTRATION RATE 36.8 (>39); GLUCOSE, FASTING 123 MG/DL (83-110); POTASSIUM SERUM 4.2 MEQ/L (3.5-5.1); SODIUM LEVEL 137 MEQ/L (136-145); TOTAL PROTEIN 7.1 GM/DL (6.4-8.2)
--- NOTE | 2017-02-16 08:11 | REP ---
Portable chest, 07:29 a.m., single AP view, patient sitting: Comparisons are the PA and lateral chest dated 01/01/2017 and are PA and lateral chest dated 10/18/2016 and a remote PA and lateral chest dated 12/06/2014. There is a chest CT dated 2016. There are no focal infiltrates or pleural effusions. There is diffuse interstitial coarsening compatible with chronic interstitial lung disease. By CT there are biapical nodular densities and there are nodular densities in the right middle lobe and superior segment right lower lobe. The nodular density in the right upper lobe was hypermetabolic on a radionuclide PET scan dated 09/01/2013. There are bilateral shoulder arthroplasties. The nodular densities identified be by CT are not apparent on portable studies of the chest. There is somewhat obscured by the heavy interstitial markings are the PA and lateral views of the chest. Impression: No acute cardiopulmonary findings. Lung nodules are identified by CT but difficult to visualize on plain films. Bilateral shoulder arthroplasties. Internal fixation of the cervical spine. Signed by Oc Leonard MD 02/16/2017 08:03 A
--- NOTE | 2017-02-16 08:15 | REP ---
Right elbow three views: Comparison is 02/15/2017. There are three views on the prior study. There are three views on the current examination. The lateral view is only slightly flexed. There is a distal tip of an intramedullary lot in the distal humerus. This is unchanged. No acute fracture or dislocation is identified on the views presented. However, if there is continued clinical concern, I would recommend follow-up CT. Signed by Oc Leonard MD 02/16/2017 08:07 A
[2017-02-16 08:18] LABS: NEUTROPHILS # 28.5 10^3/uL (1.8-7.7); POSITIVE DIFF POS FLAG
[2017-02-16] MEDS ORDERED: IPRATROPIUM 0.5MG/ALBUTEROL 2.5MG INH SOL UD 3ML (DUONEB)(J7620) NEB ONE (08:45)
[2017-02-16 09:11] LABS: ABG BASE EXCESS -0.3 (-2.0-2.0); ABG PARTIAL PRESSURE CO2 50.1 mmHg (35.0-45.0); ABG PARTIAL PRESSURE O2 88.4 mmHg (75.0-100.0); ABG STANDARD HCO3 24.2 MEQ/L (22.0-26.0); ABG TOTAL CO2 27.5 MEQ/L (23.0-31.0); ABG pH (ARTERIAL) 7.333 UNITS (7.350-7.450)
[2017-02-16] MEDS ORDERED: GABA-283 PO (13:23)
[2017-02-16] MEDS ORDERED: LASI20TA PO (13:23)
[2017-02-16] MEDS ORDERED: VALI5TAB PO (13:34)
[2017-02-16] MEDS ORDERED: MORP15TA2 PO (13:34)
--- NOTE | 2017-02-16 14:10 | REP ---
Survey seen in the CT of the abdomen and pelvis without IV or bowel contrast: Comparison is 01/04/2017. The visualized lower lung hoffman demonstrate fibrotic appearing changes in the lower lobes and atelectasis versus scarring in the middle lobe. The unenhanced hepatic parenchyma is unremarkable. There is significant beam-hardening artifact is resulting in image degradation from lumbar spine. Pedicle screws and stabilization rods. The gallbladder is not distended. There is no gallbladder wall thickening or pericholecystic fluid. No gallbladder calculi are identified. There is no intrahepatic or extrahepatic biliary duct dilatation. The common duct measures 7.6 cm in diameter which is normal for patient age. The pancreas is normal to atrophic size. No focal pancreatic mass is identified. However, the pancreatic duct and can appears to be dilated measuring up to 4 mm in diameter (5 mm on the comparison study). There is no evidence of pancreatitis or pancreatic mass. Spleen is homogeneous and normal size. The adrenals are unremarkable. There is moderate bilateral renal cortical atrophy, not unusual for patient age. There is no hydronephrosis. There is a 2 ml nonobstructive calculus at the lower pole right kidney, unchanged. There are no left renal calculi. The abdominal aorta is tortuous and contains occasional calcified atheroma, however there is no aneurysm. There is no bowel distension or obstruction. There are a few diverticula in the proximal sigmoid colon compatible diverticulosis. There is no CT evidence radiculitis. There is no ascites or adenopathy. Pelvis: The bladder is unremarkable. The the patient indicates she has an appendectomy and hysterectomy. Vaginal cuff and adnexa are unremarkable. The bladder is distended but otherwise unremarkable. There is no pelvic adenopathy or ascites. Impression: No significant interval change. There is diverticulosis without diverticulitis. There is a nonobstructive right renal 2 mm lower pole calculus. The pancreatic duct is dilated measuring up to 4 mm (5 ml previously), without evidence of pancreatitis or pancreatic mass. Signed by Oc Leonard MD 02/16/2017 02:01 P
[2017-02-16] MEDS ORDERED: MORPHINE 4 MG/ML 1ML SYRINGE IV ONE (15:00)
[2017-02-16 16:00] VITALS: BP 115/55
[2017-02-16] MEDS ORDERED: ALBUTEROL 90 MCG/ACT 8GM HFA INHALER INH PRN (16:45)
[2017-02-16 17:00] VITALS: BP 115/55
[2017-02-16] MEDS: MORPHINE 30 MG TAB **MSIR PO PRN (18:11)
[2017-02-16] MEDS: HYDROXYCHLOROQUINE 200 MG TAB PO SCH (18:16)
--- NOTE | 2017-02-16 18:44 | HPE ---
DATE OF ADMISSION: 02/16/2017 Patient's history and physical is generated through the office electronic medical record and not dictated.
--- NOTE | 2017-02-16 19:22 | ECGEPIP ---
Stationary ECG Study [facility] - ED Test Date: 2017-02-16 Pat Name: NICOLA KU Department: Room: - Gender: F [employer] Hel[employer]: CORBY : 1945 Requested By: EDDIE JOHNSON PA-C. Order Number: [id number] Reading MD: Maribel Curtis Measurements Intervals [place] Rate: 103 P: 74 OR: 192 QRS: 43 QRSD: 86 T: 71 QT: 330 QTc: 434 Interpretive Statements SINUS TACHYCARDIA NONSPECIFIC T-WAVE ABNORMALITY DELAYED R PROGRESSION ABNORMAL RHYTHM ECG DECREASED RATE 01/01/17 Electronically Signed On 02-16-2017 19:22:12 EST by Maribel Curtis
[2017-02-16] MEDS ORDERED: FUROSEMIDE 20 MG TAB PO SCH (21:00)
[2017-02-16] MEDS ORDERED: SPIRONOLACTONE 25 MG TAB PO SCH (21:00)
[2017-02-16 22:00] VITALS: BP 103/53
[2017-02-16] MEDS: HEPARIN SOD (PORCINE) 5000 UNITS/ML VIAL SC SCH (22:00)
[2017-02-16] MEDS: GABAPENTIN 400 MG CAP PO SCH (23:22)
[2017-02-16] MEDS: PANTOPRAZOLE 40MG TAB (PROTONIX) PO SCH (23:23)
[2017-02-16] MEDS: LACTOBACILLUS ACIDOPHILUS CAP (BACID) PO SCH (23:23)
[2017-02-16] MEDS: CYCLOBENZAPRINE 10 MG TAB PO SCH (23:24)
[2017-02-16] MEDS: CARVedilol 3.125 MG TAB PO SCH (23:24)
[2017-02-17 05:45] LABS: BASO % 0.1 % (0.0-1.0); EOS # 0.2 10^3/uL (0.0-0.50); EOS % 0.9 % (0.0-3.0); LYMPH # 0.4 10^3/uL (1.5-4.5); LYMPH % 1.8 % (24.0-44.0); MEAN CORPUSCULAR HEMOGLOBIN 29.4 pg (27.0-33.0); MEAN CORPUSCULAR HGB CONC 31.4 g/dl (32.0-36.5); MEAN CORPUSCULAR VOLUME 93.5 fl (80.0-96.0); MONO # 0.7 10^3/uL (0.0-0.8); MONO % 2.9 % (0.0-5.0); NEUTROPHILS # 21.6 10^3/uL (1.8-7.7); NEUTROPHILS % 93.3 % (36.0-66.0); PLATELET COUNT, AUTOMATED 338 10^3/uL (150-450); RED CELL DISTRIBUTION WIDTH 17.1 % (11.5-14.5); WHITE BLOOD COUNT 23.2 10^3/uL (4.0-10.0)
[2017-02-17 06:00] VITALS: BP 100/71
[2017-02-17] MEDS: HEPARIN SOD (PORCINE) 5000 UNITS/ML VIAL SC SCH ×2 (06:00→14:00)
[2017-02-17] MEDS: LEVOTHYROXINE 50MCG TABLET (0.05MG) PO SCH (06:07)
[2017-02-17 06:08] LABS: CALCIUM LEVEL 9.3 MG/DL (8.8-10.2); CREATININE FOR GFR 1.06 MG/DL (0.55-1.02); GLOMERULAR FILTRATION RATE 54.1 (>39); POTASSIUM SERUM 4.1 MEQ/L (3.5-5.1)
[2017-02-17] MEDS: GABAPENTIN 400 MG CAP PO SCH ×3 (06:12→20:24)
[2017-02-17] MEDS: methylPREDNISolone 4 MG TAB PO SCH (09:00)
[2017-02-17] MEDS: amLODIPine 10 MG TAB PO SCH (09:00)
[2017-02-17] MEDS: LACTOBACILLUS ACIDOPHILUS CAP (BACID) PO SCH ×3 (09:00→20:24)
[2017-02-17] MEDS: CYCLOBENZAPRINE 10 MG TAB PO SCH ×3 (09:00→20:24)
[2017-02-17] MEDS: HYDROXYCHLOROQUINE 200 MG TAB PO SCH (09:00)
[2017-02-17] MEDS: CARVedilol 3.125 MG TAB PO SCH ×2 (09:00→20:31)
[2017-02-17] MEDS: MAGNESIUM CHLORIDE 64 MG TABCR (SLO MAG) PO SCH (09:00)
[2017-02-17] MEDS: ASPIRIN 81 MG ENTERIC TAB PO SCH (09:00)
[2017-02-17] MEDS: ALLOPURINOL 300 MG TAB PO SCH (09:00)
--- NOTE | 2017-02-17 10:21 | IPNPDOC ---
Subjective Date Seen The patient was seen on 02/17/17. Subjective Chief Complaint/HPI The patient is a 71-year-old female admitted with a reason for visit of Abd Pain Frequent Falls. Events since last encounter Pt without new concerns. She denies pain at this time. General: Denies: Fatigue Constitutional: Denies: Chills Pulmonary: Denies: Dyspnea, Cough Cardiovascular: Denies: Chest Pain, Palpitations Gastrointestinal: Denies: Nausea, Vomiting, Abdominal Pain, Diarrhea Neurological: Denies: Numbness Psych: Reports: Mood Normal Objective Physical Examination General Exam: Positive: Alert, Cooperative, No Acute Distress Chest Exam: Positive: Clear to auscultation, Diminished Heart Exam: Positive: Rate Normal, Normal S1, Normal S2 Abdomen Exam: Positive: Normal bowel sounds, Soft, Negative: Tenderness Extremity Exam: Negative: Edema Skin Exam: Positive: Nl turgor and temperature, Other skin issue (large eccymosis to forehead with bandage) Assessment /Plan Problems (1) Frequent falls Status: Chronic Response to Treatment: Stable Problem Specific Plan: Monitor Clinically Problem Text: PT/OT ordered, pt would benefit from AL, however has refused in the past, will cont to work with her on this. PFS is aware. (2) Forehead laceration Status: Acute Response to Treatment: Stable Problem Specific Plan: Monitor Clinically (3) Abdominal pain Status: Acute Response to Treatment: Stable, Improving Discussed With: Patient Problem Specific Plan: Monitor Clinically Problem Text: LUQ pain assoc with fall, improved. No acute findings on CT. JFW: WBC lower, exam shows less tenderness. Had recent microbiota transfer for C diff colitis, I don't think this represents recurrence of colitis but watching closely (4) ARF (acute renal failure) Onset Date: 09/08/2013 Status: Acute Response to Treatment: Improving Problem Specific Plan: Repeat Labs Problem Text: GFR improved, cont IVF and serial lab monitoring Plan/VTE VTE Prophylaxis Ordered?: Yes VS, I&O, 24H, Fishbone Vital Signs/I&O Vital Signs Date Time Temp Pulse Resp B/P (MAP) Pulse Ox O2 Delivery O2 Flow Rate FiO2 02/17/17 06:00 97.6 74 20 100/71 (81) 95 Nasal Cannula 2.0 I&O- Last 24 Hours up to 6 AM 02/18/17 06:00 Intake Total 0 ml Balance 0 ml Laboratory Data 24H LABS Laboratory Tests 2 12/12/17 05:24: Immature Granulocyte % (Auto) 1.0H, White Blood Count 23.2H, Red Blood Count 3.54L, Hemoglobin 10.4L, Hematocrit 33.1L, Mean Corpuscular Volume 93.5, Mean Corpuscular Hemoglobin 29.4, Mean Corpuscular Hemoglobin Concent 31.4L, Red Cell Distribution Width 17.1H, Platelet Count 338, Neutrophils (%) (Auto) 93.3H , Lymphocytes (%) (Auto) 1.8L, Monocytes (%) (Auto) 2.9, Eosinophils (%) (Auto) 0.9, Basophils (%) (Auto) 0.1, Neutrophils # (Auto) 21.6H, Lymphocytes # (Auto) 0.4L, Monocytes # (Auto) 0.7, Eosinophils # (Auto) 0.2, Basophils # (Auto) 0.0, Immature Granulocyte # (Auto) 0.2H, Nucleated Red Blood Cells % (auto) 0.0, Anion Gap 7L, Glomerular Filtration Rate 54.1, Blood Urea Nitrogen 31H, Creatinine 1.06H, Sodium Level 139, Potassium Level 4.1, Chloride Level 102, Carbon Dioxide Level 30, Calcium Level 9.3 CBC/BMP Laboratory Tests 02/17/17 05:24 Red Blood Count 3.54 L, Mean Corpuscular Volume 93.5, Mean Corpuscular Hemoglobin 29.4, Mean Corpuscular Hemoglobin Concent 31.4 L, Red Cell Distribution Width 17.1 H, Neutrophils (%) (Auto) 93.3 H, Lymphocytes (%) (Auto ) 1.8 L, Monocytes (%) (Auto) 2.9, Eosinophils (%) (Auto) 0.9, Basophils (%) ( Auto) 0.1, Neutrophils # (Auto) 21.6 H, Lymphocytes # (Auto) 0.4 L, Monocytes # (Auto) 0.7, Eosinophils # (Auto) 0.2, Basophils # (Auto) 0.0, Calcium Level 9.3 Microbiology Microbiology 02/16/17 Urine Culture, Received Pending SYBIL GIANG PA-C Feb 17, 2017 10:21 Christoph Gusman MD Feb 17, 2017 14:57
[2017-02-17 14:00] VITALS: BP 130/57
[2017-02-17] MEDS: MORPHINE 30 MG TAB **MSIR PO PRN (15:29)
[2017-02-17] MEDS: diphenhydrAMINE 25 MG CAP PO SCH (15:33)
[2017-02-17] MEDS: ENOXAPARIN 30 MG/0.3 ML SYR (J1650) SC SCH (17:31)
[2017-02-17] MEDS: PANTOPRAZOLE 40MG TAB (PROTONIX) PO SCH (20:24)
[2017-02-17] MEDS: ROPINIROLE 8 MG PO SCH (20:25)
[2017-02-17 22:00] VITALS: BP 105/57
[2017-02-18 06:00] VITALS: BP 116/64
[2017-02-18] MEDS: LEVOTHYROXINE 50MCG TABLET (0.05MG) PO SCH (06:11)
[2017-02-18] MEDS: GABAPENTIN 400 MG CAP PO SCH ×3 (06:11→21:03)
[2017-02-18 06:38] LABS: BASO % 0.2 % (0.0-1.0); IMMATURE GRANULOCYTE % 0.9 % (0-0); LYMPH # 0.4 10^3/uL (1.5-4.5); LYMPH % 1.5 % (24.0-44.0); MEAN CORPUSCULAR VOLUME 93.4 fl (80.0-96.0); MONO # 0.8 10^3/uL (0.0-0.8); MONO % 3.1 % (0.0-5.0); NEUTROPHILS # 23.5 10^3/uL (1.8-7.7); NEUTROPHILS % 94.3 % (36.0-66.0); PLATELET COUNT, AUTOMATED 336 10^3/uL (150-450); RED CELL DISTRIBUTION WIDTH 16.8 % (11.5-14.5); WHITE BLOOD COUNT 24.9 10^3/uL (4.0-10.0)
[2017-02-18 07:05] LABS: CREATININE FOR GFR 1.28 MG/DL (0.55-1.02); GLOMERULAR FILTRATION RATE 43.5 (>39); POTASSIUM SERUM 4.2 MEQ/L (3.5-5.1)
[2017-02-18] MEDS: [UNRECOGNIZED DRUG - OTHER] INH SCH (07:49)
--- NOTE | 2017-02-18 08:18 | IPNPDOC ---
Subjective Date Seen The patient was seen on 02/18/17. Subjective Chief Complaint/HPI The patient is a 71-year-old female admitted with a reason for visit of Abd Pain Frequent Falls. Events since last encounter denies abdominal pain, eating well. c/o muscular LEFT side pain and LEFT shoulder pain. Constitutional: Denies: Chills, Fever, Night Sweats Pulmonary: Denies: Dyspnea, Cough Cardiovascular: Denies: Chest Pain, Palpitations, Orthopnea, Paroxysmal Noc. Dyspnea, Lt Headedness Gastrointestinal: Denies: Nausea, Vomiting, Abdominal Pain, Diarrhea, Constipation Genitourinary: Denies: Dysuria, Frequency, Incontinence, Retention Psych: Reports: Mood Normal, Denies: Depression, Memory Issues Objective Physical Examination General Exam: Positive: Alert, Cooperative, No Acute Distress Chest Exam: Positive: Clear to auscultation, Diminished (bibasilar) Heart Exam: Positive: Rate Normal, Normal S1, Normal S2 Abdomen Exam: Positive: Normal bowel sounds, Soft, Negative: Tenderness Extremity Exam: Negative: Edema Skin Exam: Positive: Nl turgor and temperature, Other skin issue (large eccymosis to forehead with bandage, nited ecchymosis to legs from prior falls) Assessment /Plan Problems (1) Frequent falls Status: Chronic Response to Treatment: Stable Problem Specific Plan: Monitor Clinically Problem Text: PT/OT ordered, pt would benefit from AL, however has refused in the past, will cont to work with her on this. PFS is aware. (2) Forehead laceration Status: Acute Response to Treatment: Stable Problem Specific Plan: Monitor Clinically (3) Abdominal pain Status: Acute Response to Treatment: Stable, Improving Discussed With: Patient Problem Specific Plan: Monitor Clinically Problem Text: LUQ pain assoc with fall, improved. No acute findings on CT. JFW: WBC lower, exam shows less tenderness. Had recent microbiota transfer for C diff colitis, I don't think this represents recurrence of colitis but watching closely (4) ARF (acute renal failure) Onset Date: 09/08/2013 Status: Acute Response to Treatment: Improving Problem Specific Plan: Repeat Labs Problem Text: slight bump in Cr today to 1.28 from 1.06. encouraged po hydration with water, limit large amounts of coffee and iced tea GFR improved, cont IVF and serial lab monitoring (5) Anemia Status: Acute Problem Text: H/H trending down: 9.7. will eval stool for occult blood. may be related to CKDand hx of iron deficiency. monitor. Plan/VTE VTE Prophylaxis Ordered?: Yes VS, I&O, 24H, Fishbone Vital Signs/I&O Vital Signs Date Time Temp Pulse Resp B/P (MAP) Pulse Ox O2 Delivery O2 Flow Rate FiO2 02/18/17 06:00 98.1 66 18 116/64 (81) 95 Nasal Cannula 2.0 Laboratory Data 24H LABS Laboratory Tests 2 02/18/17 05:44: Immature Granulocyte % (Auto) 0.9H, White Blood Count 24.9H, Red Blood Count 3.35L, Hemoglobin 9.7L, Hematocrit 31.3L, Mean Corpuscular Volume 93.4, Mean Corpuscular Hemoglobin 29.0, Mean Corpuscular Hemoglobin Concent 31.0L, Red Cell Distribution Width 16.8H, Platelet Count 336, Neutrophils (%) (Auto) 94.3H , Lymphocytes (%) (Auto) 1.5L, Monocytes (%) (Auto) 3.1, Eosinophils (%) (Auto) 0.0, Basophils (%) (Auto) 0.2, Neutrophils # (Auto) 23.5H, Lymphocytes # (Auto) 0.4L, Monocytes # (Auto) 0.8, Eosinophils # (Auto) 0.0, Basophils # (Auto) 0.0, Immature Granulocyte # (Auto) 0.2H, Nucleated Red Blood Cells % (auto) 0.0, Anion Gap 9, Glomerular Filtration Rate 43.5, Blood Urea Nitrogen 40H, Creatinine 1.28H, Sodium Level 134L, Potassium Level 4.2, Chloride Level 99, Carbon Dioxide Level 26, Calcium Level 9.0 CBC/BMP Laboratory Tests 02/18/17 05:44 Red Blood Count 3.35 L, Mean Corpuscular Volume 93.4, Mean Corpuscular Hemoglobin 29.0, Mean Corpuscular Hemoglobin Concent 31.0 L, Red Cell Distribution Width 16.8 H, Neutrophils (%) (Auto) 94.3 H, Lymphocytes (%) (Auto ) 1.5 L, Monocytes (%) (Auto) 3.1, Eosinophils (%) (Auto) 0.0, Basophils (%) ( Auto) 0.2, Neutrophils # (Auto) 23.5 H, Lymphocytes # (Auto) 0.4 L, Monocytes # (Auto) 0.8, Eosinophils # (Auto) 0.0, Basophils # (Auto) 0.0, Calcium Level 9.0 Microbiology Microbiology 02/16/17 Urine Culture, Received Pending Domonique Olivo [facility] [place] Feb 18, 2017 08:17
[2017-02-18] MEDS: methylPREDNISolone 4 MG TAB PO SCH (09:57)
[2017-02-18] MEDS: ASPIRIN 81 MG ENTERIC TAB PO SCH (09:58)
[2017-02-18] MEDS: LACTOBACILLUS ACIDOPHILUS CAP (BACID) PO SCH ×3 (09:58→21:03)
[2017-02-18] MEDS: ALLOPURINOL 300 MG TAB PO SCH (09:58)
[2017-02-18] MEDS: CYCLOBENZAPRINE 10 MG TAB PO SCH ×3 (09:58→21:04)
[2017-02-18] MEDS: CARVedilol 3.125 MG TAB PO SCH ×2 (09:58→21:09)
[2017-02-18] MEDS: HYDROXYCHLOROQUINE 200 MG TAB PO SCH (09:58)
[2017-02-18] MEDS: amLODIPine 10 MG TAB PO SCH (09:59)
[2017-02-18] MEDS: MAGNESIUM CHLORIDE 64 MG TABCR (SLO MAG) PO SCH (09:59)
[2017-02-18 14:00] VITALS: BP 123/56
[2017-02-18] MEDS: diphenhydrAMINE 25 MG CAP PO SCH (16:56)
[2017-02-18] MEDS: ENOXAPARIN 30 MG/0.3 ML SYR (J1650) SC SCH (16:57)
[2017-02-18] MEDS: ROPINIROLE 8 MG PO SCH (21:00)
[2017-02-18] MEDS: PANTOPRAZOLE 40MG TAB (PROTONIX) PO SCH (21:04)
[2017-02-18] MEDS ORDERED: NORCO, ANEXSIA 5/325MG TABLET (HYDROcodone/ACETAMINOPHEN) PO ONE (21:05)
[2017-02-18 22:00] VITALS: BP 127/58
[2017-02-18] MEDS ORDERED: IPRATROPIUM 0.02% SOLN 0.5MG/2.5 ML NEB INH PRN (22:00)
[2017-02-18] MEDS ORDERED: ALBUTEROL SULFATE 2.5 MG/0.5 ML INH NEB SOLN NEB PRN (22:00)
[2017-02-18] MEDS: IPRATROPIUM 0.02% SOLN 0.5MG/2.5 ML NEB INH SCH (23:49)
[2017-02-18] MEDS: ALBUTEROL SULFATE 2.5 MG/0.5 ML INH NEB SOLN NEB SCH (23:49)
[2017-02-19] MEDS: NORCO, ANEXSIA 5/325MG TABLET (HYDROcodone/ACETAMINOPHEN) PO SCH ×4 (00:47→17:58)
[2017-02-19] MEDS: LEVOTHYROXINE 50MCG TABLET (0.05MG) PO SCH (05:43)
[2017-02-19 06:00] VITALS: BP 101/51
[2017-02-19 06:27] LABS: BASO % 0.1 % (0.0-1.0); EOS # 0.1 10^3/uL (0.0-0.50); EOS % 0.3 % (0.0-3.0); IMMATURE GRANULOCYTE % 0.9 % (0-0); LYMPH # 0.5 10^3/uL (1.5-4.5); LYMPH % 2.3 % (24.0-44.0); MEAN CORPUSCULAR HEMOGLOBIN 29.2 pg (27.0-33.0); MEAN CORPUSCULAR HGB CONC 30.7 g/dl (32.0-36.5); MEAN CORPUSCULAR VOLUME 95.1 fl (80.0-96.0); MONO # 0.9 10^3/uL (0.0-0.8); MONO % 4.6 % (0.0-5.0); NEUTROPHILS # 17.6 10^3/uL (1.8-7.7); NEUTROPHILS % 91.8 % (36.0-66.0); PLATELET COUNT, AUTOMATED 335 10^3/uL (150-450); RED CELL DISTRIBUTION WIDTH 16.7 % (11.5-14.5); WHITE BLOOD COUNT 19.2 10^3/uL (4.0-10.0)
[2017-02-19 06:35] LABS: CALCIUM LEVEL 9.3 MG/DL (8.8-10.2); CREATININE FOR GFR 1.1 MG/DL (0.55-1.02); GLOMERULAR FILTRATION RATE 51.8 (>39); POTASSIUM SERUM 3.8 MEQ/L (3.5-5.1)
[2017-02-19] MEDS: GABAPENTIN 400 MG CAP PO SCH ×3 (07:23→20:26)
[2017-02-19] MEDS: ALBUTEROL SULFATE 2.5 MG/0.5 ML INH NEB SOLN NEB SCH ×2 (07:39→19:36)
[2017-02-19] MEDS: IPRATROPIUM 0.02% SOLN 0.5MG/2.5 ML NEB INH SCH ×2 (07:40→19:36)
[2017-02-19] MEDS: [UNRECOGNIZED DRUG - OTHER] INH SCH (07:41)
[2017-02-19] MEDS: LACTOBACILLUS ACIDOPHILUS CAP (BACID) PO SCH ×3 (09:32→20:27)
[2017-02-19] MEDS: MAGNESIUM CHLORIDE 64 MG TABCR (SLO MAG) PO SCH (09:32)
[2017-02-19] MEDS: HYDROXYCHLOROQUINE 200 MG TAB PO SCH (09:32)
[2017-02-19] MEDS: ALLOPURINOL 300 MG TAB PO SCH (09:32)
[2017-02-19] MEDS: CARVedilol 3.125 MG TAB PO SCH ×2 (09:32→20:27)
[2017-02-19] MEDS: ASPIRIN 81 MG ENTERIC TAB PO SCH (09:32)
[2017-02-19] MEDS: amLODIPine 10 MG TAB PO SCH (09:33)
[2017-02-19] MEDS: CYCLOBENZAPRINE 10 MG TAB PO SCH ×3 (09:33→20:27)
[2017-02-19] MEDS: methylPREDNISolone 4 MG TAB PO SCH (09:33)
--- NOTE | 2017-02-19 13:13 | IPN ---
DATE OF SERVICE: 02/19/2017 Diana was seen [facility]. Spent a lot of time talking to her son Tyron today. I answered all questions as well as his concerns. Clinically she is improved. Her abdominal pain has almost resolved. She had a decent bowel movement this morning, has felt better ever since then. I think her left lower quadrant pain was residual colitis from a recent Clostridium difficile infection. At this point, we are hoping that she will be able to go to rehabilitation. She needs some conditioning, short term rehabilitation before she can go home. PHYSICAL EXAMINATION: 125/58, pulse 97, respiratory rate 16, 90% oxygen saturation on 2 liters. General appearance; Frail, elderly, multiple bruises. She has a recent laceration on her forehead from where she fell. Has a dressing adherent to it. Lungs: Decreased breath sounds. Heart: Regular rhythm. Abdomen: Soft, slightly tender in left lower quadrant, much better than yesterday. No peripheral edema. LABS: White count 19,000, hemoglobin 9.6, platelets 335. Sodium 137, potassium 3.8, BUN 42, creatinine 1.1, glomerular filtration rate 51. Urinalysis shows over 100,000 colonies of Klebsiella pneumonia as well as group B strep. IMPRESSION: 1. Urinary tract infection. She has had recent severe Clostridium difficile colitis requiring stool transplant. She has over 100,000 colonies of both Klebsiella as well as group B strep. I am going to try to treat this with a dose of fosfomycin repeating the dose once in 2 days. That should reduce the chance that this will cause recurrence of her Clostridium difficile colitis. 2. Abdominal pain, this has resolved. I think it probably is from her colitis. 3. Weakness and debility. Hopefully she will be a candidate for short term rehabilitation. This was discussed with [facility] ([facility]).
[2017-02-19 14:00] VITALS: BP 126/51
[2017-02-19] MEDS ORDERED: FOSFOMYCIN TROMETHAMINE 3 GM POWDER PACKET (MONUROL) PO ONE (14:00)
[2017-02-19] MEDS: diphenhydrAMINE 25 MG CAP PO SCH (15:14)
[2017-02-19] MEDS: ENOXAPARIN 30 MG/0.3 ML SYR (J1650) SC SCH (17:57)
[2017-02-19] MEDS: PANTOPRAZOLE 40MG TAB (PROTONIX) PO SCH (20:27)
[2017-02-19] MEDS: ROPINIROLE 8 MG PO SCH (20:28)
[2017-02-19 22:00] VITALS: BP 132/61
[2017-02-20] MEDS: NORCO, ANEXSIA 5/325MG TABLET (HYDROcodone/ACETAMINOPHEN) PO SCH ×3 (00:37→13:15)
[2017-02-20 06:00] VITALS: BP 122/57
[2017-02-20] MEDS: GABAPENTIN 400 MG CAP PO SCH ×2 (06:02→13:15)
[2017-02-20] MEDS: LEVOTHYROXINE 50MCG TABLET (0.05MG) PO SCH (06:03)
[2017-02-20 06:35] LABS: BASO % 0.2 % (0.0-1.0); EOS # 0.2 10^3/uL (0.0-0.50); IMMATURE GRANULOCYTE % 1.3 % (0-0); LYMPH # 0.8 10^3/uL (1.5-4.5); LYMPH % 4.5 % (24.0-44.0); MEAN CORPUSCULAR HEMOGLOBIN 28.8 pg (27.0-33.0); MEAN CORPUSCULAR HGB CONC 30.8 g/dl (32.0-36.5); MEAN CORPUSCULAR VOLUME 93.6 fl (80.0-96.0); MONO # 0.8 10^3/uL (0.0-0.8); MONO % 4.8 % (0.0-5.0); NEUTROPHILS # 14.7 10^3/uL (1.8-7.7); NEUTROPHILS % 88.2 % (36.0-66.0); PLATELET COUNT, AUTOMATED 407 10^3/uL (150-450); WHITE BLOOD COUNT 16.6 10^3/uL (4.0-10.0)
[2017-02-20 06:57] LABS: CALCIUM LEVEL 9.9 MG/DL (8.8-10.2); CREATININE FOR GFR 0.97 MG/DL (0.55-1.02); GLOMERULAR FILTRATION RATE 59.9 (>39); POTASSIUM SERUM 3.8 MEQ/L (3.5-5.1)
[2017-02-20] MEDS: ALBUTEROL SULFATE 2.5 MG/0.5 ML INH NEB SOLN NEB SCH (07:09)
[2017-02-20] MEDS: [UNRECOGNIZED DRUG - OTHER] INH SCH (07:09)
[2017-02-20] MEDS: IPRATROPIUM 0.02% SOLN 0.5MG/2.5 ML NEB INH SCH (07:10)
[2017-02-20] MEDS: HYDROXYCHLOROQUINE 200 MG TAB PO SCH (08:18)
[2017-02-20] MEDS: LACTOBACILLUS ACIDOPHILUS CAP (BACID) PO SCH (08:18)
[2017-02-20] MEDS: CYCLOBENZAPRINE 10 MG TAB PO SCH (08:19)
[2017-02-20] MEDS: methylPREDNISolone 4 MG TAB PO SCH (08:19)
[2017-02-20] MEDS: ALLOPURINOL 300 MG TAB PO SCH (08:19)
[2017-02-20] MEDS: ASPIRIN 81 MG ENTERIC TAB PO SCH (08:19)
[2017-02-20] MEDS: MAGNESIUM CHLORIDE 64 MG TABCR (SLO MAG) PO SCH (08:20)
[2017-02-20] MEDS: amLODIPine 10 MG TAB PO SCH (08:21)
[2017-02-20 08:22] VITALS: BP 124/74
[2017-02-20] MEDS: CARVedilol 3.125 MG TAB PO SCH (08:22)
[2017-02-20] MEDS ORDERED: Patient Own Medication PO (13:14)
[2017-02-20] MEDS ORDERED: ASPI81TAEC PO (13:14)
[2017-02-20] MEDS ORDERED: NORCOTAB PO (13:14)
[2017-02-20] MEDS ORDERED: LOVE1INJ2 SC (13:14)
[2017-02-20] MEDS ORDERED: MEDR4TAB PO (13:14)
[2017-02-20] MEDS ORDERED: GABA-283 PO (13:14)
[2017-02-20] MEDS ORDERED: ALB2.5NEB NEB ×2 (13:14)
[2017-02-20] MEDS ORDERED: ZYLO300T4 PO (13:14)
[2017-02-20] MEDS ORDERED: CARV3.12 PO (13:14)
[2017-02-20] MEDS ORDERED: Fosfomycin Tromethamine PO (13:14)
[2017-02-20] MEDS ORDERED: VENTAER INH (13:14)
[2017-02-20] MEDS ORDERED: PANT40TA2 PO (13:14)
[2017-02-20] MEDS ORDERED: HYDR200T3 PO (13:14)
[2017-02-20] MEDS ORDERED: AMLO10TA2 PO (13:14)
[2017-02-20] MEDS ORDERED: DIPH25CA PO (13:14)
[2017-02-20] MEDS ORDERED: Patient Own Medication INH (13:14)
[2017-02-20] MEDS ORDERED: MAGN64TASA PO (13:14)
[2017-02-20] MEDS ORDERED: IPRA2IN INH ×2 (13:14)
[2017-02-20] MEDS ORDERED: CYCL10TA PO (13:14)
[2017-02-20] MEDS ORDERED: LEVO50TA5 PO (13:14)
[2017-02-20] MEDS ORDERED: RISATAB3 PO (13:14)
[2017-02-20 14:00] VITALS: BP 126/59
[2017-02-21] MEDS ORDERED: FOSFOMYCIN TROMETHAMINE 3 GM POWDER PACKET (MONUROL) PO ONE (12:00)
--- NOTE | 2017-02-27 12:11 | ECWPNAD ---
PATIENT NAME: NICOLA KU : 1945 GENDER: FEMALE VISIT DATE: 02/16/2017 DISCHARGE DATE: 02/16/17 0000 VISIT LOCKED DATE TIME: PHYSICIAN: LUIS TREVINO PHYSICIAN PAGER NO: [phone] RESOURCE: LUIS TREVINO REASON FOR APPOINTMENT 1. ADMIT H + P HISTORY OF PRESENT ILLNESS GENERAL: FELL 02/15, LANDED RT SIDE. HAS INC LLQ PAIN SINCE THEN. NEEDED IV MORPHINE IN ER FOR PAIN CONTROL. NO RECTAL BLEEDING, DID NOT STRIKE LEFT ABDOMEN. CURRENT MEDICATIONS TAKING MAY HAVE ' ' APPLY TO OUT SIDE OF NOSE ' THREE TIMES A DAY TAKING IPRATROPIUM BROMIDE 0.02 % SOLUTION 0.5 MG INHALATION QID TAKING MULTIVITAMINS OTC TABLET 1 TAB(S) ORALLY ONCE A DAY TAKING DIPHENHYDRAMINE HCL 25 MG TABLET 1 TABLET ORALLY THREE TIMES A DAY NEEDED TAKING MAY USE BROMO INHALER 1 PUFF ORALLY ONCE A DAY TAKING COMMODE BEDSIDE DX: M48.06 MISCELLANEOUS DIRECTED - DAILY TAKING FLEET ENEMA 7-19 GM/118ML ENEMA DIRECTED RECTAL TAKING BACK SUPPORT S/M - MISCELLANEOUS DIRECTED DX M48.07 DAILY TAKING HOSPITAL BED(ADJUSTABLE) SEMI-ELECTRIC _ DIRECTED _ICD10- M48.02; I50.30;M48.07 _ TAKING WHEELCHAIR FOLDING WITH SWING-AWAY FOOT RESTS MISCELLANEOUS DIRECTED _ICD10 - M48.02, M48.07 _ TAKING MAY HAVE PRESSURE RELIEVING OVERLAY FOR HOSPITAL BED _ DIRECTED _ICD10 - L89.152 _ TAKING BREO ELLIPTA 200-25 MCG/INH AEROSOL POWDER BREATH ACTIVATED 1 PUFF INHALATION ONCE A DAY TAKING ALBUTEROL SULFATE (2.5 MG/3ML) 0.083% NEBULIZATION SOLUTION 3 ML INHALATION QID TAKING ACIDOPHILUS - CAPSULE ORALLY TAKING PROTONIX 40 MG TABLET DELAYED RELEASE 1 TABLET ORALLY DAILY TAKING IMITREX 50 MG TABLET 1 TABLET ORALLY ON THE ONSET OF MIGRAINE MDD=2 AVERAGES 4/5 MIGRAINES A MONTH. TAKING ROPINIROLE HCL ER 8 MG TABLET EXTENDED RELEASE 24 HOUR 1 TABLET ORALLY ONCE A DAY TAKING MAG64 535 (64 MG) MG TABLET EXTENDED RELEASE 1 TABLET ORALLY ONCE DAILY TAKING ASPIR-81 81 MG TABLET DELAYED RELEASE 1 TABLET ORALLY ONCE A DAY TAKING OXYGEN _ _ FX=186; 2L NC WITH EXERTION AND AT HS NASAL CANNULA DIRECTED TAKING VITAMIN D (ERGOCALCIFEROL) [id number] CAPSULE 1 CAP ORALLY WEEKLY TAKING CARVEDILOL 3.125 MG TABLET 1 TAB ORALLY BID TAKING ALLOPURINOL 300 MG TABLET 1 TABLET ORALLY DAILY TAKING CYCLOBENZAPRINE HCL 10 MG TABLET 1 TABLET NEEDED ORALLY THREE TIMES A DAY TAKING AMLODIPINE BESYLATE 10MG TABLET TAKE ONE TABLET BY MOUTH ONCE DAILY TAKING IMODIUM A-D 2 MG TABLET 1 TABLET NEEDED ORALLY FOUR TIMES A DAY TAKING POTASSIUM CHLORIDE 10 MEQ/100ML SOLUTION 2 TAB INTRAVENOUS BID TAKING HYDROCODONE-ACETAMINOPHEN 10-325 MG TABLET 1 TABLET NEEDED ORALLY FOUR TIMES DAILY NEEDED TAKING MORPHINE SULFATE 15 MG TABLET 1 TABLET NEEDED ORALLY EVERY 4 HRS MDD = 4 TAKING DIAZEPAM 5 MG TABLET 1/2 TABLET NEEDED ORALLY BID PRN/ MDD # 1 TAKING LEVOTHYROXINE SODIUM 50MCG TABLET TAKE ONE TABLET BY MOUTH ONCE DAILY TAKING GABAPENTIN 400 MG CAPSULE 2 TABLET ORALLY TID MDD=6 TAKING VENTOLIN HFA 108 (90 BASE) MCG/ACT AEROSOL SOLUTION 2 PUFFS NEEDED INHALATION QID PRN TAKING FUROSEMIDE 20 MG TABLET 1 TABLET ORALLY BID TAKING BACID - TABLET 1 TABS ORALLY TID WITH MEALS TAKING SPIRONOLACTONE 25 MG TABLET 1 TABLET ORALLY DAILY TAKING HYDROXYCHLOROQUINE SULFATE 200 MG TABLET 1 TAB ORALLY DAILY TAKING METHYLPREDNISOLONE 4 MG TABLET THERAPY PACK 1 1/2 TABS ORALLY DAILY PAST MEDICAL HISTORY MILD CAD: STESS ECHO [place] 03/20: NO ISCHEMIA/INFACTION, EF 57%; CARDIAC CATH 08/23 [facility], 50% LAD, 60% RCA STENOSES, NO PCI NEEDED; ECHO 08/23 EF 55%, MILD DIASTOLIC DYSFXN, RT SIDE NL 05/23/14 CARDIAC CATHETERIZATION [facility] - NO SIGNIFICNT CORONARY ARTERY OCCLUSIVE DISEASE EF 40 - 45% HTN SPINAL STENOSIS--L/S [facility] 11/07: SUBACUTE LEFT C6-7 RADICULOPATHY. ALSO, HAD BILAT SUBACUTE L5-S1 RADICULOPATHY) MIGRAINES GERD IBS PAD--LEFT COMMON ILIAC ARTERY 07/09 MRA LEFT RENAL ARTERY STENOSIS MRI 07/09 VIT D DEFIC UTI'S SKIN CANCER BACK, FACE (NON-MELANOMA) COPD FEV1 = 0.8 03/2014 [facility] 11/17: SUBACUTE LEFT C6-7 RADICULOPATHY. ALSO, HAD BILAT SUBACUTE L5-S1 RADICULOPATHY) CKD 3 (CR 1.1 BUT ONLY WEIGHS 112#) HYPERLIPIDEMIA LUNG NECROTIZING GRANULOMATOUS INFLAMMATION RUL PER CT -T GUIDED BX - INFLAMMATION BUT MYCOBACTERIUM GREW. QUANTIFERON GOLD WAS INDETERMINATE. BRONCH 12/15/13 - INDEFINATIVE. 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 CLOSTRIDIUM DIFFICILE COLITIS 09/2013, 12/23 (DID NOT RESPOND TO PO/IV VANCO OR RIFAXAMIN; HAD FECAL MICROBIOTA TRANSFER IN HOSPITAL X 2 12/2016 DR TODD) URINARY RETENTION/OAB - INTERSTIM THERPY STIMULATOR INSTALLED BY DR. MEJIA, REMOVED BY SAME 02/20 ACUTE L4 COMPRESSION FRACTURE WITH RADICULOPATHY 08/21 ASPIRATED ON UGI SERIES 09/20; PT DECLINES FEEDING TUBE OR THICKENED CONSISTENCY LIQUIDS CHRONIC ANXIETY INFLAMMATORY ARTHRITIS -- AVOID NSAIDS, THEY HAVE PRECIPITATED CHF AND ARF IN THE PAST. HAS RESPONDED TO SHORT BURSTS OF PREDNISIONE (40 MG DAILY X 2-3 DAYS) ; 01/22: INSISTED ON MOBIC RX, AWARE OF RISKS. THIS WAS LATER DC FOR CHERI ECHO 05/30/15 - [place] - EF 40%, MILD TR; ECHO 08/23 AT [facility] EF 55%, MILD DIASTOLIC DYSFXN 06/2015 NST IN [place], NO PERFUSION ABNL, EF 62% HYPOTHYROIDISM SX 06/22 IN [place] BILAT THYROID NODULES 1.8X 1.5 CM US IN [place] 08/2015 RIGHT SHOULDER FX POLYARTICULAR GOUT--SEE 01/22; HAS EROSIVE ARTHRITIC CHANGES IN HANDS ON XRAY 02/21; FOLLOWS WITH RHEUM AT [facility] CAP 12/23, [place] COMPLICATED BY C DIFF COLITIS (SEE ABOVE) ALLERGIES AMITRIPTYLINE HCL: THROAT CLOSING: ALLERGY NITROFURANTOIN: CHEST PAIN: ALLERGY NAPROXEN: DIARRHEA: SIDE EFFECTS CIPRO: DIARRHEA: SIDE EFFECTS BACTRIM: CHEST PAIN: ALLERGY CELEBREX: ACUTE RENAL FAILURE: ALLERGY ZANAFLEX: LOWERS BP: ALLERGY ADHESIVE BANDAGES: HIVES: ALLERGY SURGICAL HISTORY TKA TKR-RIGHT KNEE X 2 HYSTERECTOMY, TOTAL WITH BSO TONSILLECTOMY BUNIONECTOMY-BILATERAL TRIGGER FINGER RELEASE-RIGHT THUMB CARPAL TUNNEL RELEASE- BILATERAL BACK SURGERY X 3--LUMBAR LAMINECTOMY SHOULDER SURGERY- ROTATOR CUFF REPAIR-BILATERAL D&C CERVICAL SPINE DISCECTOMY 11/13 FUSION WITH PLATES C5-C6-C7 RIGHT FOOT SURGERY X 2 COLONOSCOPY--NL 09/2008 EGD--NL 09/2008 LEFT SHOULDER REPLACEMENT [place] 03/20 LUNG BX 09/19 HAD INTERSTIM DEVICE (DR MEJIA), REMOVED 02/20 12/20 INTERSTIM DEVICE REMOVED 02/20 L2-L3 DECOMPRESSIVE LAMINECTOMY, L2-L3, L3-L4 MEDIAL FACETECTOMIES WITH PEDICLE SCREW FIXATION AND BONE GRAFT FUSION 06/22 ([place]) SHOULDER/NECK 10/21 HEART CATHETERIZATION 08/2016 CERVICAL CORPECTOMY C4, REMOVAL OF PLATE; INSERTION OF TITANIUM CAGE 10/22 SOCIAL HISTORY GENERAL: TOBACCO USE ARE YOU A:FORMER SMOKER HOW LONG HAS IT BEEN SINCE YOU LAST SMOKED?1-5 YEARS ALCOHOL SCREENING DID YOU HAVE A DRINK CONTAINING ALCOHOL IN THE PAST YEAR?NO POINTS0 INTERPRETATIONNEGATIVE SEXUAL HX HAD SEX IN THE LAST 12 MONTHS (VAGINAL, ORAL, OR ANAL)?NO HAVE YOU EVER HAD AN STD?NO OCCUPATION: YES. DIET: NO ADDED SALT. EXERCISE: NO REGULAR EXERCISE. 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 HOSPITALIZATION/MAJOR DIAGNOSTIC PROCEDURE SURGERY RELATED ACUTE RENAL FAILURE SEPTEMBER 2013 C.DIFF COLITIS 09/30 -10/06/13 REHAB [facility] 10/22-12/22 [facility] 12/23- 01/22 RESP FAILURE, INTUBATED, 6 WEEKS IN HOSP/REHAB 03/25 (IN [place]) MYOCARDIAL INFARCTION 08/2016 FALL 11/2016 [facility], C DIFF COLITIS 12/23 PNEUMONIA 12/2016 REVIEW OF SYSTEMS CONSTITUTIONAL: PATIENT DENIES CHRONIC FEVER, CHILLS, FEVER, FATIGUE, NIGHT SWEATS, WEIGHT LOSS . GASTROENTEROLOGY: PATIENT DENIES BLACK STOOLS, BLOOD IN STOOL, CHANGE IN BOWEL HABITS, DIFFICULTY SWALLOWING, EARLY SATIETY . HEMATOLOGY/LYMPH: NO ABNORMAL BLEEDING, EASY BRUISING, EPISTAXIS, RECTAL BLEEDING, HEMATURIA . EXAMINATION GENERAL EXAMINATION: GENERAL APPEARANCE:FRAIL, APPEARS CHRONICALLY ILL APPEARING, WELL NOURISHED, WELL DEVELOPED, USES RW. HEENT:LESS CUSHINGOID. FEWER SCATTERED SCABBED/PICKED AREAS ON FACE. NECK:NO LYMPHADENOPATHY, SUPPLE, SMALL BILAT THYROID NODULES, NO JVD, NO CAROTID BRUIT PRESENT. LUNGS:CLEAR TO AUSCULTATION BILATERALLY, NO WHEEZES, RHONCHI, RALES. HEART:NO MURMURS, REGULAR RATE AND RHYTHM. BACK:THORACIC KYPHOSIS; HAS PALPABLE SPINOUS PROCESS AT BASE OF CERVICAL SPINE. ABDOMEN:SOFT, TENDER LLQ WITH GUARD,, BOWEL SOUNDS PRESENT, NO HEPATOSPLENOMEGALY, NO MASSES PALPATED. EXTREMITIES:NO EDEMA EITHER LEG, ULCER HAVE ALL HEALED. NEUROLOGIC EXAM:INTACT, NO DEFICITS. LAB TESTS REVIEWEDLABS WERE REVIEWED EXTENSIVELY WITH THE PATIENT. ASSESSMENTS LLQ ABDOMINAL PAIN - R10.32 (PRIMARY) FREQUENT FALLS - R29.6 SPINAL STENOSIS, LUMBAR REGION - M48.06 HYPERTENSIVE HEART DISEASE WITHOUT HEART FAILURE - I11.9 CHRONIC KIDNEY DISEASE, STAGE 3 (MODERATE) - N18.3 HYPOTHYROIDISM - E03.9 HISTORY OF CLOSTRIDIUM DIFFICILE COLITIS - Z86.19 INFLAMMATORY ARTHRITIS - M19.90, AVOID NSAIDS, THEY HAVE PRECIPITATED CHF AND ARF IN THE PAST. HAS RESPONDED TO SHORT BURSTS OF PREDNISIONE (40 MG DAILY X 2-3 DAYS) CHRONIC ANXIETY - F41.9 COPD (CHRONIC OBSTRUCTIVE PULMONARY DISEASE) - J44.9 POLYARTICULAR GOUT - M10.00 CORONARY ARTERY DISEASE INVOLVING [place] CORONARY ARTERY OF [place] HEART WITHOUT ANGINA PECTORIS - I25.10 TREATMENT LLQ ABDOMINAL PAIN CLINICAL NOTES: CT ORDERED, CONTINUE IV/PO ANALGESICS. FREQUENT FALLS CLINICAL NOTES: GET PT, PROB NEEDS STR. PROCEDURE CODES E1391 02 CONC 2 DEL 85%/>02 CONC FLW RATE ADM00 ADM HOSPITAL ADMISSION DISPOSITION & COMMUNICATION FOLLOW UP 1 WEEK ELECTRONICALLY SIGNED BY LUIS TREVINO MD ON 02/24/2017 AT 05:30 PM EST DISCLAIMER : THIS IS A VISIT SUMMARY EXTRACTED FROM THE [employer] CHART. IT IS NOT A COPY OF THE [employer] PROGRESS NOTE. FREDID
--- NOTE | 2017-03-02 17:23 | DSES ---
DATE OF ADMISSION: 02/16/2017 DATE OF DISCHARGE: 02/20/2017 PRINCIPAL DIAGNOSIS: Clostridium (C) difficile colitis, recurrent. SECONDARY DIAGNOSES: 1. Weakness and debility with frequent falls. 2. Klebsiella urinary tract infection (UTI). 3. Forehead laceration. 4. Acute renal failure. 5. Chronic anemia from chronic kidney disease stage III. 6. Chronic kidney disease. HISTORY: Diana Johnson was admitted with debility and frequent falls. Details in history and physical for admission and hospital course. Admitted to a medical bed. She did have a history of recurrent C. difficile colitis. She ended up growing out Klebsiella on a urine culture, was treated with fosfomycin. Her strength improved, she was accepted into rehabilitation, and she was discharged there on 02/20/2017.
== END 2017-02-20 15:39 | DRG 372 ==
LOC: M ED 05:53 → M ED INP 15:00 → M MSPAV 17:19
PROVIDERS: ADMIT Family Medicine; ATTEND Family Medicine
DX: A04.71 Enterocolitis due to Clostridium difficile, recurrent (principal); N17.9 Acute kidney failure, unspecified; N39.0 Urinary tract infection, site not specified; S59.901A Unspecified injury of right elbow, initial encounter; W19.XXXA Unspecified fall, initial encounter; Y92.9 Unspecified place or not applicable; Y93.9 Activity, unspecified; R29.6 Repeated falls; B96.1 Klebsiella pneumoniae [K. pneumoniae] as the cause of diseases classified elsewhere; D63.1 Anemia in chronic kidney disease; N18.3 Chronic kidney disease, stage 3 (moderate); Z79.899 Other long term (current) drug therapy; K21.9 Gastro-esophageal reflux disease without esophagitis; E55.9 Vitamin D deficiency, unspecified; J44.9 Chronic obstructive pulmonary disease, unspecified; E78.5 Hyperlipidemia, unspecified; Z96.651 Presence of right artificial knee joint; S01.90XA Unspecified open wound of unspecified part of head, initial encounter

== ENCOUNTER → 2017-03-04 | Outpatient (REF) ==
[2017-03-04 17:12] LABS: MEAN CORPUSCULAR HEMOGLOBIN 28.9 pg (27.0-33.0); MEAN CORPUSCULAR HGB CONC 29.8 g/dl (32.0-36.5); MEAN CORPUSCULAR VOLUME 97.1 fl (80.0-96.0); PLATELET COUNT, AUTOMATED 394 10^3/uL (150-450); RED CELL DISTRIBUTION WIDTH 17.6 % (11.5-14.5); WHITE BLOOD COUNT 17.8 10^3/uL (4.0-10.0)
[2017-03-04 19:08] LABS: ANION GAP 9 MEQ/L (8-16); BLOOD UREA NITROGEN 19 MG/DL (7-18); CALCIUM LEVEL 8.7 MG/DL (8.8-10.2); CARBON DIOXIDE LEVEL 31 MEQ/L (21-32); CHLORIDE LEVEL 106 MEQ/L (98-107); CREATININE FOR GFR 0.78 MG/DL (0.55-1.02); GLOMERULAR FILTRATION RATE > 60.0 (>39); GLUCOSE, FASTING 102 MG/DL (83-110); POTASSIUM SERUM 4.7 MEQ/L (3.5-5.1); SODIUM LEVEL 146 MEQ/L (136-145)
== END ==
DX: R05 Cough (principal); J44.9 Chronic obstructive pulmonary disease, unspecified

== ENCOUNTER → 2017-03-06 | Outpatient (REF) ==
[2017-03-06 07:42] LABS: MEAN CORPUSCULAR HEMOGLOBIN 28.8 pg (27.0-33.0); MEAN CORPUSCULAR HGB CONC 30.3 g/dl (32.0-36.5); MEAN CORPUSCULAR VOLUME 95.1 fl (80.0-96.0); PLATELET COUNT, AUTOMATED 390 10^3/uL (150-450); RED CELL DISTRIBUTION WIDTH 17.3 % (11.5-14.5); WHITE BLOOD COUNT 16.1 10^3/uL (4.0-10.0)
[2017-03-06 08:05] LABS: ANION GAP 8 MEQ/L (8-16); BLOOD UREA NITROGEN 20 MG/DL (7-18); CALCIUM LEVEL 8.6 MG/DL (8.8-10.2); CARBON DIOXIDE LEVEL 33 MEQ/L (21-32); CHLORIDE LEVEL 103 MEQ/L (98-107); CREATININE FOR GFR 0.81 MG/DL (0.55-1.02); GLOMERULAR FILTRATION RATE > 60.0 (>39); GLUCOSE, FASTING 94 MG/DL (83-110); POTASSIUM SERUM 3.8 MEQ/L (3.5-5.1); SODIUM LEVEL 144 MEQ/L (136-145)
== END ==
DX: I50.9 Heart failure, unspecified (principal)

== ENCOUNTER → 2017-03-07 | Outpatient (REF) | payer MEDICARE | DX: R06.2 Wheezing (principal); R06.02 Shortness of breath; B95.1 Streptococcus, group B, as the cause of diseases classified elsewhere; B96.1 Klebsiella pneumoniae [K. pneumoniae] as the cause of diseases classified elsewhere ==

== ENCOUNTER 2017-03-08 11:52 | Inpatient (IN) | payer MEDICARE ==
[2017-03-08] MEDS ORDERED: NS 500 ML IV (12:30)
[2017-03-08 12:46] LABS: HEMOGLOBIN 11.9 g/dl (12.0-16.0); MEAN CORPUSCULAR HEMOGLOBIN 28.5 pg (27.0-33.0); MEAN CORPUSCULAR HGB CONC 29.8 g/dl (32.0-36.5); MEAN CORPUSCULAR VOLUME 95.9 fl (80.0-96.0); PLATELET COUNT, AUTOMATED 440 10^3/uL (150-450); RED BLOOD COUNT 4.17 10^6/uL (4.00-5.40); RED CELL DISTRIBUTION WIDTH 17.2 % (11.5-14.5); WHITE BLOOD COUNT 14.4 10^3/uL (4.0-10.0)
[2017-03-08] MEDS: IPRATROPIUM 0.02% SOLN 0.5MG/2.5 ML NEB INH ×2 (12:53→20:47)
[2017-03-08] MEDS: ALBUTEROL SULFATE 2.5 MG/0.5 ML INH NEB SOLN INH ×2 (12:53→20:47)
[2017-03-08 12:54] LABS: ABG O2 SATURATION 96.6 % (95.0-99.0); ABG PARTIAL PRESSURE O2 97.3 mmHg (75.0-100.0); ABG STANDARD HCO3 26.3 MEQ/L (22.0-26.0); ABG TOTAL CO2 31.9 MEQ/L (23.0-31.0); ABG pH (ARTERIAL) 7.292 UNITS (7.350-7.450)
[2017-03-08] MEDS: methylPREDNISolone INJ 125 MG/2 ML VIAL (J2930) IV (12:54)
[2017-03-08 12:57] LABS: ABG PARTIAL PRESSURE CO2 63.5 mmHg (35.0-45.0)
[2017-03-08 13:07] LABS: ALBUMIN 2.5 GM/DL (3.2-5.2); ALBUMIN/GLOBULIN RATIO 0.66 (1.00-1.93); ALKALINE PHOSPHATASE 156 U/L (45-117); ALT/SGPT 20 U/L (12-78); ANION GAP 12 MEQ/L (8-16); AST/SGOT 42 U/L (7-37); BILIRUBIN,DIRECT 0.4 MG/DL (0.0-0.2); BILIRUBIN,TOTAL 1.2 MG/DL (0.2-1.0); BLOOD UREA NITROGEN 43 MG/DL (7-18); CALCIUM LEVEL 8.9 MG/DL (8.8-10.2); CARBON DIOXIDE LEVEL 31 MEQ/L (21-32); CHLORIDE LEVEL 99 MEQ/L (98-107); CPK CREATINE PHOSPHOKINASE 44 U/L (26-192); CREATININE FOR GFR 1.65 MG/DL (0.55-1.02); GLOMERULAR FILTRATION RATE 32.5 (>39); GLUCOSE, FASTING 170 MG/DL (83-110); MAGNESIUM LEVEL 2.2 MG/DL (1.8-2.4); POTASSIUM SERUM 4.5 MEQ/L (3.5-5.1); SODIUM LEVEL 142 MEQ/L (136-145); TOTAL PROTEIN 6.3 GM/DL (6.4-8.2); TROPONIN I < 0.02 NG/ML (< 0.10)
[2017-03-08 13:08] LABS: CK-MB VALUE MASS 2.5 NG/ML (0.0-3.6); MB/CK RELATIVE INDEX 5.68 (< OR =4); NT-PRO BNP 1216 PG/ML (<125)
[2017-03-08 13:19] LABS: LACTIC ACID SEPSIS PROTOCOL 4.9 MMOL/L (0.4-2.0)
[2017-03-08 13:19] LABS: ADD MANUAL DIFFER YES; DIFF SLIDE NUMBER 131; LEFT SHIFT POS FLAG; POSITIVE MORPH POS FLAG; WBC SCAT POS FLAG
[2017-03-08 13:21] LABS: ATYPICAL LYMPH 2 % (0-5); BANDS 10 % (< 11); LYMPHOCYTES 3 % (16-52); METAMYELOCYTES 3 % (0-0); MONOCYTES 1 % (0-8); NEUTROPHILS 81 % (35-75)
[2017-03-08 13:22] LABS: PLATELET ESTIMATE INCREASED (NORMAL)
[2017-03-08 13:23] LABS: ANISOCYTOSIS 1+
[2017-03-08] MEDS ORDERED: PIPERACILLIN/TAZOBACTAM SOD 4.5 GM in APPROPRIATE DILUENT 1 EA IV (13:30)
[2017-03-08 13:36] LABS: APPEARANCE, URINE HAZY (CLEAR); BACTERIA, URINE AUTO 3+ (NEGATIVE); BILIRUBIN, URINE AUTO NEGATIVE (NEGATIVE); BLOOD, URINE BLOOD NEGATIVE (NEGATIVE); COLOR, URINE YELLOW (YELLOW); GLUCOSE, URINE (UA) AUTO NEGATIVE (NEGATIVE); KETONE, URINE AUTO NEGATIVE (NEGATIVE); LEUKOCYTE ESTERASE, URINE AUTO 1+ (NEGATIVE); MUCUS, URINE SMALL (NEGATIVE); NITRITE, URINE AUTO NEGATIVE (NEGATIVE); PROTEIN, URINE AUTO NEGATIVE (NEGATIVE); RBC, URINE AUTO 1 /HPF (0-3); SPECIFIC GRAVITY URINE AUTO 1.011 (1.002-1.035); SQUAMOUS EPITHELIAL CELL UR AU 1 /HPF (0-6); UROBILINOGEN, URINE AUTO 0.2 mg/dL (0.0-2.0); WBC, URINE AUTO 4 /HPF (0-3)
[2017-03-08] MEDS: PIPERACILLIN/TAZOBACTAM SOD 3.375 GM in APPROPRIATE DILUENT 1 EA IV (13:45)
[2017-03-08] MEDS ORDERED: ISOVUE-370 76% 100ML VIAL (Q9967) As Ordered (13:51)
[2017-03-08] MEDS: VANCOMYCIN HCL 1,000 MG, VIAL MATE ADAPTER 1 EACH in D5W 250 ML IV (14:54)
[2017-03-08] MEDS: DILUENT IV (14:54)
[2017-03-08] MEDS: NS IV (14:54)
[2017-03-08 14:59] LABS: ABG BASE EXCESS -0.5 (-2.0-2.0); ABG HCO3 26.7 MEQ/L (22.0-26.0); ABG O2 SATURATION 90.7 % (95.0-99.0); ABG PARTIAL PRESSURE CO2 58.5 mmHg (35.0-45.0); ABG PARTIAL PRESSURE O2 65.6 mmHg (75.0-100.0); ABG STANDARD HCO3 23.9 MEQ/L (22.0-26.0); ABG TOTAL CO2 28.5 MEQ/L (23.0-31.0); ABG pH (ARTERIAL) 7.278 UNITS (7.350-7.450)
[2017-03-08] MEDS: D5W/0.9% SODIUM CHLORIDE 1,000 ML IV (16:10)
[2017-03-08 17:06] LABS: VENOUS BASE EXCESS -2.8 (-2.0-2.0); VENOUS HCO3 28.1 MEQ/L (23.0-27.0); VENOUS O2 SATURATION 69.4 % (60.0-80.0); VENOUS PARTIAL PRESSURE CO2 89.5 mmHg (38.0-50.0); VENOUS PARTIAL PRESSURE O2 44.8 mmHg (30.0-50.0); VENOUS PH 7.114 UNITS (7.330-7.430); VENOUS STANDARD HCO3 21.6 MEQ/L; VENOUS TOTAL CO2 30.8 MEQ/L (24.0-28.0)
[2017-03-08] MEDS ORDERED: VANCOMYCIN HCL 1,000 MG, VIAL MATE ADAPTER 1 EACH in D5W/0.2% SODIUM CHLORIDE 250 ML IV (17:45)
[2017-03-08] MEDS ORDERED: ACETAMINOPHEN 650 MG SUPP PR (17:45)
[2017-03-08] MEDS ORDERED: IPRATROPIUM 0.02% SOLN 0.5MG/2.5 ML NEB INH (18:15)
[2017-03-08] MEDS ORDERED: ALBUTEROL SULFATE 2.5 MG/0.5 ML INH NEB SOLN INH (18:15)
[2017-03-08] MEDS: MORPHINE 2 MG/ML 1ML SYRINGE IV (18:30)
[2017-03-08 18:51] LABS: ABG HCO3 26.2 MEQ/L (22.0-26.0); ABG O2 SATURATION 94.7 % (95.0-99.0); ABG PARTIAL PRESSURE O2 83.8 mmHg (75.0-100.0); ABG TOTAL CO2 28.4 MEQ/L (23.0-31.0)
[2017-03-08 18:56] LABS: ABG pH (ARTERIAL) 7.184 UNITS (7.350-7.450)
[2017-03-08 18:57] LABS: ABG PARTIAL PRESSURE CO2 71.2 mmHg (35.0-45.0)
[2017-03-08] MEDS: MEROPENEM INJ 1 GM in APPROPRIATE DILUENT 1 EA IV (20:19)
[2017-03-08] MEDS: metroNIDAZOLE 500 MG in APPROPRIATE DILUENT 1 EA IV (20:19)
[2017-03-08] MEDS: HYDROCORTISONE 100 MG/2 ML VIAL (J1720) IV (20:19)
[2017-03-08] MEDS: DOCUSATE SODIUM 100 MG CAP PO (20:27)
[2017-03-08] MEDS: LACTOBACILLUS ACIDOPHILUS CAP (BACID) PO (20:27)
[2017-03-08] MEDS: PANTOPRAZOLE 40MG INJ (PROTONIX) (C9113) IV (20:28)
[2017-03-08 21:43] LABS: ABG BASE EXCESS -1.9 (-2.0-2.0); ABG HCO3 24.2 MEQ/L (22.0-26.0); ABG O2 SATURATION 95.5 % (95.0-99.0); ABG PARTIAL PRESSURE CO2 47.1 mmHg (35.0-45.0); ABG PARTIAL PRESSURE O2 76.2 mmHg (75.0-100.0); ABG STANDARD HCO3 22.8 MEQ/L (22.0-26.0); ABG TOTAL CO2 25.6 MEQ/L (23.0-31.0); ABG pH (ARTERIAL) 7.328 UNITS (7.350-7.450)
[2017-03-08 21:52] LABS: LACTIC ACID SEPSIS PROTOCOL 3.5 MMOL/L (0.4-2.0)
[2017-03-08] MEDS: NS 1,000 ML IV ×2 (22:23→22:59)
[2017-03-09] MEDS: HYDROCORTISONE 100 MG/2 ML VIAL (J1720) IV ×4 (03:02→20:02)
[2017-03-09] MEDS: metroNIDAZOLE 500 MG in APPROPRIATE DILUENT 1 EA IV ×3 (03:02→20:02)
[2017-03-09] MEDS: MORPHINE 2 MG/ML 1ML SYRINGE IV ×9 (03:54→23:38)
[2017-03-09 05:43] LABS: MEAN CORPUSCULAR HEMOGLOBIN 28.7 pg (27.0-33.0); MEAN CORPUSCULAR HGB CONC 29.7 g/dl (32.0-36.5); MEAN CORPUSCULAR VOLUME 96.6 fl (80.0-96.0); RED BLOOD COUNT 3.21 10^6/uL (4.00-5.40); RED CELL DISTRIBUTION WIDTH 17.2 % (11.5-14.5); WHITE BLOOD COUNT 12.3 10^3/uL (4.0-10.0)
[2017-03-09 05:46] LABS: ADD MANUAL DIFFER YES; DIFF SLIDE NUMBER 88; LEFT SHIFT POS FLAG; POSITIVE DIFF POS FLAG; POSITIVE MORPH POS FLAG; WBC SCAT POS FLAG
[2017-03-09 05:49] LABS: HEMOGLOBIN 9.2 g/dl (12.0-16.0); PLATELET COUNT, AUTOMATED 334 10^3/uL (150-450)
[2017-03-09] MEDS: LEVOTHYROXINE 50MCG TABLET (0.05MG) PO (06:00)
[2017-03-09 06:08] LABS: ALBUMIN 1.6 GM/DL (3.2-5.2); ALBUMIN/GLOBULIN RATIO 0.42 (1.00-1.93); ALKALINE PHOSPHATASE 129 U/L (45-117); ALT/SGPT 17 U/L (12-78); ANION GAP 8 MEQ/L (8-16); AST/SGOT 48 U/L (7-37); BILIRUBIN,TOTAL 1.1 MG/DL (0.2-1.0); BLOOD UREA NITROGEN 43 MG/DL (7-18); CALCIUM LEVEL 7.8 MG/DL (8.8-10.2); CARBON DIOXIDE LEVEL 26 MEQ/L (21-32); CHLORIDE LEVEL 113 MEQ/L (98-107); CREATININE FOR GFR 1.22 MG/DL (0.55-1.02); GLUCOSE, FASTING 102 MG/DL (83-110); POTASSIUM SERUM 4.2 MEQ/L (3.5-5.1); SODIUM LEVEL 147 MEQ/L (136-145); TOTAL PROTEIN 5.4 GM/DL (6.4-8.2)
[2017-03-09 06:11] LABS: BANDS 9 % (< 11); LYMPHOCYTES 3 % (16-52); METAMYELOCYTES 3 % (0-0); MONOCYTES 2 % (0-8); MYELOCYTES 2 % (0-0); NEUTROPHILS 81 % (35-75)
[2017-03-09 06:12] LABS: ANISOCYTOSIS 1+; PLATELET CLUMPS SMALL AMT; PLATELET ESTIMATE NORMAL (NORMAL)
[2017-03-09 06:13] LABS: HYPOCHROMASIA 2+
[2017-03-09 06:14] LABS: TOXIC VACUOLATION 1+
[2017-03-09] MEDS: NS 1,000 ML IV (06:41)
[2017-03-09] MEDS: IPRATROPIUM 0.02% SOLN 0.5MG/2.5 ML NEB INH ×2 (07:38→19:34)
[2017-03-09] MEDS: ALBUTEROL SULFATE 2.5 MG/0.5 ML INH NEB SOLN INH ×4 (07:38→19:34)
[2017-03-09 08:47] LABS: LACTIC ACID SEPSIS PROTOCOL 2.7 MMOL/L (0.4-2.0)
[2017-03-09] MEDS: ENOXAPARIN 30 MG/0.3 ML SYR (J1650) SC (08:47)
[2017-03-09] MEDS: MEROPENEM INJ 1 GM in APPROPRIATE DILUENT 1 EA IV ×2 (08:47→21:21)
[2017-03-09] MEDS: LACTOBACILLUS ACIDOPHILUS CAP (BACID) PO ×3 (08:51→21:00)
[2017-03-09] MEDS: DOCUSATE SODIUM 100 MG CAP PO ×2 (08:51→21:00)
[2017-03-09] MEDS ORDERED: HYDROXYCHLOROQUINE 200 MG TAB PO (09:00)
[2017-03-09] MEDS: VANCOMYCIN HCL 750 MG, VIAL MATE ADAPTER 1 EACH in D5W 250 ML IV (10:08)
[2017-03-09 10:54] LABS: ABG BASE EXCESS -2.8 (-2.0-2.0); ABG HCO3 23.4 MEQ/L (22.0-26.0); ABG PARTIAL PRESSURE CO2 46.6 mmHg (35.0-45.0); ABG PARTIAL PRESSURE O2 67.9 mmHg (75.0-100.0); ABG STANDARD HCO3 22.1 MEQ/L (22.0-26.0); ABG TOTAL CO2 24.8 MEQ/L (23.0-31.0); ABG pH (ARTERIAL) 7.318 UNITS (7.350-7.450)
[2017-03-09 12:27] LABS: INR 1.17; PROTHROMBIN TIME 15.1 SECONDS (12.4-14.5)
[2017-03-09 12:29] LABS: LACTIC ACID SEPSIS PROTOCOL 3.3 MMOL/L (0.4-2.0)
[2017-03-09 12:31] LABS: BEDSIDE GLUCOSE 172 MG/DL (83-110)
[2017-03-09 18:34] LABS: BEDSIDE GLUCOSE 103 MG/DL (83-110)
[2017-03-09] MEDS: PANTOPRAZOLE 40MG INJ (PROTONIX) (C9113) IV (21:21)
[2017-03-09 23:54] LABS: BEDSIDE GLUCOSE 101 MG/DL (83-110)
[2017-03-10] MEDS: HYDROCORTISONE 100 MG/2 ML VIAL (J1720) IV ×4 (02:06→19:33)
[2017-03-10] MEDS: MORPHINE 2 MG/ML 1ML SYRINGE IV ×3 (02:06→06:11)
[2017-03-10] MEDS: metroNIDAZOLE 500 MG in APPROPRIATE DILUENT 1 EA IV ×3 (04:00→19:32)
[2017-03-10] MEDS: LEVOTHYROXINE 50MCG TABLET (0.05MG) PO (06:00)
[2017-03-10 06:05] LABS: HEMATOCRIT 29.8 % (36.0-47.0); MEAN CORPUSCULAR HEMOGLOBIN 28.8 pg (27.0-33.0); MEAN CORPUSCULAR HGB CONC 30.2 g/dl (32.0-36.5); MEAN CORPUSCULAR VOLUME 95.2 fl (80.0-96.0); PLATELET COUNT, AUTOMATED 288 10^3/uL (150-450); RED BLOOD COUNT 3.13 10^6/uL (4.00-5.40); RED CELL DISTRIBUTION WIDTH 17.8 % (11.5-14.5); WHITE BLOOD COUNT 20.3 10^3/uL (4.0-10.0)
[2017-03-10 06:11] LABS: ADD MANUAL DIFFER YES; DIFF SLIDE NUMBER 74; POSITIVE DIFF POS FLAG; POSITIVE MORPH POS FLAG
[2017-03-10 06:29] LABS: ALBUMIN 1.6 GM/DL (3.2-5.2); ALBUMIN/GLOBULIN RATIO 0.43 (1.00-1.93); ALKALINE PHOSPHATASE 175 U/L (45-117); ALT/SGPT 18 U/L (12-78); ANION GAP 10 MEQ/L (8-16); AST/SGOT 71 U/L (7-37); BILIRUBIN,TOTAL 0.7 MG/DL (0.2-1.0); BLOOD UREA NITROGEN 51 MG/DL (7-18); CALCIUM LEVEL 7.3 MG/DL (8.8-10.2); CARBON DIOXIDE LEVEL 25 MEQ/L (21-32); CHLORIDE LEVEL 117 MEQ/L (98-107); CHOLESTEROL LEVEL 80 MG/DL (< 200); CPK CREATINE PHOSPHOKINASE 79 U/L (26-192); CREATININE FOR GFR 1.28 MG/DL (0.55-1.02); GLOMERULAR FILTRATION RATE 43.5 (>39); GLUCOSE, FASTING 97 MG/DL (83-110); LDH LACTATE DEHYDROGENASE 243 U/L (84-246); PHOSPHORUS LEVEL 4.3 MG/DL (2.5-4.9); POTASSIUM SERUM 3.9 MEQ/L (3.5-5.1); SODIUM LEVEL 152 MEQ/L (136-145); TOTAL PROTEIN 5.3 GM/DL (6.4-8.2); TRIGLYCERIDES LEVEL 275 MG/DL (<150)
[2017-03-10 06:42] LABS: BANDS 6 % (< 11); LYMPHOCYTES 2 % (16-52); MONOCYTES 1 % (0-8); NEUTROPHILS 91 % (35-75)
[2017-03-10 06:43] LABS: PLATELET ESTIMATE NORMAL (NORMAL); TOXIC GRANULATION 1+
[2017-03-10 06:44] LABS: POIKILOCYTOSIS 1+
[2017-03-10 06:45] LABS: ANISOCYTOSIS 1+
[2017-03-10] MEDS: ALBUTEROL SULFATE 2.5 MG/0.5 ML INH NEB SOLN INH ×4 (07:23→19:06)
[2017-03-10] MEDS: IPRATROPIUM 0.02% SOLN 0.5MG/2.5 ML NEB INH ×2 (07:23→19:06)
[2017-03-10] MEDS: SODIUM CHLORIDE 0.45% 1000 ML IV (07:56)
[2017-03-10] MEDS: DOCUSATE SOD LIQ 100MG/10ML UDC NG ×2 (08:16→21:54)
[2017-03-10] MEDS: MEROPENEM INJ 1 GM in APPROPRIATE DILUENT 1 EA IV ×2 (08:17→21:54)
[2017-03-10] MEDS: LACTOBACILLUS ACIDOPHILUS CAP (BACID) PO ×3 (08:17→21:54)
[2017-03-10] MEDS: ONDANSETRON 4MG/2ML VIAL (J2405) IV (08:31)
[2017-03-10] MEDS: ACETAMINOPHEN TAB 650MG DOSE (2X325MG) PO ×3 (08:31→19:34)
[2017-03-10] MEDS ORDERED: GASTROGRAFIN SOLUTION 30ML (Q9963) As Ordered (09:11)
[2017-03-10] MEDS: GASTROGRAFIN SOLUTION 30ML PO (09:22)
[2017-03-10] MEDS: VANCOMYCIN HCL 750 MG, VIAL MATE ADAPTER 1 EACH in D5W 250 ML IV (09:31)
[2017-03-10] MEDS: GASTROGRAFIN SOLUTION 30ML (Q9963) PO (09:48)
[2017-03-10 09:51] LABS: ABG BASE EXCESS -4.1 (-2.0-2.0); ABG HCO3 22.1 MEQ/L (22.0-26.0); ABG O2 SATURATION 93.6 % (95.0-99.0); ABG PARTIAL PRESSURE CO2 45.3 mmHg (35.0-45.0); ABG PARTIAL PRESSURE O2 75.3 mmHg (75.0-100.0); ABG TOTAL CO2 23.5 MEQ/L (23.0-31.0); ABG pH (ARTERIAL) 7.306 UNITS (7.350-7.450)
[2017-03-10 09:58] LABS: VANCOMYCIN LEVEL TROUGH 21.8 UG/ML (10.0-20.0)
[2017-03-10] MEDS: D5W/0.2% SODIUM CHLORIDE 1,000 ML IV ×2 (10:14→21:55)
[2017-03-10] MEDS: BISACODYL 10 MG SUPP PR ×2 (11:26→21:54)
[2017-03-10] MEDS: NS 1,000 ML IV (12:20)
[2017-03-10 12:24] LABS: BEDSIDE GLUCOSE 177 MG/DL (83-110)
[2017-03-10 17:30] LABS: BEDSIDE GLUCOSE 206 MG/DL (83-110)
[2017-03-10] MEDS: SODIUM CHLORIDE 0.9% INJ 10 ML SYR IV (17:50)
[2017-03-10] MEDS: AMIODARONE HCL 150 MG in APPROPRIATE DILUENT 1 EA IV (20:23)
[2017-03-10 21:52] LABS: HEMATOCRIT 27.7 % (36.0-47.0); HEMOGLOBIN 8.5 g/dl (12.0-16.0); MEAN CORPUSCULAR HEMOGLOBIN 28.9 pg (27.0-33.0); MEAN CORPUSCULAR HGB CONC 30.7 g/dl (32.0-36.5); MEAN CORPUSCULAR VOLUME 94.2 fl (80.0-96.0); PLATELET COUNT, AUTOMATED 230 10^3/uL (150-450); RED BLOOD COUNT 2.94 10^6/uL (4.00-5.40); RED CELL DISTRIBUTION WIDTH 17.8 % (11.5-14.5); WHITE BLOOD COUNT 18.6 10^3/uL (4.0-10.0)
[2017-03-10] MEDS: PANTOPRAZOLE 40MG INJ (PROTONIX) (C9113) IV (21:54)
[2017-03-10] MEDS: NOREPINEPHRINE BITARTRATE 8 MG in D5W 492 ML IV (21:56)
[2017-03-10 22:23] LABS: ANION GAP 9 MEQ/L (8-16); BLOOD UREA NITROGEN 53 MG/DL (7-18); CALCIUM LEVEL 6.8 MG/DL (8.8-10.2); CARBON DIOXIDE LEVEL 25 MEQ/L (21-32); CHLORIDE LEVEL 109 MEQ/L (98-107); CREATININE FOR GFR 1.27 MG/DL (0.55-1.02); GLOMERULAR FILTRATION RATE 43.9 (>39); GLUCOSE, FASTING 221 MG/DL (83-110); POTASSIUM SERUM 3.6 MEQ/L (3.5-5.1); SODIUM LEVEL 143 MEQ/L (136-145)
[2017-03-10 22:27] LABS: LACTIC ACID SEPSIS PROTOCOL 1.3 MMOL/L (0.4-2.0)
[2017-03-10] MEDS: DIGOXIN INJ 0.5 MG/2 ML AMP (J1160) IV (23:36)
[2017-03-10 23:46] LABS: ABG HCO3 21.6 MEQ/L (22.0-26.0); ABG O2 SATURATION 95.4 % (95.0-99.0); ABG PARTIAL PRESSURE CO2 41.3 mmHg (35.0-45.0); ABG PARTIAL PRESSURE O2 80.8 mmHg (75.0-100.0); ABG STANDARD HCO3 21.1 MEQ/L (22.0-26.0); ABG TOTAL CO2 22.8 MEQ/L (23.0-31.0); ABG pH (ARTERIAL) 7.336 UNITS (7.350-7.450)
[2017-03-11 00:12] LABS: BEDSIDE GLUCOSE 235 MG/DL (83-110)
[2017-03-11] MEDS: HYDROCORTISONE 100 MG/2 ML VIAL (J1720) IV ×4 (03:00→19:44)
[2017-03-11] MEDS: metroNIDAZOLE 500 MG in APPROPRIATE DILUENT 1 EA IV ×3 (03:01→19:44)
[2017-03-11] MEDS: SODIUM CHLORIDE 0.9% INJ 10 ML SYR IV ×2 (05:34→17:19)
[2017-03-11] MEDS: LEVOTHYROXINE 50MCG TABLET (0.05MG) PO (06:00)
[2017-03-11 06:38] LABS: HEMATOCRIT 28.6 % (36.0-47.0); HEMOGLOBIN 8.7 g/dl (12.0-16.0); MEAN CORPUSCULAR HEMOGLOBIN 28.1 pg (27.0-33.0); MEAN CORPUSCULAR HGB CONC 30.4 g/dl (32.0-36.5); MEAN CORPUSCULAR VOLUME 92.3 fl (80.0-96.0); PLATELET COUNT, AUTOMATED 227 10^3/uL (150-450); WHITE BLOOD COUNT 20.8 10^3/uL (4.0-10.0)
[2017-03-11 06:38] LABS: BEDSIDE GLUCOSE 480 MG/DL (83-110)
[2017-03-11 06:40] LABS: ADD MANUAL DIFFER YES; DIFF SLIDE NUMBER 46; POSITIVE DIFF POS FLAG; POSITIVE MORPH POS FLAG
[2017-03-11 07:00] LABS: ALBUMIN 1.6 GM/DL (3.2-5.2); ALBUMIN/GLOBULIN RATIO 0.59 (1.00-1.93); ALKALINE PHOSPHATASE 266 U/L (45-117); ALT/SGPT 25 U/L (12-78); ANION GAP 9 MEQ/L (8-16); AST/SGOT 99 U/L (7-37); BILIRUBIN,TOTAL 0.4 MG/DL (0.2-1.0); BLOOD UREA NITROGEN 54 MG/DL (7-18); CARBON DIOXIDE LEVEL 25 MEQ/L (21-32); CHLORIDE LEVEL 108 MEQ/L (98-107); CHOLESTEROL LEVEL 84 MG/DL (< 200); CPK CREATINE PHOSPHOKINASE 107 U/L (26-192); CREATININE FOR GFR 1.33 MG/DL (0.55-1.02); GLOMERULAR FILTRATION RATE 41.6 (>39); GLUCOSE, FASTING 178 MG/DL (83-110); LDH LACTATE DEHYDROGENASE 263 U/L (84-246); PHOSPHORUS LEVEL 3.3 MG/DL (2.5-4.9); POTASSIUM SERUM 3.7 MEQ/L (3.5-5.1); SODIUM LEVEL 142 MEQ/L (136-145); TOTAL PROTEIN 4.3 GM/DL (6.4-8.2); TRIGLYCERIDES LEVEL 263 MG/DL (<150)
[2017-03-11 07:15] LABS: LYMPHOCYTES 1 % (16-52); MONOCYTES 1 % (0-8); NEUTROPHILS 98 % (35-75)
[2017-03-11 07:16] LABS: PLATELET ESTIMATE NORMAL (NORMAL)
[2017-03-11 07:17] LABS: ANISOCYTOSIS 2+; HYPOCHROMASIA 1+
[2017-03-11] MEDS: ALBUTEROL SULFATE 2.5 MG/0.5 ML INH NEB SOLN INH ×4 (07:43→19:35)
[2017-03-11] MEDS: IPRATROPIUM 0.02% SOLN 0.5MG/2.5 ML NEB INH ×2 (07:44→19:35)
[2017-03-11] MEDS ORDERED: POTASSIUM CHLORIDE INJ 10 MEQ in D5W/0.2% SODIUM CHLORIDE 1,000 ML IV (07:45)
[2017-03-11 07:49] LABS: ABG BASE EXCESS -4.4 (-2.0-2.0); ABG HCO3 21.8 MEQ/L (22.0-26.0); ABG O2 SATURATION 94.6 % (95.0-99.0); ABG PARTIAL PRESSURE CO2 44.8 mmHg (35.0-45.0); ABG PARTIAL PRESSURE O2 78.1 mmHg (75.0-100.0); ABG STANDARD HCO3 20.8 MEQ/L (22.0-26.0); ABG TOTAL CO2 23.2 MEQ/L (23.0-31.0); ABG pH (ARTERIAL) 7.305 UNITS (7.350-7.450)
[2017-03-11] MEDS ORDERED: GLUCOSE 4 GM CHEW TABLET PO (08:00)
[2017-03-11] MEDS ORDERED: DEXTROSE 50% 50 ML SYRINGE IV (08:00)
[2017-03-11] MEDS ORDERED: GLUCAGON FOR INJ 1 MG VIAL (J1610) SC (08:00)
[2017-03-11] MEDS: BISACODYL 10 MG SUPP PR ×2 (08:01→22:39)
[2017-03-11] MEDS: MEROPENEM INJ 1 GM in APPROPRIATE DILUENT 1 EA IV ×2 (08:01→21:08)
[2017-03-11] MEDS: LACTOBACILLUS ACIDOPHILUS CAP (BACID) PO ×3 (08:02→21:07)
[2017-03-11] MEDS: D5W/0.2% SODIUM CHLORIDE 1,000 ML IV (08:02)
[2017-03-11] MEDS: DOCUSATE SOD LIQ 100MG/10ML UDC NG ×2 (08:02→21:07)
[2017-03-11] MEDS: HumaLOG INSULIN (NovoLOG) PER UNIT SC ×4 (08:21→17:20)
[2017-03-11] MEDS: KCL 10MEQ IN 100ML SWI (KRUN) 10 MEQ in APPROPRIATE DILUENT 1 EA IV ×3 (08:21→10:21)
[2017-03-11 08:25] LABS: BEDSIDE GLUCOSE 186 MG/DL (83-110)
[2017-03-11] MEDS: DIGOXIN INJ 0.5 MG/2 ML AMP (J1160) IV ×2 (09:22→14:07)
[2017-03-11] MEDS: POLYVINYL ALCOHOL OPHTH SOLN 15 ML(LIQUITEARS) OU ×4 (10:21→21:10)
[2017-03-11] MEDS: ENOXAPARIN 30 MG/0.3 ML SYR (J1650) SC (10:22)
[2017-03-11] MEDS: VANCOMYCIN HCL 500 MG in D5W MINI-BAG PLUS 100 ML IV (10:22)
[2017-03-11 10:33] LABS: NT-PRO BNP 917 PG/ML (<125)
[2017-03-11 10:39] LABS: ABG BASE EXCESS -7.7 (-2.0-2.0); ABG HCO3 20.3 MEQ/L (22.0-26.0); ABG O2 SATURATION 89.2 % (95.0-99.0); ABG PARTIAL PRESSURE CO2 53.8 mmHg (35.0-45.0); ABG PARTIAL PRESSURE O2 63.8 mmHg (75.0-100.0)
[2017-03-11 10:42] LABS: ABG pH (ARTERIAL) 7.195 UNITS (7.350-7.450)
[2017-03-11] MEDS: FLEET ENEMA PR ×2 (11:00→21:09)
[2017-03-11 12:21] LABS: BEDSIDE GLUCOSE 167 MG/DL (83-110)
[2017-03-11] MEDS: SODIUM CHLORIDE IV (17:19)
[2017-03-11] MEDS: FAT EMULSION IV 20% 500 ML IV (17:19)
[2017-03-11] MEDS: SODIUM ACETATE IV (17:19)
[2017-03-11] MEDS: [UNRECOGNIZED DRUG - OTHER] IV (17:19)
[2017-03-11 17:24] LABS: BEDSIDE GLUCOSE 87 MG/DL (83-110)
[2017-03-11] MEDS ORDERED: [UNRECOGNIZED DRUG - OTHER] IV ×2 (18:00)
[2017-03-11] MEDS ORDERED: SODIUM CHLORIDE IV ×2 (18:00)
[2017-03-11] MEDS ORDERED: SODIUM ACETATE IV ×2 (18:00)
[2017-03-11] MEDS: PANTOPRAZOLE 40MG INJ (PROTONIX) (C9113) IV (21:08)
[2017-03-11 23:44] LABS: BEDSIDE GLUCOSE 221 MG/DL (83-110)
[2017-03-12] MEDS: HumaLOG INSULIN (NovoLOG) PER UNIT SC ×7 (00:02→23:45)
[2017-03-12] MEDS: HYDROCORTISONE 100 MG/2 ML VIAL (J1720) IV ×4 (02:06→20:00)
[2017-03-12] MEDS: metroNIDAZOLE 500 MG in APPROPRIATE DILUENT 1 EA IV ×3 (03:56→20:00)
[2017-03-12 05:24] LABS: BEDSIDE GLUCOSE 194 MG/DL (83-110)
[2017-03-12] MEDS: SODIUM CHLORIDE 0.9% INJ 10 ML SYR IV ×2 (05:36→17:13)
[2017-03-12] MEDS: LEVOTHYROXINE 100 MCG (0.1MG) VIAL IV (05:37)
[2017-03-12 06:04] LABS: HEMATOCRIT 27.9 % (36.0-47.0); HEMOGLOBIN 9.6 g/dl (12.0-16.0); MEAN CORPUSCULAR HGB CONC 34.4 g/dl (32.0-36.5); MEAN CORPUSCULAR VOLUME 98.9 fl (80.0-96.0); PLATELET COUNT, AUTOMATED 200 10^3/uL (150-450); RED BLOOD COUNT 2.82 10^6/uL (4.00-5.40); WHITE BLOOD COUNT 23.4 10^3/uL (4.0-10.0)
[2017-03-12 06:18] LABS: POSITIVE DIFF POS FLAG; POSITIVE MORPH POS FLAG; SUSPECT SAMPLE POS FLAG
[2017-03-12 06:19] LABS: ADD MANUAL DIFFER YES; DIFF SLIDE NUMBER 40
[2017-03-12 07:02] LABS: BANDS 5 % (< 11); EOSINOPHILS 3 % (0-5); LYMPHOCYTES 2 % (16-52); MONOCYTES 7 % (0-8); NEUTROPHILS 83 % (35-75)
[2017-03-12 07:04] LABS: ANISOCYTOSIS 2+; HYPOCHROMASIA 1+; PLATELET ESTIMATE NORMAL (NORMAL); POIKILOCYTOSIS 1+
[2017-03-12] MEDS: IPRATROPIUM 0.02% SOLN 0.5MG/2.5 ML NEB INH ×2 (07:45→19:38)
[2017-03-12] MEDS: ALBUTEROL SULFATE 2.5 MG/0.5 ML INH NEB SOLN INH ×4 (07:45→19:38)
[2017-03-12] MEDS: LACTOBACILLUS ACIDOPHILUS CAP (BACID) PO ×3 (08:29→20:01)
[2017-03-12] MEDS: ENOXAPARIN 30 MG/0.3 ML SYR (J1650) SC (08:29)
[2017-03-12] MEDS: DOCUSATE SOD LIQ 100MG/10ML UDC NG ×2 (08:29→20:00)
[2017-03-12] MEDS: DIGOXIN INJ 0.5 MG/2 ML AMP (J1160) IV (08:30)
[2017-03-12] MEDS: MEROPENEM INJ 1 GM in APPROPRIATE DILUENT 1 EA IV ×2 (08:30→20:57)
[2017-03-12] MEDS: BISACODYL 10 MG SUPP PR ×2 (08:30→20:57)
[2017-03-12] MEDS: POLYVINYL ALCOHOL OPHTH SOLN 15 ML(LIQUITEARS) OU ×4 (08:30→20:01)
[2017-03-12] MEDS: FLEET ENEMA PR ×2 (08:33→20:01)
[2017-03-12 09:21] LABS: ALBUMIN 1.6 GM/DL (3.2-5.2); ALBUMIN/GLOBULIN RATIO 0.44 (1.00-1.93); ALKALINE PHOSPHATASE 346 U/L (45-117); ALT/SGPT 33 U/L (12-78); ANION GAP 6 MEQ/L (8-16); AST/SGOT 120 U/L (7-37); BILIRUBIN,TOTAL 0.4 MG/DL (0.2-1.0); BLOOD UREA NITROGEN 56 MG/DL (7-18); CALCIUM LEVEL 7.7 MG/DL (8.8-10.2); CARBON DIOXIDE LEVEL 26 MEQ/L (21-32); CHLORIDE LEVEL 111 MEQ/L (98-107); CHOLESTEROL LEVEL 71 MG/DL (< 200); CPK CREATINE PHOSPHOKINASE 91 U/L (26-192); CREATININE FOR GFR 1.16 MG/DL (0.55-1.02); GLOMERULAR FILTRATION RATE 48.8 (>39); GLUCOSE, FASTING 188 MG/DL (83-110); LDH LACTATE DEHYDROGENASE 331 U/L (84-246); PHOSPHORUS LEVEL 3.8 MG/DL (2.5-4.9); POTASSIUM SERUM 3.8 MEQ/L (3.5-5.1); SODIUM LEVEL 143 MEQ/L (136-145); TOTAL PROTEIN 5.2 GM/DL (6.4-8.2); TRIGLYCERIDES LEVEL 436 MG/DL (<150); VANCOMYCIN LEVEL TROUGH 23.3 UG/ML (10.0-20.0)
[2017-03-12 09:42] LABS: ABG BASE EXCESS -6.3 (-2.0-2.0); ABG HCO3 20.1 MEQ/L (22.0-26.0); ABG O2 SATURATION 90.5 % (95.0-99.0); ABG PARTIAL PRESSURE O2 63.8 mmHg (75.0-100.0); ABG STANDARD HCO3 19.2 MEQ/L (22.0-26.0); ABG TOTAL CO2 21.5 MEQ/L (23.0-31.0); ABG pH (ARTERIAL) 7.278 UNITS (7.350-7.450)
[2017-03-12] MEDS: MOM 30ML SUSPENSION UDC PO (10:13)
[2017-03-12] MEDS ORDERED: VANCOMYCIN INTERMITTENT/PULSE DOSING BY CLINICAL PHARMACIST PER DOSING PROTOCOL XX (10:45)
[2017-03-12 14:40] LABS: BEDSIDE GLUCOSE 197 MG/DL (83-110)
[2017-03-12] MEDS ORDERED: AMIODARONE 150MG/3ML INJ (J0282) IVP (16:50)
[2017-03-12] MEDS ORDERED: AMIODARONE HCL 150 MG/100 ML PREMIXED BAG (NEXTERONE) As Ordered (16:54)
[2017-03-12] MEDS: AMIODARONE HCL 150 MG in APPROPRIATE DILUENT 1 EA IV (17:00)
[2017-03-12] MEDS: SODIUM ACETATE IV (17:13)
[2017-03-12] MEDS: [UNRECOGNIZED DRUG - OTHER] IV (17:13)
[2017-03-12] MEDS: SODIUM CHLORIDE IV (17:13)
[2017-03-12] MEDS: FAT EMULSION IV 20% 500 ML IV (17:13)
[2017-03-12 17:23] LABS: BEDSIDE GLUCOSE 256 MG/DL (83-110)
[2017-03-12] MEDS ORDERED: HumaLOG INSULIN (NovoLOG) PER UNIT SC (18:00)
[2017-03-12] MEDS: PANTOPRAZOLE 40MG INJ (PROTONIX) (C9113) IV (20:01)
[2017-03-12 23:48] LABS: BEDSIDE GLUCOSE 196 MG/DL (83-110)
[2017-03-13] MEDS: AMIODARONE HCL 150 MG in APPROPRIATE DILUENT 1 EA IV (02:36)
[2017-03-13] MEDS: HYDROCORTISONE 100 MG/2 ML VIAL (J1720) IV ×4 (02:36→19:37)
[2017-03-13] MEDS: metroNIDAZOLE 500 MG in APPROPRIATE DILUENT 1 EA IV ×3 (03:02→19:37)
[2017-03-13 05:30] LABS: ABG BASE EXCESS -1.3 (-2.0-2.0); ABG O2 SATURATION 93.5 % (95.0-99.0); ABG PARTIAL PRESSURE CO2 57.3 mmHg (35.0-45.0); ABG PARTIAL PRESSURE O2 74.4 mmHg (75.0-100.0); ABG STANDARD HCO3 23.3 MEQ/L (22.0-26.0); ABG TOTAL CO2 27.7 MEQ/L (23.0-31.0); ABG pH (ARTERIAL) 7.274 UNITS (7.350-7.450)
[2017-03-13] MEDS: SODIUM CHLORIDE 0.9% INJ 10 ML SYR IV ×2 (05:41→17:42)
[2017-03-13] MEDS: LEVOTHYROXINE 100 MCG (0.1MG) VIAL IV (05:41)
[2017-03-13 06:04] LABS: HEMATOCRIT 29.2 % (36.0-47.0); MEAN CORPUSCULAR HEMOGLOBIN 29.6 pg (27.0-33.0); MEAN CORPUSCULAR HGB CONC 30.8 g/dl (32.0-36.5); MEAN CORPUSCULAR VOLUME 96.1 fl (80.0-96.0); PLATELET COUNT, AUTOMATED 155 10^3/uL (150-450); RED BLOOD COUNT 3.04 10^6/uL (4.00-5.40); RED CELL DISTRIBUTION WIDTH 18.6 % (11.5-14.5); WHITE BLOOD COUNT 25.6 10^3/uL (4.0-10.0)
[2017-03-13 06:11] LABS: ADD MANUAL DIFFER YES; DIFF SLIDE NUMBER 17; POSITIVE DIFF POS FLAG; POSITIVE MORPH POS FLAG
[2017-03-13 06:27] LABS: VANCOMYCIN RANDOM 15.8 UG/ML
[2017-03-13 06:42] LABS: ALBUMIN 1.5 GM/DL (3.2-5.2); ALBUMIN/GLOBULIN RATIO 0.56 (1.00-1.93); ALKALINE PHOSPHATASE 326 U/L (45-117); ALT/SGPT 31 U/L (12-78); ANION GAP 8 MEQ/L (8-16); AST/SGOT 113 U/L (7-37); BILIRUBIN,TOTAL 0.4 MG/DL (0.2-1.0); BLOOD UREA NITROGEN 67 MG/DL (7-18); CALCIUM LEVEL 6.9 MG/DL (8.8-10.2); CARBON DIOXIDE LEVEL 27 MEQ/L (21-32); CHLORIDE LEVEL 114 MEQ/L (98-107); CHOLESTEROL LEVEL 77 MG/DL (< 200); CPK CREATINE PHOSPHOKINASE 50 U/L (26-192); CREATININE FOR GFR 1.09 MG/DL (0.55-1.02); GLOMERULAR FILTRATION RATE 52.4 (>39); GLUCOSE, FASTING 176 MG/DL (83-110); LDH LACTATE DEHYDROGENASE 356 U/L (84-246); PHOSPHORUS LEVEL 3.6 MG/DL (2.5-4.9); POTASSIUM SERUM 3.6 MEQ/L (3.5-5.1); SODIUM LEVEL 149 MEQ/L (136-145); TOTAL PROTEIN 4.2 GM/DL (6.4-8.2); TRIGLYCERIDES LEVEL 328 MG/DL (<150)
[2017-03-13 07:15] LABS: DIGOXIN LEVEL 3.5 NG/ML (0.5-2.0)
[2017-03-13 07:18] LABS: ANISOCYTOSIS 2+; BANDS 5 % (< 11); LYMPHOCYTES 3 % (16-52); MONOCYTES 8 % (0-8); NEUTROPHILS 84 % (35-75); POIKILOCYTOSIS 1+
[2017-03-13 07:19] LABS: PLATELET ESTIMATE NORMAL (NORMAL)
[2017-03-13] MEDS: HumaLOG INSULIN (NovoLOG) PER UNIT SC ×3 (07:47→17:57)
[2017-03-13] MEDS: IPRATROPIUM 0.02% SOLN 0.5MG/2.5 ML NEB INH ×2 (08:44→19:55)
[2017-03-13] MEDS: ALBUTEROL SULFATE 2.5 MG/0.5 ML INH NEB SOLN INH ×4 (08:44→19:55)
[2017-03-13] MEDS: ENOXAPARIN 30 MG/0.3 ML SYR (J1650) SC (09:47)
[2017-03-13] MEDS: VANCOMYCIN HCL 500 MG in D5W MINI-BAG PLUS 100 ML IV (09:47)
[2017-03-13] MEDS: BISACODYL 10 MG SUPP PR ×2 (09:48→21:36)
[2017-03-13] MEDS: LACTOBACILLUS ACIDOPHILUS CAP (BACID) PO ×3 (09:48→21:35)
[2017-03-13] MEDS: DOCUSATE SOD LIQ 100MG/10ML UDC NG ×2 (09:48→21:35)
[2017-03-13] MEDS: POLYVINYL ALCOHOL OPHTH SOLN 15 ML(LIQUITEARS) OU ×4 (09:48→21:36)
[2017-03-13] MEDS: MOM 30ML SUSPENSION UDC PO (09:48)
[2017-03-13] MEDS: MEROPENEM INJ 1 GM in APPROPRIATE DILUENT 1 EA IV ×2 (11:05→21:36)
[2017-03-13] MEDS: FUROSEMIDE 40 MG/4 ML VIAL (J1940) IV ×2 (11:05→22:44)
[2017-03-13 12:46] LABS: BEDSIDE GLUCOSE 268 MG/DL (83-110)
[2017-03-13 12:46] LABS: BEDSIDE GLUCOSE 252 MG/DL (83-110)
[2017-03-13] MEDS: FLEET ENEMA PR ×2 (13:10→21:00)
[2017-03-13] MEDS: FAT EMULSION IV 20% 500 ML IV (17:39)
[2017-03-13] MEDS: SODIUM CHLORIDE IV (17:42)
[2017-03-13] MEDS: [UNRECOGNIZED DRUG - OTHER] IV (17:42)
[2017-03-13] MEDS: SODIUM ACETATE IV (17:42)
[2017-03-13 18:01] LABS: BEDSIDE GLUCOSE 195 MG/DL (83-110)
[2017-03-13] MEDS: PANTOPRAZOLE 40MG INJ (PROTONIX) (C9113) IV (21:36)
[2017-03-14 00:43] LABS: BEDSIDE GLUCOSE 197 MG/DL (83-110)
[2017-03-14] MEDS: HumaLOG INSULIN (NovoLOG) PER UNIT SC ×4 (00:52→17:26)
[2017-03-14] MEDS: HYDROCORTISONE 100 MG/2 ML VIAL (J1720) IV ×4 (02:28→20:13)
[2017-03-14 04:41] LABS: HEMOGLOBIN 8.9 g/dl (12.0-16.0); MEAN CORPUSCULAR HEMOGLOBIN 28.7 pg (27.0-33.0); MEAN CORPUSCULAR HGB CONC 29.7 g/dl (32.0-36.5); MEAN CORPUSCULAR VOLUME 96.8 fl (80.0-96.0); PLATELET COUNT, AUTOMATED 117 10^3/uL (150-450); RED CELL DISTRIBUTION WIDTH 18.3 % (11.5-14.5); WHITE BLOOD COUNT 22.5 10^3/uL (4.0-10.0)
[2017-03-14] MEDS: metroNIDAZOLE 500 MG in APPROPRIATE DILUENT 1 EA IV ×3 (04:52→20:14)
[2017-03-14 05:00] LABS: ADD MANUAL DIFFER YES; DIFF SLIDE NUMBER 56; POSITIVE MORPH POS FLAG
[2017-03-14 05:13] LABS: VANCOMYCIN RANDOM 19.1 UG/ML
[2017-03-14 05:22] LABS: HYPOCHROMASIA 2+; LYMPHOCYTES 1 % (16-52); MONOCYTES 2 % (0-8); NEUTROPHILS 97 % (35-75); PLATELET ESTIMATE NORMAL (NORMAL)
[2017-03-14 05:23] LABS: ANISOCYTOSIS 2+
[2017-03-14 05:25] LABS: ALBUMIN 1.5 GM/DL (3.2-5.2); ALBUMIN/GLOBULIN RATIO 0.41 (1.00-1.93); ALKALINE PHOSPHATASE 226 U/L (45-117); ALT/SGPT 29 U/L (12-78); ANION GAP 6 MEQ/L (8-16); AST/SGOT 96 U/L (7-37); BILIRUBIN,TOTAL 0.4 MG/DL (0.2-1.0); BLOOD UREA NITROGEN 75 MG/DL (7-18); CALCIUM LEVEL 7.8 MG/DL (8.8-10.2); CARBON DIOXIDE LEVEL 33 MEQ/L (21-32); CHLORIDE LEVEL 110 MEQ/L (98-107); CHOLESTEROL LEVEL 69 MG/DL (< 200); CPK CREATINE PHOSPHOKINASE 47 U/L (26-192); CREATININE FOR GFR 1.16 MG/DL (0.55-1.02); DIGOXIN LEVEL 1.7 NG/ML (0.5-2.0); GLOMERULAR FILTRATION RATE 48.8 (>39); GLUCOSE, FASTING 195 MG/DL (83-110); LDH LACTATE DEHYDROGENASE 324 U/L (84-246); MAGNESIUM LEVEL 3.9 MG/DL (1.8-2.4); PHOSPHORUS LEVEL 3.8 MG/DL (2.5-4.9); POTASSIUM SERUM 3.1 MEQ/L (3.5-5.1); SODIUM LEVEL 149 MEQ/L (136-145); TOTAL PROTEIN 5.2 GM/DL (6.4-8.2); TRIGLYCERIDES LEVEL 283 MG/DL (<150)
[2017-03-14] MEDS: SODIUM CHLORIDE 0.9% INJ 10 ML SYR IV ×3 (06:00→22:13)
[2017-03-14] MEDS: LEVOTHYROXINE 100 MCG (0.1MG) VIAL IV (06:28)
[2017-03-14 06:40] LABS: ABG BASE EXCESS 3.9 (-2.0-2.0); ABG HCO3 31.7 MEQ/L (22.0-26.0); ABG O2 SATURATION 92.3 % (95.0-99.0); ABG PARTIAL PRESSURE O2 66.7 mmHg (75.0-100.0); ABG STANDARD HCO3 27.9 MEQ/L (22.0-26.0); ABG TOTAL CO2 33.8 MEQ/L (23.0-31.0); ABG pH (ARTERIAL) 7.288 UNITS (7.350-7.450)
[2017-03-14 06:41] LABS: BEDSIDE GLUCOSE 179 MG/DL (83-110)
[2017-03-14 06:42] LABS: ABG PARTIAL PRESSURE CO2 67.8 mmHg (35.0-45.0)
[2017-03-14] MEDS: ALBUTEROL SULFATE 2.5 MG/0.5 ML INH NEB SOLN INH ×4 (08:02→20:51)
[2017-03-14] MEDS: IPRATROPIUM 0.02% SOLN 0.5MG/2.5 ML NEB INH ×2 (08:02→20:51)
[2017-03-14] MEDS ORDERED: FUROSEMIDE 40 MG/4 ML VIAL (J1940) IV (09:00)
[2017-03-14] MEDS: LACTOBACILLUS ACIDOPHILUS CAP (BACID) PO ×3 (09:07→21:37)
[2017-03-14] MEDS: ENOXAPARIN 30 MG/0.3 ML SYR (J1650) SC (09:07)
[2017-03-14] MEDS: BISACODYL 10 MG SUPP PR ×2 (09:07→21:37)
[2017-03-14] MEDS: DOCUSATE SOD LIQ 100MG/10ML UDC NG ×2 (09:07→21:37)
[2017-03-14] MEDS: POLYVINYL ALCOHOL OPHTH SOLN 15 ML(LIQUITEARS) OU ×4 (09:08→21:37)
[2017-03-14] MEDS: MOM 30ML SUSPENSION UDC PO (09:08)
[2017-03-14] MEDS: MEROPENEM INJ 1 GM in APPROPRIATE DILUENT 1 EA IV ×2 (09:08→21:37)
[2017-03-14] MEDS: FLEET ENEMA PR ×2 (09:16→21:00)
[2017-03-14 13:34] LABS: BEDSIDE GLUCOSE 233 MG/DL (83-110)
[2017-03-14] MEDS: VANCOMYCIN HCL 500 MG in D5W MINI-BAG PLUS 100 ML IV (17:12)
[2017-03-14] MEDS ORDERED: VANCOMYCIN HCL 500 MG/10 ML VIAL (J3370) As Ordered (17:16)
[2017-03-14] MEDS: FAT EMULSION IV 20% 500 ML IV (17:19)
[2017-03-14] MEDS: SODIUM CHLORIDE IV (17:22)
[2017-03-14] MEDS: [UNRECOGNIZED DRUG - OTHER] IV (17:22)
[2017-03-14] MEDS: SODIUM ACETATE IV (17:22)
[2017-03-14] MEDS ORDERED: HumaLOG INSULIN (NovoLOG) PER UNIT SC (18:00)
[2017-03-14 18:11] LABS: BEDSIDE GLUCOSE 260 MG/DL (83-110)
[2017-03-14] MEDS: PANTOPRAZOLE 40MG INJ (PROTONIX) (C9113) IV (20:13)
[2017-03-15 00:26] LABS: BEDSIDE GLUCOSE 179 MG/DL (83-110)
[2017-03-15] MEDS: HumaLOG INSULIN (NovoLOG) PER UNIT SC ×4 (00:38→17:58)
[2017-03-15] MEDS: HYDROCORTISONE 100 MG/2 ML VIAL (J1720) IV ×4 (01:23→19:38)
[2017-03-15] MEDS: FUROSEMIDE 40 MG/4 ML VIAL (J1940) IV ×2 (01:23→10:46)
[2017-03-15] MEDS: metroNIDAZOLE 500 MG in APPROPRIATE DILUENT 1 EA IV ×3 (03:18→19:38)
[2017-03-15] MEDS: SODIUM CHLORIDE 0.9% INJ 10 ML SYR IV ×2 (05:27→17:58)
[2017-03-15] MEDS: LEVOTHYROXINE 100 MCG (0.1MG) VIAL IV (05:27)
[2017-03-15 05:37] LABS: HEMATOCRIT 28.7 % (36.0-47.0); MEAN CORPUSCULAR HEMOGLOBIN 28.6 pg (27.0-33.0); MEAN CORPUSCULAR HGB CONC 27.9 g/dl (32.0-36.5); MEAN CORPUSCULAR VOLUME 102.5 fl (80.0-96.0); PLATELET COUNT, AUTOMATED 133 10^3/uL (150-450); POSITIVE MORPH POS FLAG; RED CELL DISTRIBUTION WIDTH 18.4 % (11.5-14.5); WHITE BLOOD COUNT 24.6 10^3/uL (4.0-10.0)
[2017-03-15 05:38] LABS: ADD MANUAL DIFFER YES; DIFF SLIDE NUMBER 39
[2017-03-15 05:56] LABS: ALBUMIN 1.3 GM/DL (3.2-5.2); ALBUMIN/GLOBULIN RATIO 0.48 (1.00-1.93); ALKALINE PHOSPHATASE 162 U/L (45-117); ALT/SGPT 20 U/L (12-78); ANION GAP 3 MEQ/L (8-16); AST/SGOT 83 U/L (7-37); BILIRUBIN,TOTAL 0.4 MG/DL (0.2-1.0); BLOOD UREA NITROGEN 89 MG/DL (7-18); CALCIUM LEVEL 7.1 MG/DL (8.8-10.2); CARBON DIOXIDE LEVEL 39 MEQ/L (21-32); CHLORIDE LEVEL 111 MEQ/L (98-107); CHOLESTEROL LEVEL 73 MG/DL (< 200); CPK CREATINE PHOSPHOKINASE 67 U/L (26-192); CREATININE FOR GFR 1.37 MG/DL (0.55-1.02); GLOMERULAR FILTRATION RATE 40.2 (>39); GLUCOSE, FASTING 183 MG/DL (83-110); LDH LACTATE DEHYDROGENASE 336 U/L (84-246); PHOSPHORUS LEVEL 5.6 MG/DL (2.5-4.9); POTASSIUM SERUM 3.7 MEQ/L (3.5-5.1); SODIUM LEVEL 153 MEQ/L (136-145); TRIGLYCERIDES LEVEL 193 MG/DL (<150); VANCOMYCIN RANDOM 21.2 UG/ML
[2017-03-15 05:57] LABS: BANDS 1 % (< 11); LYMPHOCYTES 3 % (16-52); MONOCYTES 5 % (0-8); NEUTROPHILS 91 % (35-75); PLATELET ESTIMATE DECREASED (NORMAL)
[2017-03-15 05:58] LABS: HYPOCHROMASIA 2+
[2017-03-15 06:11] LABS: ABG BASE EXCESS 5.9 (-2.0-2.0); ABG HCO3 37.9 MEQ/L (22.0-26.0); ABG O2 SATURATION 90.9 % (95.0-99.0); ABG PARTIAL PRESSURE O2 69.4 mmHg (75.0-100.0); ABG STANDARD HCO3 29.7 MEQ/L (22.0-26.0); ABG TOTAL CO2 41.6 MEQ/L (23.0-31.0)
[2017-03-15 06:16] LABS: MAGNESIUM LEVEL 5.3 MG/DL (1.8-2.4)
[2017-03-15] MEDS: IPRATROPIUM 0.02% SOLN 0.5MG/2.5 ML NEB INH ×2 (07:41→19:18)
[2017-03-15] MEDS: ALBUTEROL SULFATE 2.5 MG/0.5 ML INH NEB SOLN INH ×4 (07:41→19:18)
[2017-03-15 07:46] LABS: ABG BASE EXCESS 7.3 (-2.0-2.0); ABG HCO3 38.3 MEQ/L (22.0-26.0); ABG O2 SATURATION 87.5 % (95.0-99.0); ABG PARTIAL PRESSURE O2 59.4 mmHg (75.0-100.0); ABG STANDARD HCO3 30.9 MEQ/L (22.0-26.0); ABG TOTAL CO2 41.8 MEQ/L (23.0-31.0)
[2017-03-15 07:50] LABS: ABG PARTIAL PRESSURE CO2 114.6 mmHg (35.0-45.0); ABG pH (ARTERIAL) 7.142 UNITS (7.350-7.450)
[2017-03-15] MEDS: FLEET ENEMA PR ×2 (09:00→21:43)
[2017-03-15] MEDS: LACTOBACILLUS ACIDOPHILUS CAP (BACID) PO ×3 (09:16→20:06)
[2017-03-15] MEDS: MEROPENEM INJ 1 GM in APPROPRIATE DILUENT 1 EA IV ×2 (09:16→21:43)
[2017-03-15] MEDS: DOCUSATE SOD LIQ 100MG/10ML UDC NG ×2 (09:16→20:06)
[2017-03-15] MEDS: ENOXAPARIN 30 MG/0.3 ML SYR (J1650) SC (09:17)
[2017-03-15] MEDS: POLYVINYL ALCOHOL OPHTH SOLN 15 ML(LIQUITEARS) OU ×4 (09:17→20:06)
[2017-03-15 11:42] LABS: BEDSIDE GLUCOSE 168 MG/DL (83-110)
[2017-03-15 11:42] LABS: BEDSIDE GLUCOSE 179 MG/DL (83-110)
[2017-03-15] MEDS: BISACODYL 10 MG SUPP PR (12:20)
[2017-03-15 12:46] LABS: ABG BASE EXCESS 5.4 (-2.0-2.0); ABG HCO3 37.4 MEQ/L (22.0-26.0); ABG O2 SATURATION 95.6 % (95.0-99.0); ABG PARTIAL PRESSURE O2 85.8 mmHg (75.0-100.0); ABG STANDARD HCO3 29.3 MEQ/L (22.0-26.0); ABG TOTAL CO2 41.3 MEQ/L (23.0-31.0)
[2017-03-15 12:49] LABS: ABG PARTIAL PRESSURE CO2 128.7 mmHg (35.0-45.0); ABG pH (ARTERIAL) 7.081 UNITS (7.350-7.450)
[2017-03-15] MEDS ORDERED: MIDAZOLAM INJ 2 MG/2 ML VIAL (J2250) As Ordered (13:01)
[2017-03-15 14:11] LABS: ABG BASE EXCESS 2.2 (-2.0-2.0); ABG HCO3 32.3 MEQ/L (22.0-26.0); ABG O2 SATURATION 86.6 % (95.0-99.0); ABG PARTIAL PRESSURE O2 50.9 mmHg (75.0-100.0); ABG STANDARD HCO3 26.3 MEQ/L (22.0-26.0); ABG TOTAL CO2 35.2 MEQ/L (23.0-31.0)
[2017-03-15 14:14] LABS: ABG PARTIAL PRESSURE CO2 93.8 mmHg (35.0-45.0); ABG pH (ARTERIAL) 7.155 UNITS (7.350-7.450)
[2017-03-15] MEDS: MIDAZOLAM INJ 2 MG/2 ML VIAL (J2250) IV (16:39)
[2017-03-15 16:49] LABS: ABG BASE EXCESS 2.8 (-2.0-2.0); ABG HCO3 30.5 MEQ/L (22.0-26.0); ABG O2 SATURATION 96.1 % (95.0-99.0); ABG PARTIAL PRESSURE CO2 66.8 mmHg (35.0-45.0); ABG PARTIAL PRESSURE O2 82.7 mmHg (75.0-100.0); ABG TOTAL CO2 32.5 MEQ/L (23.0-31.0); ABG pH (ARTERIAL) 7.277 UNITS (7.350-7.450)
[2017-03-15 17:55] LABS: BEDSIDE GLUCOSE 153 MG/DL (83-110)
[2017-03-15] MEDS: FUROSEMIDE 100 MG/10 ML VIAL (J1940) IV (17:58)
[2017-03-15] MEDS: FAT EMULSION IV 20% 500 ML IV (17:59)
[2017-03-15] MEDS: SODIUM CHLORIDE IV (18:00)
[2017-03-15] MEDS: [UNRECOGNIZED DRUG - OTHER] IV (18:00)
[2017-03-15] MEDS: SODIUM ACETATE IV (18:00)
[2017-03-15] MEDS: PANTOPRAZOLE 40MG INJ (PROTONIX) (C9113) IV (20:06)
[2017-03-15] MEDS: ACETAMINOPHEN TAB 650MG DOSE (2X325MG) PO (20:11)
[2017-03-15] MEDS: CHLORHEXIDINE ORAL RINSE 0.12%/15ML 120ML BOTTLE MT (21:00)
[2017-03-16 00:16] LABS: BEDSIDE GLUCOSE 197 MG/DL (83-110)
[2017-03-16] MEDS: HumaLOG INSULIN (NovoLOG) PER UNIT SC ×4 (00:16→18:04)
[2017-03-16] MEDS: BISACODYL 10 MG SUPP PR (00:16)
[2017-03-16] MEDS: HYDROCORTISONE 100 MG/2 ML VIAL (J1720) IV ×4 (02:16→20:46)
[2017-03-16] MEDS: metroNIDAZOLE 500 MG in APPROPRIATE DILUENT 1 EA IV ×3 (03:49→20:46)
[2017-03-16 05:23] LABS: HEMATOCRIT 26.2 % (36.0-47.0); HEMOGLOBIN 7.4 g/dl (12.0-16.0); MEAN CORPUSCULAR HEMOGLOBIN 28.8 pg (27.0-33.0); MEAN CORPUSCULAR HGB CONC 28.2 g/dl (32.0-36.5); MEAN CORPUSCULAR VOLUME 101.9 fl (80.0-96.0); PLATELET COUNT, AUTOMATED 148 10^3/uL (150-450); RED BLOOD COUNT 2.57 10^6/uL (4.00-5.40); RED CELL DISTRIBUTION WIDTH 18.2 % (11.5-14.5); WHITE BLOOD COUNT 28.2 10^3/uL (4.0-10.0)
[2017-03-16 05:23] LABS: BEDSIDE GLUCOSE 175 MG/DL (83-110)
[2017-03-16 05:24] LABS: ADD MANUAL DIFFER YES; DIFF SLIDE NUMBER 60; POS COUNT POS FLAG; POSITIVE MORPH POS FLAG
[2017-03-16 05:32] LABS: ABG HCO3 26.5 MEQ/L (22.0-26.0); ABG O2 SATURATION 91.3 % (95.0-99.0); ABG PARTIAL PRESSURE O2 68.6 mmHg (75.0-100.0); ABG STANDARD HCO3 23.6 MEQ/L (22.0-26.0); ABG TOTAL CO2 28.4 MEQ/L (23.0-31.0); ABG pH (ARTERIAL) 7.253 UNITS (7.350-7.450)
[2017-03-16 05:33] LABS: ABG PARTIAL PRESSURE CO2 61.4 mmHg (35.0-45.0)
[2017-03-16 05:45] LABS: BANDS 2 % (< 11); GIANT PLATELETS 1+; LYMPHOCYTES 1 % (16-52); MONOCYTES 7 % (0-8); NEUTROPHILS 90 % (35-75); PLATELET ESTIMATE NORMAL (NORMAL)
[2017-03-16 05:46] LABS: HYPOCHROMASIA 2+
[2017-03-16 05:47] LABS: ANISOCYTOSIS 2+
[2017-03-16] MEDS: SODIUM CHLORIDE 0.9% INJ 10 ML SYR IV ×2 (05:51→18:05)
[2017-03-16] MEDS: LEVOTHYROXINE 100 MCG (0.1MG) VIAL IV (05:52)
[2017-03-16 05:58] LABS: ALBUMIN 1.3 GM/DL (3.2-5.2); ALBUMIN/GLOBULIN RATIO 0.48 (1.00-1.93); ALKALINE PHOSPHATASE 135 U/L (45-117); ALT/SGPT 18 U/L (12-78); ANION GAP 7 MEQ/L (8-16); AST/SGOT 111 U/L (7-37); BILIRUBIN,TOTAL 0.5 MG/DL (0.2-1.0); BLOOD UREA NITROGEN 111 MG/DL (7-18); CALCIUM LEVEL 7.5 MG/DL (8.8-10.2); CARBON DIOXIDE LEVEL 32 MEQ/L (21-32); CHLORIDE LEVEL 109 MEQ/L (98-107); CHOLESTEROL LEVEL 74 MG/DL (< 200); CREATININE FOR GFR 1.95 MG/DL (0.55-1.02); GLOMERULAR FILTRATION RATE 26.8 (>39); GLUCOSE, FASTING 173 MG/DL (83-110); LDH LACTATE DEHYDROGENASE 371 U/L (84-246); PHOSPHORUS LEVEL 4.8 MG/DL (2.5-4.9); POTASSIUM SERUM 4.1 MEQ/L (3.5-5.1); SODIUM LEVEL 148 MEQ/L (136-145); TRIGLYCERIDES LEVEL 192 MG/DL (<150); VANCOMYCIN RANDOM 17.7 UG/ML
[2017-03-16 06:22] LABS: CPK CREATINE PHOSPHOKINASE 355 U/L (26-192)
[2017-03-16] MEDS: ALBUTEROL SULFATE 2.5 MG/0.5 ML INH NEB SOLN INH ×4 (07:15→19:38)
[2017-03-16] MEDS: IPRATROPIUM 0.02% SOLN 0.5MG/2.5 ML NEB INH ×2 (07:15→19:38)
[2017-03-16] MEDS: MEROPENEM INJ 1 GM in APPROPRIATE DILUENT 1 EA IV ×2 (08:08→21:50)
[2017-03-16] MEDS: LACTOBACILLUS ACIDOPHILUS CAP (BACID) PO ×3 (08:09→20:47)
[2017-03-16] MEDS: CHLORHEXIDINE ORAL RINSE 0.12%/15ML 120ML BOTTLE MT ×2 (08:09→20:46)
[2017-03-16] MEDS: POLYVINYL ALCOHOL OPHTH SOLN 15 ML(LIQUITEARS) OU ×4 (08:09→20:46)
[2017-03-16] MEDS: ENOXAPARIN 30 MG/0.3 ML SYR (J1650) SC (08:09)
[2017-03-16] MEDS: DOCUSATE SOD LIQ 100MG/10ML UDC NG ×2 (08:09→20:46)
[2017-03-16] MEDS: VANCOMYCIN HCL 500 MG in D5W MINI-BAG PLUS 100 ML IV (08:57)
[2017-03-16] MEDS: FUROSEMIDE 40 MG/4 ML VIAL (J1940) IV (10:34)
[2017-03-16 10:35] LABS: ABG BASE EXCESS 1.1 (-2.0-2.0); ABG HCO3 28.5 MEQ/L (22.0-26.0); ABG O2 SATURATION 95.3 % (95.0-99.0); ABG PARTIAL PRESSURE O2 81.7 mmHg (75.0-100.0); ABG STANDARD HCO3 25.4 MEQ/L (22.0-26.0); ABG TOTAL CO2 30.4 MEQ/L (23.0-31.0); ABG pH (ARTERIAL) 7.268 UNITS (7.350-7.450)
[2017-03-16 10:41] LABS: ABG PARTIAL PRESSURE CO2 63.7 mmHg (35.0-45.0)
[2017-03-16 11:10] LABS: AMORPHOUS SEDIMENT SMALL (NEGATIVE); APPEARANCE, URINE CLOUDY (CLEAR); BACTERIA, URINE AUTO 1+ (NEGATIVE); BILIRUBIN, URINE AUTO NEGATIVE (NEGATIVE); BLOOD, URINE BLOOD 2+ (NEGATIVE); COLOR, URINE AMBER (YELLOW); GLUCOSE, URINE (UA) AUTO 1+ mg/dL (NEGATIVE); KETONE, URINE AUTO NEGATIVE (NEGATIVE); LEUKOCYTE ESTERASE, URINE AUTO 1+ (NEGATIVE); MUCUS, URINE SMALL (NEGATIVE); NITRITE, URINE AUTO NEGATIVE (NEGATIVE); PROTEIN, URINE AUTO 1+ mg/dL (NEGATIVE); RBC, URINE AUTO 10 /HPF (0-3); SPECIFIC GRAVITY URINE AUTO 1.014 (1.002-1.035); SQUAMOUS EPITHELIAL CELL UR AU 1 /HPF (0-6); TRANSITIONAL EPITHELIAL AUTO 2 /HPF; WBC, URINE AUTO 13 /HPF (0-3)
[2017-03-16 11:57] LABS: BEDSIDE GLUCOSE 237 MG/DL (83-110)
[2017-03-16 18:01] LABS: BEDSIDE GLUCOSE 195 MG/DL (83-110)
[2017-03-16] MEDS: FAT EMULSION IV 20% 500 ML IV (18:03)
[2017-03-16] MEDS: SODIUM CHLORIDE IV (18:04)
[2017-03-16] MEDS: SODIUM ACETATE IV (18:04)
[2017-03-16] MEDS: [UNRECOGNIZED DRUG - OTHER] IV (18:04)
[2017-03-16] MEDS: PANTOPRAZOLE 40MG INJ (PROTONIX) (C9113) IV (20:47)
[2017-03-17 00:10] LABS: BEDSIDE GLUCOSE 168 MG/DL (83-110)
[2017-03-17] MEDS: HumaLOG INSULIN (NovoLOG) PER UNIT SC ×4 (00:15→17:36)
[2017-03-17] MEDS: HYDROCORTISONE 100 MG/2 ML VIAL (J1720) IV ×4 (01:41→20:46)
[2017-03-17] MEDS: MIDAZOLAM INJ 2 MG/2 ML VIAL (J2250) IV ×2 (01:41→13:01)
[2017-03-17 05:30] LABS: HEMATOCRIT 23.7 % (36.0-47.0); MEAN CORPUSCULAR HEMOGLOBIN 28.8 pg (27.0-33.0); MEAN CORPUSCULAR HGB CONC 29.1 g/dl (32.0-36.5); MEAN CORPUSCULAR VOLUME 98.8 fl (80.0-96.0); PLATELET COUNT, AUTOMATED 146 10^3/uL (150-450); RED CELL DISTRIBUTION WIDTH 17.6 % (11.5-14.5); WHITE BLOOD COUNT 27.5 10^3/uL (4.0-10.0)
[2017-03-17 05:44] LABS: ADD MANUAL DIFFER YES; DIFF SLIDE NUMBER 25; HEMOGLOBIN 6.9 g/dl (12.0-16.0); POS COUNT POS FLAG; POSITIVE MORPH POS FLAG
[2017-03-17] MEDS: SODIUM CHLORIDE 0.9% INJ 10 ML SYR IV ×2 (05:52→17:26)
[2017-03-17] MEDS: LEVOTHYROXINE 100 MCG (0.1MG) VIAL IV (05:52)
[2017-03-17] MEDS: metroNIDAZOLE 500 MG in APPROPRIATE DILUENT 1 EA IV ×3 (05:52→21:59)
[2017-03-17 05:58] LABS: ABG HCO3 24.6 MEQ/L (22.0-26.0); ABG O2 SATURATION 98.7 % (95.0-99.0); ABG PARTIAL PRESSURE CO2 46.2 mmHg (35.0-45.0); ABG PARTIAL PRESSURE O2 134.4 mmHg (75.0-100.0); ABG STANDARD HCO3 23.6 MEQ/L (22.0-26.0); ABG TOTAL CO2 26.1 MEQ/L (23.0-31.0); ABG pH (ARTERIAL) 7.345 UNITS (7.350-7.450)
[2017-03-17 06:32] LABS: BANDS 4 % (< 11); LYMPHOCYTES 2 % (16-52); METAMYELOCYTES 2 % (0-0); MYELOCYTES 1 % (0-0); NEUTROPHILS 91 % (35-75)
[2017-03-17 06:33] LABS: GIANT PLATELETS 1+; PLATELET ESTIMATE NORMAL (NORMAL)
[2017-03-17 06:34] LABS: ANISOCYTOSIS 2+; POLYCHROMASIA 1+
[2017-03-17 06:35] LABS: HYPOCHROMASIA 1+
[2017-03-17 07:06] LABS: ALBUMIN 1.1 GM/DL (3.2-5.2); ALBUMIN/GLOBULIN RATIO 0.38 (1.00-1.93); ALKALINE PHOSPHATASE 111 U/L (45-117); ALT/SGPT 16 U/L (12-78); ANION GAP 10 MEQ/L (8-16); AST/SGOT 106 U/L (7-37); BILIRUBIN,TOTAL 0.5 MG/DL (0.2-1.0); BLOOD UREA NITROGEN 137 MG/DL (7-18); CALCIUM LEVEL 6.9 MG/DL (8.8-10.2); CARBON DIOXIDE LEVEL 28 MEQ/L (21-32); CHLORIDE LEVEL 105 MEQ/L (98-107); CHOLESTEROL LEVEL 69 MG/DL (< 200); CPK CREATINE PHOSPHOKINASE 238 U/L (26-192); CREATININE FOR GFR 2.32 MG/DL (0.55-1.02); GLOMERULAR FILTRATION RATE 21.9 (>39); GLUCOSE, FASTING 154 MG/DL (83-110); LDH LACTATE DEHYDROGENASE 361 U/L (84-246); PHOSPHORUS LEVEL 3.6 MG/DL (2.5-4.9); POTASSIUM SERUM 3.6 MEQ/L (3.5-5.1); SODIUM LEVEL 143 MEQ/L (136-145); TRIGLYCERIDES LEVEL 206 MG/DL (<150); VANCOMYCIN RANDOM 21.6 UG/ML
[2017-03-17 07:12] LABS: MAGNESIUM LEVEL 5.8 MG/DL (1.8-2.4)
[2017-03-17] MEDS: ALBUTEROL SULFATE 2.5 MG/0.5 ML INH NEB SOLN INH ×4 (08:23→19:37)
[2017-03-17] MEDS: IPRATROPIUM 0.02% SOLN 0.5MG/2.5 ML NEB INH ×2 (08:24→19:37)
[2017-03-17] MEDS: LACTULOSE 20 GM/30 ML SYRUP UD PO (09:17)
[2017-03-17] MEDS: BISACODYL 10 MG SUPP PR (09:17)
[2017-03-17] MEDS: MEROPENEM INJ 1 GM in APPROPRIATE DILUENT 1 EA IV (09:17)
[2017-03-17] MEDS: DOCUSATE SOD LIQ 100MG/10ML UDC NG ×2 (09:17→20:46)
[2017-03-17] MEDS: CHLORHEXIDINE ORAL RINSE 0.12%/15ML 120ML BOTTLE MT ×2 (09:17→20:46)
[2017-03-17] MEDS: POLYVINYL ALCOHOL OPHTH SOLN 15 ML(LIQUITEARS) OU ×4 (09:18→20:47)
[2017-03-17] MEDS: LACTOBACILLUS ACIDOPHILUS CAP (BACID) PO ×3 (09:18→20:46)
[2017-03-17] MEDS: ENOXAPARIN 30 MG/0.3 ML SYR (J1650) SC (10:49)
[2017-03-17 17:01] LABS: IMMEDIATE SPIN CROSSMATCH 1 2
[2017-03-17] MEDS: SODIUM ACETATE IV (17:26)
[2017-03-17] MEDS: SODIUM CHLORIDE IV (17:26)
[2017-03-17] MEDS: [UNRECOGNIZED DRUG - OTHER] IV (17:26)
[2017-03-17] MEDS: FAT EMULSION IV 20% 500 ML IV (17:26)
[2017-03-17] MEDS: FUROSEMIDE 100 MG/10 ML VIAL (J1940) IV (18:22)
[2017-03-17] MEDS: CHLOROTHIAZIDE 500 MG VIAL (J1205) IV (18:31)
[2017-03-17] MEDS: MEROPENEM INJ 500 MG in APPROPRIATE DILUENT 1 EA IV (20:44)
[2017-03-17] MEDS: PANTOPRAZOLE 40MG INJ (PROTONIX) (C9113) IV (20:46)
[2017-03-17] MEDS ORDERED: VANCOMYCIN HCL 1,000 MG, VIAL MATE ADAPTER 1 EACH in D5W 250 ML IV (23:00)
[2017-03-18] MEDS: HumaLOG INSULIN (NovoLOG) PER UNIT SC ×4 (00:24→18:30)
[2017-03-18 00:26] LABS: BEDSIDE GLUCOSE 213 MG/DL (83-110)
[2017-03-18] MEDS: HYDROCORTISONE 100 MG/2 ML VIAL (J1720) IV ×4 (02:04→19:33)
[2017-03-18] MEDS: metroNIDAZOLE 500 MG in APPROPRIATE DILUENT 1 EA IV ×3 (05:25→19:33)
[2017-03-18 05:37] LABS: ABG pH (ARTERIAL) 7.135 UNITS (7.350-7.450)
[2017-03-18 05:38] LABS: ABG BASE EXCESS -6.9 (-2.0-2.0); ABG HCO3 22.9 MEQ/L (22.0-26.0); ABG O2 SATURATION 93.9 % (95.0-99.0); ABG PARTIAL PRESSURE CO2 69.5 mmHg (35.0-45.0); ABG PARTIAL PRESSURE O2 79.4 mmHg (75.0-100.0); ABG STANDARD HCO3 18.8 MEQ/L (22.0-26.0)
[2017-03-18 05:50] LABS: HEMATOCRIT 33.9 % (36.0-47.0); HEMOGLOBIN 10.4 g/dl (12.0-16.0); MEAN CORPUSCULAR HEMOGLOBIN 28.9 pg (27.0-33.0); MEAN CORPUSCULAR HGB CONC 30.7 g/dl (32.0-36.5); MEAN CORPUSCULAR VOLUME 94.2 fl (80.0-96.0); PLATELET COUNT, AUTOMATED 133 10^3/uL (150-450); POS COUNT POS FLAG; POSITIVE MORPH POS FLAG; RED CELL DISTRIBUTION WIDTH 18.4 % (11.5-14.5); WHITE BLOOD COUNT 28.3 10^3/uL (4.0-10.0)
[2017-03-18 05:51] LABS: ADD MANUAL DIFFER YES; DIFF SLIDE NUMBER 12
[2017-03-18] MEDS: SODIUM CHLORIDE 0.9% INJ 10 ML SYR IV ×2 (06:00→18:11)
[2017-03-18 06:14] LABS: BANDS 7 % (< 11); LYMPHOCYTES 4 % (16-52); METAMYELOCYTES 5 % (0-0); MONOCYTES 2 % (0-8); MYELOCYTES 8 % (0-0); NEUTROPHILS 74 % (35-75)
[2017-03-18 06:15] LABS: ANISOCYTOSIS 1+; PLATELET CLUMPS SMALL AMT; PLATELET ESTIMATE NORMAL (NORMAL); POIKILOCYTOSIS 1+; POLYCHROMASIA 1+
[2017-03-18 06:16] LABS: ALBUMIN 1.3 GM/DL (3.2-5.2); ALBUMIN/GLOBULIN RATIO 0.41 (1.00-1.93); ALKALINE PHOSPHATASE 134 U/L (45-117); ALT/SGPT 15 U/L (12-78); ANION GAP 11 MEQ/L (8-16); AST/SGOT 96 U/L (7-37); BILIRUBIN,TOTAL 0.7 MG/DL (0.2-1.0); CALCIUM LEVEL 7.1 MG/DL (8.8-10.2); CARBON DIOXIDE LEVEL 26 MEQ/L (21-32); CHLORIDE LEVEL 104 MEQ/L (98-107); CHOLESTEROL LEVEL 78 MG/DL (< 200); CPK CREATINE PHOSPHOKINASE 201 U/L (26-192); CREATININE FOR GFR 2.55 MG/DL (0.55-1.02); GLOMERULAR FILTRATION RATE 19.6 (>39); GLUCOSE, FASTING 187 MG/DL (83-110); LDH LACTATE DEHYDROGENASE 475 U/L (84-246); POTASSIUM SERUM 3.5 MEQ/L (3.5-5.1); SODIUM LEVEL 141 MEQ/L (136-145); TOTAL PROTEIN 4.5 GM/DL (6.4-8.2); TRIGLYCERIDES LEVEL 303 MG/DL (<150); VANCOMYCIN RANDOM 15.8 UG/ML
[2017-03-18 06:24] LABS: BEDSIDE GLUCOSE 178 MG/DL (83-110)
[2017-03-18] MEDS: LEVOTHYROXINE 100 MCG (0.1MG) VIAL IV (06:28)
[2017-03-18] MEDS: MEROPENEM INJ 500 MG in APPROPRIATE DILUENT 1 EA IV ×2 (06:28→18:10)
[2017-03-18 06:31] LABS: BLOOD UREA NITROGEN 152 MG/DL (7-18); MAGNESIUM LEVEL 5.2 MG/DL (1.8-2.4); PHOSPHORUS LEVEL 5.2 MG/DL (2.5-4.9)
[2017-03-18] MEDS: VANCOMYCIN HCL 500 MG in D5W MINI-BAG PLUS 100 ML IV (07:44)
[2017-03-18] MEDS: ALBUTEROL SULFATE 2.5 MG/0.5 ML INH NEB SOLN INH ×4 (08:22→19:20)
[2017-03-18] MEDS: IPRATROPIUM 0.02% SOLN 0.5MG/2.5 ML NEB INH ×2 (08:22→19:20)
[2017-03-18] MEDS: BISACODYL 10 MG SUPP PR (09:00)
[2017-03-18] MEDS: POLYVINYL ALCOHOL OPHTH SOLN 15 ML(LIQUITEARS) OU ×4 (09:24→20:37)
[2017-03-18] MEDS: DOCUSATE SOD LIQ 100MG/10ML UDC NG (09:24)
[2017-03-18] MEDS: ENOXAPARIN 30 MG/0.3 ML SYR (J1650) SC (09:24)
[2017-03-18] MEDS: LACTOBACILLUS ACIDOPHILUS CAP (BACID) PO ×3 (09:24→20:37)
[2017-03-18] MEDS: LACTULOSE 20 GM/30 ML SYRUP UD PO (09:24)
[2017-03-18] MEDS: CHLORHEXIDINE ORAL RINSE 0.12%/15ML 120ML BOTTLE MT ×2 (09:24→20:37)
[2017-03-18 12:06] LABS: ABG BASE EXCESS -7.2 (-2.0-2.0); ABG HCO3 21.9 MEQ/L (22.0-26.0); ABG O2 SATURATION 98.9 % (95.0-99.0); ABG PARTIAL PRESSURE O2 157.7 mmHg (75.0-100.0); ABG STANDARD HCO3 18.6 MEQ/L (22.0-26.0); ABG TOTAL CO2 23.8 MEQ/L (23.0-31.0)
[2017-03-18 12:09] LABS: ABG PARTIAL PRESSURE CO2 62.8 mmHg (35.0-45.0)
[2017-03-18 13:22] LABS: ABG BASE EXCESS -8.3 (-2.0-2.0); ABG HCO3 23.3 MEQ/L (22.0-26.0); ABG PARTIAL PRESSURE O2 93.8 mmHg (75.0-100.0); ABG STANDARD HCO3 17.8 MEQ/L (22.0-26.0); ABG TOTAL CO2 25.9 MEQ/L (23.0-31.0)
[2017-03-18 13:24] LABS: ABG pH (ARTERIAL) 7.056 UNITS (7.350-7.450)
[2017-03-18 13:25] LABS: ABG PARTIAL PRESSURE CO2 84.8 mmHg (35.0-45.0)
[2017-03-18] MEDS: MORPHINE 2 MG/ML 1ML SYRINGE IV ×2 (13:36→21:17)
[2017-03-18] MEDS: metOLazone 5 MG TAB PO (14:37)
[2017-03-18] MEDS: FUROSEMIDE 100 MG/10 ML VIAL (J1940) IV (14:37)
[2017-03-18 14:42] LABS: BEDSIDE GLUCOSE 192 MG/DL (83-110)
[2017-03-18 14:42] LABS: BEDSIDE GLUCOSE 204 MG/DL (83-110)
[2017-03-18 14:42] LABS: BEDSIDE GLUCOSE 153 MG/DL (83-110)
[2017-03-18] MEDS: FAT EMULSION IV 20% 500 ML IV (18:29)
[2017-03-18] MEDS: [UNRECOGNIZED DRUG - OTHER] IV (18:30)
[2017-03-18] MEDS: SODIUM CHLORIDE IV (18:30)
[2017-03-18] MEDS: SODIUM ACETATE IV (18:30)
[2017-03-18] MEDS: SANTYL OINT 30GM TOP (18:33)
[2017-03-18] MEDS: PANTOPRAZOLE 40MG INJ (PROTONIX) (C9113) IV (20:37)
[2017-03-18] MEDS ORDERED: DOCUSATE SOD LIQ 100MG/10ML UDC NG (21:00)
[2017-03-19 00:12] LABS: BEDSIDE GLUCOSE 206 MG/DL (83-110)
[2017-03-19] MEDS: HumaLOG INSULIN (NovoLOG) PER UNIT SC ×4 (00:12→17:49)
[2017-03-19] MEDS: HYDROCORTISONE 100 MG/2 ML VIAL (J1720) IV ×4 (01:31→21:01)
[2017-03-19] MEDS: metroNIDAZOLE 500 MG in APPROPRIATE DILUENT 1 EA IV ×3 (03:40→21:01)
[2017-03-19] MEDS ORDERED: NOREPINEPHRINE 4 MG/4 ML AMP As Ordered (04:10)
[2017-03-19] MEDS: NOREPINEPHRINE BITARTRATE 8 MG in D5W 492 ML IV ×5 (04:15→22:14)
[2017-03-19 04:31] LABS: HEMATOCRIT 33.5 % (36.0-47.0); MEAN CORPUSCULAR HEMOGLOBIN 29.2 pg (27.0-33.0); MEAN CORPUSCULAR HGB CONC 29.9 g/dl (32.0-36.5); MEAN CORPUSCULAR VOLUME 97.7 fl (80.0-96.0); PLATELET COUNT, AUTOMATED 112 10^3/uL (150-450); RED BLOOD COUNT 3.43 10^6/uL (4.00-5.40); RED CELL DISTRIBUTION WIDTH 19.3 % (11.5-14.5); WHITE BLOOD COUNT 19.6 10^3/uL (4.0-10.0)
[2017-03-19 04:32] LABS: POS COUNT POS FLAG; POSITIVE MORPH POS FLAG
[2017-03-19 04:56] LABS: ANION GAP 12 MEQ/L (8-16); BLOOD UREA NITROGEN 167 MG/DL (7-18); CARBON DIOXIDE LEVEL 24 MEQ/L (21-32); CHLORIDE LEVEL 103 MEQ/L (98-107); CREATININE FOR GFR 2.82 MG/DL (0.55-1.02); GLOMERULAR FILTRATION RATE 17.5 (>39); GLUCOSE, FASTING 211 MG/DL (83-110); POTASSIUM SERUM 3.9 MEQ/L (3.5-5.1); SODIUM LEVEL 139 MEQ/L (136-145)
[2017-03-19] MEDS: SODIUM CHLORIDE 0.9% INJ 10 ML SYR IV ×2 (05:27→18:00)
[2017-03-19] MEDS: MEROPENEM INJ 500 MG in APPROPRIATE DILUENT 1 EA IV ×2 (05:27→17:48)
[2017-03-19] MEDS: LEVOTHYROXINE 100 MCG (0.1MG) VIAL IV (05:28)
[2017-03-19 08:24] LABS: ABG BASE EXCESS -14.6 (-2.0-2.0); ABG HCO3 17.7 MEQ/L (22.0-26.0); ABG O2 SATURATION 93.3 % (95.0-99.0); ABG PARTIAL PRESSURE O2 74.3 mmHg (75.0-100.0); ABG STANDARD HCO3 13.2 MEQ/L (22.0-26.0); ABG TOTAL CO2 20.1 MEQ/L (23.0-31.0)
[2017-03-19 08:27] LABS: ABG PARTIAL PRESSURE CO2 76.3 mmHg (35.0-45.0); ABG pH (ARTERIAL) 6.984 UNITS (7.350-7.450)
[2017-03-19] MEDS: LACTOBACILLUS ACIDOPHILUS CAP (BACID) PO ×3 (08:30→21:02)
[2017-03-19] MEDS: ACETAMINOPHEN TAB 650MG DOSE (2X325MG) PO (08:30)
[2017-03-19] MEDS: CHLORHEXIDINE ORAL RINSE 0.12%/15ML 120ML BOTTLE MT ×2 (08:31→21:02)
[2017-03-19] MEDS: SANTYL OINT 30GM TOP (08:31)
[2017-03-19] MEDS: ENOXAPARIN 30 MG/0.3 ML SYR (J1650) SC (08:31)
[2017-03-19] MEDS: POLYVINYL ALCOHOL OPHTH SOLN 15 ML(LIQUITEARS) OU ×4 (08:32→21:02)
[2017-03-19] MEDS: ALBUTEROL SULFATE 2.5 MG/0.5 ML INH NEB SOLN INH ×4 (09:04→19:18)
[2017-03-19] MEDS: IPRATROPIUM 0.02% SOLN 0.5MG/2.5 ML NEB INH ×2 (09:04→19:18)
[2017-03-19 11:01] LABS: ALBUMIN 1.1 GM/DL (3.2-5.2); ALBUMIN/GLOBULIN RATIO 0.38 (1.00-1.93); ALKALINE PHOSPHATASE 154 U/L (45-117); AST/SGOT 80 U/L (7-37); BILIRUBIN,TOTAL 0.7 MG/DL (0.2-1.0)
[2017-03-19 11:10] LABS: ALT/SGPT 13 U/L (12-78)
[2017-03-19 11:47] LABS: BEDSIDE GLUCOSE 204 MG/DL (83-110)
[2017-03-19] MEDS: AMINO ACID/ DEXTROSE 2,000 ML IV (17:49)
[2017-03-19] MEDS: FAT EMULSION IV 20% 500 ML IV (17:49)
[2017-03-19] MEDS: PANTOPRAZOLE 40MG INJ (PROTONIX) (C9113) IV (21:02)
[2017-03-20] MEDS: HumaLOG INSULIN (NovoLOG) PER UNIT SC (00:43)
[2017-03-20 15:58] LABS: BEDSIDE GLUCOSE 280 MG/DL (83-110)
[2017-03-23 09:15] LABS: BEDSIDE GLUCOSE 228 MG/DL (83-110)
== END 2017-03-19 23:34 | disposition expired | DRG 871 ==
LOC: M ED 11:52 → M ED INP 17:31 → M ICU 18:58
PROC: 0BH18EZ Insertion of Endotracheal Airway into Trachea, Via Natural or Artificial Opening Endoscopic (ICD-10-PCS; 2017-03-15)
PROC: 30233N1 Transfusion of Nonautologous Red Blood Cells into Peripheral Vein, Percutaneous Approach (ICD-10-PCS; principal; 2017-03-17)
DX: A41.9 Sepsis, unspecified organism (principal); J96.21 Acute and chronic respiratory failure with hypoxia; J96.22 Acute and chronic respiratory failure with hypercapnia; E43 Unspecified severe protein-calorie malnutrition; N17.0 Acute kidney failure with tubular necrosis; E87.0 Hyperosmolality and hypernatremia; N39.0 Urinary tract infection, site not specified; I50.32 Chronic diastolic (congestive) heart failure; K56.609 Unspecified intestinal obstruction, unspecified as to partial versus complete obstruction; E87.2 Acidosis; I13.0 Hypertensive heart and chronic kidney disease with heart failure and stage 1 through stage 4 chronic kidney disease, or unspecified chronic kidney disease; Z66 Do not resuscitate; B95.1 Streptococcus, group B, as the cause of diseases classified elsewhere; B96.1 Klebsiella pneumoniae [K. pneumoniae] as the cause of diseases classified elsewhere; B97.29 Other coronavirus as the cause of diseases classified elsewhere; R57.0 Cardiogenic shock; J43.9 Emphysema, unspecified; E83.41 Hypermagnesemia; Z79.52 Long term (current) use of systemic steroids; I48.0 Paroxysmal atrial fibrillation; L89.810 Pressure ulcer of head, unstageable; I25.10 Atherosclerotic heart disease of native coronary artery without angina pectoris; K21.9 Gastro-esophageal reflux disease without esophagitis; N18.3 Chronic kidney disease, stage 3 (moderate); E78.5 Hyperlipidemia, unspecified; M06.9 Rheumatoid arthritis, unspecified; I73.9 Peripheral vascular disease, unspecified; I70.1 Atherosclerosis of renal artery; E03.9 Hypothyroidism, unspecified; D64.9 Anemia, unspecified; D69.6 Thrombocytopenia, unspecified; E87.6 Hypokalemia